=== PATIENT | male | born 1960 | race Caucasian/White ===

== ENCOUNTER 2019-11-17 07:27 | Day surgery (SDC) | payer BC, SELFPAY ==
[2019-11-14 09:17] VITALS: BMI 32.3
--- NOTE | 2019-11-14 10:30 | P.CONAN_ITS ---
Documented by User: Fanny Waddell 11/16/19 10:42 HPI - Anesthesia Eval Consult details Narrative: 59yo M for EGD [facility] Past Medical History Medical History Family history of cancer of GI tract Heartburn Hyperlipidemia Hypertension Sleep apnea Surgical History Surgical History History of esophagogastroduodenoscopy (EGD) Hx of adenoidectomy Hx of colonoscopy Hx of elbow surgery Hx of knee surgery Hx of repair of rotator cuff Hx of tonsillectomy Social History Social History Smoking Status: Current some day smoker Smoked in Last 30 Days: Yes Use of substances other than those prescribed or required for medical reasons: No Advance Directives: No Advance Directives Information Provided: No Advance Directives on File: No Meds Allergies Allergy/AdvReac Type Severity Reaction Status Date / Time No Known Allergies Allergy Unverified 10/26/19 15:19 [No Known Allergies*] Home Medications Medication Instructions Recorded Confirmed Type aspirin 81 mg PO DAILY 11/10/19 11/10/19 History atorvastatin 10 mg PO BEDTIME 11/10/19 11/10/19 History ibuprofen [Motrin] 400 mg PO Q6H PRN 11/10/19 11/10/19 History losartan 1 tab PO DAILY 11/14/19 11/14/19 History Exam Exam Date and Time: November 14, 2019 1030 Height,Weight and Vital Signs: Height 5 ft 6 in Weight 90.718 kg Pertinent Lab Results Pertinent Lab Results: Laboratory Tests 06/22/19 10/20/19 07:38 11:20 WBC 6.3 Hgb 15.3 Hct 45.9 Plt Count 193 Sodium 140 Potassium 4.3 Chloride 105 BUN 13 Creatinine 1.04 Assessment and Plan Assessment Anesthesia Assessment: Chart Reviewed Documented by User: Agatha Zarate 11/17/19 08:27 [facility] Past Medical History Medical History Family history of cancer of GI tract Heartburn Hyperlipidemia Hypertension Sleep apnea Family History Family history of problems with anesthesia: No Surgical History Surgical History History of esophagogastroduodenoscopy (EGD) Hx of adenoidectomy Hx of colonoscopy Hx of elbow surgery Hx of knee surgery Hx of repair of rotator cuff Hx of tonsillectomy History of Problems with Anesthesia: No Social History Social History Smoking Status: Current some day smoker Smoked in Last 30 Days: Yes Use of substances other than those prescribed or required for medical reasons: No Advance Directives: No Advance Directives Information Provided: No Advance Directives on File: No Meds Allergies Allergy/AdvReac Type Severity Reaction Status Date / Time No Known Allergies Allergy Unverified 10/26/19 15:19 [No Known Allergies*] Home Medications Medication Instructions Recorded Confirmed Type aspirin 81 mg PO DAILY 11/10/19 11/10/19 History atorvastatin 10 mg PO BEDTIME 11/10/19 11/10/19 History ibuprofen [Motrin] 400 mg PO Q6H PRN 11/10/19 11/10/19 History losartan 1 tab PO DAILY 11/14/19 11/14/19 History Exam Height,Weight and Vital Signs: Vital Signs Temp Pulse Resp Pulse Ox 11/17/19 07:50 97.1 F 73 16 97 Airway Mallampati Class: II TM Dist: >3cm Neck ROM: Full Loose/Missing/Broken Teeth: No Heart: RRR Lungs: CTAB Assessment and Plan Assessment Anesthesia Assessment: Anesthesia Plan Discussed and Chart Reviewed Final Anesthetic Review NPO: Yes ASA Class: III Final Preanesthetic Review: No Changes in Pt Med Stat, Meds/Allgs Chart Reviewed, Consent Obtained/Reviewed and Anes Risks/Benef Reviewed Patient Risk: Intermediate Procedure Risk: Low Anesthetic Plan Anesthetic Plan: MAC: Disposition: Standard PACU
[2019-11-17 07:50] VITALS: PULSE 73; RESP 16; TEMP 36.2; O2SAT 97
[2019-11-17 08:31] VITALS: BP 144/79
--- NOTE | 2019-11-17 08:35 | P.HPSUR_ITS ---
Pre-Procedural Eval Section B Chief Complaint: EGD Details of Present Illness: screening, see H&P Relevant Family History (Specify if Yes): Yes Relevant Social History: None Present Medications: see Short Stay Collaborative assessment Medical History: Significant History (see H&P) Allergies: Allergies Allergy/AdvReac Type Severity Reaction Status Date / Time No Known Allergies Allergy Unverified 10/26/19 15:19 [No Known Allergies*] Review of Systems Sugical H&P ROS: Negative: Constitution, Cardiovascular, Respiratory, Neurological, Psychiatric, Hem-Onc, Allergic/Immunologic, Gastrointestinal, Genitourinary, Musculoskeletal, Integumentary, Endocrine and Eyes/Ears/Nose/T hroat Exam Surgical H&P Exam: Normal: HEENT, Normal: Heart, Normal: Lungs, Normal: Extremities, Normal: Abdomen, Normal: Skin and Normal: Neurological Plan Diagnosis/Plan: Unchanged Patient has been examined and remains a candidate for the planned procedure
--- NOTE | 2019-11-17 09:03 | PM.OP ---
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
[2019-11-17 09:07] VITALS: BP 121/72; PULSE 77; RESP 12; TEMP 36.4; O2SAT 95
[2019-11-17 09:25] VITALS: BP 121/87; PULSE 76; RESP 16; O2SAT 95
[2019-11-17 09:40] VITALS: BP 152/80; PULSE 76; RESP 14; TEMP 36.4; O2SAT 97
[2019-11-17] MEDS: Lactated Ringers 1,000 ML 100 ML IVCONT (10:00)
--- NOTE | 2019-11-17 10:09 | HO.POSTANES ---
Post Anesthesia Evaluation Post Anesthesia Evaluation Vital Signs: Vital Signs Temp Pulse Resp BP Pulse Ox 11/17/19 09:40 97.5 F 76 14 152/80 H 97 11/17/19 09:25 76 16 121/87 95 11/17/19 09:07 97.5 F 77 12 121/72 95 11/17/19 08:31 144/79 H 11/17/19 07:50 97.1 F 73 16 97 Anesthesia: Monitored Mental Status: Awake Pain Control: Satisfactory Nausea/Vomiting: None Hydration: Adequate Anesthesia-Related Issues: No Anes. Related Issues
--- NOTE | 2019-11-17 15:25 | OP_ITS ---
SURGEON: Jonny Gonzalez MD INDICATIONS: Hereditary diffuse gastric cancer syndrome. PREOPERATIVE DIAGNOSIS: POSTOPERATIVE DIAGNOSIS: PROCEDURE PERFORMED: Upper endoscopy with biopsy. ESTIMATED BLOOD LOSS: COMPLICATIONS: ANESTHESIA: ASSISTANTS: SPECIMENS: MEDICATIONS: Monitored anesthesia care. DESCRIPTION OF PROCEDURE: History and physical performed. The risks and benefits of the procedure were explained to the patient. Informed consent was obtained and the patient was placed in left lateral decubitus position. The Olympus video gastroscope was introduced into the esophagus, stomach, and duodenum. Examination was performed. The scope was removed. He tolerated the procedure well and was taken to recovery room in stable condition. FINDINGS: ESOPHAGUS: The esophagus was normal. STOMACH: The stomach showed normal distensibility. There were some scarring from previous biopsies. No mass lesions were identified. The mucosa was normal without any white spots. Simethicone and acetylcysteine were infused for mucolytic and anti-foaming properties to assist in measurement of gastric distensibility, which was normal. Biopsies were obtained per the protocol from the pre-pyloric area, antrum, transition zone, body, fundus and cardia. No evidence of obvious gastric cancer was identified. DUODENUM: The bulb and second portion were normal. IMPRESSION: Hereditary diffuse gastric cancer syndrome. RECOMMENDATIONS: 1. Follow up the biopsy results. 2. Repeat endoscopy in six months. MD GAYLE Mendoza/CHRISTOPHER / [id number]
== END 2019-11-17 10:34 | disposition home or self-care (01) ==
PROVIDERS: PCP Internal Medicine; Visit Provider Internal Medicine Gastroenterology
PROC: 0DJ08ZZ Inspection of Upper Intestinal Tract, Via Natural or Artificial Opening Endoscopic (ICD-10-PCS; CPT 43235; principal; 2019-11-17 08:30)
DX: Z15.09 Genetic susceptibility to other malignant neoplasm (principal); Z80.0 Family history of malignant neoplasm of digestive organs; G47.33 Obstructive sleep apnea (adult) (pediatric); E78.00 Pure hypercholesterolemia, unspecified; I10 Essential (primary) hypertension; Z87.891 Personal history of nicotine dependence; Z79.82 Long term (current) use of aspirin; Z79.899 Other long term (current) drug therapy
CPT/HCPCS: 43239; 88305; 88342

== ENCOUNTER → 2019-12-29 14:12 | Outpatient (BNVA) | payer BC, SELFPAY | PROVIDERS: PCP Internal Medicine; Visit Provider Physician Assistant Medical | DX: Z76.89 Persons encountering health services in other specified circumstances (principal) | CPT/HCPCS: G0296 ==

== ENCOUNTER 2020-04-12 13:08 | Outpatient (REF) | payer BC, SELFPAY ==
--- NOTE | ~2020-04-12 | CT_ITS ---
EXAMINATION: CT CHEST SCREENING CLINICAL INFORMATION: Lung cancer screening COMPARISON: None. TECHNIQUE: Multidetector volumetric CT imaging of the chest is performed without contrast using low dose technique. Additional 2D coronal and sagittal reformatted images and axial 3D maximum intensity projection (MIP) images are generated on the CT workstation. This CT examination was performed using dose optimization techniques as appropriate, variously including the following: *Automated exposure control *Adjustment of mA and/or kV according to patient size (this includes techniques or standardized protocols for targeted exams where dose is matched to indication/reason for exam; i.e. extremities or head) *Use of iterative reconstruction technique DLP: 63 mGy-cm FINDINGS: LUNGS: There is evidence of severe paraseptal emphysema. The lungs are clear. No pulmonary mass or nodule is seen. There is question of mild peripheral interstitial disease. No evidence of bronchiectasis or endobronchial or endotracheal lesion is seen. MEDIASTINUM: There are small mediastinal lymph nodes. There is mild to moderate coronary artery calcification. The mediastinum is otherwise normal. PLEURA: There is no pleural effusion. No pleural mass or thickening. AXILLA: No lymphadenopathy. UPPER ABDOMEN: The gallbladder is upper normal in size. OSSEOUS STRUCTURES: There are degenerative changes of the spine. CT/CT lung screening IMPRESSION: Severe emphysema. Coronary artery calcification. ASSESSMENT: Lung-RADS category 1: Negative RECOMMENDATION: Annual low-dose chest CT follow-up recommended.
== END 2020-04-12 13:09 | disposition home or self-care (01) ==
LOC: HO.CT 13:08
PROVIDERS: Visit Provider Physician Assistant Medical
DX: Z12.2 Encounter for screening for malignant neoplasm of respiratory organs (principal); F17.210 Nicotine dependence, cigarettes, uncomplicated
CPT/HCPCS: 71271

== ENCOUNTER 2020-05-10 13:15 | Outpatient (REF) | payer BC, SELFPAY ==
[2020-05-10 14:07] LABS: MANUAL DIFF FLAG NO
[2020-05-10 14:17] LABS: Basophils Absolute Auto 0.1 X10*3/uL (0.0-0.2); Basophils Percent Auto 0.7 % (0-2); Eosinophils Absolute Auto 0.2 X10*3/uL (0.0-0.4); Eosinophils Percent Auto 2.8 % (0-4); Hematocrit 43.4 % (42-52); Hemoglobin 14.3 g/dl (14.0-18.0); Imm Gran Abs Auto 0.02 X10*3/uL (0.00-0.03); Imm Gran Pct Auto 0.3 % (0.0-0.4); Lymphocytes Absolute Auto 1.8 X10*3/uL (1.2-4.9); Lymphocytes Percent Auto 24.4 % (20-40); Mean Corpuscular HGB Conc 32.9 g/dl (31.0-36.0); Mean Corpuscular Hemoglobin 30.8 pg (27.0-33.0); Mean Corpuscular Volume 93.3 fL (80-98); Mean Platelet Volume 11.2 fL (9.4-12.4); Monocytes Absolute Auto 0.8 X10*3/uL (0.1-1.2); Monocytes Percent Auto 10.5 % (2-11); Neutrophils Absolute Auto 4.4 X10*3/uL (2.0-8.3); Neutrophils Percent Auto 61.3 % (45-73); Platelet Count 188 X10*3/uL (160-400); Red Blood Count 4.65 X10*6/uL (4.60-5.80); Red Cell Distribution Width 13.5 % (11.0-16.0); White Blood Count 7.2 X10*3/uL (4.8-10.8)
[2020-05-10 14:43] LABS: Alanine Aminotransferase 44 U/L (0-40); Albumin Level 4.3 g/dL (3.5-5.0); Alkaline Phosphatase 82 U/L (39-117); Anion Gap 11 (12-20); Aspartate Amino Transferase 29 U/L (5-37); Bilirubin Total 0.3 mg/dL (0.0-1.0); Blood Urea Nitrogen 12 mg/dL (9-16); Carbon Dioxide 29 mmol/L (22-29); Chloride 103 mmol/L (96-108); Estimated Glomerular Filt Rate > 60; Glucose Random 100 mg/dL (60-115); Sodium 139 mmol/L (135-145); Total Protein 7.5 g/dL (6.5-8.0)
[2020-05-10 15:07] LABS: Estimated Average Glucose 126 mg/dL
== END 2020-05-10 13:16 | disposition home or self-care (01) ==
LOC: HO.LAB 13:15
PROVIDERS: PCP Internal Medicine; Visit Provider Internal Medicine
DX: I10 Essential (primary) hypertension (principal); E78.00 Pure hypercholesterolemia, unspecified; R73.03 Prediabetes
CPT/HCPCS: 36415; 80053; 83036; 85025

== ENCOUNTER 2020-05-17 09:46 | Day surgery (SDC) | payer BC, SELFPAY ==
--- NOTE | 2020-05-15 13:57 | HO.ANESPROP2 ---
Documented by User: Fanny Waddell 05/15/20 13:58 HPI - Anesthesia Eval Consult details Narrative: 59yo M for Upper Endoscopy s/p EGD with MAC 11/2019 [facility] Active Problems Active Problems: All Active Problems (Updated 12/29/19 @ 09:29 by Melania Lambert PA-C) Nicotine dependence, unspecified, uncomplicated (Acute) Past Medical History Medical History Family history of cancer of GI tract Heartburn Hyperlipidemia Hypertension Monoallelic mutation of CDH1 gene Nicotine dependence, unspecified, uncomplicated Obstructive sleep apnea on CPAP Family History Family History Father No problems noted. Mother No problems noted. Sister Monoallelic mutation of CDH1 gene History of stomach cancer BOOP (bronchiolitis obliterans with organizing pneumonia) Sister Monoallelic mutation of CDH1 gene History of stomach cancer Sister Hx of myocardial infarction Surgical History Surgical History History of esophagogastroduodenoscopy (EGD) History of medial meniscus repair of right knee Hx of colonoscopy Hx of elbow surgery Hx of repair of left rotator cuff Hx of repair of right rotator cuff Hx of tonsillectomy Hx of vasectomy Social History Social History Alcohol intake: current Alcohol intake frequency: a few times a month Alcohol type: beer and wine Smoking Status: Current some day smoker Tobacco Type: Cigar Years Smoked: 35 Patient Interested in Nicotine Replacement: No Patient Given Instructions on How to Stop Smoking: No Second Hand Smoke Exposure: No Use of substances other than those prescribed or required for medical reasons: No Advance Directives: Yes Advance Directives on File: Yes Advance Directives Date on File: 05/17/20 service: Yes (Served in [place] [employer]) Current occupational status: employed Current occupation: Works for [employer] Current occupational exposures/hazards: No Meds Allergies Allergy/AdvReac Type Severity Reaction Status Date / Time No Known Allergies Allergy Verified 05/17/20 09:58 [No Known Allergies*] Active Medications: Current Medications Generic Name Dose Route Start Last Admin Trade Name Freq PRN Reason Stop Dose Admin Acetylcysteine 1 mg 05/17/20 07:00 Acetylcysteine 20 % 6,000 Mg/30 Ml Vial OG-TUBE 05/17/20 07:01 ONCE ONE Home Medications Medication Instructions Recorded Confirmed Last Taken Type aspirin 81 mg PO DAILY 11/10/19 11/10/19 Unknown History atorvastatin 10 mg PO BEDTIME 11/10/19 11/10/19 Unknown History ibuprofen 400 mg PO Q6H PRN 11/10/19 11/10/19 Unknown History losartan 1 tab PO DAILY 11/14/19 11/14/19 Unknown History Exam Exam Date and Time: May 15, 2020 135 Assessment and Plan Assessment Anesthesia Assessment: Chart Reviewed Documented by User: Rebekah Sr 05/17/20 10:55 [facility] Past Medical History Medical History Family history of cancer of GI tract Heartburn Hyperlipidemia Hypertension Monoallelic mutation of CDH1 gene Nicotine dependence, unspecified, uncomplicated Obstructive sleep apnea on CPAP Family History Family History Father No problems noted. Mother No problems noted. Sister Monoallelic mutation of CDH1 gene History of stomach cancer BOOP (bronchiolitis obliterans with organizing pneumonia) Sister Monoallelic mutation of CDH1 gene History of stomach cancer Sister Hx of myocardial infarction Surgical History Surgical History History of esophagogastroduodenoscopy (EGD) History of medial meniscus repair of right knee Hx of colonoscopy Hx of elbow surgery Hx of repair of left rotator cuff Hx of repair of right rotator cuff Hx of tonsillectomy Hx of vasectomy Social History Social History Alcohol intake: current Alcohol intake frequency: a few times a month Alcohol type: beer and wine Smoking Status: Current some day smoker Tobacco Type: Cigar Years Smoked: 35 Patient Interested in Nicotine Replacement: No Patient Given Instructions on How to Stop Smoking: No Second Hand Smoke Exposure: No Use of substances other than those prescribed or required for medical reasons: No Advance Directives: Yes Advance Directives on File: Yes Advance Directives Date on File: 05/17/20 service: Yes (Served in [place] [employer]) Current occupational status: employed Current occupation: Works for [employer] Current occupational exposures/hazards: No Meds Allergies Allergy/AdvReac Type Severity Reaction Status Date / Time No Known Allergies Allergy Verified 05/17/20 09:58 [No Known Allergies*] Home Medications Medication Instructions Recorded Confirmed Last Taken Type aspirin 81 mg PO DAILY 11/10/19 11/10/19 Unknown History atorvastatin 10 mg PO BEDTIME 11/10/19 11/10/19 Unknown History ibuprofen 400 mg PO Q6H PRN 11/10/19 11/10/19 Unknown History losartan 1 tab PO DAILY 11/14/19 11/14/19 Unknown History Exam Airway Mallampati Class: II TM Dist: >3cm Neck ROM: Full Loose/Missing/Broken Teeth: No Heart: RRR Lungs: CTA Assessment and Plan Assessment Anesthesia Assessment: Anesthesia Plan Discussed and Chart Reviewed Final Anesthetic Review NPO: Yes ASA Class: II Final Preanesthetic Review: Meds/Allgs Chart Reviewed, Consent Obtained/Reviewed and Anes Risks/Benef Reviewed Patient Risk: Low Procedure Risk: Intermediate Anesthetic Plan Anesthetic Plan: MAC: Disposition: Standard PACU
[2020-05-17 10:13] VITALS: BP 102/78; PULSE 73; RESP 16; TEMP 36.2; O2SAT 95; BMI 32.3
[2020-05-17 10:17] VITALS: BMI 32.3
[2020-05-17] MEDS: Lactated Ringers 1,000 ML 100 ML IVCONT (10:19)
--- NOTE | 2020-05-17 10:46 | MHC.SHP ---
Pre-Procedural Eval Section B Chief Complaint: hereditary gastric cancers Details of Present Illness: see H&P no changes Relevant Family History (Specify if Yes): Yes Relevant Social History: None Present Medications: see Short Stay Collaborative assessment Medical History: No relevant PMH History of Previous Operations: No relevant previous surgery Allergies: Allergies Allergy/AdvReac Type Severity Reaction Status Date / Time No Known Allergies Allergy Verified 05/17/20 09:58 [No Known Allergies*] Review of Systems Sugical H&P ROS: Negative: Constitution, Cardiovascular, Respiratory, Neurological, Psychiatric, Hem-Onc, Allergic/Immunologic, Gastrointestinal, Genitourinary, Musculoskeletal, Integumentary, Endocrine and Eyes/Ears/Nose/Throat Exam Surgical H&P Exam: Normal: HEENT, Normal: Heart, Normal: Lungs, Normal: Extremities, Normal: Abdomen, Normal: Skin and Normal: Neurological Plan Diagnosis/Plan: Unchanged I have reviewed the history and physical and performed a pertinent physical examination on my patient. No changes have occurred unless specified.
[2020-05-17 11:45] VITALS: BP 93/47; PULSE 95; RESP 18; TEMP 36.6; O2SAT 98
--- NOTE | 2020-05-17 11:52 | PM.OP ---
Brief Operative Note Date of Service: 05/17/20 Pre-op diagnosis: Gastric cancer syndrome Post-op diagnosis: same Procedure: egd Surgeon: Jonny Gonzalez Anesthesia: MAC Estimated blood loss (mL): 5 Pathology: other (multiple bxs) Condition: stable Disposition: PACU
[2020-05-17 12:00] VITALS: BP 97/61; PULSE 85; RESP 16; O2SAT 97
[2020-05-17 12:15] VITALS: BP 107/72; PULSE 83; RESP 16; O2SAT 94
--- NOTE | 2020-05-17 12:16 | OP_ITS ---
SURGEON: Jonny Gonzalez MD INDICATIONS: Hereditary diffuse gastric cancer syndrome. PREOPERATIVE DIAGNOSIS: POSTOPERATIVE DIAGNOSIS: PROCEDURE PERFORMED: Upper endoscopy with biopsy. ESTIMATED BLOOD LOSS: COMPLICATIONS: ANESTHESIA: ASSISTANTS: SPECIMENS: MEDICATIONS: Monitored anesthesia care. DESCRIPTION OF PROCEDURE: History and physical performed. The risks and benefits of the procedure were explained to the patient. Informed consent was obtained. The patient was placed in left lateral decubitus position. The Olympus video gastroscope was introduced into the esophagus, stomach, and duodenum. Examination was performed and the scope was removed. He tolerated the procedure well and was taken to recovery area in stable condition. FINDINGS: ESOPHAGUS: The esophagus was normal. STOMACH: The stomach showed no evidence of masses, ulcers, or polyps. Irrigation with simethicone and Mucomyst was performed with no abnormal gastric distensibility identified. Biopsies were obtained per the protocol for gastric cancer syndrome including from the pre-pyloric area, antrum transition zone, body, fundus, and cardia. DUODENUM: The bulb and second portion were normal. IMPRESSION: Normal upper endoscopy. RECOMMENDATIONS: 1. Follow up the biopsy results. 2. Repeat endoscopy is recommended in 6 months. MD GAYLE Mendoza/CHRISTOPHER / [id number]
[2020-05-17 12:26] VITALS: TEMP 36.6; O2SAT 95
== END 2020-05-17 13:01 | disposition home or self-care (01) ==
PROVIDERS: PCP Internal Medicine; Visit Provider Internal Medicine Gastroenterology
PROC: 0DJ08ZZ Inspection of Upper Intestinal Tract, Via Natural or Artificial Opening Endoscopic (ICD-10-PCS; CPT 43235; principal; 2020-05-17 10:50)
DX: Z15.09 Genetic susceptibility to other malignant neoplasm (principal); I10 Essential (primary) hypertension; Z86.010 Personal history of colon polyps; Z80.0 Family history of malignant neoplasm of digestive organs
CPT/HCPCS: 43239; 88305; 88342

== ENCOUNTER 2020-05-19 10:04 | Emergency (ER) | payer BC, SELFPAY ==
--- NOTE | ~2020-05-19 | US_ITS ---
EXAMINATION: US VENOUS ULTRASOUND WITH DOPPLER LOWER EXTREMITY, LEFT CLINICAL INFORMATION: Left calf pain for one week. COMPARISON: None TECHNIQUE: Ultrasound of the deep veins is performed from the hip to the calf with compression sonography and color and pulse Doppler assessment. Spectral analysis with color-flow imaging is performed. FINDINGS: There is normal venous compression and respiratory variation and augmented flow. The visualized common femoral vein, superficial femoral vein, profunda femoral vein, popliteal vein, and the trifurcation region shows no evidence of deep venous thrombosis. 2.0 x 0.3 x 1.9 cm fluid collection is identified within the proximal calf laterally, indeterminate etiology. If the patient's symptoms persist, followup ultrasound in 5 days 7 days might be of value to exclude proximal propagation from a non-visualized calf vein. US/US venous duplex LE IMPRESSION: No DVT demonstrated in the left lower extremity. 2.0 cm nonspecific fluid collection within the proximal calf laterally, of indeterminate etiology.
[2020-05-19 11:06] VITALS: BP 136/85; PULSE 81; RESP 15; TEMP 36.8; O2SAT 96; BMI 32.3
--- NOTE | 2020-05-19 11:18 | ED_ITS ---
HPI - General Adult General Chief complaint: General Medical Stated complaint: ? 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 The pain started 1 week prior. The patient had no trauma. The patient points to his left lateral aspect of his calf when asked to localize the pain, the pain is a constant, cramping sensation which is moderate in intensity but has gotten progressively worse over the past week. The patient's who is a nurse, measured the patient's cap this and felt that they with symmetric which was concerned that he continued to have pain and was concerned about a DVT so she brought him to the emergency department for evaluation. The patient takes aspirin but this was stopped 10 days prior for a screening endoscopy which was performed on Wednesday, 2 days prior to evaluation. The patient has a genetic defect that makes him have increased risk for stomach cancer and and a gets frequent screening endoscopies. He denies fever, chills, chest pain, shortness of breath, nausea, vomiting, abdominal pain. He has not gone on any long trips. The patient had a COVID-19 infection in February of 2020, he is scheduled for COVID-19 vaccination this week. Related Data Home Medications Medication Instructions Recorded Confirmed aspirin 81 mg PO DAILY 11/10/19 11/10/19 atorvastatin 10 mg PO BEDTIME 11/10/19 11/10/19 ibuprofen 400 mg PO Q6H PRN 11/10/19 11/10/19 losartan 1 tab PO DAILY 11/14/19 11/14/19 Allergies Allergy/AdvReac Type Severity Reaction Status Date / Time No Known Allergies Allergy Verified 05/17/20 09:58 [No Known Allergies*] Review of Systems Review of Systems: Yes all other systems are reviewed and are negative [facility] Past Medical History Medical History Family history of cancer of GI tract Heartburn Hyperlipidemia Hypertension Monoallelic mutation of CDH1 gene Nicotine dependence, unspecified, uncomplicated Obstructive sleep apnea on CPAP Surgical History History of esophagogastroduodenoscopy (EGD) History of medial meniscus repair of right knee Hx of colonoscopy Hx of elbow surgery Hx of repair of left rotator cuff Hx of repair of right rotator cuff Hx of tonsillectomy Hx of vasectomy Family History Family History Father No problems noted. Mother No problems noted. Sister Monoallelic mutation of CDH1 gene History of stomach cancer BOOP (bronchiolitis obliterans with organizing pneumonia) Sister Monoallelic mutation of CDH1 gene History of stomach cancer Sister Hx of myocardial infarction Social History Social History Alcohol intake: current Alcohol intake frequency: holidays/special occasions only Alcohol type: beer and wine Smoking Status: Light tobacco smoker Tobacco Type: Cigar Years Smoked: 35 Second Hand Smoke Exposure: No Use of substances other than those prescribed or required for medical reasons: No Advance Directives: No Advance Directives Date on File: 05/17/20 service: Yes (Served in [employer]) Current occupational status: employed Current occupation: Works for [employer] Current occupational exposures/hazards: No Physical Exam Vital Signs: Vital Signs: Last Vital Signs Temp 98.3 F 05/19/20 11:22 Pulse 86 05/19/20 11:22 Resp 15 05/19/20 11:22 BP 136/85 05/19/20 11:22 Pulse Ox 94 05/19/20 11:22 Body Mass Index 32.3 Const: General: cooperative and healthy appearing Orientation/consciousness: oriented to person and oriented to place Limitations: no limitations HENMT: Head: Yes normal to inspection, Yes normocephalic and Yes atraumatic Ears: external ears normal General nose exam: Normal external nose present Face and sinus: Yes normal facial exam Mouth: Normal oral and palatal mucosa present Throat: Yes posterior oropharynx normal Eyes: Periorbital: periorbital findings normal Eyelids: Yes eyelids normal Conjunctivae: conjunctivae normal Sclerae: sclerae normal Corneas: corneas normal Pupils: Equal, round and reactive pupils present Direct Ophthalmoscopy: normal light reflex Neck: Neck: Yes full ROM, Yes no lymphadenopathy, Yes no meningeal signs, Yes trachea midline and Yes supple Chest: Chest palpation & inspection: normal inspection of the chest and normal palpation of entire chest wall Resp: Effort & Inspection: normal respiratory effort and able to speak in complete sentences Auscultation: clear to auscultation bilaterally Cardio: Rate: regular rate Rhythm: regular rhythm Heart sounds: S1 normal heart sound present, S2 normal heart sound present and no murmurs GI: Inspection: Yes normal to inspection Palpation (GI): Soft to palpation, nontender, no guarding, not rigid and No hepatosplenomegaly present : General: Yes no CVA tenderness Back/Spine/Pelvis: Back: no CVA tenderness Cervical Spine: normal cervical lordosis Thoracic/Lumbar Spine: thoracic and lumbar spine normal to inspection Skin: Lesions: no lesions Rashes: no rashes Wounds: no wounds Neuro: General: oriented to person, oriented to place and no meningeal signs Cranial nerves: Yes CN's II-XII intact bilaterally and Yes Equal, round and reactive pupils present Cognition (Neuro): normal cognition Motor exam (neuro): 5/5 motor strength present throughout Extrem: Other: Calves and thighs appear to be symmetric, tender lateral proximal left calf, positive Homans sign on left, right-side normal General: Yes normal to inspection Psych: Appearance: well kempt Mental Status: mental status grossly normal Speech and movement: Normal speech and movement present Affect: normal affect Attitude: cooperative Thought process: Normal thought process present Thought content: Normal thought content present Course Course Course Narrative: 59-year-old male who presents emergency department for evaluation left calf pain x1 week, patient did have left calf tenderness with a positive Homans sign. I did order a duplex ultrasound to rule out DVT of the left lower extremity. 1239: The Doppler ultrasound of the patient's left lower extremity did not reveal any obstructive blood clots, the patient does have a 2 cm fluid collection to the lateral aspect of his calf, in the area where he has tenderness. I did discuss these findings with the patient and the patient's . I told the patient that if he continues to have pain 4 days from now that he needs a repeat Doppler ultrasound to rule out the possibility of a propagating blood clot. Patient is otherwise advised to take ibuprofen Tylenol, use ice and heat. He was instructed to return to emergency department if he develops any signs and symptoms of pulmonary embolism. Medical Decision Making Imaging Data Venous US: My impression: No DVT noted, 2 cm left lateral calf fluid collection Radiologist's impression: EXAMINATION: US VENOUS ULTRASOUND WITH DOPPLER LOWER EXTREMITY, LEFT CLINICAL INFORMATION: Left calf pain for one week. COMPARISON: None TECHNIQUE: Ultrasound of the deep veins is performed from the hip to the calf with compression sonography and color and pulse Doppler assessment. Spectral analysis with color-flow imaging is performed. FINDINGS: There is normal venous compression and respiratory variation and augmented flow. The visualized common femoral vein, superficial femoral vein, profunda femoral vein, popliteal vein, and the trifurcation region shows no evidence of deep venous thrombosis. 2.0 x 0.3 x 1.9 cm fluid collection is identified within the proximal calf laterally, indeterminate etiology. If the patient's symptoms persist, followup ultrasound in 5 days 7 days might be of value to exclude proximal propagation from a non-visualized calf vein. US/US venous duplex LE LT IMPRESSION: No DVT demonstrated in the left lower extremity. 2.0 cm nonspecific fluid collection within the proximal calf laterally, of indeterminate etiology. Dictated By:LOUISE CRAIG MDSigned By:<Electronically signed by LOUISE CRAIG MD in OV>05/19/20 1222 DD/ [id number]/TT: [employer] Flatbed Driver: RADHA Discharge Plan Discharge Clinical Impression: Pain of left calf Patient Disposition: Home, Self-Care Additional Instructions: The Doppler ultrasound of your left lower extremity did not reveal any blood clot which is reassuring. The Doppler ultrasound can miss small blood clots in the calf veins and it is important to get a repeat Doppler ultrasound in 4-7 days especially if your symptoms are persisting, to rule out a growing blood clot that was missed on the 1st ultrasound. You should call your doctor on Wednesday to discuss setting up repeat ultrasound in 4-7 days. The Doppler ultrasound did reveal a 2 cm fluid collection to the left lateral as pect of your calf, this suggests that you may have injured your calf muscle and this could be the cause of your pain. Take ibuprofen 200 mg pills, 2 pills every 6 hours as needed for pain. Take Tylenol (acetaminophen) 500 mg pills, 2 pills every 4 to 6 hours as needed for pain. Use ice to the left lateral aspect of the calf for 15 minutes 4 to 6 times a day. After you ice to calf area, apply heating pad on low for 15 minutes 4 to 6 times a day. Follow-up with your doctor in 2 days. Please return to the emergency department if your symptoms get worse or if you develop any symptoms that are concerning to you. You need to watch for signs of a blood clot to your lungs (pulmonary embolus). These symptoms would include chest pain that is worse with breathing, shortness of breath, shortness of breath when you walk around, lightheadedness or dizziness. Prescriptions: No Action atorvastatin 10 mg Tablet 10 mg PO BEDTIME RF: 0 ibuprofen 400 mg Tablet 400 mg PO Q6H PRN (Reason: Pain) RF: 0 aspirin 81 mg Tablet 81 mg PO DAILY RF: 0 losartan 25 mg tablet 1 tab PO DAILY RF: 0
[2020-05-19 11:22] VITALS: BP 136/85; PULSE 86; RESP 15; TEMP 36.8; O2SAT 94
--- NOTE | 2020-05-19 12:06 | PC.NURSE ---
POSITIVE CMS BILATERALLY, NO SWELLING, WARMTH, OR REDNESS. LEFT PROXIMAL CALF TENDER TO TOUCH. TAKES BABY ASPIRIN DAILY.
== END 2020-05-19 12:52 | disposition home or self-care (01) ==
PROVIDERS: Emergency Provider Emergency Medicine Emergency Medical Services; PCP Internal Medicine
DX: M79.662 Pain in left lower leg (principal); I10 Essential (primary) hypertension; E78.5 Hyperlipidemia, unspecified; F17.210 Nicotine dependence, cigarettes, uncomplicated; Z79.82 Long term (current) use of aspirin; Z79.02 Long term (current) use of antithrombotics/antiplatelets; Z79.899 Other long term (current) drug therapy; Z86.16 Personal history of COVID-19
CPT/HCPCS: 93971; 99284

== ENCOUNTER 2020-06-04 07:38 | Outpatient (REF) | payer BC, SELFPAY ==
--- NOTE | ~2020-06-04 | MR_ITS ---
EXAMINATION: MRI OF THE LEFT LOWER LEG WITHOUT CONTRAST CLINICAL INFORMATION: Pain/swelling left anterior compartment syndrome. COMPARISON: None TECHNIQUE: Multiplanar MR imaging was obtained through the left lower leg without contrast material on a 1.5 Deanna magnet. FINDINGS: As seen on image / of series 6, there is very mild nonspecific edema signal within the more medial fibers of the soleus muscle at the level of the mid calf. The calf musculature is otherwise normal in signal intensity without atrophy, additional edema signal, or fatty replacement. There is anterior, superficial bulging of the anterior compartment musculature in the region of the palpable abnormality without a discrete, clear fascial defect. The anterior compartment musculature is normal in signal intensity. Tendons are intact. Bones are normal in signal intensity without marrow edema or fatty replacement. No stress reactions or fractures. Subcutaneous fat is normal in signal intensity. Neurovascular structures are unremarkable. No focal lesions. MR/MR lower leg LT wo con IMPRESSION: 1. Slight superficial bulging of the anterior compartment musculature at the superficial fascia. This is nonspecific and could be due to normal variation in muscle bulk. There are no clear findings of compartment syndrome such as muscle edema, fibrosis, or atrophy. There are no fascial defects to indicate a muscle herniation. Importantly, exercise-induced chronic exertional compartment syndrome is often occult on MRI in the absence of a specific MRI protocol with exercise at the time of scanning. 2. Minimal edema signal within the medial head of the soleus muscle is nonspecific and could be due to a mild strain.
== END 2020-06-04 07:39 | disposition home or self-care (01) ==
LOC: HO.MRI 07:38
PROVIDERS: Visit Provider Internal Medicine
DX: R22.42 Localized swelling, mass and lump, left lower limb (principal)
CPT/HCPCS: 73718

== ENCOUNTER 2020-09-06 06:43 | Outpatient (REF) | payer BC, SELFPAY ==
[2020-09-06 07:37] LABS: MANUAL DIFF FLAG NO
[2020-09-06 07:41] LABS: Basophils Absolute Auto 0.1 X10*3/uL (0.0-0.2); Basophils Percent Auto 0.8 % (0-2); Eosinophils Absolute Auto 0.2 X10*3/uL (0.0-0.4); Eosinophils Percent Auto 2.8 % (0-4); Hematocrit 44.8 % (42-52); Hemoglobin 14.8 g/dl (14.0-18.0); Imm Gran Abs Auto 0.03 X10*3/uL (0.00-0.03); Imm Gran Pct Auto 0.4 % (0.0-0.4); Lymphocytes Percent Auto 27.3 % (20-40); Mean Corpuscular Hemoglobin 30.5 pg (27.0-33.0); Mean Corpuscular Volume 92.2 fL (80-98); Mean Platelet Volume 11.4 fL (9.4-12.4); Monocytes Absolute Auto 0.9 X10*3/uL (0.1-1.2); Monocytes Percent Auto 11.7 % (2-11); Neutrophils Absolute Auto 4.2 X10*3/uL (2.0-8.3); Platelet Count 190 X10*3/uL (160-400); Red Blood Count 4.86 X10*6/uL (4.60-5.80); Red Cell Distribution Width 13.3 % (11.0-16.0); White Blood Count 7.4 X10*3/uL (4.8-10.8)
[2020-09-06 07:56] LABS: Estimated Average Glucose 131 mg/dL; Hemoglobin A1c % 6.2 %
[2020-09-06 08:13] LABS: Alanine Aminotransferase 35 U/L (0-40); Albumin Level 4.4 g/dL (3.5-5.0); Alkaline Phosphatase 80 U/L (39-117); Anion Gap 11 (12-20); Aspartate Amino Transferase 30 U/L (5-37); Bilirubin Total 0.5 mg/dL (0.0-1.0); Blood Urea Nitrogen 14 mg/dL (9-16); Calcium 9.4 mg/dL (8.4-10.2); Carbon Dioxide 26 mmol/L (22-29); Chloride 109 mmol/L (96-108); Cholesterol 129 mg/dL; Estimated Glomerular Filt Rate > 60; Glucose Random 108 mg/dL (60-115); HDL Cholesterol 24 mg/dL; LDL Cholesterol Calculated 63 mg/dl; Potassium 4.7 mmol/L (3.3-5.1); Sodium 141 mmol/L (135-145); Total Protein 7.6 g/dL (6.5-8.0); Triglycerides 213 mg/dL
[2020-09-06 08:19] LABS: Prostate Specific Antigen 3.14 ng/mL (<0.05-4.0)
== END 2020-09-06 06:44 | disposition home or self-care (01) ==
LOC: HO.LAB 06:43
PROVIDERS: PCP Internal Medicine; Visit Provider Internal Medicine
DX: Z12.5 Encounter for screening for malignant neoplasm of prostate (principal); I10 Essential (primary) hypertension; E78.00 Pure hypercholesterolemia, unspecified; R73.03 Prediabetes; G47.33 Obstructive sleep apnea (adult) (pediatric); I49.1 Atrial premature depolarization
CPT/HCPCS: 36415; 80053; 80061; 83036; 84153; 85025

== ENCOUNTER 2020-11-15 07:11 | Day surgery (SDC) | payer BC, SELFPAY ==
[2020-11-11 10:20] VITALS: BMI 33.4
--- NOTE | 2020-11-14 10:19 | HO.ANESPROP2 ---
Documented by User: Fanny Waddell NP 11/14/20 10:21 HPI - Anesthesia Eval Consult details Narrative: 60yo M for Upper Endoscopy s/p Upper Endoscopy with MAC 05/2020 [facility] Active Problems Active Problems: All Active Problems (Updated 05/20/20 @ 00:01 by Background Daemon) Nicotine dependence, unspecified, uncomplicated (Acute) Past Medical History Medical History (Updated 05/20/20 @ 00:01 by Background Daemon) Family history of cancer of GI tract Heartburn Hyperlipidemia Hypertension Monoallelic mutation of CDH1 gene Nicotine dependence, unspecified, uncomplicated Obstructive sleep apnea on CPAP Family History Family History Father No problems noted. Mother No problems noted. Sister Monoallelic mutation of CDH1 gene History of stomach cancer BOOP (bronchiolitis obliterans with organizing pneumonia) Sister Monoallelic mutation of CDH1 gene History of stomach cancer Sister Hx of myocardial infarction Family history of problems with anesthesia: No Surgical History Surgical History (Updated 11/11/20 @ 10:15 by Pam Anne RN) History of esophagogastroduodenoscopy (EGD) History of medial meniscus repair of right knee Hx of colonoscopy Hx of elbow surgery Hx of repair of left rotator cuff Hx of repair of right rotator cuff Hx of tonsillectomy Hx of vasectomy History of Problems with Anesthesia: No Social History Social History Alcohol intake: current Alcohol intake frequency: holidays/special occasions only Alcohol type: beer and wine Patient Tobacco Use Status: Former Tobacco user Years Smoked: 35 Second Hand Smoke Exposure: No Use of substances other than those prescribed or required for medical reasons: No Are you DNR?: No Advance Directives: Yes Advance Directives on File: Yes Advance Directives Date on File: 05/17/20 Recently lost weight without trying: No Nutrition Risks: No Nutritional Risk service: Yes (Served in the [employer]) Current occupational status: employed Current occupation: Works for [employer] Current occupational exposures/hazards: No Meds Allergies Allergy/AdvReac Type Severity Reaction Status Date / Time No Known Allergies Allergy Verified 05/17/20 09:58 [No Known Allergies*] Home Medications Medication Instructions Recorded Confirmed Last Taken Type aspirin 81 mg tablet 81 mg PO DAILY 11/10/19 11/11/20 Unknown History atorvastatin 10 mg tablet 10 mg PO BEDTIME 11/10/19 11/11/20 Unknown History ibuprofen 400 mg tablet 400 mg PO Q6H PRN 11/10/19 11/11/20 Unknown History losartan 25 mg tablet 1 tab PO DAILY 11/14/19 11/11/20 Unknown History Exam Exam Date and Time: November 14, 2020 1019 Height,Weight and Vital Signs: Height 5 ft 6 in Weight 93.894 kg Pertinent Lab Results Pertinent Lab Results: Laboratory Tests 09/06/20 09/06/20 06:55 06:55 WBC 7.4 Hgb 14.8 Hct 44.8 Plt Count 190 Sodium 141 Potassium 4.7 Chloride 109 H Carbon Dioxide 26 BUN 14 Creatinine 0.97 Assessment and Plan Assessment Anesthesia Assessment: Chart Reviewed Final Anesthetic Review Family History of Problems with Anesthesia: No History of Problems with Anesthesia: No Documented by User: Adriel Cummings MD 11/15/20 07:37 [facility] Past Medical History Medical History (Updated 05/20/20 @ 00:01 by Jonathan Harkins) Family history of cancer of GI tract Heartburn Hyperlipidemia Hypertension Monoallelic mutation of CDH1 gene Nicotine dependence, unspecified, uncomplicated Obstructive sleep apnea on CPAP Family History Family History Father No problems noted. Mother No problems noted. Sister Monoallelic mutation of CDH1 gene History of stomach cancer BOOP (bronchiolitis obliterans with organizing pneumonia) Sister Monoallelic mutation of CDH1 gene History of stomach cancer Sister Hx of myocardial infarction Surgical History Surgical History (Updated 11/11/20 @ 10:15 by Pam Anne RN) History of esophagogastroduodenoscopy (EGD) History of medial meniscus repair of right knee Hx of colonoscopy Hx of elbow surgery Hx of repair of left rotator cuff Hx of repair of right rotator cuff Hx of tonsillectomy Hx of vasectomy Social History Social History Alcohol intake: current Alcohol intake frequency: holidays/special occasions only Alcohol type: beer and wine Patient Tobacco Use Status: Former Tobacco user Years Smoked: 35 Second Hand Smoke Exposure: No Use of substances other than those prescribed or required for medical reasons: No Are you DNR?: No Advance Directives: Yes Advance Directives on File: Yes Advance Directives Date on File: 05/17/20 Recently lost weight without trying: No Nutrition Risks: No Nutritional Risk service: Yes (Served in [employer]) Current occupational status: employed Current occupation: Works for [employer] Current occupational exposures/hazards: No Meds Allergies Allergy/AdvReac Type Severity Reaction Status Date / Time No Known Allergies Allergy Verified 05/17/20 09:58 [No Known Allergies*] Home Medications Medication Instructions Recorded Confirmed Last Taken Type aspirin 81 mg tablet 81 mg PO DAILY 11/10/19 11/11/20 Unknown History atorvastatin 10 mg tablet 10 mg PO BEDTIME 11/10/19 11/11/20 Unknown History ibuprofen 400 mg tablet 400 mg PO Q6H PRN 11/10/19 11/11/20 Unknown History losartan 25 mg tablet 1 tab PO DAILY 11/14/19 11/11/20 Unknown History Exam Airway Mallampati Class: III TM Dist: >3cm Neck ROM: Full Loose/Missing/Broken Teeth: No Heart: [id number] Lungs: cta b/l Assessment and Plan Assessment Anesthesia Assessment: Anesthesia Plan Discussed Final Anesthetic Review NPO: Yes ASA Class: II Final Preanesthetic Review: No Changes in Pt Med Stat, Meds/Allgs Chart Reviewed, Consent Obtained/Reviewed and Anes Risks/Benef Reviewed Patient Risk: Intermediate Procedure Risk: Low Assessment/Block/Sedation in SS: Assess/Block/Sedation-SS Anesthetic Plan Anesthetic Plan: MAC: and Agree w/ Assess. and Plan Disposition: Standard PACU
[2020-11-15 07:15] VITALS: BMI 33.0
[2020-11-15 07:28] VITALS: BP 139/79; PULSE 73; RESP 16; TEMP 36.4; O2SAT 97
[2020-11-15] MEDS: Lactated Ringers 1,000 ML 100 ML IVCONT (07:36)
[2020-11-15 08:39] VITALS: BP 92/53; PULSE 79; RESP 10; TEMP 36.4; O2SAT 95
--- NOTE | 2020-11-15 08:40 | P.HPSUR_ITS ---
Pre-Procedural Eval Section A Date of Service: 11/15/20 Section B Chief Complaint: malignant neoplasm Details of Present Illness: see H&P no changes Relevant Family History (Specify if Yes): Yes Relevant Social History: None Present Medications: see Short Stay Collaborative assessment Medical History: No relevant PMH History of Previous Operations: No relevant previous surgery Allergies: Allergies Allergy/AdvReac Type Severity Reaction Status Date / Time No Known Allergies Allergy Verified 05/17/20 09:58 [No Known Allergies*] Review of Systems Sugical H&P ROS: Negative: Constitution, Cardiovascular, Respiratory, Neurologic al, Psychiatric, Hem-Onc, Allergic/Immunologic, Gastrointestinal, Genitourinary, Musculoskeletal, Integumentary, Endocrine and Eyes/Ears/Nose/Throat Exam Surgical H&P Exam: Normal: HEENT, Normal: Heart, Normal: Lungs, Normal: Extremities, Normal: Abdomen, Normal: Skin and Normal: Neurological Plan Diagnosis/Plan: Unchanged I have reviewed the history and physical and performed a pertinent physical examination on my patient. No changes have occurred unless specified.
--- NOTE | 2020-11-15 08:43 | PM.OP ---
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
[2020-11-15 08:55] VITALS: BP 97/43; PULSE 66; RESP 10; O2SAT 100
[2020-11-15 09:10] VITALS: BP 96/61; PULSE 73; RESP 16; TEMP 36.4; O2SAT 95
[2020-11-15 09:22] VITALS: BP 113/66; PULSE 72; RESP 16; TEMP 36.4; O2SAT 95
--- NOTE | 2020-11-15 09:41 | OP_ITS ---
SURGEON: Jonny Gonzalez MD INDICATIONS: Hereditary diffuse gastric cancer syndrome. PREOPERATIVE DIAGNOSIS: POSTOPERATIVE DIAGNOSIS: PROCEDURE PERFORMED: Upper endoscopy with biopsy. ESTIMATED BLOOD LOSS: COMPLICATIONS: ANESTHESIA: ASSISTANTS: SPECIMENS: MEDICATIONS: Monitored anesthesia care. DESCRIPTION OF PROCEDURE: History and physical performed. The risks and benefits of the procedure were explained to the patient. Informed consent was obtained. The patient was placed in left lateral decubitus position. The Olympus video gastroscope was introduced into the esophagus, stomach, and duodenum. Examination was performed and the scope was removed. He tolerated the procedure well and was taken to recovery area in stable condition. FINDINGS: ESOPHAGUS: The esophagus was normal. STOMACH: The stomach showed no evidence of masses, ulcers, or polyps. Gastric distensibility was normal. The mucosa was washed with Mucomyst and simethicone and insufflation with carbon dioxide showed no lesions. There were no pale areas or raised areas. There was no ulceration. DUODENUM: The bulb and second portion showed mild duodenitis involving the bulb. Multiple biopsies were obtained from the gastric mucosa according to the Lucy protocol. IMPRESSION: Normal upper endoscopy. RECOMMENDATIONS: 1. Follow up the biopsy results. 2. Repeat endoscopy in 6 months. MD GAYLE Mendoza/CHRISTOPHER / [id number] MTDD
== END 2020-11-15 09:43 | disposition home or self-care (01) ==
PROVIDERS: PCP Internal Medicine; Visit Provider Internal Medicine Gastroenterology
PROC: 0DJ08ZZ Inspection of Upper Intestinal Tract, Via Natural or Artificial Opening Endoscopic (ICD-10-PCS; CPT 43235; principal; 2020-11-15 08:10)
DX: Z15.09 Genetic susceptibility to other malignant neoplasm (principal); K29.80 Duodenitis without bleeding; I10 Essential (primary) hypertension; Z79.899 Other long term (current) drug therapy; Z86.010 Personal history of colon polyps
CPT/HCPCS: 43239; 88305; 88342; J3010

== ENCOUNTER → 2021-01-06 14:14 | Outpatient (BNVA) | payer BC, SELFPAY | PROVIDERS: PCP Internal Medicine; Visit Provider Hospitalist ==

== ENCOUNTER 2021-03-24 13:05 | Outpatient (REF) | payer BC, SELFPAY ==
[2021-03-24 14:07] LABS: Alanine Aminotransferase 42 U/L (0-40); Albumin Level 4.3 g/dL (3.5-5.0); Alkaline Phosphatase 87 U/L (39-117); Anion Gap 10 (12-20); Aspartate Amino Transferase 26 U/L (5-37); Bilirubin Total 0.5 mg/dL (0.0-1.0); Blood Urea Nitrogen 11 mg/dL (9-16); Calcium 9.5 mg/dL (8.4-10.2); Carbon Dioxide 28 mmol/L (22-29); Chloride 106 mmol/L (96-108); Estimated Glomerular Filt Rate > 60; Glucose Random 145 mg/dL (60-115); Potassium 4.1 mmol/L (3.3-5.1); Sodium 140 mmol/L (135-145); Total Protein 7.5 g/dL (6.5-8.0)
[2021-03-24 14:14] LABS: Estimated Average Glucose 143 mg/dL; Hemoglobin A1c % 6.6 %
[2021-03-25 12:07] LABS: Free Prostate Spec Ag 0.9 ng/mL; Percent Free Prostate Spec Ag 38 % (calc) (>25); Prostate Specific Ag Total 2.4 ng/mL (< OR = 4.0)
== END 2021-03-24 13:06 | disposition home or self-care (01) ==
LOC: HO.LAB 13:05
PROVIDERS: PCP Internal Medicine; Visit Provider Internal Medicine
DX: Z12.5 Encounter for screening for malignant neoplasm of prostate (principal); R97.20 Elevated prostate specific antigen [PSA]; R73.03 Prediabetes
CPT/HCPCS: 36415; 80053; 83036; 84154

== ENCOUNTER → 2021-05-13 15:21 | Outpatient (BNVA) | payer BC, SELFPAY | PROVIDERS: PCP Internal Medicine; Visit Provider Hospitalist | DX: Z13.89 Encounter for screening for other disorder (principal) ==

== ENCOUNTER 2021-05-16 06:34 | Day surgery (SDC) | payer BC, SELFPAY ==
[2021-05-12 10:54] VITALS: BMI 34.7
--- NOTE | 2021-05-15 10:27 | P.CONAN_ITS ---
Documented by User: Fanny Waddell NP 05/15/21 10:28 HPI - Anesthesia Eval Consult details Narrative: 60yo M for Upper Endoscopy s/p Upper Endoscopy with MAC 11/2020 [facility] Active Problems Active Problems: All Active Problems (Updated 02/28/21 @ 14:17 by Melania Lambert PA-C) Personal history of nicotine dependence (Acute) Emphysema lung (Acute) Dyspnea (Acute) Obstructive sleep apnea on CPAP (Acute) Past Medical History Medical History (Updated 02/28/21 @ 14:17 by Melania Lambert PA-C) Dyspnea Emphysema lung Family history of cancer of GI tract Heartburn Hyperlipidemia Hypertension Monoallelic mutation of CDH1 gene Obstructive sleep apnea on CPAP Personal history of nicotine dependence Family History Family History (Updated 02/28/21 @ 14:18 by Melania Lambert PA-C) Father Metastatic cancer Mother No problems noted. Sister Monoallelic mutation of CDH1 gene History of stomach cancer BOOP (bronchiolitis obliterans with organizing pneumonia) Sister Monoallelic mutation of CDH1 gene History of stomach cancer Sister Hx of myocardial infarction Daughter History of stomach cancer Monoallelic mutation of CDH1 gene Family history of problems with anesthesia: No Surgical History Surgical History (Updated 05/12/21 @ 10:52 by Pam Anne RN) History of esophagogastroduodenoscopy (EGD) History of medial meniscus repair of right knee Hx of colonoscopy Hx of elbow surgery Hx of repair of left rotator cuff Hx of repair of right rotator cuff Hx of tonsillectomy Hx of vasectomy History of Problems with Anesthesia: No Social History Social History Alcohol intake: current Alcohol intake frequency: holidays/special occasions only Alcohol type: beer and wine Patient Tobacco Use Status: Former Tobacco user Tobacco use type: Cigarette Years Smoked: 35 Second Hand Smoke Exposure: No Use of substances other than those prescribed or required for medical reasons: No Are you DNR?: No Advance Directives: Yes Advance Directives on File: Yes Advance Directives Date on File: 05/17/20 Recently lost weight without trying: No Nutrition Risks: No Nutritional Risk service: Yes (Served in the [employer]) Current occupational status: employed Current occupation: Works for [employer] Current occupational exposures/hazards: No Meds Allergies Allergy/AdvReac Type Severity Reaction Status Date / Time No Known Allergies Allergy Verified 01/06/21 14:40 [No Known Allergies*] Home Medications Medication Instructions Recorded Confirmed Last Taken Type aspirin 81 mg tablet 81 mg PO DAILY 11/10/19 05/12/21 Unknown History atorvastatin 10 mg tablet 10 mg PO BEDTIME 11/10/19 05/12/21 Unknown History losartan 25 mg tablet 1 tab PO DAILY 11/14/19 05/12/21 Unknown History ibuprofen 800 mg tablet 800 mg PO BID PRN 01/06/21 05/12/21 Unknown History Exam Exam Date and Time: May 15, 2021 1027 Height,Weight and Vital Signs: Height 5 ft 6 in Weight 97.522 kg Pertinent Lab Results Pertinent Lab Results: Laboratory Tests 09/06/20 03/24/21 06:55 13:29 WBC 7.4 Hgb 14.8 Hct 44.8 Plt Count 190 Sodium 140 Potassium 4.1 Chloride 106 Carbon Dioxide 28 BUN 11 Creatinine 0.98 Assessment and Plan Assessment Anesthesia Assessment: Chart Reviewed Final Anesthetic Review Family History of Problems with Anesthesia: No History of Problems with Anesthesia: No Documented by User: Tanner Hilliard MD 05/16/21 09:53 [facility] Past Medical History Medical History (Updated 02/28/21 @ 14:17 by Melania Lambert PA-C) Dyspnea Emphysema lung Family history of cancer of GI tract Heartburn Hyperlipidemia Hypertension Monoallelic mutation of CDH1 gene Obstructive sleep apnea on CPAP Personal history of nicotine dependence Family History Family History (Updated 02/28/21 @ 14:18 by Melania Lambert PA-C) Father Metastatic cancer Mother No problems noted. Sister Monoallelic mutation of CDH1 gene History of stomach cancer BOOP (bronchiolitis obliterans with organizing pneumonia) Sister Monoallelic mutation of CDH1 gene History of stomach cancer Sister Hx of myocardial infarction Daughter History of stomach cancer Monoallelic mutation of CDH1 gene Surgical History Surgical History (Updated 05/12/21 @ 10:52 by Pam Urgo, RN) History of esophagogastroduodenoscopy (EGD) History of medial meniscus repair of right knee Hx of colonoscopy Hx of elbow surgery Hx of repair of left rotator cuff Hx of repair of right rotator cuff Hx of tonsillectomy Hx of vasectomy Social History Social History Alcohol intake: current Alcohol intake frequency: holidays/special occasions only Alcohol type: beer and wine Patient Tobacco Use Status: Former Tobacco user Tobacco use type: Cigarette Years Smoked: 35 Second Hand Smoke Exposure: No Use of substances other than those prescribed or required for medical reasons: No Are you DNR?: No Advance Directives: Yes Advance Directives on File: Yes Advance Directives Date on File: 05/17/20 Recently lost weight without trying: No Nutrition Risks: No Nutritional Risk service: Yes (Served in the [employer]) Current occupational status: employed Current occupation: Works for [employer] Current occupational exposures/hazards: No Meds Allergies Allergy/AdvReac Type Severity Reaction Status Date / Time No Known Allergies Allergy Verified 01/06/21 14:40 [No Known Allergies*] Home Medications Medication Instructions Recorded Confirmed Last Taken Type aspirin 81 mg tablet 81 mg PO DAILY 11/10/19 05/12/21 Unknown History atorvastatin 10 mg tablet 10 mg PO BEDTIME 11/10/19 05/12/21 Unknown History losartan 25 mg tablet 1 tab PO DAILY 11/14/19 05/12/21 Unknown History ibuprofen 800 mg tablet 800 mg PO BID PRN 01/06/21 05/12/21 Unknown History Exam Airway Mallampati Class: I TM Dist: >3cm Neck ROM: Limited Loose/Missing/Broken Teeth: Yes (S1, S2) Heart: bl breath sounds Assessment and Plan Assessment Anesthesia Assessment: Anesthesia Plan Discussed Final Anesthetic Review NPO: Yes ASA Class: II Final Preanesthetic Review: Meds/Allgs Chart Reviewed, Consent Obtained/Reviewed and Anes Risks/Benef Reviewed Patient Risk: Intermediate Procedure Risk: Intermediate Anesthetic Plan Anesthetic Plan: MAC: Disposition: Standard PACU
[2021-05-16 06:37] VITALS: BMI 33.2
[2021-05-16 06:41] VITALS: BP 139/76; PULSE 84; RESP 16; TEMP 36.6; O2SAT 95
[2021-05-16] MEDS: Lactated Ringers 1,000 ML 100 ML IVCONT (06:53)
[2021-05-16 08:16] VITALS: BP 111/73; PULSE 83; RESP 16; TEMP 36.7; O2SAT 97
--- NOTE | 2021-05-16 08:16 | P.BOP_ITS ---
Brief Operative Note Date of Service: 05/16/21 Pre-op diagnosis: gastric ca syndrome Post-op diagnosis: same Procedure: egd Surgeon: Jonny Gonzalez Anesthesia: MAC Was an Billiard Player used for this Procedure?: No Estimated blood loss (mL): 5 Pathology: other (gastric biopsies) Condition: stable Disposition: PACU
[2021-05-16 08:30] VITALS: BP 104/64; PULSE 81; RESP 16; O2SAT 92
[2021-05-16 08:45] VITALS: BP 118/57; PULSE 77; RESP 16; O2SAT 94
--- NOTE | 2021-05-16 08:52 | OP_ITS ---
SURGEON: Jonny Gonzalez MD INDICATIONS: Hereditary diffuse gastric cancer syndrome. PREOPERATIVE DIAGNOSIS: POSTOPERATIVE DIAGNOSIS: PROCEDURE PERFORMED: ESTIMATED BLOOD LOSS: COMPLICATIONS: ANESTHESIA: ASSISTANTS: SPECIMENS: PROCEDURE: Upper endoscopy with biopsy. MEDICATIONS: Monitored anesthesia care. DESCRIPTION OF PROCEDURE: History and physical performed. The risks and benefits of the procedure were explained to the patient. Informed consent was obtained. The patient was placed in the left lateral decubitus position. The Olympus video gastroscope was introduced into the esophagus, stomach, and duodenum. Examination was performed. The scope was removed. He tolerated the procedure well and was transferred to recovery area in stable condition. FINDINGS: Esophagus: The esophagus was normal. There was slightly irregular EG junction. There was no esophagitis. Stomach: The stomach showed some scarring from previous biopsies. Gastric distensibility was normal after instillation of Mucomyst and simethicone. No pale areas or raised lesions were seen. Duodenum: The bulb and second portion were normal. Biopsies were obtained in accordance with the [place] protocol throughout the stomach. IMPRESSION: Normal upper endoscopy. RECOMMENDATION: Follow up the biopsy results. MD GAYLE Mendoza/CHRISTOPHER / [id number]
[2021-05-16 09:00] VITALS: BP 126/58; PULSE 81; RESP 16; TEMP 36.7; O2SAT 98
== END 2021-05-16 09:46 | disposition home or self-care (01) ==
PROVIDERS: PCP Internal Medicine; Visit Provider Internal Medicine Gastroenterology
PROC: 0DJ08ZZ Inspection of Upper Intestinal Tract, Via Natural or Artificial Opening Endoscopic (ICD-10-PCS; CPT 43235; principal; 2021-05-16 07:30)
DX: Z15.09 Genetic susceptibility to other malignant neoplasm (principal); Z80.0 Family history of malignant neoplasm of digestive organs; J43.9 Emphysema, unspecified; I10 Essential (primary) hypertension; E78.5 Hyperlipidemia, unspecified; R12 Heartburn; G47.33 Obstructive sleep apnea (adult) (pediatric); Z79.82 Long term (current) use of aspirin; Z79.899 Other long term (current) drug therapy; Z79.1 Long term (current) use of non-steroidal anti-inflammatories (NSAID); Z87.891 Personal history of nicotine dependence; Z98.890 Other specified postprocedural states
CPT/HCPCS: 43239; 88305; 88342; J3010

== ENCOUNTER 2021-07-22 15:49 | Outpatient (REF) | payer BC, SELFPAY ==
[2021-07-22 15:59] LABS: MANUAL DIFF FLAG NO
[2021-07-22 16:12] LABS: Basophils Absolute Auto 0.1 X10*3/uL (0.0-0.2); Basophils Percent Auto 0.8 % (0-2); Eosinophils Absolute Auto 0.2 X10*3/uL (0.0-0.4); Eosinophils Percent Auto 2.2 % (0-4); Hematocrit 41.9 % (42.0-52.0); Hemoglobin 13.7 g/dl (14.0-18.0); Imm Gran Abs Auto 0.01 X10*3/uL (0.00-0.03); Imm Gran Pct Auto 0.1 % (0.0-0.4); Lymphocytes Absolute Auto 2.2 X10*3/uL (1.2-4.9); Lymphocytes Percent Auto 28.1 % (20-40); Mean Corpuscular HGB Conc 32.7 g/dl (31.0-36.0); Mean Corpuscular Hemoglobin 30.6 pg (27.0-33.0); Mean Corpuscular Volume 93.7 fL (80.0-98.0); Mean Platelet Volume 10.9 fL (9.4-12.4); Monocytes Absolute Auto 0.9 X10*3/uL (0.1-1.2); Monocytes Percent Auto 11.5 % (2-11); Neutrophils Absolute Auto 4.5 x10*3/uL (2.0-8.3); Neutrophils Percent Auto 57.3 % (45-73); Platelet Count 191 X10*3/uL (160-400); Red Blood Count 4.47 X10*6/uL (4.60-5.80); Red Cell Distribution Width 13.2 % (11.0-16.0); White Blood Count 7.9 X10*3/uL (4.8-10.8)
[2021-07-22 16:19] LABS: Estimated Average Glucose 131 mg/dL; Hemoglobin A1c % 6.2 %
[2021-07-22 16:48] LABS: Alanine Aminotransferase 38 U/L (0-40); Albumin Level 4.3 g/dL (3.5-5.0); Alkaline Phosphatase 74 U/L (39-117); Anion Gap 9 (12-20); Aspartate Amino Transferase 27 U/L (5-37); Bilirubin Total 0.6 mg/dL (0.0-1.0); Blood Urea Nitrogen 14 mg/dL (9-16); Calcium 9.1 mg/dL (8.4-10.2); Carbon Dioxide 29 mmol/L (22-29); Chloride 106 mmol/L (96-108); Estimated Glomerular Filt Rate > 60; Glucose Random 101 mg/dL (60-115); Potassium 4.3 mmol/L (3.3-5.1); Sodium 140 mmol/L (135-145); Total Protein 7.4 g/dL (6.5-8.0)
== END 2021-07-22 15:50 | disposition home or self-care (01) ==
LOC: HO.LAB 15:49
PROVIDERS: PCP Internal Medicine; Visit Provider Internal Medicine
DX: E11.9 Type 2 diabetes mellitus without complications (principal); I10 Essential (primary) hypertension; E78.00 Pure hypercholesterolemia, unspecified
CPT/HCPCS: 36415; 80053; 83036; 85025

== ENCOUNTER 2021-07-28 10:54 | Outpatient (REF) | payer BC, SELFPAY ==
--- NOTE | ~2021-07-28 | XR_ITS ---
EXAMINATION: XR CERVICAL SPINE XR LUMBAR SPINE CLINICAL INFORMATION: Neck pain. COMPARISON: None. TECHNIQUE: Lumbar spine 3 views. Cervical spine 5 views. FINDINGS: Lumbar Spine: There is mild straightening of the lumbar lordosis. There is loss of C2-C3, C3-C4 and C6-C7 disc heights with moderate ventral and mild posterior spondylosis. There is bilateral narrowing of C3-C4, C4-C5 and C5-C6 neural foramina from uncovertebral hypertrophic changes. There is no visible acute fracture, dislocation or lytic process seen. The prevertebral soft tissues are normal. Lumbar Spine: There is maintained lumbar lordosis. The vertebral heights and alignment are normal. There is a L4 limbus vertebra. There is loss of L3-L4, L4-L5 and L5-S1 disc heights with ventral and posterior spondylosis. No visible acute fracture or dislocation seen. There is no lytic process. The SI joints are symmetric and normal. No visible fracture or dislocation seen. XR/XR cervical spine min 6V IMPRESSION: Mild degenerative disc changes L3-L4, L4-L5 and L5-S1 disc levels with ventral and posterior spondylosis. Degenerative disc changes C3-C4, C4-C5 and C6-C7 disc levels with moderate ventral and posterior spondylosis at the C3-C4 and C4-C5 disc levels. There is bilateral narrowing of neural foramina from C3-C4 through C5-C6 disc levels from uncovertebral hypertrophic changes. No acute fracture or dislocation seen.
--- NOTE | ~2021-07-28 | XR_ITS ---
EXAMINATION: XR CERVICAL SPINE XR LUMBAR SPINE CLINICAL INFORMATION: Neck pain. COMPARISON: None. TECHNIQUE: Lumbar spine 3 views. Cervical spine 5 views. FINDINGS: Lumbar Spine: There is mild straightening of the lumbar lordosis. There is loss of C2-C3, C3-C4 and C6-C7 disc heights with moderate ventral and mild posterior spondylosis. There is bilateral narrowing of C3-C4, C4-C5 and C5-C6 neural foramina from uncovertebral hypertrophic changes. There is no visible acute fracture, dislocation or lytic process seen. The prevertebral soft tissues are normal. Lumbar Spine: There is maintained lumbar lordosis. The vertebral heights and alignment are normal. There is a L4 limbus vertebra. There is loss of L3-L4, L4-L5 and L5-S1 disc heights with ventral and posterior spondylosis. No visible acute fracture or dislocation seen. There is no lytic process. The SI joints are symmetric and normal. No visible fracture or dislocation seen. XR/XR lumbar spine 2-3V IMPRESSION: Mild degenerative disc changes L3-L4, L4-L5 and L5-S1 disc levels with ventral and posterior spondylosis. Degenerative disc changes C3-C4, C4-C5 and C6-C7 disc levels with moderate ventral and posterior spondylosis at the C3-C4 and C4-C5 disc levels. There is bilateral narrowing of neural foramina from C3-C4 through C5-C6 disc levels from uncovertebral hypertrophic changes. No acute fracture or dislocation seen.
== END 2021-07-28 10:55 | disposition home or self-care (01) ==
LOC: HO.XRAY 10:54
PROVIDERS: PCP Internal Medicine; Visit Provider Internal Medicine
DX: M54.9 Dorsalgia, unspecified (principal); M54.2 Cervicalgia
CPT/HCPCS: 72052; 72100

== ENCOUNTER 2021-08-12 14:23 | Outpatient (REF) | payer BC, SELFPAY ==
--- NOTE | ~2021-08-12 | MR_ITS ---
EXAMINATION: MR CERVICAL SPINE WITHOUT CONTRAST CLINICAL INFORMATION: Bilateral neck pain. Cervicalgia. COMPARISON: None available. TECHNIQUE: MRI of the cervical spine was performed using routine sequences without contrast. FINDINGS: The cervical vertebral bodies maintain normal heights and alignment. There is multilevel intervertebral disc height loss with endplate spurring. Mild endplate edema is seen at the C4-C5 level. No cervical cord signal abnormality is seen. The imaged portions of the intracranial contents appear normal. The extraspinal soft tissues appear normal. SPINAL LEVELS: C2-C3: Disc osteophyte complex causing mild spinal canal stenosis. No neural foraminal stenosis. C3-C4: Disc osteophyte complex with uncovertebral hypertrophy resulting in moderate to severe spinal canal stenosis with ventral cord flattening. Uncovertebral hypertrophy resulting in severe bilateral neural foraminal stenosis. C4-C5: Disc osteophyte complex with uncovertebral hypertrophy resulting in severe spinal canal stenosis with cord deformity and severe bilateral neural foraminal stenosis. C5-C6: Disc osteophyte complex with uncovertebral hypertrophy resulting in mild to moderate spinal canal stenosis and severe bilateral neural foraminal stenosis. C6-C7: Disc osteophyte complex with left more than right uncovertebral hypertrophy resulting in mild spinal canal stenosis and moderate bilateral neural foraminal stenosis. C7-T1: No posterior disc abnormality. No spinal canal or neural foraminal stenosis. MR/MR cervical spine wo con IMPRESSION: Multilevel degenerative spondylosis most advanced at C4-C5 where there is severe spinal canal stenosis with cord deformity and severe bilateral neural foraminal stenosis. At C3-C4 there is moderate to severe spinal canal stenosis and severe bilateral neural foraminal stenosis. At C5-C6 there is severe bilateral neural foraminal stenosis and mild to moderate spinal canal stenosis. At C6-C7 there is moderate bilateral neural foraminal stenosis and mild spinal canal stenosis.
== END 2021-08-12 14:24 | disposition home or self-care (01) ==
LOC: HO.MRI 14:23
PROVIDERS: Visit Provider Internal Medicine
DX: M48.00 Spinal stenosis, site unspecified (principal); M54.2 Cervicalgia
CPT/HCPCS: 72141

== ENCOUNTER 2021-11-13 09:37 | Outpatient (REF) | payer BC, SELFPAY ==
--- NOTE | 2021-11-13 | PFT_ITS ---
Forced vital capacity 110%, FEV1 122%, FEV1/FVC ratio is 83. FEF25/75 166% and MVV 122%. Post bronchodilator therapy, there is no change. Total lung capacity 96%. Residual volume 71%. Diffusion capacity is 71%. CONCLUSION: Normal pulmonary function test and there is no evidence of obstructive or restrictive pulmonary disease. MD LION Bansal/CHRISTOPHER / [id number]
== END 2021-11-13 09:38 | disposition home or self-care (01) ==
LOC: HO.RESP 09:37
PROVIDERS: Visit Provider Hospitalist
DX: J44.9 Chronic obstructive pulmonary disease, unspecified (principal); F17.210 Nicotine dependence, cigarettes, uncomplicated
CPT/HCPCS: 94060; 94727; 94729

== ENCOUNTER 2021-11-21 06:28 | Day surgery (SDC) | payer BC, SELFPAY ==
[2021-11-18 10:19] VITALS: BMI 34.7
--- NOTE | 2021-11-20 10:45 | HO.ANESPROP2 ---
Documented by User: Fanny Waddell NP 11/20/21 10:50 HPI - Anesthesia Eval Consult details Narrative: 61yo M for Upper Endoscopy [facility] Active Problems Active Problems: All Active Problems (Updated 02/28/21 @ 14:17 by Melania Lambert PA-C) Personal history of nicotine dependence (Acute) Emphysema lung (Acute) Dyspnea (Acute) Obstructive sleep apnea on CPAP (Acute) Past Medical History Medical History Dyspnea Emphysema lung Family history of cancer of GI tract Heartburn Hyperlipidemia Hypertension Monoallelic mutation of CDH1 gene Obstructive sleep apnea on CPAP Personal history of nicotine dependence Family History Family History (Updated 02/28/21 @ 14:18 by Melania Lambert PA-C) Father Metastatic cancer Mother No problems noted. Sister Monoallelic mutation of CDH1 gene History of stomach cancer BOOP (bronchiolitis obliterans with organizing pneumonia) Sister Monoallelic mutation of CDH1 gene History of stomach cancer Sister Hx of myocardial infarction Daughter History of stomach cancer Monoallelic mutation of CDH1 gene Family history of problems with anesthesia: No Surgical History Surgical History History of esophagogastroduodenoscopy (EGD) History of medial meniscus repair of right knee Hx of colonoscopy Hx of elbow surgery Hx of repair of left rotator cuff Hx of repair of right rotator cuff Hx of tonsillectomy Hx of vasectomy History of Problems with Anesthesia: No Social History Social History Alcohol intake: current Alcohol intake frequency: holidays/special occasions only Alcohol type: beer and wine Patient Tobacco Use Status: Current someday Tobacco user Tobacco use type: Cigar Years Smoked: 35 Second Hand Smoke Exposure: No Are you DNR?: No Advance Directives: No Advance Directives Information Provided: Yes Advance Directives Date on File: 05/17/20 Nutrition Risks: No Nutritional Risk service: Yes (Served in the [employer]) Current occupational status: employed Current occupation: Works for [employer] Current occupational exposures/hazards: No Meds Allergies Allergy/AdvReac Type Severity Reaction Status Date / Time No Known Allergies Allergy Verified 11/21/21 07:01 [No Known Allergies*] Home Medications Medication Instructions Recorded Confirmed Last Taken Type aspirin 81 mg tablet 81 mg PO DAILY 10/02/20 10/14/22 09/30/22 History atorvastatin 10 mg tablet 10 mg PO BEDTIME 11/10/19 11/21/21 11/20/21 History losartan 25 mg tablet 1 tab PO DAILY 11/14/19 11/21/21 11/20/21 History ibuprofen 800 mg tablet 800 mg PO BID PRN Pain 01/06/21 11/21/21 Unknown History Exam Exam Date and Time: November 20, 2021 1045 Height,Weight and Vital Signs: Height 5 ft 6 in Weight 97.522 kg Pertinent Lab Results Pertinent Lab Results: Laboratory Tests 07/22/21 07/22/21 15:56 15:56 WBC 7.9 Hgb 13.7 L Hct 41.9 L Plt Count 191 Sodium 140 Potassium 4.3 Chloride 106 Carbon Dioxide 29 BUN 14 Creatinine 1.11 Assessment and Plan Assessment Anesthesia Assessment: Chart Reviewed Final Anesthetic Review Family History of Problems with Anesthesia: No History of Problems with Anesthesia: No Documented by User: Tanner Hilliard MD 11/21/21 15:50 [facility] Past Medical History Medical History Dyspnea Emphysema lung Family history of cancer of GI tract Heartburn Hyperlipidemia Hypertension Monoallelic mutation of CDH1 gene Obstructive sleep apnea on CPAP Personal history of nicotine dependence Functional capacity: independent ambulation Family History Family History (Updated 02/28/21 @ 14:18 by Melania Lambert PA-C) Father Metastatic cancer Mother No problems noted. Sister Monoallelic mutation of CDH1 gene History of stomach cancer BOOP (bronchiolitis obliterans with organizing pneumonia) Sister Monoallelic mutation of CDH1 gene History of stomach cancer Sister Hx of myocardial infarction Daughter History of stomach cancer Monoallelic mutation of CDH1 gene Surgical History Surgical History History of esophagogastroduodenoscopy (EGD) History of medial meniscus repair of right knee Hx of colonoscopy Hx of elbow surgery Hx of repair of left rotator cuff Hx of repair of right rotator cuff Hx of tonsillectomy Hx of vasectomy Social History Social History Alcohol intake: current Alcohol intake frequency: holidays/special occasions only Alcohol type: beer and wine Patient Tobacco Use Status: Current someday Tobacco user Tobacco use type: Cigar Years Smoked: 35 Second Hand Smoke Exposure: No Are you DNR?: No Advance Directives: No Advance Directives Information Provided: Yes Advance Directives Date on File: 05/17/20 Nutrition Risks: No Nutritional Risk service: Yes (Served in [employer]) Current occupational status: employed Current occupation: Works for [employer] Current occupational exposures/hazards: No Meds Allergies Allergy/AdvReac Type Severity Reaction Status Date / Time No Known Allergies Allergy Verified 11/21/21 07:01 [No Known Allergies*] Home Medications Medication Instructions Recorded Confirmed Last Taken Type aspirin 81 mg tablet 81 mg PO DAILY 11/10/19 11/21/21 11/07/21 History atorvastatin 10 mg tablet 10 mg PO BEDTIME 11/10/19 11/21/21 11/20/21 History losartan 25 mg tablet 1 tab PO DAILY 11/14/19 11/21/21 11/20/21 History ibuprofen 800 mg tablet 800 mg PO BID PRN Pain 01/06/21 11/21/21 Unknown History Exam Airway Mallampati Class: III TM Dist: >3cm Neck ROM: Full Loose/Missing/Broken Teeth: Yes (Chipped multiple teeth , fillings , poor dentition globally ) Heart: S1,S2 Lungs: b/l breath sounds Assessment and Plan Assessment Anesthesia Assessment: Anesthesia Plan Discussed Final Anesthetic Review NPO: Yes ASA Class: III Final Preanesthetic Review: Meds/Allgs Chart Reviewed, Consent Obtained/Reviewed and Anes Risks/Benef Reviewed Patient Risk: Intermediate Procedure Risk: Intermediate Anesthetic Plan Anesthetic Plan: MAC: Disposition: Standard PACU
[2021-11-21] MEDS: Lactated Ringers 1,000 ML 100 ML IVCONT (06:58)
[2021-11-21 07:03] VITALS: BP 136/82; PULSE 75; RESP 18; TEMP 36.6; O2SAT 98
--- NOTE | 2021-11-21 07:22 | P.HPSUR_ITS ---
Pre-Procedural Eval Section A Date of Service: 11/21/21 Section B Chief Complaint: malignant neoplasm Details of Present Illness: see h&p no changes Relevant Family History (Specify if Yes): No Relevant Social History: None Present Medications: see Short Stay Collaborative assessment Medical History: No relevant PMH History of Previous Operations: No relevant previous surgery Allergies: Allergies Allergy/AdvReac Type Severity Reaction Status Date / Time No Known Allergies Allergy Verified 11/21/21 07:01 [No Known Allergies*] Review of Systems Sugical H&P ROS: Negative: Constitution, Cardiovascular, Respiratory, Neurologic al, Psychiatric, Hem-Onc, Allergic/Immunologic, Gastrointestinal, Genitourinary, Musculoskeletal, Integumentary, Endocrine and Eyes/Ears/Nose/Throat Exam Surgical H&P Exam: Normal: HEENT, Normal: Heart, Normal: Lungs, Normal: Extremities, Normal: Abdomen, Normal: Skin and Normal: Neurological Plan Diagnosis/Plan: Unchanged I have reviewed the history and physical and performed a pertinent physical examination on my patient. No changes have occurred unless specified.
--- NOTE | 2021-11-21 08:23 | PM.OP ---
Brief Operative Note Date of Service: 11/21/21 Pre-op diagnosis: hereditary diffuse gastric cancer syndrome Post-op diagnosis: same Procedure: egd Surgeon: Jonny Gonzalez Anesthesia: MAC Was an Loom Fixer Helper used for this Procedure?: No Estimated blood loss (mL): 5 Pathology: other Condition: stable Disposition: PACU
[2021-11-21 08:37] VITALS: BP 111/69; PULSE 89; RESP 15; TEMP 36.2; O2SAT 97
[2021-11-21 08:52] VITALS: BP 126/71; PULSE 84; RESP 18; TEMP 36.2; O2SAT 96
--- NOTE | 2021-11-22 00:24 | OP_ITS ---
SURGEON: Jonny Gonzalez MD INDICATIONS: Hereditary diffuse gastric cancer syndrome. PREOPERATIVE DIAGNOSIS: POSTOPERATIVE DIAGNOSIS: PROCEDURE PERFORMED: Upper endoscopy with biopsy on . ESTIMATED BLOOD LOSS: COMPLICATIONS: ANESTHESIA: Monitored anesthesia care. ASSISTANTS: SPECIMENS: DESCRIPTION OF PROCEDURE: History and physical performed. The risks and benefits of the procedure were explained to the patient, and informed consent was obtained. The patient was placed in the left lateral decubitus position. The Olympus video gastroscope was introduced into the esophagus, stomach, and duodenum. Examination was performed. The scope was removed. He tolerated the procedure well and was taken to the recovery area in stable condition. FINDINGS: Esophagus: The esophagus was normal. There was no esophagitis. The EG junction was slightly irregular. Stomach: The stomach showed no evidence of masses or ulcers. The mucosa was washed and examined carefully with simethicone and Mucomyst. Gastric distensibility was carefully evaluated and appeared normal. There were no pale areas or raised lesions. Biopsies were obtained throughout the stomach in accordance with the [facility] protocol. Duodenum: The bulb and second portion were normal. IMPRESSION: Hereditary diffuse gastric cancer syndrome. RECOMMENDATION: 1. Follow up the biopsy results. 2. Repeat upper endoscopy will be arranged for 6 months, and the patient will be due for colonoscopy at that time. MD GAYLE Mendoza/CHRISTOPHER / [id number] MTDD
== END 2021-11-21 09:35 | disposition home or self-care (01) ==
PROVIDERS: Visit Provider Internal Medicine Gastroenterology
PROC: 0DJ08ZZ Inspection of Upper Intestinal Tract, Via Natural or Artificial Opening Endoscopic (ICD-10-PCS; CPT 43235; principal; 2021-11-21 07:30)
DX: Z15.09 Genetic susceptibility to other malignant neoplasm (principal); Z80.0 Family history of malignant neoplasm of digestive organs; K21.9 Gastro-esophageal reflux disease without esophagitis; I10 Essential (primary) hypertension; E78.00 Pure hypercholesterolemia, unspecified; G47.33 Obstructive sleep apnea (adult) (pediatric); Z79.82 Long term (current) use of aspirin; Z79.899 Other long term (current) drug therapy; Z87.891 Personal history of nicotine dependence
CPT/HCPCS: 43239; 88305; 88342; J2370; J3010

== ENCOUNTER 2021-11-28 13:02 | Outpatient (REF) | payer BC, SELFPAY ==
--- NOTE | ~2021-11-28 | CT_ITS ---
EXAMINATION: CT CHEST SCREENING CLINICAL INFORMATION: Former smoker. Quit wall appears ago. 35 pack year history. COMPARISON: Previous chest CT April 2020 TECHNIQUE: Multidetector volumetric CT imaging of the chest is performed without contrast using low dose technique. Additional 2D coronal and sagittal reformatted images and axial 3D maximum intensity projection (MIP) images are generated on the CT workstation. This CT examination was performed using dose optimization techniques as appropriate, variously including the following: *Automated exposure control *Adjustment of mA and/or kV according to patient size (this includes techniques or standardized protocols for targeted exams where dose is matched to indication/reason for exam; i.e. extremities or head) *Use of iterative reconstruction technique DLP: 75 mGy-cm FINDINGS: LUNGS: There is evidence of emphysema. There is biapical pleural and parenchymal scarring that is stable. The lungs are otherwise clear. No endobronchial or endotracheal lesion. MEDIASTINUM: Moderate coronary artery calcification. The mediastinum is otherwise normal. CORONARY ARTERY CALCIFICATION: None visualized on this study. PLEURA: There is no pleural effusion. No pleural mass or thickening. AXILLA: No lymphadenopathy. UPPER ABDOMEN: Upper normal-size gallbladder. OSSEOUS STRUCTURES: Degenerative changes. CT/CT lung screening IMPRESSION: Emphysema. Biapical pleural parenchymal scarring. No pulmonary nodules. Moderate coronary artery calcification. ASSESSMENT: Lung-RADS category 2: Benign RECOMMENDATION: Annual low-dose chest CT follow-up recommended.
== END 2021-11-28 13:03 | disposition home or self-care (01) ==
LOC: HO.CT 13:02
PROVIDERS: Visit Provider Physician Assistant Medical
DX: Z12.2 Encounter for screening for malignant neoplasm of respiratory organs (principal); F17.210 Nicotine dependence, cigarettes, uncomplicated
CPT/HCPCS: 71271

== ENCOUNTER 2022-02-03 06:31 | Outpatient (REF) | payer BC, SELFPAY ==
[2022-02-03 06:39] LABS: MANUAL DIFF FLAG NO
[2022-02-03 07:32] LABS: Basophils Percent Auto 0.6 % (0-2); Eosinophils Absolute Auto 0.2 X10*3/uL (0.0-0.4); Hematocrit 43.7 % (42.0-52.0); Hemoglobin 14.7 g/dl (14.0-18.0); Imm Gran Abs Auto 0.02 X10*3/uL (0.00-0.03); Imm Gran Pct Auto 0.3 % (0.0-0.4); Lymphocytes Percent Auto 30.3 % (20-40); Mean Corpuscular HGB Conc 33.6 g/dl (31.0-36.0); Mean Corpuscular Hemoglobin 31.5 pg (27.0-33.0); Mean Corpuscular Volume 93.6 fL (80.0-98.0); Mean Platelet Volume 11.4 fL (9.4-12.4); Monocytes Absolute Auto 0.9 X10*3/uL (0.1-1.2); Neutrophils Absolute Auto 3.4 x10*3/uL (2.0-8.3); Neutrophils Percent Auto 51.8 % (45-73); Platelet Count 193 X10*3/uL (160-400); Red Blood Count 4.67 X10*6/uL (4.60-5.80); Red Cell Distribution Width 13.5 % (11.0-16.0); White Blood Count 6.6 X10*3/uL (4.8-10.8)
[2022-02-03 07:35] LABS: Estimated Average Glucose 134 mg/dL; Hemoglobin A1c % 6.3 %
[2022-02-03 08:17] LABS: Alanine Aminotransferase 51 U/L (0-40); Albumin Level 4.3 g/dL (3.5-5.0); Alkaline Phosphatase 84 U/L (39-117); Anion Gap 13 (12-20); Aspartate Amino Transferase 28 U/L (5-37); Bilirubin Total 0.5 mg/dL (0.0-1.0); Blood Urea Nitrogen 13 mg/dL (9-16); Calcium 9.4 mg/dL (8.4-10.2); Carbon Dioxide 26 mmol/L (22-29); Chloride 107 mmol/L (96-108); Cholesterol 118 mg/dL; Estimated Glomerular Filt Rate > 60; Glucose Fasting 123 mg/dL (60-99); HDL Cholesterol 20 mg/dL; LDL Cholesterol Calculated 59 mg/dl; Potassium 4.2 mmol/L (3.3-5.1); Sodium 142 mmol/L (135-145); Total Protein 7.8 g/dL (6.5-8.0); Triglycerides 198 mg/dL
== END 2022-02-03 06:32 | disposition home or self-care (01) ==
LOC: HO.LAB 06:31
PROVIDERS: PCP Internal Medicine; Visit Provider Internal Medicine
DX: Z00.00 Encounter for general adult medical examination without abnormal findings (principal); Z12.5 Encounter for screening for malignant neoplasm of prostate; R73.03 Prediabetes
CPT/HCPCS: 36415; 80053; 80061; 83036; 84153; 85025

== ENCOUNTER → 2022-02-12 14:51 | Outpatient (BNVA) | payer BC, SELFPAY | PROVIDERS: PCP Internal Medicine; Visit Provider Hospitalist | DX: Z13.89 Encounter for screening for other disorder (principal) ==

== ENCOUNTER 2022-04-16 16:35 | Outpatient (REF) | payer BC, SELFPAY ==
[2022-04-16 16:49] LABS: MANUAL DIFF FLAG NO
[2022-04-16 17:21] LABS: Basophils Absolute Auto 0.1 X10*3/uL (0.0-0.2); Basophils Percent Auto 0.6 % (0-2); Eosinophils Absolute Auto 0.2 X10*3/uL (0.0-0.4); Eosinophils Percent Auto 2.8 % (0-4); Hematocrit 44.4 % (42.0-52.0); Hemoglobin 14.4 g/dl (14.0-18.0); Imm Gran Abs Auto 0.02 X10*3/uL (0.00-0.03); Imm Gran Pct Auto 0.3 % (0.0-0.4); Lymphocytes Absolute Auto 2.4 X10*3/uL (1.2-4.9); Lymphocytes Percent Auto 30.3 % (20-40); Mean Corpuscular HGB Conc 32.4 g/dl (31.0-36.0); Mean Corpuscular Hemoglobin 30.3 pg (27.0-33.0); Mean Corpuscular Volume 93.3 fL (80.0-98.0); Mean Platelet Volume 11.6 fL (9.4-12.4); Monocytes Absolute Auto 0.9 X10*3/uL (0.1-1.2); Monocytes Percent Auto 11.3 % (2-11); Neutrophils Absolute Auto 4.3 x10*3/uL (2.0-8.3); Neutrophils Percent Auto 54.7 % (45-73); Platelet Count 196 X10*3/uL (160-400); Red Blood Count 4.76 X10*6/uL (4.60-5.80); Red Cell Distribution Width 13.2 % (11.0-16.0); White Blood Count 7.9 X10*3/uL (4.8-10.8)
[2022-04-16 17:39] LABS: Estimated Average Glucose 148 mg/dL; Hemoglobin A1c % 6.8 %
[2022-04-16 17:43] LABS: Alanine Aminotransferase 44 U/L (0-40); Albumin Level 4.4 g/dL (3.5-5.0); Alkaline Phosphatase 79 U/L (39-117); Anion Gap 14 (12-20); Aspartate Amino Transferase 31 U/L (5-37); Bilirubin Total 0.4 mg/dL (0.0-1.0); Blood Urea Nitrogen 12 mg/dL (9-16); Calcium 9.6 mg/dL (8.4-10.2); Carbon Dioxide 30 mmol/L (22-29); Chloride 103 mmol/L (96-108); Estimated Glomerular Filt Rate > 60; Glucose Random 108 mg/dL (60-115); Potassium 4.6 mmol/L (3.3-5.1); Sodium 142 mmol/L (135-145); Total Protein 7.6 g/dL (6.5-8.0)
[2022-04-16 18:21] LABS: Appearance Urine Clear; Color Urine Yellow; Glucose Urine UA Negative (Negative); Leukocyte Esterase Urine Negative (Negative); Nitrite Urine Negative (Negative); Urine Blood Negative (Negative); Urine Ketones Negative (Negative); Urine Protein Negative (Neg-Trace)
== END 2022-04-16 16:36 | disposition home or self-care (01) ==
LOC: HO.LAB 16:35
PROVIDERS: PCP Internal Medicine; Visit Provider Internal Medicine
DX: I10 Essential (primary) hypertension (principal); R73.03 Prediabetes; G47.33 Obstructive sleep apnea (adult) (pediatric); N40.0 Benign prostatic hyperplasia without lower urinary tract symptoms
CPT/HCPCS: 36415; 80053; 81003; 83036; 85025

== ENCOUNTER 2022-05-07 15:48 | Outpatient (REF) | payer BC, SELFPAY ==
[2022-05-07 16:10] LABS: MANUAL DIFF FLAG NO
[2022-05-07 16:27] LABS: Basophils Absolute Auto 0.1 X10*3/uL (0.0-0.2); Basophils Percent Auto 0.9 % (0-2); Eosinophils Absolute Auto 0.2 X10*3/uL (0.0-0.4); Eosinophils Percent Auto 2.7 % (0-4); Hematocrit 42.6 % (42.0-52.0); Hemoglobin 14.3 g/dl (14.0-18.0); Imm Gran Abs Auto 0.02 X10*3/uL (0.00-0.03); Imm Gran Pct Auto 0.2 % (0.0-0.4); Lymphocytes Absolute Auto 2.1 X10*3/uL (1.2-4.9); Mean Corpuscular HGB Conc 33.6 g/dl (31.0-36.0); Mean Corpuscular Hemoglobin 31.1 pg (27.0-33.0); Mean Corpuscular Volume 92.6 fL (80.0-98.0); Monocytes Absolute Auto 0.8 X10*3/uL (0.1-1.2); Monocytes Percent Auto 9.8 % (2-11); Neutrophils Absolute Auto 4.9 x10*3/uL (2.0-8.3); Neutrophils Percent Auto 60.4 % (45-73); Platelet Count 189 X10*3/uL (160-400); Red Cell Distribution Width 13.3 % (11.0-16.0); White Blood Count 8.2 X10*3/uL (4.8-10.8)
[2022-05-07 17:02] LABS: Erythrocyte Sedimentation Rate 7 MM/HR (0-15)
[2022-05-07 17:20] LABS: Alanine Aminotransferase 42 U/L (0-40); Albumin Level 4.3 g/dL (3.5-5.0); Alkaline Phosphatase 83 U/L (39-117); Anion Gap 12 (12-20); Aspartate Amino Transferase 28 U/L (5-37); Bilirubin Total 0.4 mg/dL (0.0-1.0); Blood Urea Nitrogen 15 mg/dL (9-16); Calcium 9.5 mg/dL (8.4-10.2); Carbon Dioxide 29 mmol/L (22-29); Chloride 107 mmol/L (96-108); Estimated Glomerular Filt Rate > 60; Glucose Random 127 mg/dL (60-115); Potassium 4.9 mmol/L (3.3-5.1); Sodium 143 mmol/L (135-145); Total Protein 7.4 g/dL (6.5-8.0)
[2022-05-07 17:42] LABS: Vitamin B12 408 pg/mL (200-900)
== END 2022-05-07 15:49 | disposition home or self-care (01) ==
LOC: HO.LAB 15:48
PROVIDERS: PCP Internal Medicine; Visit Provider Internal Medicine
DX: I10 Essential (primary) hypertension (principal); E78.00 Pure hypercholesterolemia, unspecified; G47.33 Obstructive sleep apnea (adult) (pediatric); I25.10 Atherosclerotic heart disease of native coronary artery without angina pectoris
CPT/HCPCS: 36415; 80053; 82607; 85025; 85652; 86140

== ENCOUNTER 2022-05-15 06:37 | Day surgery (SDC) | payer BC, SELFPAY ==
[2022-05-15 05:54] VITALS: BMI 33.4
[2022-05-15 06:55] VITALS: BP 124/77; PULSE 81; RESP 18; TEMP 36.7; O2SAT 97
[2022-05-15] MEDS: Lactated Ringers 1,000 ML 50 ML IVCONT (06:56)
--- NOTE | 2022-05-15 07:06 | P.CONAN_ITS ---
FORM[facility]LY [facility] Active Problems Active Problems: All Active Problems (Updated 02/12/22 @ 21:07 by Fermin Clifford MD) Coronary artery calcification (Acute) Personal history of nicotine dependence (Acute) Emphysema lung (Acute) Dyspnea (Acute) Obstructive sleep apnea on CPAP (Acute) Past Medical History Medical History Coronary artery calcification Dyspnea Emphysema lung Family history of cancer of GI tract Heartburn Hyperlipidemia Hypertension Monoallelic mutation of CDH1 gene Obstructive sleep apnea on CPAP Personal history of nicotine dependence Family History Family History Father Metastatic cancer Mother No problems noted. Sister Monoallelic mutation of CDH1 gene History of stomach cancer BOOP (bronchiolitis obliterans with organizing pneumonia) Sister Monoallelic mutation of CDH1 gene History of stomach cancer Sister Hx of myocardial infarction Daughter History of stomach cancer Monoallelic mutation of CDH1 gene Family history of problems with anesthesia: No Surgical History Surgical History History of esophagogastroduodenoscopy (EGD) History of medial meniscus repair of right knee Hx of colonoscopy Hx of elbow surgery Hx of repair of left rotator cuff Hx of repair of right rotator cuff Hx of tonsillectomy Hx of vasectomy History of Problems with Anesthesia: No Social History Social History Alcohol intake: current Alcohol intake frequency: holidays/special occasions only Alcohol type: beer and wine Patient Tobacco Use Status: Current someday Tobacco user Tobacco use type: Cigar Years Smoked: 35 Second Hand Smoke Exposure: No Are you DNR?: No Advance Directives: No Advance Directives Information Provided: No Advance Directives Date on File: 05/17/20 Nutrition Risks: No Nutritional Risk service: Yes (Served in the [employer]) Current occupational status: employed Current occupation: Works for [employer] Current occupational exposures/hazards: No Meds Allergies Allergy/AdvReac Type Severity Reaction Status Date / Time No Known Allergies Allergy Verified 05/15/22 07:05 [No Known Allergies*] Active Medications: Current Medications Lactated Ringer's (Lr) 1,000 mls @ 50 mls/hr IVCONT .Q20H ALEX Last Admin: 05/15/22 06:56 Dose: 50 mls/hr Home Medications Medication Instructions Recorded Confirmed Last Taken Type aspirin 81 mg tablet 81 mg PO DAILY 11/10/19 05/15/22 05/01/22 History atorvastatin 10 mg tablet 10 mg PO BEDTIME 11/10/19 05/15/22 11/20/21 History losartan 25 mg tablet 1 tab PO DAILY 11/14/19 05/15/22 11/20/21 History ibuprofen 800 mg tablet 800 mg PO BID PRN Pain 01/06/21 05/15/22 05/01/22 History Exam Exam Date and Time: May 15, 2022 0706 Height,Weight and Vital Signs: Height 5 ft 6 in Weight 93.894 kg Last Vital Signs Temp 98.1 F 05/15/22 06:55 Pulse 81 05/15/22 06:55 Resp 18 05/15/22 06:55 BP 124/77 05/15/22 06:55 Pulse Ox 97 05/15/22 06:55 O2 Del Method Room Air 05/15/22 06:55 Airway Mallampati Class: II TM Dist: >3cm Neck ROM: Full Heart: RRR Lungs: CTA Assessment and Plan Final Anesthetic Review Family History of Problems with Anesthesia: No History of Problems with Anesthesia: No ASA Class: II Final Preanesthetic Review: Meds/Allgs Chart Reviewed, Consent Obtained/Reviewed and Anes Risks/Benef Reviewed Patient Risk: Low Procedure Risk: Low Anesthetic Plan Anesthetic Plan: MAC: Disposition: Standard PACU
--- NOTE | 2022-05-15 07:25 | MHC.SHP ---
Pre-Procedural Eval Section A Date of Service: 05/15/22 The patient is an INPATIENT: No Changes since office visit: No Cold of Flu in the past 2 weeks, No New Medical Problems, No Changes in Medication and No Patient answered all questions The History & Physical has been completed within 30 days and I have reviewed it.: Yes Section B Chief Complaint: Genetic susceptibility malignant neoplasm,screenin Allergies: Allergies Allergy/AdvReac Type Severity Reaction Status Date / Time No Known Allergies Allergy Verified 05/15/22 07:05 [No Known Allergies*] Plan I have reviewed the history and physical and performed a pertinent physical examination on my patient. No changes have occurred unless specified. Time Spent With Patient Time: Total time managing care of this patient today ____ minutes.
[2022-05-15 08:35] VITALS: BP 105/52; PULSE 78; RESP 16; TEMP 36.1; O2SAT 98
--- NOTE | 2022-05-15 08:38 | P.BOP_ITS ---
Brief Operative Note Date of Service: 05/15/22 Pre-op diagnosis: see H&P no changes Post-op diagnosis: same Procedure: egd colonosocpy Surgeon: Jonny Gonzalez Anesthesia: MAC Was an Cephalometric Technician used for this Procedure?: No Estimated blood loss (mL): 5 Pathology: other Condition: stable Disposition: PACU
[2022-05-15 08:50] VITALS: BP 125/67; PULSE 74; RESP 16; O2SAT 93
[2022-05-15 09:03] VITALS: BP 132/81; PULSE 75; RESP 16; TEMP 36.2; O2SAT 95
--- NOTE | 2022-05-15 09:57 | OP_ITS ---
DATE OF SERVICE: 05/15/2022 SURGEON: Jonny Gonzalez MD INDICATIONS: 1. Hereditary diffuse gastric cancer syndrome. 2. Colon cancer screening. PREOPERATIVE DIAGNOSIS: POSTOPERATIVE DIAGNOSIS: PROCEDURE PERFORMED: 1. Upper endoscopy with biopsy. 2. Colonoscopy to the terminal ileum with biopsy. ESTIMATED BLOOD LOSS: COMPLICATIONS: ANESTHESIA: Monitored anesthesia care. ASSISTANTS: SPECIMENS: DESCRIPTION OF PROCEDURE: A history and physical performed. The risks and benefits of the procedure were explained to the patient. Informed consent was obtained. The patient was placed in left lateral decubitus position. The Olympus videogastroscope was introduced into the esophagus, stomach, and duodenum. Examination was performed and the scope was removed. He was repositioned for colonoscopy. A digital rectal exam was performed and was found to be normal. The Olympus pediatric videocolonoscope was introduced into the rectum and advanced to the cecum without difficulty. The cecum was identified by transillumination, palpation, and identification of the ileocecal valve. Examination was performed. The scope was removed. He tolerated both procedures well and was returned to Recovery in stable condition. FINDINGS: Upper endoscopy, esophagus: The esophagus was normal. Stomach: The stomach showed a small flat area measuring approximately 10 mm on the anterior gastric wall at 55 cm from the incisors. This was biopsied. Biopsies were obtained from throughout the stomach in accordance with the [place] protocol. No other lesions were identified. There was some scarring from prior biopsies. The stomach was washed and insufflated multiple times with simethicone and acetylcysteine. There was no abnormal gastric distensibility. There were no open or ulcerated areas. Duodenum: The bulb and 2nd portion were normal. Colonoscopy: The terminal ileum was normal. The visualized colonic mucosa was normal. The quality of prep was good. Three small polyps less than 5 mm were identified and removed with biopsy forceps. These were located at 85 cm, 80 cm, and 25 cm. There was moderate diverticulosis of the sigmoid. Retroflexed examination showed small internal hemorrhoids. IMPRESSION: 1. Hereditary diffuse gastric cancer syndrome. 2. Colon polyps. RECOMMENDATION: Follow up with biopsy results. MD GAYLE Mendoza/JOHNL / [id number]
== END 2022-05-15 09:30 | disposition home or self-care (01) ==
PROVIDERS: PCP Internal Medicine; Visit Provider Internal Medicine Gastroenterology
PROC: (CPT 45380; principal; 2022-05-15 07:30)
DX: Z12.11 Encounter for screening for malignant neoplasm of colon (principal); Z86.010 Personal history of colon polyps; D12.3 Benign neoplasm of transverse colon; K63.5 Polyp of colon; Z15.09 Genetic susceptibility to other malignant neoplasm; Z80.0 Family history of malignant neoplasm of digestive organs; K57.30 Diverticulosis of large intestine without perforation or abscess without bleeding; K64.8 Other hemorrhoids; I10 Essential (primary) hypertension; E78.00 Pure hypercholesterolemia, unspecified; G47.33 Obstructive sleep apnea (adult) (pediatric); Z79.899 Other long term (current) drug therapy; Z87.891 Personal history of nicotine dependence; Z79.82 Long term (current) use of aspirin; Z79.1 Long term (current) use of non-steroidal anti-inflammatories (NSAID)
CPT/HCPCS: 45380; 43239; 88305; 88342; J2370

== ENCOUNTER 2022-10-15 11:23 | Outpatient (REF) | payer BC, SELFPAY ==
[2022-10-15 14:38] LABS: Estimated Average Glucose 126 mg/dL
[2022-10-15 14:49] LABS: Anion Gap 14 (12-20); Blood Urea Nitrogen 12 mg/dL (9-16); Carbon Dioxide 22 mmol/L (22-29); Chloride 109 mmol/L (96-108); Estimated Glomerular Filt Rate > 60; Glucose Random 78 mg/dL (60-115); Potassium 4.5 mmol/L (3.3-5.1); Sodium 140 mmol/L (135-145)
== END 2022-10-15 11:24 | disposition home or self-care (01) ==
LOC: HO.LAB 11:23
PROVIDERS: PCP Internal Medicine; Visit Provider Internal Medicine
DX: I10 Essential (primary) hypertension (principal); R73.03 Prediabetes
CPT/HCPCS: 36415; 80048; 83036

== ENCOUNTER 2022-11-02 08:08 | Outpatient (REF) | payer BC, SELFPAY ==
--- NOTE | ~2022-11-02 | CT_ITS ---
EXAMINATION: CT LUMBAR SPINE WITHOUT CONTRAST CLINICAL INFORMATION: Fracture of L4. COMPARISON: Lumbar spine radiographs from 07/28/2021. TECHNIQUE: Multidetector helical imaging of the lumbar spine was obtained without intravenous contrast. Multiple axial reformats and coronal/sagittal reconstructions were created the technologist workstation for review. This CT examination was performed using dose optimization techniques as appropriate, variously including the following: *Automated exposure control. *Adjustment of mA and/or kV according to patient size (this includes techniques or standardized protocols for targeted exams where dose is matched to indication/reason for exam; i.e. extremities or head). *Use of iterative reconstruction technique. DLP: 679 mGy-cm FINDINGS: Straightening of the normal lumbar lordosis. Minimal left convex curvature of the lumbar spine. Mild degenerative retrolisthesis of L5 on S1. There is a well corticated limbus vertebra at L4. No evidence of acute fracture or traumatic subluxation. The vertebral body heights are maintained. Advanced degenerative disc disease at L4-L5 and L5-S1. Moderate degenerative disc disease at L2-L3 and L3-L4. Thickened trabeculae within the L2 vertebral body suggestive of an underlying intraosseous hemangioma. No suspicious lytic or sclerotic osseous lesions. No significant abnormalities of the paraspinal musculature. Limited evaluation of the intra-abdominal structures without significant abnormalities. The abdominal aorta is of normal contour and caliber with moderate calcific atherosclerotic disease. AXIAL SPINAL LEVELS: L1-L2: Mild diffuse disc bulge with partial annular calcification. There is moderate right and mild left facet joint arthropathy. There is no neural foraminal stenosis. There is no demonstrated spinal canal stenosis. L2-L3: Moderate diffuse disc bulge with posterior osseous ridging. There is moderate left worse than right facet joint arthropathy. There is mild bilateral neural foraminal stenosis. There is no demonstrated spinal canal stenosis. L3-L4: Moderate diffuse disc bulge with superimposed right subarticular disc protrusion. There is moderate bilateral facet joint arthropathy. There is no neural foraminal stenosis. There appears to be stenosis of the right subarticular zone with mild spinal canal stenosis centrally exacerbated by prominent dorsal epidural lipomatous tissue. L4-L5: Moderate diffuse disc bulge with posterior osseous ridging. There is severe bilateral facet joint arthropathy. There is moderate left worse than right neural foraminal stenosis. There appears to be stenosis of the subarticular zones with moderate spinal canal stenosis centrally. L5-S1: Moderate diffuse disc bulge with posterior osseous ridging. There is moderate bilateral facet joint arthropathy. There is severe bilateral neural foraminal stenosis. There is no demonstrated spinal canal stenosis. CT/CT lumbar spine wo IV con IMPRESSION: 1. No evidence of acute fracture or traumatic subluxation of the lumbar spine. Chronic L4 limbus vertebra. 2. Moderate multilevel degenerative spondyloarthropathy of the lumbar spine as described in detail above. Most notably on this limited exam without intrathecal contrast, there appears to be moderate spinal canal stenosis at L4-L5. Mild spinal canal stenosis at L3-L4. Stenoses of the subarticular zones at L3-L4 and L4-L5. Moderate to severe neural foraminal stenoses at L4-L5 and L5-S1.
== END 2022-11-02 08:09 | disposition home or self-care (01) ==
LOC: HO.CT 08:08
PROVIDERS: PCP Internal Medicine; Visit Provider Internal Medicine
DX: R93.7 Abnormal findings on diagnostic imaging of other parts of musculoskeletal system (principal)
CPT/HCPCS: 72131

== ENCOUNTER 2022-11-10 15:38 | Outpatient (REF) | payer BC, SELFPAY | END 2022-11-10 15:39 | disposition home or self-care (01) | LOC: HO.CT 15:38 | PROVIDERS: PCP Internal Medicine; Visit Provider Physician Assistant Medical | DX: Z12.2 Encounter for screening for malignant neoplasm of respiratory organs (principal); F17.210 Nicotine dependence, cigarettes, uncomplicated | CPT/HCPCS: 71271 ==

== ENCOUNTER 2022-11-20 06:27 | Day surgery (SDC) | payer BC, SELFPAY ==
--- NOTE | 2022-11-19 10:33 | HO.ANESPROP2 ---
Documented by User: Fanny Waddell NP 11/19/22 10:35 HPI - Anesthesia Eval Consult details Narrative: 62yo M for Upper Endoscopy s/p EGD 05/2022 with MAC PMF Active Problems Active Problems: All Active Problems (Updated 02/12/22 @ 21:07 by Fermin Clifford MD) Coronary artery calcification (Acute) Personal history of nicotine dependence (Acute) Emphysema lung (Acute) Dyspnea (Acute) Obstructive sleep apnea on CPAP (Acute) Past Medical History Medical History Coronary artery calcification Personal history of nicotine dependence Emphysema lung Dyspnea Obstructive sleep apnea on CPAP Monoallelic mutation of CDH1 gene Family history of cancer of GI tract Heartburn Hyperlipidemia Hypertension Family History Family History Father Metastatic cancer Mother No problems noted. Sister Monoallelic mutation of CDH1 gene History of stomach cancer BOOP (bronchiolitis obliterans with organizing pneumonia) Sister Monoallelic mutation of CDH1 gene History of stomach cancer Sister Hx of myocardial infarction Daughter History of stomach cancer Monoallelic mutation of CDH1 gene Family history of problems with anesthesia: No Surgical History Surgical History Hx of repair of left rotator cuff Hx of repair of right rotator cuff History of medial meniscus repair of right knee Hx of vasectomy Hx of tonsillectomy Hx of elbow surgery Hx of colonoscopy History of esophagogastroduodenoscopy (EGD) History of Problems with Anesthesia: No Social History Social History Alcohol intake: current Alcohol intake frequency: holidays/special occasions only Alcohol type: beer and wine Patient Tobacco Use Status: Current someday Tobacco user Tobacco use type: Cigar Years Smoked: 35 Second Hand Smoke Exposure: No Are you DNR?: No Advance Directives: No Advance Directives Information Provided: Yes Advance Directives Date on File: 05/17/20 Nutrition Risks: No Nutritional Risk service: Yes (Served in the [employer]) Current occupational status: employed Current occupation: Works for [employer] and [employer] Current occupational exposures/hazards: No Meds Allergies Allergy/AdvReac Type Severity Reaction Status Date / Time No Known Allergies Allergy Verified 05/15/22 07:05 [No Known Allergies*] Active Medications: Current Medications Acetylcysteine (Acetylcysteine 20 % 6,000 Mg/30 Ml Vial) 6,000 mg OG-TUBE ONCE ONE Stop: 11/20/22 06:31 Non-Formulary Med Simethicone 20 Mg/0. 3 Ml 1 each OG-TUBE NOW ONE Stop: 11/20/22 06:31 Home Medications Medication Instructions Recorded Confirmed Last Taken Type aspirin 81 mg tablet 81 mg PO DAILY 11/10/19 05/15/22 05/01/22 History atorvastatin 10 mg tablet 10 mg PO BEDTIME 11/10/19 05/15/22 11/20/21 History losartan 25 mg tablet 1 tab PO DAILY 11/14/19 05/15/22 11/20/21 History ibuprofen 800 mg tablet 800 mg PO BID PRN Pain 01/06/21 05/15/22 05/01/22 History Exam Exam Date and Time: November 19, 2022 1033 Pertinent Lab Results Pertinent Lab Results: Laboratory Tests 10/15/22 11:36 Sodium 140 Potassium 4.5 Chloride 109 H Carbon Dioxide 22 BUN 12 Creatinine 0.96 Laboratory Tests 05/07/22 16:09 WBC 8.2 Hgb 14.3 Hct 42.6 Plt Count 189 Assessment and Plan Assessment Anesthesia Assessment: Chart Reviewed Final Anesthetic Review Family History of Problems with Anesthesia: No History of Problems with Anesthesia: No Documented by User: Agatha Zarate MD 11/20/22 07:27 [facility] Active Problems Active Problems: All Active Problems (Updated 11/20/22 @ 07:20 by Agatha Zarate MD) Coronary artery calcification (Acute) Personal history of nicotine dependence (Acute) Emphysema lung (Acute) Dyspnea (Acute) Obstructive sleep apnea on CPAP (Acute) Past Medical History Medical History Coronary artery calcification Personal history of nicotine dependence Emphysema lung Dyspnea Obstructive sleep apnea on CPAP Monoallelic mutation of CDH1 gene Family history of cancer of GI tract Heartburn Hyperlipidemia Hypertension Family History Family History Father Metastatic cancer Mother No problems noted. Sister Monoallelic mutation of CDH1 gene History of stomach cancer BOOP (bronchiolitis obliterans with organizing pneumonia) Sister Monoallelic mutation of CDH1 gene History of stomach cancer Sister Hx of myocardial infarction Daughter History of stomach cancer Monoallelic mutation of CDH1 gene Surgical History Surgical History Hx of repair of left rotator cuff Hx of repair of right rotator cuff History of medial meniscus repair of right knee Hx of vasectomy Hx of tonsillectomy Hx of elbow surgery Hx of colonoscopy History of esophagogastroduodenoscopy (EGD) Social History Social History Alcohol intake: current Alcohol intake frequency: holidays/special occasions only Alcohol type: beer and wine Patient Tobacco Use Status: Current someday Tobacco user Tobacco use type: Cigar Years Smoked: 35 Second Hand Smoke Exposure: No Are you DNR?: No Advance Directives: No Advance Directives Information Provided: Yes Advance Directives Date on File: 05/17/20 Nutrition Risks: No Nutritional Risk service: Yes (Served in the [employer]) Current occupational status: employed Current occupation: Works for [employer] Current occupational exposures/hazards: No Meds Allergies Allergy/AdvReac Type Severity Reaction Status Date / Time No Known Allergies Allergy Verified 05/15/22 07:05 [No Known Allergies*] Home Medications Medication Instructions Recorded Confirmed Last Taken Type aspirin 81 mg tablet 81 mg PO DAILY 11/10/19 05/15/22 05/01/22 History atorvastatin 10 mg tablet 10 mg PO BEDTIME 11/10/19 05/15/22 11/20/21 History losartan 25 mg tablet 1 tab PO DAILY 11/14/19 05/15/22 11/20/21 History ibuprofen 800 mg tablet 800 mg PO BID PRN Pain 01/06/21 05/15/22 05/01/22 History Exam Height,Weight and Vital Signs: Height 5 ft 6 in Weight 93.894 kg Vital Signs Temp Pulse Resp BP Pulse Ox O2 Del Method 11/20/22 06:32 98 F 81 20 149/96 H 98 Room Air Airway Mallampati Class: III TM Dist: >3cm Neck ROM: Limited (Extension ok but stiff from arthritis) Loose/Missing/Broken Teeth: No (Denies broken, loose, missing teeth) Heart: RRR Lungs: CTAB Assessment and Plan Assessment Anesthesia Assessment: Anesthesia Plan Discussed Final Anesthetic Review NPO: Yes ASA Class: III Final Preanesthetic Review: No Changes in Pt Med Stat, Meds/Allgs Chart Reviewed, Consent Obtained/Reviewed and Anes Risks/Benef Reviewed Patient Risk: Intermediate Procedure Risk: Low Assessment/Block/Sedation in SS: Assess/Block/Sedation-SS Anesthetic Plan Anesthetic Plan: MAC: Disposition: Standard PACU
[2022-11-20 05:51] VITALS: BMI 33.4
[2022-11-20 06:32] VITALS: BP 149/96; PULSE 81; RESP 20; TEMP 36.6; O2SAT 98
[2022-11-20] MEDS: Lactated Ringers 1,000 ML 100 ML IVCONT (06:52)
--- NOTE | 2022-11-20 07:34 | MHC.SHP ---
Pre-Procedural Eval Section A Date of Service: 11/20/22 Section B Chief Complaint: Genetic susceptibility to other malignant neoplasm Details of Present Illness: see H&P no changes Relevant Family History (Specify if Yes): No Relevant Social History: None Present Medications: see Short Stay Collaborative assessment Medical History: No relevant PMH History of Previous Operations: No relevant previous surgery Allergies: Allergies Allergy/AdvReac Type Severity Reaction Status Date / Time No Known Allergies Allergy Verified 05/15/22 07:05 [No Known Allergies*] Review of Systems Sugical H&P ROS: Negative: Constitution, Cardiovascular, Respiratory, Neurological, Psychiatric, Hem-Onc, Allergic/Immunologic, Gastrointestinal, Genitourinary, Musculoskeletal, Integumentary, Endocrine and Eyes/Ears/Nose/Throat Exam Surgical H&P Exam: Normal: HEENT, Normal: Heart, Normal: Lungs, Normal: Extremities, Normal: Abdomen, Normal: Skin and Normal: Neurological Plan I have reviewed the history and physical and performed a pertinent physical examination on my patient. No changes have occurred unless specified. Time Spent With Patient Time: Total time managing care of this patient today ____ minutes.
[2022-11-20 08:07] VITALS: BP 90/60; PULSE 90; RESP 16; TEMP 37; O2SAT 93
--- NOTE | 2022-11-20 08:09 | P.BOP_ITS ---
Brief Operative Note Date of Service: 11/20/22 Pre-op diagnosis: see H&P Post-op diagnosis: same Surgeon: Jonny Gonzalez MD Anesthesia: MAC Was an Life Cycle Assessment Analyst used for this Procedure?: No Estimated blood loss (mL): 5 Pathology: other Condition: stable Disposition: PACU
[2022-11-20 08:22] VITALS: BP 115/74; PULSE 86; RESP 18; O2SAT 95
--- NOTE | 2022-11-20 08:26 | OP_ITS ---
DATE OF SERVICE: 11/20/2022 SURGEON: Jonny Gonzalez MD INDICATIONS: Hereditary diffuse gastric cancer syndrome. PREOPERATIVE DIAGNOSIS: POSTOPERATIVE DIAGNOSIS: PROCEDURE PERFORMED: Upper endoscopy with biopsy. ESTIMATED BLOOD LOSS: COMPLICATIONS: ANESTHESIA: Monitored anesthesia care. ASSISTANTS: SPECIMENS: DESCRIPTION OF PROCEDURE: A history and physical performed. The risks and benefits of the procedure were explained to the patient. Informed consent was obtained. The patient was placed in the left lateral decubitus position. The Olympus video gastroscope was introduced into the esophagus, stomach, and duodenum. Examination was performed. The scope was removed. He tolerated the procedure well and was taken to recovery in stable condition. FINDINGS: Esophagus: The esophagus was normal. Stomach: The stomach showed some scarring from previous biopsies. There was mild gastritis with a few linear erosions in the antrum on the posterior wall. Biopsies were obtained from the stomach throughout the body and antrum, fundus, and cardia as required by protocol. Simethicone and acetylcysteine were used to clear the stomach of mucus and bubbles. Distensibility was tested and found to be normal. Duodenum: The bulb and 2nd portion were normal. IMPRESSION: Hereditary diffuse gastric cancer syndrome, gastritis. RECOMMENDATION: 1. Follow up the biopsy results. 2. Omeprazole 40 mg daily. MD GAYLE Mendoza/CHRISTOPHER / [id number]
[2022-11-20 08:37] VITALS: BP 131/84; PULSE 84; RESP 17; TEMP 37; O2SAT 96
== END 2022-11-20 09:11 | disposition home or self-care (01) ==
PROVIDERS: PCP Internal Medicine; Visit Provider Internal Medicine Gastroenterology
PROC: 0DJ08ZZ Inspection of Upper Intestinal Tract, Via Natural or Artificial Opening Endoscopic (ICD-10-PCS; CPT 43235; principal; 2022-11-20 07:30)
DX: Z15.09 Genetic susceptibility to other malignant neoplasm (principal); Z80.0 Family history of malignant neoplasm of digestive organs; Z86.010 Personal history of colon polyps; Z80.1 Family history of malignant neoplasm of trachea, bronchus and lung; K29.60 Other gastritis without bleeding; I10 Essential (primary) hypertension; E78.00 Pure hypercholesterolemia, unspecified; G47.33 Obstructive sleep apnea (adult) (pediatric); Z79.82 Long term (current) use of aspirin; Z79.899 Other long term (current) drug therapy; Z99.89 Dependence on other enabling machines and devices; Z87.891 Personal history of nicotine dependence
CPT/HCPCS: 43239; 88305; 88342; J2250

== ENCOUNTER 2023-01-19 14:32 | Outpatient (AMB) | payer BC, SELFPAY ==
[2023-01-19 15:04] VITALS: PULSE 77; O2SAT 95; BMI 32.9
--- NOTE | 2023-01-19 15:04 | A.OFFVIS_ITS ---
Intake Vital Signs 01/19/23 15:04 Height 5 ft 6 in Weight 204 lb BMI 32.9 Pulse 77 Pulse Source Pulse Oximeter Pulse Oximetry (%) 95 Oxygen Delivery Method Room Air Intake Visit Reasons: Obstructive sleep apnea Escalator Constructor Required: No Allergies No Known Allergies [No Known Allergies*] Allergy (Verified 01/19/23 15:05) HPI HPI Comments History of Present Illness Details The patient is a 62-year-old gentleman with a history of tobacco dependency, pulmonary emphysema and obstructive sleep apnea on CPAP who is here for an evaluation. he states that he has been on CPAP therapy now for many year. he was diagnosed many years ago and now he has a 2nd machine. He does have an APAP set 10-16 cm and does use a nasal mask. The nasal mask unfortunately causes irritation to the nasal bridge now with some skin breakdown. Patient does complain of dry mouth and his complains that he has been snoring even on the PAP therapy. Recently was adjusted. He did bring machine we were able to downloaded. It appears that his AHI is down to 1 suggesting the machine is very effective in treating his apnea. His average pressure is around 15 cm. Therefore he does need high levels of pressure to do with the obstruction. 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 He did question the use of a hypoglossal nerve stimulator in the future. I advised him not to consider this option. Specially with retrognathia other better options would be a oral mandibular device or oral mandibular advancement surgery. But at this point APAP therapy seems to be very effective for him. I did provide him with a chinstrap in order for him to use his mask more effectively. I also provided him with an N30i mask that will work better for him without any irritation to the nasal bridge. He does get his supplies through his [employer] company, [employer] ([email or web address] If he does feel this mask is effective for him will go ahead and send a prescription for that type of mask. His other option is to consider fullface mask if he continues to have a dry mouth and if for some reason the chinstrap is not working. From a respiratory status he does well. Does get short of breath if he goes up couple flights of stair. The patient does not have any maintenance inhaler or even a rescue inhaler. At this point does not feel that he needs 1. He is participating in the lung cancer screening program. We did review his CT scan together. Does have what appears to be paraseptal bullous emphysema primarily in the upper lung zones. Otherwise no other abnormalities seen except for some coronary artery calcifications. The patient has not had pulmonary function studies. On further questioning he stat es he is exposed to secondhand smoke as his smokes in the car when he is riding with her. He still smoking cigars. I advised him that he would be helpful to be in a smoke-free environment specially with his development of emphysema and coronary artery calcifications. 05/13/2021 the patient is here for a pulmonary follow-up visit. Overall the patient has been doing about the same. He still struggling some with CPAP. He did try the nasal pillows but there were not as comfortable as the nasal mask. Therefore he went back on it. He has been having issues with snoring. He also waking up with daytime drowsiness. I do believe that the snoring is from the fact that he is opening up his mouth. He did try the chinstrap that was not effective either. Therefore his only option will be to consider a fullface mask. I did have a medium F 30 mask available that he could try. He did good on felt comfortable with. I am hopeful that he can try it and hopefully improve the snoring and hopefully improve the daytime drowsiness. He needs to sleep at least 7 hours a night. In meantime he is also scheduled to undergo the lung cancer screening program CT scan. He has not had the low-dose CT scan as of yet. His last 1 was back in April 2020. I am hopeful that in the next few weeks he can have it done. In addition to that he continues to smoke cigars once in a while. I did encourage him to quit or continues to decrease. The patient will have pulmonary function studies when he returns in 6 months. If he has any issues prior to that he is to call the office for an earlier evaluation. 11/14/2021 the patient is here for a pulm onary follow-up visit. Overall the patient is doing well. We did provide him with a fullface mask during the last visit. Continues on the CPAP therapy. In the meantime we did review his pulmonary function studies. Appears to have no obstructive nor restrictive ventilatory defects. Actually his lung capacity is very good. His diffusing capacity has decreased slightly. He continues to smoke cigars. He knows to quit altogether based on the fact that this is also adding to his risk of developing lung cancer. He is taking part in the lung cancer screening program. He is due for CT scan at this time. 02/12/2022 the patient is here for a pulmonary follow-up visit. Overall the patient is doing relatively well. He still struggles with CPAP. He did try the fullface mask and also try day nasal pillows with a chinstrap. None of the stuff was helpful for him. He is back to using his nasal mask with current CPAP. He still complains of a dry mouth and irritation. The patient does have retrognathia and therefore he would benefit from a mandibular advancement device. The patient has tried and failed multiple times to trying adequate CPAP therapy. I will refer him to a dentist at this time to see if a mandibular advancement device could be provided for him. Meantime the patient continues to smoke. He did try to cut down. He still smoking a cigar. He understands that there is a risk for both pulmonary and cardiac issues. We did review his CT scan of the chest demonstrating some emphysema. In addition to that the patient does have some calcifications of his coronary artery suggesting some chronicity artery disease. The patient is aware to make lifestyle modifications. 01/19/2023 the patient is here for a pul monary follow-up visit. The patient overall is doing well. He went back to using the CPAP. He did consider the oral mandibular device but was too expensive and not worsened. Therefore he has been using his CPAP in the CPAP therapy continues to be affecting beneficial. He does use a nasal mask because he had facial hair and that works well for him. He has been waking up rested. The patient however states that he has been snoring. His has been complaining that he is not snoring with the machine. We did download his machine. His AHI is down to 1 suggesting the machine is adequately treating the sleep apnea. However, the patient is averaging a pressure of 16 cm and does the maximum pressure that can provide him. It is likely that he will need a higher pressure than that. Therefore increase the machine from 10-16 to 11-18. The patient will use the therapy and then if he needs to adjust it further in can let me now we can continue taking the pressures were adequate response. The patient also has a nasal septal deviation. He may need to get that fixed in order to be able to breathe better as well. He is going to consider and let me know. The patient will also cont inue to use the APAP. Although if he continues having difficulties a BiPAP may be better tolerated specially with higher pressures. From a respiratory status patient is doing well denies any worsening shortness of breath. [facility] Medical History Coronary artery calcification Personal history of nicotine dependence Emphysema lung Dyspnea Obstructive sleep apnea on CPAP Monoallelic mutation of CDH1 gene Family history of cancer of GI tract Heartburn Hyperlipidemia Hypertension Surgical History Hx of repair of left rotator cuff Hx of repair of right rotator cuff History of medial meniscus repair of right knee Hx of vasectomy Hx of tonsillectomy Hx of elbow surgery Hx of colonoscopy History of esophagogastroduodenoscopy (EGD) Family History Father Metastatic cancer Mother No problems noted. Sister Monoallelic mutation of CDH1 gene History of stomach cancer BOOP (bronchiolitis obliterans with organizing pneumonia) Sister Monoallelic mutation of CDH1 gene History of stomach cancer Sister Hx of myocardial infarction Daughter History of stomach cancer Monoallelic mutation of CDH1 gene Social History Alcohol intake: current Alcohol intake frequency: holidays/special occasions only Alcohol type: beer and wine Patient Tobacco Use Status: Current someday Tobacco user Tobacco use type: Cigar Years Smoked: 35 Second Hand Smoke Exposure: No Advance Directives Date on File: 05/17/20 service: Yes (Served in the [employer]) Current occupational status: employed Current occupation: Works for [employer] Current occupational exposures/hazards: No Review of Systems Const Reports snoring ENT Denies change in voice, Denies lip swelling, Denies mouth pain, Reports nasal congestion, Reports nasal discharge and Denies tongue swelling Card Denies chest pain and Reports dyspnea on exertion Resp Reports dyspnea on exertion and Reports snoring GI Denies abdominal pain Musc Denies no additional complaints Neuro Denies Neuro-related abnormal movements Psych Denies no additional complaints Guillermo/Lymph Denies easy bleeding and Denies lymphadenopathy Aller/Immun Denies lip swelling and Denies tongue swelling Physical Exam Vital Signs: Last Vital Signs Pulse 77 01/19/23 15:04 Pulse Ox 95 01/19/23 15:04 Oxygen Delivery Method Room Air 01/19/23 15:04 BMI result Body Mass Index 32.9 Const General: alert HEENT General nose exam: Abnormal nasal septum present deviated Face and sinus: Yes other (retronathia 2-3 mm) Eyes Pupils: Equal, round and reactive pupils present Neck Neck: Yes normal visual inspection, Yes full ROM and Yes no lymphadenopathy Chest Chest palpation & inspection: normal inspection of the chest Resp Auscultation: diminished lung sounds Cardio Rate: regular rate Rhythm: regular rhythm Heart sounds: S1 normal heart sound present and S2 normal heart sound present GI Palpation (GI): Soft to palpation and nontender Auscultation: normal bowel sounds General: Yes no CVA tenderness Back/Spine/Pelvis Back: no CVA tenderness Skin General skin exam: rashes and/or lesions noted Neuro Cranial nerves: Yes Equal, round and reactive pupils present Assessment & Plan Assessment & Plan (1) Obstructive sleep apnea on CPAP: Code(s): G47.33 - Obstructive sleep apnea (adult) (pediatric); Z99.89 - Dependence on other enabling machines and devices (2) Nicotine dependence, unspecified, uncomplicated: Comment: (onset 12yo, 30pyh, cigarettes now cigars) Code(s): F17.200 - Nicotine dependence, unspecified, uncomplicated Qualifiers: Nicotine product type: other Qualified Code(s): F17.290 - Nicotine dependence, other tobacco product, uncomplicated (3) Dyspnea: Code(s): R06.00 - Dyspnea, unspecified Qualifiers: Dyspnea type: dyspnea on exertion Qualified Code(s): R06.09 - Other forms of dyspnea (4) Emphysema lung: Code(s): J43.9 - Emphysema, unspecified Qualifiers: Emphysema type: other Qualified Code(s): J43.8 - Other emphysema (5) Coronary artery calcification: Code(s): I25.10 - Atherosclerotic heart disease of [place] coronary artery without angina pectoris; I25.84 - Coronary atherosclerosis due to calcified coronary lesion Plan contiune APAP, adjusted 16 to -18, nasal mask consider ENT referral for septal deviation LDCT RADS 1, next 11/2023 Tobacco cessation F/U 6 months Coding Level of Care Code Est Pt Level 4 (05702) Diagnoses Obstructive sleep apnea on CPAP G47.33; Z99.89 Other tobacco product nicotine dependence, uncomplicated F17.290 Nicotine product type: other Dyspnea on exertion R06.09 Dyspnea type: dyspnea on exertion Other emphysema J43.8 Emphysema type: other Coronary artery calcification I25.10; I25.84 Time Spent (min) 18
== END 2023-01-19 16:04 | disposition home or self-care (01) ==
PROVIDERS: PCP Internal Medicine; Visit Provider Hospitalist
DX: G47.33 Obstructive sleep apnea (adult) (pediatric) (principal); Z99.89 Dependence on other enabling machines and devices; F17.290 Nicotine dependence, other tobacco product, uncomplicated; R06.09 Other forms of dyspnea; J43.8 Other emphysema; I25.10 Atherosclerotic heart disease of native coronary artery without angina pectoris; I25.84 Coronary atherosclerosis due to calcified coronary lesion
CPT/HCPCS: 99214

== ENCOUNTER → 2023-01-19 14:32 | Outpatient (BNVA) | payer BC, SELFPAY | PROVIDERS: PCP Internal Medicine; Visit Provider Hospitalist ==

== ENCOUNTER 2023-03-29 06:29 | Outpatient (REF) | payer BC, SELFPAY ==
[2023-03-29 06:40] LABS: MANUAL DIFF FLAG NO
[2023-03-29 07:48] LABS: Basophils Absolute Auto 0.1 X10*3/uL (0.0-0.2); Eosinophils Absolute Auto 0.2 X10*3/uL (0.0-0.4); Eosinophils Percent Auto 3.3 % (0-4); Hematocrit 45.5 % (42.0-52.0); Hemoglobin 15.2 g/dl (14.0-18.0); Imm Gran Abs Auto 0.04 X10*3/uL (0.00-0.03); Imm Gran Pct Auto 0.6 % (0.0-0.4); Lymphocytes Absolute Auto 1.8 X10*3/uL (1.2-4.9); Lymphocytes Percent Auto 25.5 % (20-40); Mean Corpuscular HGB Conc 33.4 g/dl (31.0-36.0); Mean Corpuscular Hemoglobin 31.3 pg (27.0-33.0); Mean Corpuscular Volume 93.6 fL (80.0-98.0); Monocytes Absolute Auto 0.8 X10*3/uL (0.1-1.2); Monocytes Percent Auto 11.2 % (2-11); Neutrophils Absolute Auto 4.1 x10*3/uL (2.0-8.3); Neutrophils Percent Auto 58.4 % (45-73); Platelet Count 189 X10*3/uL (160-400); Red Blood Count 4.86 X10*6/uL (4.60-5.80); Red Cell Distribution Width 13.5 % (11.0-16.0)
[2023-03-29 08:13] LABS: Estimated Average Glucose 143 mg/dL; Hemoglobin A1c % 6.6 % (<6.0)
[2023-03-29 08:24] LABS: Creatinine Urine 147.52 mg/dL; Microalbum/Creatinine Ratio Ur 16.2 ug/mg cr (<30)
[2023-03-29 08:28] LABS: Alanine Aminotransferase 36 U/L (0-40); Albumin Level 4.3 g/dL (3.5-5.0); Alkaline Phosphatase 87 U/L (39-117); Anion Gap 10 (12-20); Aspartate Amino Transferase 32 U/L (5-37); Bilirubin Total 0.4 mg/dL (0.0-1.0); Blood Urea Nitrogen 15 mg/dL (9-16); Calcium 9.3 mg/dL (8.4-10.2); Carbon Dioxide 27 mmol/L (22-29); Chloride 108 mmol/L (96-108); Cholesterol 132 mg/dL (<200); Estimated Glomerular Filt Rate > 60; Glucose Fasting 122 mg/dL (60-99); HDL Cholesterol 21 mg/dL (>40); LDL Cholesterol Calculated 75 mg/dL (<100); Potassium 3.9 mmol/L (3.3-5.1); Sodium 141 mmol/L (135-145); Total Protein 7.8 g/dL (6.5-8.0); Triglycerides 181 mg/dL (<150)
[2023-03-29 08:52] LABS: Prostate Specific Antigen Scr 4.36 ng/mL (<0.05-4.0)
== END 2023-03-29 06:30 | disposition home or self-care (01) ==
LOC: HO.LAB 06:29
PROVIDERS: PCP Internal Medicine; Visit Provider Internal Medicine
DX: Z12.5 Encounter for screening for malignant neoplasm of prostate (principal); I10 Essential (primary) hypertension; K21.9 Gastro-esophageal reflux disease without esophagitis; N40.0 Benign prostatic hyperplasia without lower urinary tract symptoms; G47.33 Obstructive sleep apnea (adult) (pediatric); R73.03 Prediabetes; E78.00 Pure hypercholesterolemia, unspecified
CPT/HCPCS: 36415; 80053; 80061; 82043; 82570; 83036; 84153; 85025

== ENCOUNTER 2023-04-23 10:28 | Outpatient (REF) | payer BC, SELFPAY ==
[2023-04-23 13:33] LABS: PSA,Total (Free>4and<10) 3.31 ng/mL (0.00-4.00)
== END 2023-04-23 10:29 | disposition home or self-care (01) ==
LOC: HO.LAB 10:28
PROVIDERS: PCP Internal Medicine; Visit Provider Internal Medicine
DX: Z12.5 Encounter for screening for malignant neoplasm of prostate (principal); R97.20 Elevated prostate specific antigen [PSA]
CPT/HCPCS: 36415; 84153

== ENCOUNTER 2023-05-21 06:27 | Day surgery (SDC) | payer BC, SELFPAY ==
[2023-05-18 12:23] VITALS: BMI 34.7
--- NOTE | 2023-05-20 10:48 | P.CONAN_ITS ---
Documented by User: Fanny Waddell NP 05/20/23 10:51 HPI - Anesthesia Eval Consult details Narrative: 62yo M for Upper Endoscopy s/p same EGD 11/2022 with [facility] Active Problems Active Problems: All Active Problems Coronary artery calcification (Acute) Personal history of nicotine dependence (Acute) Emphysema lung (Acute) Dyspnea (Acute) Obstructive sleep apnea on CPAP (Acute) Past Medical History Medical History (Updated 01/19/23 @ 15:12 by Fermin Clifford MD) Coronary artery calcification Personal history of nicotine dependence Emphysema lung Dyspnea Obstructive sleep apnea on CPAP Monoallelic mutation of CDH1 gene Family history of cancer of GI tract Heartburn Hyperlipidemia Hypertension Family History Family History Father Metastatic cancer Mother No problems noted. Sister Monoallelic mutation of CDH1 gene History of stomach cancer BOOP (bronchiolitis obliterans with organizing pneumonia) Sister Monoallelic mutation of CDH1 gene History of stomach cancer Sister Hx of myocardial infarction Daughter History of stomach cancer Monoallelic mutation of CDH1 gene Family history of problems with anesthesia: No Surgical History Surgical History (Updated 05/18/23 @ 12:07 by Tricia Means RN) Hx of right knee surgery Hx of repair of left rotator cuff Hx of repair of right rotator cuff History of medial meniscus repair of right knee Hx of vasectomy Hx of tonsillectomy Hx of elbow surgery Hx of colonoscopy History of esophagogastroduodenoscopy (EGD) History of Problems with Anesthesia: No Social History Social History Alcohol intake: current Alcohol intake frequency: holidays/special occasions only Alcohol type: beer and wine Patient Tobacco Use Status: Current someday Tobacco user Tobacco use type: Cigar Years Smoked: 35 Second Hand Smoke Exposure: No Are you DNR?: No Advance Directives: No Advance Directives Information Provided: Yes Advance Directives Date on File: 05/17/20 Nutrition Risks: No Nutritional Risk service: Yes (Served in the [employer]) Current occupational status: employed Current occupation: Works for [employer] Current occupational exposures/hazards: No Meds Allergies Allergy/AdvReac Type Severity Reaction Status Date / Time No Known Allergies Allergy Verified 01/19/23 15:05 [No Known Allergies*] Home Medications ?Medication ?Instructions ?Recorded ?Confirmed ?Last Taken ?Type aspirin 81 mg tablet 81 mg PO DAILY 11/10/19 05/18/23 05/19/23 History atorvastatin 10 mg tablet 10 mg PO BEDTIME 11/10/19 05/18/23 05/20/23 History losartan 25 mg tablet 1 tab PO DAILY 11/14/19 05/18/23 05/20/23 History ibuprofen 800 mg tablet 800 mg PO BID PRN Pain 01/06/21 05/18/23 05/19/23 History omeprazole 40 mg capsule,delayed 40 mg PO DAILY 01/19/23 05/18/23 05/20/23 History release Exam Height,Weight and Vital Signs: Height 5 ft 6 in Weight 97.522 kg Pertinent Lab Results Pertinent Lab Results: Laboratory Tests 03/29/23 06:39 WBC 7.0 Hgb 15.2 Hct 45.5 Plt Count 189 Sodium 141 Potassium 3.9 Chloride 108 Carbon Dioxide 27 BUN 15 Creatinine 1.04 Assessment and Plan Assessment Anesthesia Assessment: Chart Reviewed Final Anesthetic Review Family History of Problems with Anesthesia: No History of Problems with Anesthesia: No Documented by User: Deacon Rodríguez MD 05/21/23 07:12 [facility] Past Medical History Medical History (Updated 01/19/23 @ 15:12 by Fermin Clifford MD) Coronary artery calcification Personal history of nicotine dependence Emphysema lung Dyspnea Obstructive sleep apnea on CPAP Monoallelic mutation of CDH1 gene Family history of cancer of GI tract Heartburn Hyperlipidemia Hypertension Family History Family History Father Metastatic cancer Mother No problems noted. Sister Monoallelic mutation of CDH1 gene History of stomach cancer BOOP (bronchiolitis obliterans with organizing pneumonia) Sister Monoallelic mutation of CDH1 gene History of stomach cancer Sister Hx of myocardial infarction Daughter History of stomach cancer Monoallelic mutation of CDH1 gene Surgical History Surgical History (Updated 05/18/23 @ 12:07 by Tricia Means RN) Hx of right knee surgery Hx of repair of left rotator cuff Hx of repair of right rotator cuff History of medial meniscus repair of right knee Hx of vasectomy Hx of tonsillectomy Hx of elbow surgery Hx of colonoscopy History of esophagogastroduodenoscopy (EGD) Social History Social History Alcohol intake: current Alcohol intake frequency: holidays/special occasions only Alcohol type: beer and wine Patient Tobacco Use Status: Current someday Tobacco user Tobacco use type: Cigar Years Smoked: 35 Second Hand Smoke Exposure: No Are you DNR?: No Advance Directives: No Advance Directives Information Provided: Yes Advance Directives Date on File: 05/17/20 Nutrition Risks: No Nutritional Risk service: Yes (Served in the [employer]) Current occupational status: employed Current occupation: Works for [employer] Current occupational exposures/hazards: No Meds Allergies Allergy/AdvReac Type Severity Reaction Status Date / Time No Known Allergies Allergy Verified 01/19/23 15:05 [No Known Allergies*] Home Medications ?Medication ?Instructions ?Recorded ?Confirmed ?Last Taken ?Type aspirin 81 mg tablet 81 mg PO DAILY 11/10/19 05/18/23 05/19/23 History atorvastatin 10 mg tablet 10 mg PO BEDTIME 11/10/19 05/18/23 05/20/23 History losartan 25 mg tablet 1 tab PO DAILY 11/14/19 05/18/23 05/20/23 History ibuprofen 800 mg tablet 800 mg PO BID PRN Pain 01/06/21 05/18/23 05/19/23 History omeprazole 40 mg capsule,delayed 40 mg PO DAILY 01/19/23 05/18/23 05/20/23 History release Exam Airway Mallampati Class: II TM Dist: >3cm Neck ROM: Full Loose/Missing/Broken Teeth: No Heart: rrr Lungs: cta b/l Assessment and Plan Assessment Anesthesia Assessment: Anesthesia Plan Discussed and Chart Reviewed Final Anesthetic Review NPO: Yes ASA Class: II Final Preanesthetic Review: No Changes in Pt Med Stat, Meds/Allgs Chart Reviewed, Consent Obtained/Reviewed and Anes Risks/Benef Reviewed Patient Risk: Intermediate Procedure Risk: Intermediate Anesthetic Plan Anesthetic Plan: MAC: Disposition: Standard PACU
[2023-05-21 06:42] VITALS: BP 152/92; PULSE 83; RESP 18; TEMP 36.9; O2SAT 96; BMI 33.9
[2023-05-21] MEDS: Lactated Ringers 1,000 ML 100 ML IVCONT (06:53)
--- NOTE | 2023-05-21 07:27 | MHC.SHP ---
Pre-Procedural Eval Section A - 24 Hr Update-Section A only Date of Service: 05/21/23 Section B - Complete if H&P > 30 days Chief Complaint: Gastritis, unspecified, without bleeding Details of Present Illness: see H&P no changes Relevant Family History (Specify if Yes): Yes Present Medications: see Short Stay Collaborative assessment Medical History: No relevant PMH History of Previous Operations: No relevant previous surgery Allergies: Allergies Allergy/AdvReac Type Severity Reaction Status Date / Time No Known Allergies Allergy Verified 01/19/23 15:05 [No Known Allergies*] Review of Systems Sugical H&P ROS: Negative: Constitution, Cardiovascular, Respiratory, Neurological, Psychiatric, Hem-Onc, Allergic/Immunologic, Gastrointestinal, Genitourinary, Musculoskeletal, Integumentary, Endocrine and Eyes/Ears/Nose/Throat Exam Surgical H&P Exam: Normal: HEENT, Normal: Heart, Normal: Lungs, Normal: Extremities, Normal: Abdomen, Normal: Skin and Normal: Neurological Plan Diagnosis/Plan: Unchanged I have reviewed the history and physical and performed a pertinent physical examination on my patient. No changes have occurred unless specified. Time Spent With Patient Time: Total time managing care of this patient today ____ minutes.
[2023-05-21 08:09] VITALS: BP 119/71; PULSE 77; RESP 16; TEMP 36.4; O2SAT 95
[2023-05-21 08:35] VITALS: BP 115/60; PULSE 77; RESP 18; TEMP 36.1; O2SAT 94
--- NOTE | 2023-05-21 08:38 | OP_ITS ---
DATE OF SERVICE: 05/21/2023 SURGEON: Jonny Gonzalez MD INDICATIONS: Diffuse hereditary gastric cancer syndrome. PREOPERATIVE DIAGNOSIS: POSTOPERATIVE DIAGNOSIS: PROCEDURE PERFORMED: Upper endoscopy with biopsy. ESTIMATED BLOOD LOSS: COMPLICATIONS: ANESTHESIA: Monitored anesthesia care. ASSISTANTS: SPECIMENS: DESCRIPTION OF PROCEDURE: A history and physical performed. The risks and benefits of the procedure were explained to the patient. Informed consent was obtained. The patient was placed in the left lateral decubitus position. The Olympus video gastroscope was introduced into the esophagus, stomach, and duodenum. Examination was performed. The scope was removed. He tolerated the procedure well and was taken to recovery in stable condition. FINDINGS: Esophagus: The esophagus was normal. There was a slightly irregular EG junction. Stomach: The stomach showed some scarring from previous biopsies. No mass lesions or ulcerated areas were identified. Mucomyst and simethicone were used to irrigate the stomach for better visualization. The gastric distensibility was identified as normal. Biopsies were obtained from throughout the stomach according to the standard protocol. No mass lesions or ulcerated areas were identified. Duodenum: The bulb and 2nd portion were normal. IMPRESSION: Hereditary diffuse gastric cancer syndrome. RECOMMENDATIONS: 1. Follow up with the biopsy results. 2. Repeat endoscopy in 6 months. MD GAYLE Mendoza/JOHNL / [id number] MTDD
== END 2023-05-21 08:52 | disposition home or self-care (01) ==
PROVIDERS: PCP Internal Medicine; Visit Provider Internal Medicine Gastroenterology
PROC: 0DJ08ZZ Inspection of Upper Intestinal Tract, Via Natural or Artificial Opening Endoscopic (ICD-10-PCS; CPT 43235; principal; 2023-05-21 07:30)
DX: K29.50 Unspecified chronic gastritis without bleeding (principal); Z15.09 Genetic susceptibility to other malignant neoplasm; Z80.0 Family history of malignant neoplasm of digestive organs; Z80.1 Family history of malignant neoplasm of trachea, bronchus and lung; I10 Essential (primary) hypertension; E78.00 Pure hypercholesterolemia, unspecified; J43.9 Emphysema, unspecified; G47.33 Obstructive sleep apnea (adult) (pediatric); Z79.1 Long term (current) use of non-steroidal anti-inflammatories (NSAID); Z79.82 Long term (current) use of aspirin; Z79.899 Other long term (current) drug therapy; Z72.0 Tobacco use; Z98.890 Other specified postprocedural states; Z98.52 Vasectomy status
CPT/HCPCS: 43239; 88305; 88313; 88342; J0132; J2704

== ENCOUNTER 2023-10-15 11:47 | Outpatient (AMB) | payer BC, SELFPAY ==
[2023-10-15 11:53] VITALS: BMI 33.9
--- NOTE | 2023-10-15 11:53 | A.OFFVIS_ITS ---
Vital Signs 10/15/23 11:53 Height 5 ft 6 in Weight 210 lb BMI 33.9 Intake Visit Reasons: Right knee pain Intake Note: Marcello is a 62 year old male who presents with complaints of progressively worsening right knee pain and giving way. The patient states that his symptoms began over 10 years ago. He twisted his knee and had acute onset of pain. He did undergo right knee ?meniscus surgery? by Dr. Cage at that time. He states that he got very good relief from the procedure. The patient states that approximately 6 months ago he re-injured his knee. Since that time his symptoms have gotten worse. He has had difficulty walking because of the pain and instability. He has failed the last 6 weeks of conservative treatment. He has done physical therapy exercises which aggravated his pain. He has also tried Tylenol and ibuprofen which gave him minimal relief. Most of the pain is along the medial aspect of his knee. The patient states that his knee will give out several times per day. Allergies No Known Allergies [No Known Allergies*] Allergy (Verified 10/15/23 12:00) Medication List - Last Reconciled 10/15/23 by Tom Villatoro MD aspirin 81 mg PO DAILY atorvastatin 10 mg PO BEDTIME ibuprofen 800 mg PO BID PRN losartan 1 tab PO DAILY omeprazole 40 mg PO DAILY PFSH Medical History (Updated 10/15/23 @ 12:30 by Tom Villatoro MD) Coronary artery calcification Personal history of nicotine dependence Emphysema lung Dyspnea Obstructive sleep apnea on CPAP Monoallelic mutation of CDH1 gene Family history of cancer of GI tract Heartburn Hyperlipidemia Hypertension Surgical History (Updated 05/18/23 @ 12:07 by Tricia Means RN) Hx of right knee surgery Hx of repair of left rotator cuff Hx of repair of right rotator cuff History of medial meniscus repair of right knee Hx of vasectomy Hx of tonsillectomy Hx of elbow surgery Hx of colonoscopy History of esophagogastroduodenoscopy (EGD) Family History Father Metastatic cancer Mother No problems noted. Sister Monoallelic mutation of CDH1 gene History of stomach cancer BOOP (bronchiolitis obliterans with organizing pneumonia) Sister Monoallelic mutation of CDH1 gene History of stomach cancer Sister Hx of myocardial infarction Daughter History of stomach cancer Monoallelic mutation of CDH1 gene Social History Alcohol intake: current Alcohol intake frequency: holidays/special occasions only Alcohol type: beer and wine Patient Tobacco Use Status: Current someday Tobacco user Tobacco use type: Cigar Years Smoked: 35 Second Hand Smoke Exposure: No Advance Directives Date on File: 05/17/20 service: Yes (Served in the [employer]) Current occupational status: employed Current occupation: Works for [employer] Current occupational exposures/hazards: No Physical Exam Vital Signs: BMI result Body Mass Index 33.9 Const Other: Well-nourished well-developed very friendly male awake alert and oriented x3 in no acute distress Extrem Other: Bilateral lower extremity examination shows good capillary refill, no skin lesions noted, normal sensation light touch Right knee examination shows a minimal effusion, minimal crepitus with range of motion, tenderness along his medial joint line, positive Keyona's test, no instability Assessment & Plan Assessment & Plan (1) Right knee pain: Code(s): M25.561 - Pain in right knee Category: Medical Plan Mr. Patel presents with right knee pain and mechanical symptoms most likely due to a recurrent medial meniscus tear. Thus, I will send the patient for an MRI of his right knee for further evaluation. I will see him back once the MRI is completed to discuss the findings and treatment options. He will continue with his activity modifications in the meantime. Feel free to call me at any time should questions regarding orthopedic management arise. Thank you very much for asking me to see this very friendly gentleman. I spent 22 minutes in reviewing the patient's records and imaging studies, seeing the patient and documenting in the medical record. Orders: Orders MR knee RT wo con Today M25.561 - Pain in right knee Coding Level of Care Code New Pt Level 3 (65409) Complex EM visit Add On G2211 Diagnoses Right knee pain M25.561
== END 2023-10-15 12:26 | disposition home or self-care (01) ==
PROVIDERS: PCP Internal Medicine; Visit Provider Orthopaedic Surgery
DX: M25.561 Pain in right knee (principal)
CPT/HCPCS: 99203

== ENCOUNTER → 2023-10-15 11:47 | Outpatient (BNVA) | payer BC, SELFPAY | PROVIDERS: PCP Internal Medicine; Visit Provider Orthopaedic Surgery ==

== ENCOUNTER 2023-11-15 15:26 | Outpatient (REF) | payer BC, SELFPAY ==
[2023-11-15 15:41] LABS: MANUAL DIFF FLAG NO
[2023-11-15 17:06] LABS: Basophils Absolute Auto 0.1 X10*3/uL (0.0-0.2); Basophils Percent Auto 0.8 % (0-2); Eosinophils Absolute Auto 0.2 X10*3/uL (0.0-0.4); Eosinophils Percent Auto 2.9 % (0-4); Imm Gran Abs Auto 0.04 X10*3/uL (0.00-0.03); Imm Gran Pct Auto 0.5 % (0.0-0.4); Lymphocytes Absolute Auto 2.1 X10*3/uL (1.2-4.9); Lymphocytes Percent Auto 24.8 % (20-40); Mean Corpuscular HGB Conc 33.3 g/dl (31.0-36.0); Mean Corpuscular Hemoglobin 30.8 pg (27.0-33.0); Mean Corpuscular Volume 92.3 fL (80.0-98.0); Mean Platelet Volume 11.9 fL (9.4-12.4); Monocytes Absolute Auto 0.7 X10*3/uL (0.1-1.2); Monocytes Percent Auto 8.9 % (2-11); Neutrophils Absolute Auto 5.2 x10*3/uL (2.0-8.3); Neutrophils Percent Auto 62.1 % (45-73); Platelet Count 181 X10*3/uL (160-400); Red Blood Count 4.55 X10*6/uL (4.60-5.80); Red Cell Distribution Width 13.6 % (11.0-16.0); White Blood Count 8.4 X10*3/uL (4.8-10.8)
[2023-11-15 17:12] LABS: Estimated Average Glucose 134 mg/dL; Hemoglobin A1C 159.3608 umol/L; Hemoglobin A1c % 6.3 % (<6.0); Total Hemoglobin (HGBA1C) 3555.3747 umol/L
[2023-11-15 17:28] LABS: Alanine Aminotransferase 37 U/L (0-40); Albumin Level 4.2 g/dL (3.5-5.0); Alkaline Phosphatase 78 U/L (39-117); Anion Gap 13 (12-20); Aspartate Amino Transferase 30 U/L (5-37); Bilirubin Total 0.3 mg/dL (0.0-1.0); Blood Urea Nitrogen 15 mg/dL (9-16); Calcium 9.6 mg/dL (8.4-10.2); Carbon Dioxide 25 mmol/L (22-29); Chloride 108 mmol/L (96-108); Estimated Glomerular Filt Rate > 60; Glucose Random 135 mg/dL (60-115); Sodium 142 mmol/L (135-145); Total Protein 7.7 g/dL (6.5-8.0)
== END 2023-11-15 15:27 | disposition home or self-care (01) ==
LOC: HO.LAB 15:26
PROVIDERS: PCP Internal Medicine; Visit Provider Internal Medicine
DX: E11.9 Type 2 diabetes mellitus without complications (principal); I10 Essential (primary) hypertension; K21.9 Gastro-esophageal reflux disease without esophagitis; N40.0 Benign prostatic hyperplasia without lower urinary tract symptoms
CPT/HCPCS: 36415; 80053; 83036; 85025

== ENCOUNTER 2023-11-22 08:51 | Outpatient (REF) | payer BC, SELFPAY ==
--- NOTE | ~2023-11-22 | MR_ITS ---
EXAMINATION: MR KNEE WITHOUT CONTRAST, RIGHT CLINICAL INFORMATION: Right knee pain. Crepitus. Anterior pain. Meniscal repair 10 years ago. COMPARISON: Right knee MRI dated 06/17/2016. TECHNIQUE: MRI of the knee without contrast was performed using routine sequences on a high-field scanner. FINDINGS: MENISCI: Medial Meniscus: Attenuation at the posterior meniscal body and posterior horn junction in the region of the previously seen complex tear, likely indicating meniscectomy. There is an oblique inner margin/tibial articular surface focus of fluid signal (coronal image 20/32). Findings could represent a recurrent tear versus the postsurgical result and correlation with surgical history is recommended. Lateral Meniscus: Nondisplaced oblique inner margin tear of the meniscal body, new when compared to the prior examination. LIGAMENTS: Cruciate: Diffuse thickening and increased T2 signal throughout the anterior cruciate ligament with degenerative cystic change in the tibial spine, new when compared to the prior examination and consistent with prominent mucoid degeneration. Intact posterior cruciate ligament. Collateral: Intact. EXTENSOR MECHANISM: Intact. ARTICULAR CARTILAGE/BONE: Patellofemoral Compartment: Lateral patellar facet partial-thickness articular cartilage fissuring, slightly more prominent when compared to the prior examination. Central and medial trochlear articular cartilage signal heterogeneity, not significantly changed. Small marginal osteophytes, slightly progressed. Medial Compartment: Weightbearing articular cartilage thinning with areas of full-thickness loss and mild subchondral cystic change. Small marginal osteophytes. Findings are progressed when compared to the prior examination. Lateral Compartment: Mild articular cartilage signal heterogeneity with tiny marginal osteophytes, slightly progressed. JOINT FLUID AND BURSAE: Small joint effusion. MR/MR knee RT wo con IMPRESSION: 1. Attenuation at the posterior medial meniscal body and posterior horn junction in the region of the previously seen complex tear, likely indicating meniscectomy. There is an oblique inner margin/tibial articular surface focus of fluid signal which could represent a recurrent tear versus the postsurgical result. Correlation with surgical history is recommended. 2. Nondisplaced oblique inner margin tear of the lateral meniscal body, new when compared to the prior examination. 3. Prominent mucoid degeneration of the anterior cruciate ligament, new when compared to the prior examination. 4. Mild tricompartmental osteoarthritis, slightly progressed when compared to the prior examination. Small joint effusion. Electronically signed by: Herminio Burrell MD 11/30/2023 04:46 PM EDT RP
== END 2023-11-22 08:52 | disposition home or self-care (01) ==
LOC: HO.MRI 08:51
PROVIDERS: PCP Internal Medicine; Visit Provider Orthopaedic Surgery
DX: M25.561 Pain in right knee (principal)
CPT/HCPCS: 73721

== ENCOUNTER 2023-12-15 08:25 | Outpatient (AMB) | payer BC, SELFPAY ==
--- NOTE | 2023-12-15 08:28 | A.OFFVIS_ITS ---
Intake Visit Reasons: Right knee pain and giving way Intake Note: Marcello is a 62 year old male who presents with complaints of progressively worsening right knee pain and giving way. The patient states that his symptoms began over 10 years ago. He twisted his knee and had acute onset of pain. He did undergo right knee ?meniscus surgery? by Dr. Cage at that time. He states that he got very good relief from the procedure. The patient states that approximately 6 months ago he re-injured his knee. Since that time his symptoms have gotten worse. He has had difficulty walking because of the pain and instability. He has failed the last 6 weeks of conservative treatment. He has done physical therapy exercises which aggravated his pain. He has also tried Tylenol and ibuprofen which gave him minimal relief. Most of the pain is along the medial aspect of his knee. The patient states that his knee will give out several times per day. Allergies No Known Allergies [No Known Allergies*] Allergy (Verified 12/15/23 08:33) Medication List - Last Reconciled 12/15/23 by Tom Villatoro MD aspirin 81 mg PO DAILY atorvastatin 10 mg PO BEDTIME ibuprofen 800 mg PO BID PRN losartan 1 tab PO DAILY omeprazole 40 mg PO DAILY PFSH Medical History Coronary artery calcification Personal history of nicotine dependence Emphysema lung Dyspnea Obstructive sleep apnea on CPAP Monoallelic mutation of CDH1 gene Family history of cancer of GI tract Heartburn Hyperlipidemia Hypertension Surgical History Hx of right knee surgery Hx of repair of left rotator cuff Hx of repair of right rotator cuff History of medial meniscus repair of right knee Hx of vasectomy Hx of tonsillectomy Hx of elbow surgery Hx of colonoscopy History of esophagogastroduodenoscopy (EGD) Family History Father Metastatic cancer Mother No problems noted. Sister Monoallelic mutation of CDH1 gene History of stomach cancer BOOP (bronchiolitis obliterans with organizing pneumonia) Sister Monoallelic mutation of CDH1 gene History of stomach cancer Sister Hx of myocardial infarction Daughter History of stomach cancer Monoallelic mutation of CDH1 gene Social History Alcohol intake: current Alcohol intake frequency: holidays/special occasions only Alcohol type: beer and wine Patient Tobacco Use Status: Current someday Tobacco user Tobacco use type: Cigar Years Smoked: 35 Second Hand Smoke Exposure: No Advance Directives Date on File: 05/17/20 service: Yes (Served in the [employer]) Current occupational status: employed Current occupation: Works for [employer] Current occupational exposures/hazards: No Physical Exam Const Other: Well-nourished well-developed very friendly male awake alert and oriented x3 in no acute distress Extrem Other: Bilateral lower extremity examination shows good capillary refill, no skin lesions noted, normal sensation light touch Right knee examination shows a minimal effusion, minimal crepitus with range of motion, tenderness along his medial joint line, positive Keyona's test, no instability Results Reviewed Results Reviewed: Standing full weight-bearing x-rays of the patient's right knee taken previously show mild diffuse joint space narrowing, no acute bony abnormalities MRI of the patient's right knee shows mild diffuse degenerative changes as well as a tear of the medial meniscus Assessment & Plan Assessment & Plan (1) Tear of medial meniscus of right knee: Code(s): S83.241A - Other tear of medial meniscus, current injury, right knee, initial encounter Category: Medical Plan Mr. Patel presents with progressively worsening right knee pain and mechanical symptoms due to a medial meniscus tear. I had a lengthy discussion with the patient regarding the treatment options. At this point he has failed continued non operative treatments. The risks and benefits of right knee arthroscopic surgery were discussed at length with the patient. The patient wishes to proceed with surgery. Surgery will most likely involve right knee arthroscopic partial medial meniscectomy. The patient does understand that he may not get 100% relief of his symptoms depending on the severity of his degenerative changes. The patient will be scheduled for next available date. He will follow-up as instructed. Feel free to call me at any time should questions regarding his orthopedic management arise. I spent 21 minutes in reviewing the patient's records and imaging studies, seeing the patient and documenting in the medical record. Coding Level of Care Code Est Pt Level 3 (13436) Complex EM visit Add On G2211 Diagnoses Tear of medial meniscus of right knee S83.241A
== END 2023-12-15 08:57 | disposition home or self-care (01) ==
LOC: HO.HOS 08:25
PROVIDERS: PCP Internal Medicine; Visit Provider Orthopaedic Surgery
DX: S83.241A Other tear of medial meniscus, current injury, right knee, initial encounter (principal)
CPT/HCPCS: 99214

== ENCOUNTER → 2023-12-15 08:25 | Outpatient (BNVA) | payer BC, SELFPAY | PROVIDERS: PCP Internal Medicine; Visit Provider Orthopaedic Surgery ==

== ENCOUNTER 2023-12-31 06:29 | Day surgery (SDC) | payer BC, SELFPAY ==
[2023-12-29 14:24] VITALS: BMI 33.9
--- NOTE | 2023-12-30 09:50 | HO.ANESPROP2 ---
Documented by User: Fanny Waddell NP 12/30/23 09:51 HPI - Anesthesia Eval Consult details Narrative: 63yo M for Upper Endoscopy s/p EGD 05/2023 with [facility] Active Problems Active Problems: All Active Problems Tear of medial meniscus of right knee (Acute) Right knee pain (Acute) Coronary artery calcification (Acute) Personal history of nicotine dependence (Acute) Emphysema lung (Acute) Dyspnea (Acute) Obstructive sleep apnea on CPAP (Acute) Past Medical History Medical History Coronary artery calcification Personal history of nicotine dependence Emphysema lung Dyspnea Obstructive sleep apnea on CPAP Monoallelic mutation of CDH1 gene Family history of cancer of GI tract Heartburn Hyperlipidemia Hypertension Family History Family History Father Metastatic cancer Mother No problems noted. Sister Monoallelic mutation of CDH1 gene History of stomach cancer BOOP (bronchiolitis obliterans with organizing pneumonia) Sister Monoallelic mutation of CDH1 gene History of stomach cancer Sister Hx of myocardial infarction Daughter History of stomach cancer Monoallelic mutation of CDH1 gene Family history of problems with anesthesia: No Surgical History Surgical History Hx of right knee surgery Hx of repair of left rotator cuff Hx of repair of right rotator cuff History of medial meniscus repair of right knee Hx of vasectomy Hx of tonsillectomy Hx of elbow surgery Hx of colonoscopy History of esophagogastroduodenoscopy (EGD) History of Problems with Anesthesia: No Social History Social History Alcohol intake: current Alcohol intake frequency: holidays/special occasions only Alcohol type: beer and wine Patient Tobacco Use Status: Current everyday Tobacco user Tobacco use type: Cigar Years Smoked: 35 Second Hand Smoke Exposure: No Advance Directives Date on File: 05/17/20 service: Yes (Served in the [employer]) Current occupational status: employed Current occupation: Works for [employer] and [employer] Current occupational exposures/hazards: No Meds Allergies Allergy/AdvReac Type Severity Reaction Status Date / Time No Known Allergies Allergy Verified 12/15/23 08:33 [No Known Allergies*] Home Medications ?Medication ?Instructions ?Recorded ?Confirmed ?Last Taken ?Type aspirin 81 mg tablet 81 mg PO DAILY 11/10/19 12/31/23 12/23/23 History atorvastatin 10 mg tablet 10 mg PO BEDTIME 11/10/19 12/31/23 12/30/23 History losartan 25 mg tablet 1 tab PO DAILY 11/14/19 12/31/23 12/30/23 History ibuprofen 800 mg tablet 800 mg PO BID PRN Pain 01/06/21 12/31/23 12/23/23 History omeprazole 40 mg capsule,delayed 40 mg PO DAILY 01/19/23 12/31/23 12/30/23 History release Exam Height,Weight and Vital Signs: Height 5 ft 6 in Weight 95.254 kg Pertinent Lab Results Pertinent Lab Results: Laboratory Tests 11/15/23 15:40 WBC 8.4 Hgb 14.0 Hct 42.0 Plt Count 181 Sodium 142 Potassium 4.0 Chloride 108 Carbon Dioxide 25 BUN 15 Creatinine 1.09 Assessment and Plan Assessment Anesthesia Assessment: Chart Reviewed Final Anesthetic Review Family History of Problems with Anesthesia: No History of Problems with Anesthesia: No Documented by User: Agatha Zarate MD 12/31/23 08:03 [facility] Active Problems Active Problems: All Active Problems Tear of medial meniscus of right knee (Acute) Right knee pain (Acute) Coronary artery calcification (Acute).Denies chest pain Personal history of nicotine dependence (Acute)- cigars Emphysema lung (Acute) Dyspnea (Acute) Obstructive sleep apnea on CPAP (Acute) Past Medical History Medical History Coronary artery calcification Personal history of nicotine dependence Emphysema lung Dyspnea Obstructive sleep apnea on CPAP Monoallelic mutation of CDH1 gene Family history of cancer of GI tract Heartburn Hyperlipidemia Hypertension Family History Family History Father Metastatic cancer Mother No problems noted. Sister Monoallelic mutation of CDH1 gene History of stomach cancer BOOP (bronchiolitis obliterans with organizing pneumonia) Sister Monoallelic mutation of CDH1 gene History of stomach cancer Sister Hx of myocardial infarction Daughter History of stomach cancer Monoallelic mutation of CDH1 gene Family history of problems with anesthesia: No Surgical History Surgical History Hx of right knee surgery Hx of repair of left rotator cuff Hx of repair of right rotator cuff History of medial meniscus repair of right knee Hx of vasectomy Hx of tonsillectomy Hx of elbow surgery Hx of colonoscopy History of esophagogastroduodenoscopy (EGD) History of Problems with Anesthesia: No Social History Social History Alcohol intake: current Alcohol intake frequency: holidays/special occasions only Alcohol type: beer and wine Patient Tobacco Use Status: Current everyday Tobacco user Tobacco use type: Cigar Years Smoked: 35 Second Hand Smoke Exposure: No Advance Directives Date on File: 05/17/20 service: Yes (Served in [place]) Current occupational status: employed Current occupation: Works for [employer] Current occupational exposures/hazards: No Meds Allergies Allergy/AdvReac Type Severity Reaction Status Date / Time No Known Allergies Allergy Verified 12/15/23 08:33 [No Known Allergies*] Home Medications ?Medication ?Instructions ?Recorded ?Confirmed ?Last Taken ?Type aspirin 81 mg tablet 81 mg PO DAILY 11/10/19 12/31/23 12/23/23 History atorvastatin 10 mg tablet 10 mg PO BEDTIME 11/10/19 12/31/23 12/30/23 History losartan 25 mg tablet 1 tab PO DAILY 11/14/19 12/31/23 12/30/23 History ibuprofen 800 mg tablet 800 mg PO BID PRN Pain 01/06/21 12/31/23 12/23/23 History omeprazole 40 mg capsule,delayed 40 mg PO DAILY 01/19/23 12/31/23 12/30/23 History release Exam Height,Weight and Vital Signs: Height 5 ft 6 in Weight 95.254 kg Vital Signs Temp Pulse Resp BP Pulse Ox O2 Del Method 12/31/23 06:31 98.5 F 82 19 132/76 97 Room Air Airway Mallampati Class: III TM Dist: >3cm Neck ROM: Full Heart: RRR Lungs: CTAB Other: Redness and puffiness of cheekbones bilaterally R>L. Patient thinks may be from CPAP mask Assessment and Plan Assessment Anesthesia Assessment: Anesthesia Plan Discussed and Chart Reviewed Final Anesthetic Review Family History of Problems with Anesthesia: No History of Problems with Anesthesia: No NPO: Yes ASA Class: III Final Preanesthetic Review: No Changes in Pt Med Stat, Meds/Allgs Chart Reviewed, Consent Obtained/Reviewed and Anes Risks/Benef Reviewed Patient Risk: Intermediate Procedure Risk: Low Assessment/Block/Sedation in SS: Assess/Block/Sedation-SS Anesthetic Plan Anesthetic Plan: TIVA Disposition: Standard PACU
[2023-12-31 06:31] VITALS: BP 132/76; PULSE 82; RESP 19; TEMP 36.9; O2SAT 97; BMI 32.3
[2023-12-31] MEDS: Lactated Ringers 1,000 ML 100 ML IVCONT (06:48)
--- NOTE | 2023-12-31 07:30 | MHC.SHP ---
Pre-Procedural Eval Section A - 24 Hr Update-Section A only Date of Service: 12/31/23 Section B - Complete if H&P > 30 days Chief Complaint: gerd,Genetic susceptibility to other malignant Details of Present Illness: see H&P no changes Relevant Family History (Specify if Yes): No Relevant Social History: None Present Medications: see Short Stay Collaborative assessment Medical History: No relevant PMH History of Previous Operations: No relevant previous surgery Allergies: Allergies Allergy/AdvReac Type Severity Reaction Status Date / Time No Known Allergies Allergy Verified 12/15/23 08:33 [No Known Allergies*] Review of Systems Sugical H&P ROS: Negative: Constitution, Cardiovascular, Respiratory, Neurological, Psychiatric, Hem-Onc, Allergic/Immunologic, Gastrointestinal, Genitourinary, Musculoskeletal, Integumentary, Endocrine and Eyes/Ears/Nose/Throat Exam Surgical H&P Exam: Normal: HEENT, Normal: Heart, Normal: Lungs, Normal: Extremities, Normal: Abdomen, Normal: Skin and Normal: Neurological Plan Diagnosis/Plan: Unchanged I have reviewed the history and physical and performed a pertinent physical examination on my patient. No changes have occurred unless specified. Time Spent With Patient Time: Total time managing care of this patient today ____ minutes.
[2023-12-31 08:15] VITALS: BP 88/53; PULSE 74; RESP 16; TEMP 36.5; O2SAT 96
[2023-12-31 08:30] VITALS: BP 94/60; PULSE 75; RESP 16; O2SAT 95
[2023-12-31 08:45] VITALS: BP 119/69; PULSE 79; RESP 16; TEMP 36.3; O2SAT 95
--- NOTE | 2023-12-31 08:50 | OP_ITS ---
DATE OF SERVICE: 12/31/2023 SURGEON: Jonny Gonzalez MD INDICATIONS: Hereditary diffuse gastric cancer syndrome. PREOPERATIVE DIAGNOSIS: POSTOPERATIVE DIAGNOSIS: PROCEDURE PERFORMED: Upper endoscopy with biopsy. ESTIMATED BLOOD LOSS: COMPLICATIONS: ANESTHESIA: Monitored anesthesia care. ASSISTANTS: SPECIMENS: DESCRIPTION OF PROCEDURE: A history and physical performed, the risks and benefits of the procedure were explained to the patient. Informed consent was obtained. The patient was placed in the left lateral decubitus position. The Olympus video gastroscope was introduced into the esophagus, stomach, and duodenum. Examination was performed. The scope was removed. He tolerated the procedure well and was taken to recovery in stable condition. FINDINGS: Esophagus, the esophagus was normal. Stomach showed no ulcerated areas or raised lesions. There were some flat polyps in the fundus consistent with fundic gland polyps. No lesions were seen. Mucomyst and simethicone were used to clear the stomach of secretions and gastric distensibility was examined carefully. This appeared normal. Biopsies were obtained according to protocol from throughout the stomach. Retroflexed examination was normal. Duodenum, the bulb and 2nd portion were normal. IMPRESSION: Hereditary diffuse gastric cancer syndrome. RECOMMENDATIONS: 1. Follow up with the biopsy results. 2. Repeat endoscopy in 6 months. MD GAYLE Mendoza/JOHNL / [id number]
== END 2023-12-31 09:13 | disposition home or self-care (01) ==
PROVIDERS: PCP Internal Medicine; Visit Provider Internal Medicine Gastroenterology
PROC: 0DJ08ZZ Inspection of Upper Intestinal Tract, Via Natural or Artificial Opening Endoscopic (ICD-10-PCS; CPT 43235; principal; 2023-12-31 07:30)
DX: K31.7 Polyp of stomach and duodenum (principal); Z15.09 Genetic susceptibility to other malignant neoplasm; K21.9 Gastro-esophageal reflux disease without esophagitis; I10 Essential (primary) hypertension; E78.5 Hyperlipidemia, unspecified; G47.33 Obstructive sleep apnea (adult) (pediatric); Z99.89 Dependence on other enabling machines and devices; Z87.891 Personal history of nicotine dependence; Z86.0101 Personal history of adenomatous and serrated colon polyps; Z79.02 Long term (current) use of antithrombotics/antiplatelets; Z79.899 Other long term (current) drug therapy
CPT/HCPCS: 43239; 88305; 88313; 88342; J2003; J2704

== ENCOUNTER 2024-01-14 06:53 | Day surgery (SDC) | payer BC, SELFPAY ==
[2024-01-12 08:33] VITALS: BMI 32.3
[2024-01-14] VITALS (9 sets, daily range): BP systolic 88–132; BP diastolic 57–67; PULSE 77–88; RESP 16–20; TEMP 36.4–36.6; O2SAT 94–99; BMI 32.5
--- NOTE | 2024-01-14 07:44 | PC.NURSE ---
+ppp denies numbness or tingling good cms
[2024-01-14] MEDS: Lactated Ringers 1,000 ML 100 ML IVCONT (07:51)
--- NOTE | 2024-01-14 08:35 | HO.ANESPROP2 ---
Documented by User: Fanny Waddell NP 01/13/24 10:32 HPI - Anesthesia Eval Consult details Narrative: 63yo M for Right Knee Arthroscopy with partial medial meniscectomy s/p EGD 12/2023 with [facility] PMF[facility] Active Problems Active Problems: All Active Problems Tear of medial meniscus of right knee (Acute) Right knee pain (Acute) Coronary artery calcification (Acute) Personal history of nicotine dependence (Acute) Emphysema lung (Acute) Dyspnea (Acute) Obstructive sleep apnea on CPAP (Acute) Past Medical History Medical History Coronary artery calcification Personal history of nicotine dependence Emphysema lung Dyspnea Obstructive sleep apnea on CPAP Monoallelic mutation of CDH1 gene Family history of cancer of GI tract Heartburn Hyperlipidemia Hypertension Family History Family History Father Metastatic cancer Mother No problems noted. Sister Monoallelic mutation of CDH1 gene History of stomach cancer BOOP (bronchiolitis obliterans with organizing pneumonia) Sister Monoallelic mutation of CDH1 gene History of stomach cancer Sister Hx of myocardial infarction Daughter History of stomach cancer Monoallelic mutation of CDH1 gene Family history of problems with anesthesia: No Surgical History Surgical History Hx of right knee surgery Hx of repair of left rotator cuff Hx of repair of right rotator cuff History of medial meniscus repair of right knee Hx of vasectomy Hx of tonsillectomy Hx of elbow surgery Hx of colonoscopy History of esophagogastroduodenoscopy (EGD) History of Problems with Anesthesia: No Social History Social History Alcohol intake: current Alcohol intake frequency: other Alcohol type: beer and wine Patient Tobacco Use Status: Current someday Tobacco user Tobacco use type: Cigar Years Smoked: 35 Second Hand Smoke Exposure: No Have you been hit, kicked, punched, or otherwise hurt by someone within the past year? If so, by whom?: No Are you DNR?: No Advance Directives: No Advance Directives Information Provided: Yes Advance Directives Date on File: 05/17/20 service: Yes (Served in the [employer]) Current occupational status: employed Current occupation: Works for [employer] Current occupational exposures/hazards: No Meds Allergies Allergy/AdvReac Type Severity Reaction Status Date / Time No Known Allergies Allergy Verified 12/15/23 08:33 [No Known Allergies*] Active Medications: Current Medications Cefazolin Sodium/Dextrose (Ancef) 2 gm in 50 mls @ 100 mls/hr IV PREOP ONE Stop: 01/14/24 06:02 Home Medications ?Medication ?Instructions ?Recorded ?Confirmed ?Last Taken ?Type aspirin 81 mg tablet 81 mg PO DAILY 11/10/19 01/14/24 12/28/23 History atorvastatin 10 mg tablet 10 mg PO BEDTIME 11/10/19 01/14/24 01/13/24 History losartan 25 mg tablet 1 tab PO DAILY 11/14/19 01/14/24 01/13/24 History ibuprofen 800 mg tablet 800 mg PO BID PRN Pain 01/06/21 01/14/24 12/28/23 History omeprazole 40 mg capsule,delayed 40 mg PO DAILY 01/19/23 01/14/24 01/14/24 History release Exam Height,Weight and Vital Signs: Height 5 ft 6 in Weight 90.71 kg Pertinent Lab Results Pertinent Lab Results: Laboratory Tests 11/15/23 15:40 WBC 8.4 Hgb 14.0 Hct 42.0 Plt Count 181 Sodium 142 Potassium 4.0 Chloride 108 Carbon Dioxide 25 BUN 15 Creatinine 1.09 Assessment and Plan Assessment Anesthesia Assessment: Chart Reviewed Final Anesthetic Review Family History of Problems with Anesthesia: No History of Problems with Anesthesia: No Documented by User: Alley Lewis DO 01/14/24 08:37 [facility] Past Medical History Medical History Coronary artery calcification Personal history of nicotine dependence Emphysema lung Dyspnea Obstructive sleep apnea on CPAP Monoallelic mutation of CDH1 gene Family history of cancer of GI tract Heartburn Hyperlipidemia Hypertension Family History Family History Father Metastatic cancer Mother No problems noted. Sister Monoallelic mutation of CDH1 gene History of stomach cancer BOOP (bronchiolitis obliterans with organizing pneumonia) Sister Monoallelic mutation of CDH1 gene History of stomach cancer Sister Hx of myocardial infarction Daughter History of stomach cancer Monoallelic mutation of CDH1 gene Family history of problems with anesthesia: No Surgical History Surgical History Hx of right knee surgery Hx of repair of left rotator cuff Hx of repair of right rotator cuff History of medial meniscus repair of right knee Hx of vasectomy Hx of tonsillectomy Hx of elbow surgery Hx of colonoscopy History of esophagogastroduodenoscopy (EGD) History of Problems with Anesthesia: No Social History Social History Alcohol intake: current Alcohol intake frequency: other Alcohol type: beer and wine Patient Tobacco Use Status: Current someday Tobacco user Tobacco use type: Cigar Years Smoked: 35 Second Hand Smoke Exposure: No Have you been hit, kicked, punched, or otherwise hurt by someone within the past year? If so, by whom?: No Are you DNR?: No Advance Directives: No Advance Directives Information Provided: Yes Advance Directives Date on File: 05/17/20 service: Yes (Served in the [employer]) Current occupational status: employed Current occupation: Works for [employer] Current occupational exposures/hazards: No Meds Allergies Allergy/AdvReac Type Severity Reaction Status Date / Time No Known Allergies Allergy Verified 12/15/23 08:33 [No Known Allergies*] Home Medications ?Medication ?Instructions ?Recorded ?Confirmed ?Last Taken ?Type aspirin 81 mg tablet 81 mg PO DAILY 11/10/19 01/14/24 12/28/23 History atorvastatin 10 mg tablet 10 mg PO BEDTIME 11/10/19 01/14/24 01/13/24 History losartan 25 mg tablet 1 tab PO DAILY 11/14/19 01/14/24 01/13/24 History ibuprofen 800 mg tablet 800 mg PO BID PRN Pain 01/06/21 01/14/24 12/28/23 History omeprazole 40 mg capsule,delayed 40 mg PO DAILY 01/19/23 01/14/24 01/14/24 History release Exam Exam Date and Time: 01/14/24 0835 Height,Weight and Vital Signs: Height 5 ft 6 in Weight 90.71 kg Vital Signs Temperature 98 F 01/14/24 07:34 Pulse Rate 84 01/14/24 07:34 Respiratory Rate 20 01/14/24 07:34 Blood Pressure 132/67 01/14/24 07:34 Pulse Oximetry 96 01/14/24 07:34 Oxygen Delivery Method Room Air 01/14/24 07:34 Temperature 98 F 01/14/24 07:34 Pulse Rate 84 01/14/24 07:34 Respiratory Rate 20 01/14/24 07:34 Blood Pressure 132/67 01/14/24 07:34 Pulse Oximetry 96 01/14/24 07:34 Oxygen Delivery Method Room Air 01/14/24 07:34 Airway Mallampati Class: I TM Dist: >3cm Neck ROM: Full Loose/Missing/Broken Teeth: No (patient denies any loose or broken teeth) Heart: S1S2 Lungs: CTAB Assessment and Plan Assessment Anesthesia Assessment: Anesthesia Plan Discussed and Chart Reviewed Final Anesthetic Review Family History of Problems with Anesthesia: No History of Problems with Anesthesia: No NPO: Yes ASA Class: II Final Preanesthetic Review: No Changes in Pt Med Stat, Meds/Allgs Chart Reviewed, Consent Obtained/Reviewed and Anes Risks/Benef Reviewed Patient Risk: Low Procedure Risk: Low Anesthetic Plan Anesthetic Plan: GA and Agree w/ Assess. and Plan Disposition: Standard PACU
[2024-01-14] MEDS: Albuterol Sulfate (0.083%) 2.5 MG/3 ML VIAL.NEB INHALE (10:06)
--- NOTE | 2024-01-14 10:17 | PM.OP ---
Brief Operative Note Date of Service: 01/14/24 Pre-op diagnosis: Right knee medial meniscus tear, right knee degenerative joint disease Post-op diagnosis: same Procedure: Right knee arthroscopic partial medial meniscectomy, right knee arthroscopic chondroplasty of the undersurface of the patella, trochlear groove and medial femoral condyle Implants: none Surgeon: Tom Villatoro MD Anesthesia: GLMA Was an Director Of Enterprise Architecture used for this Procedure?: No Estimated blood loss (mL): 10 Pathology: none sent Condition: stable Disposition: PACU
--- NOTE | 2024-01-14 10:18 | W.PM.OPN ---
Operative Note Operative Note Date of Service: 01/14/24 Narrative: After the patient was identified as Marcello Patel and his right knee was initialed by myself they were brought to the operating room where general anesthesia was induced by the anesthesiologist in routine fashion. The patient was given 2 g of IV Ancef for infection prophylaxis. A formal time-out was completed. The patient's right lower extremity was prepped and draped in sterile fashion. Marcaine with epinephrine was injected into the planned incision sites as well as their right knee joint. A # 11 scalpel blade was used to make an anterolateral portal 1 cm proximal to the joint line and 1 cm lateral to the patellar tendon. Blunt trocar technique was used into the suprapatellar pouch with the knee in extension. Diagnostic arthroscopy showed multiple bands of thickened plica which would be excised at the end of the procedure. There were no loose bodies or abnormalities found in either the medial or lateral gutters. There were diffuse grades 1 and 2 degenerative changes of the undersurface of the patella as well as grades 1 and 2 degenerative changes of the trochlear groove. The patient's knee was flexed to 45 degrees and a valgus force was placed upon it. The medial compartment was entered. An anteromedial portal was made 1 cm proximal to the joint line and 1 cm medial to the patellar tendon. Probing of the medial meniscus showed a radial tear of the posterior horn. A partial medial meniscectomy was performed using the arthroscopic shaver. Following the partial meniscectomy the remainder of the meniscus tissue was stable. There were diffuse grades 1 and 2 degenerative changes of the medial femoral condyle as well as diffuse grade 1 degenerative changes of the medial tibial plateau. The articular surface of the medial femoral condyle was made smooth using the arthroscopic shaver. The articular surface of the medial tibial plateau was already smooth so no chondroplasty was indicated. The patient's knee was then placed into a neutral position. There was no injury to the anterior cruciate ligament. The patient's knee was then placed into the figure of 4 position and the lateral compartment was entered. There were minimal degenerative changes of the lateral femoral condyle and lateral tibial plateau. There was no evidence of lateral meniscus tearing. The patient's knee was once again brought into extension and the suprapatellar pouch was entered. The arthroscopic shaver and the ArthroCare Wand were used to excise the thickened bands of plica. The undersurface of the patella was then made smooth using the arthroscopic shaver. The articular surface of the trochlear groove was already smooth so no chondroplasty was indicated. The knee joint was irrigated and then drained. All arthroscopic instruments were removed. The 2 portals were closed with 3-0 nylon interrupted suture. The knee joint was injected with Marcaine. Dry sterile dressing and Luis bandages were placed over the patient's knee. The patient was awoken and extubated in the operating room. They were transferred to the recovery room in stable condition.
[2024-01-14] MEDS: fentaNYL citrate/PF 100 MCG/2 ML VIAL 50 MCG IVPUSH (10:24)
[2024-01-14] MEDS: cefTRIAXone sodium 1 GM VIAL IVPUSH (10:27)
[2024-01-14] MEDS: oxyCODONE HCl Immed Release 5 MG TABLET PO (10:43)
--- OUTSIDE RECORDS SUMMARY | 2024-01-19 04:39 | XMS_ITS ---
Author Organization [facility] Address [address] [place] [address] [place] [phone] Care Team Providers Care Garden Labourer Name Role Phone Loik Baird MD Primary Care Provider UnavailJonny Curtis Jr REASON FOR VISIT upper endoscopy Encounters Encounter Location Date Provider Diagnosis [facility] [address] [place] [phone] 10/12/2023 Jonny Gonzalez Jr PLAN OF TREATMENT Next Appt Details Provider Name:Jonny rico Jr, 03/13/2024 09:00:00 AM, [address] [place] [address], [address], [place], [phone],
--- OUTSIDE RECORDS SUMMARY | 2024-01-19 04:39 | XMS_ITS ---
Author Organization [facility] Address [address] [place] [address] [place] [phone] Care Team Providers Care Retail Banker Name Role Phone Loki Baird MD Primary Care Provider Unavaila Jonny Malik Jr REASON FOR VISIT pathology Encounters Encounter Location Date Provider Diagnosis [facility] [address] [place] [phone] 01/05/2024 Jonny Gonzalez Jr PLAN OF TREATMENT Next Appt Details Provider Name:Jonny rico Jr, 03/13/2024 09:00:00 AM, [address] [place] [address], [address], [place], [phone],
--- OUTSIDE RECORDS SUMMARY | 2024-01-19 04:39 | XMS_ITS ---
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
--- OUTSIDE RECORDS SUMMARY | 2024-01-19 04:40 | XMS_ITS | Patient Health Record ---
Author Organization [facility] Address [address] [place] [address] Care Team Providers Care Mixer Operator Tablets Name Role Phone Loki Baird MD Primary Care Provider Jonny Graves Jr Unavailable ALLERGIES No Known Allergies RESULTS Component Value Reference Range Notes Pathology Reviewed date:06/03/2023 09:51:12 AM Interpretation: Performing Lab:[facility], [address] [place] [phone] Notes/Report: Pathology Reviewed date:01/05/2024 08:31:33 AM Interpretation: Performing Lab:[facility], [address] [place] [phone] Notes/Report: REASON FOR REFERRAL No Information MEDICATIONS Medication SIG (Take, Route, Frequency, Duration) Notes Start Date End Date Status Motrin as needed Active Aspir-81 81 MG 1 tablet Orally Once a day Active Omeprazole 40 MG TAKE 1 CAPSULE BY [facility] EVERY DAY 30 MINUTES BEFORE MORNING MEAL for 90 Active Losartan Potassium 25 MG TAKE 1 TABLET B Y MOUTH EVERY DAY Oral for 90 Active Atorvastatin Calcium 10 MG 1 tablet Oral ly Once a day Active IMMUNIZATIONS Vaccine Route Administration Date Status Comme nts Influenza Unknown 12/09/2018 Administered Influenza Unknown 11/27/2020 Administered Influenza Unknown 11/08/2021 Administered SOCIAL HISTORY Sex Assigned At : Social History Observation Description Sex Assigned At Unknown Alcohol Screen Question Answer Notes Did you have a drink contain ing alcohol in the past year? Yes How often did you have a dri nk containing alcohol in the past year? 2 to 4 times a month (2 points) How many drinks did you have on a typical day when you were drinking in the past year? 3 or 4 drinks (1 point) How often did you have 6 or more drinks on one occasion in the past year? Monthly (2 points) Points 5 Interpretation Positive PROBLEMS Problem Type ICD Code Onset Dates Problem Status W/U Status Risk SNOMED Code Notes Problem Colon cancer screening (Z12.11) Active confirmed 470547682 Problem Diverticulosis of large intestine without perforation or abscess without bleeding (K57.30) Active confirmed Diverticul ar disease of colon (157163766) Problem Gastroesophageal reflux disease without esophagitis (K21.9) Active confirmed 302259958 Problem Gastritis (K29.70) Active confirmed Gas tritis (9842372) Problem Family history of gastric cancer (Z80.0) Active confirmed 042756898 Problem 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 475496506 VITAL SIGNS Temperature 97.1 degrees Fahrenheit 03/11/2023 Blood pressure diastolic 00 mm Hg 03/11/2023 Height 66 in 03/11/2023 Blood pressure systolic 00 mm Hg 03/11/2023 Weight 215 lbs 03/11/2023 BMI 34.70 kg/m2 03/11/2023 Encounters Encounter Location Date Provider Diagnosis [facility] [address] [place] [id number] 05/21/2023 Jonny Gonzalez Jr 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 [facility] [address] [place] [id number] 12/31/2023 Jonny Gonzalez Jr 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 [facility] [address] [place] [phone] 03/11/2023 Jonny Gonzalez Jr Hereditary diffuse gastric cancer syndrome Z15.09 ; Gastroesophageal reflux disease without esophagitis K21.9 and Colon cancer screening Z12.11 [facility] [address] [place] [phone] 06/03/2023 Jonny Gonzalez Jr Hereditary diffuse gastric cancer syndrome Z15.09 [facility] [address] [place] [phone] 10/12/2023 Jonny Gonzalez Jr [facility] [address] [place] [phone] 01/05/2024 Jonny Gonzalez Jr ASSESSMENTS Encounter Date Diagnosis Assessment Notes Treatment Notes Treatment Clinical Notes 05/21/2023 Jones syndrome (ICD- 10 - Z15.09) 12/31/2023 Jones syndrome (ICD- 10 - Z15.09) 03/11/2023 Gastroesophageal ref lux disease without esophagitis (ICD-10 - K21.9) 03/11/2023 Hereditary diffuse gastric cancer syndrome (ICD-10 - Z15.09) Endoscopy material was printed 06/03/2023 Hereditary diffuse gastric cancer syndrome (ICD-10 - Z15.09) 03/11/2023 Colon cancer screeni ng (ICD-10 - Z12.11) PLAN OF TREATMENT Future Test Test Name Order Date COLONOSCOPY 02/14/2014 UPPER GI ENDOSCOPY 03/25/2017 COLONOSCOPY 03/25/2017 UPPER GI ENDOSCOPY 05/17/2019 UPPER GI ENDOSCOPY 04/24/2021 UPPER GI ENDOSCOPY 11/26/2021 COLONOSCOPY 11/26/2021 UPPER GI ENDOSCOPY 04/17/2022 COLONOSCOPY 04/17/2022 UPPER GI ENDOSCOPY 05/19/2022 UPPER GI ENDOSCOPY 03/26/2023 UPPER GI ENDOSCOPY 06/03/2023 Next Appt Details Provider Name:Jonny rico Jr, 03/13/2024 09:00:00 AM, [address] [place] [address], [address], [place], [address], Insurance Providers Payer Name Payer Address Payer Phone Subscriber Number Group Number Insured Name Patient Relationship to Insured Coverage Start Date Coverage End Date [facility] [address] [place], [place] [id number] [phone] [id number] DONAVON MENESES Self - patient is the insured MEDICAL (GENERAL) HISTORY Medical History History ICD Code Colonoscopy 05/31, tubular adenomas x2, f sunshine-year followup Hyperlipidemia MARCO A/CPAP Hypertension hereditary diffuse gastric c ancer syndrome, CDH1 gene-positive, endoscopies every 6 months Elevated blood sugar Surgical History Surgery Date(Month/Year) right elbow surgery rotator cuff tear repair x2 right knee surgery tonsillectomy and adenoidectomy
== END 2024-01-14 11:23 | disposition home or self-care (01) ==
PROVIDERS: PCP Internal Medicine; Visit Provider Orthopaedic Surgery
PROC: (CPT 29870; principal; 2024-01-14 09:00)
DX: S83.241A Other tear of medial meniscus, current injury, right knee, initial encounter (principal); M17.11 Unilateral primary osteoarthritis, right knee; M23.51 Chronic instability of knee, right knee; M67.51 Plica syndrome, right knee; X50.1XXA Overexertion from prolonged static or awkward postures, initial encounter; Y93.9 Activity, unspecified; Y92.9 Unspecified place or not applicable; Y99.9 Unspecified external cause status; J43.9 Emphysema, unspecified; I10 Essential (primary) hypertension; E78.5 Hyperlipidemia, unspecified; G47.33 Obstructive sleep apnea (adult) (pediatric); Z79.82 Long term (current) use of aspirin; Z79.1 Long term (current) use of non-steroidal anti-inflammatories (NSAID); Z79.899 Other long term (current) drug therapy; Z99.89 Dependence on other enabling machines and devices; F17.290 Nicotine dependence, other tobacco product, uncomplicated; Z98.890 Other specified postprocedural states
CPT/HCPCS: 29881; J0131; J0171; J0690; J0696; J1100; J1885; J2003; J2250; J2371; J2405; J2704; J2795; J3010

== ENCOUNTER → 2024-01-14 06:53 | Outpatient (BNV) | payer BC, SELFPAY | PROVIDERS: PCP Internal Medicine; Visit Provider Orthopaedic Surgery | DX: S83.241A Other tear of medial meniscus, current injury, right knee, initial encounter (principal); M17.11 Unilateral primary osteoarthritis, right knee | CPT/HCPCS: 29881 ==

== ENCOUNTER 2024-01-27 10:36 | Outpatient (AMB) | payer BC, SELFPAY ==
[2024-01-27 10:39] VITALS: BMI 32.5
--- NOTE | 2024-01-27 10:39 | A.OFFVIS_ITS ---
Vital Signs 01/27/24 10:39 Height 5 ft 6 in Weight 201 lb 2 oz BMI 32.5 Intake Visit Reasons: PO RT knee 01/14/24 Intake Note: Marcello is a 63 year old male who presents with complaints of mild to moderate discomfort in his right knee after undergoing right knee arthroscopic surgery on 01/14/2024. The patient states that he did aggravate his knee when he was knee ling down in his bathroom. He is no longer taking narcotics. He does take ibuprofen which gives him fairly good relief. He denies any fevers or chills. Allergies No Known Allergies [No Known Allergies*] Allergy (Verified 01/27/24 10:40) Medication List - Last Reconciled 01/27/24 by Tom Villatoro MD aspirin 81 mg PO DAILY atorvastatin 10 mg PO BEDTIME ibuprofen 800 mg PO BID PRN losartan 1 tab PO DAILY omeprazole 40 mg PO DAILY oxycodone 5 mg PO Q6H PRN PFSH Medical History Coronary artery calcification Personal history of nicotine dependence Emphysema lung Dyspnea Obstructive sleep apnea on CPAP Monoallelic mutation of CDH1 gene Family history of cancer of GI tract Heartburn Hyperlipidemia Hypertension Surgical History Hx of right knee surgery Hx of repair of left rotator cuff Hx of repair of right rotator cuff History of medial meniscus repair of right knee Hx of vasectomy Hx of tonsillectomy Hx of elbow surgery Hx of colonoscopy History of esophagogastroduodenoscopy (EGD) Family History Father Metastatic cancer Mother No problems noted. Sister Monoallelic mutation of CDH1 gene History of stomach cancer BOOP (bronchiolitis obliterans with organizing pneumonia) Sister Monoallelic mutation of CDH1 gene History of stomach cancer Sister Hx of myocardial infarction Daughter History of stomach cancer Monoallelic mutation of CDH1 gene Social History Alcohol intake: current Alcohol intake frequency: other Alcohol type: beer and wine Patient Tobacco Use Status: Current everyday Tobacco user Tobacco use type: Cigar Years Smoked: 35 Second Hand Smoke Exposure: No Advance Directives Date on File: 05/17/20 service: Yes (Served in the [employer]) Current occupational status: employed Current occupation: Works for [employer] Current occupational exposures/hazards: No Physical Exam Vital Signs: BMI result Body Mass Index 32.5 Extrem Other: Right knee examination shows that the surgical incisions are healing well, no erythema, minimal crepitus with range of motion, no instability Assessment & Plan Assessment & Plan (1) Right knee pain: Code(s): M25.561 - Pain in right knee Category: Medical Plan Mr. Patel is doing well after undergoing right knee arthroscopic surgery on 01/14/2024. His sutures were removed and Steri-Strips placed over his incisions. Will gradually progress to activities as tolerated. He will contact me prior to his follow-up appointment in 2 months should any questions or concerns arise. Feel free to call me at any time should questions regarding his orthopedic management arise. Coding Level of Care Code Global (52282) Diagnoses Right knee pain M25.561
--- OUTSIDE RECORDS SUMMARY | 2024-01-27 10:40 | XMS_ITS ---
Author Organization [facility] Address [address] [place] [address] [place] [phone] Care Team Providers Care City Controller Name Role Phone Lkoi Baird MD Primary Care Provider Unavaila Jonny Malik Jr REASON FOR VISIT pathology Encounters Encounter Location Date Provider Diagnosis [facility] [address] [place] [phone] 01/05/2024 Jonny Gonzalez Jr PLAN OF TREATMENT Next Appt Details Provider Name:Jonny rico Jr, 03/13/2024 09:00:00 AM, [address] [place] [address], [address], [place], [address],
--- OUTSIDE RECORDS SUMMARY | 2024-01-27 10:40 | XMS_ITS | Continuity of Care Document ---
Author Name [facility] Organization [facility] Care Team Providers Care Real Estate Inspector Name Role Phone [facility] Unavailable Unavailable Problems Combined list of problems from Department of Defense and Veterans Affairs facilities. It does not include entries that were removed or entered in error. Problem Status Onset Date Problem Type Date of Resolution Comments Source Diagnosis: ICD-10-CM Z02.89 Encounter for other administrative examinations Active Diagnosis [facility] Encounters Combined list of: 1) Encounters from Department of Veterans Affairs facilities going back up to thelast 18 months. 2) Encounters from the Department of Defense facilities going back up to 280 months. Location Location Details Encounter Type Encounter Number Reason For Visit Attending Provider ADM Date DC Date Status [facility] Encounter [id number] Diagnos is: ICD-10- CM Z02.89 Encount er for other adminis trative examina tions<b r/> SHAR[facility] STANFORD 01[facility]10 [facility]
--- OUTSIDE RECORDS SUMMARY | 2024-01-27 10:41 | XMS_ITS | Patient Health Record ---
Author Organization [facility] Address [address] [place] [address] Care Team Providers Care Derrick Follower Name Role Phone Loki Baird MD Primary Care Provider Jonny Graves Jr Unavailable ALLERGIES No Known Allergies RESULTS Component Value Reference Range Notes Pathology Reviewed date:06/03/2023 09:51:12 AM Interpretation: Performing Lab:[facility], [address] [place] [phone] Notes/Report: Pathology Reviewed date:01/05/2024 08:31:33 AM Interpretation: Performing Lab:[facility], [address] [place] [phone] Notes/Report: REASON FOR REFERRAL No Information MEDICATIONS Medication SIG (Take, Route, Frequency, Duration) Notes Start Date End Date Status Motrin as needed Active Aspir-81 81 MG 1 tablet Orally Once a day Active Omeprazole 40 MG TAKE 1 CAPSULE BY [facility] EVERY DAY 30 MINUTES BEFORE MORNING MEAL [...] Problem Colon cancer screening (Z12.11) Active confirmed 838345630 Problem Diverticulosis of large intestine without perforation or abscess without bleeding (K57.30) Active confirmed Diverticul ar disease of colon (807654446) Problem Gastroesophageal reflux disease without esophagitis (K21.9) Active confirmed 946748651 Problem Gastritis (K29.70) Active confirmed Gas tritis (7775288) Problem Family history of gastric cancer (Z80.0) Active confirmed 136305794 Problem 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 479604293 VITAL SIGNS Temperature 97.1 degrees Fahrenheit 03/11/2023 Blood pressure diastolic 00 mm Hg 03/11/2023 Height 66 in 03/11/2023 Blood pressure systolic 00 mm Hg 03/11/2023 Weight 215 lbs 03/11/2023 BMI 34.70 kg/m2 03/11/2023 Encounters Encounter Location Date Provider Diagnosis [facility] [address] [place] [id number] 05/21/2023 Jonny Gonzalez Jr 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 [facility] [address] [place] [id number] 12/31/2023 Jonny Gonzalez Jr 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 [facility] [address] [place] [phone] 03/11/2023 Jonny Gonzalez Jr Hereditary diffuse gastric cancer syndrome Z15.09 ; Gastroesophageal reflux disease without esophagitis K21.9 and Colon cancer screening Z12.11 [facility] [address] [place] [phone] 06/03/2023 Jonny Gonzalez Jr Hereditary diffuse gastric cancer syndrome Z15.09 [facility] [address] [place] [phone] 10/12/2023 Jonny Gonzalez Jr [facility] [address] [place] [phone] 01/05/2024 Jonny Gonzalez Jr ASSESSMENTS Encounter Date [...] Provider Name:Jonny rico Jr, 03/13/2024 09:00:00 AM, [address] [place] [address], [address], [place], [address], Insurance Providers Payer Name Payer Address Payer Phone Subscriber Number Group Number Insured Name Patient Relationship to Insured Coverage Start Date Coverage End Date [facility] [address] [place], [place] [id number] [phone] [id number] DONAVON MENESES Self - patient is the [...]
--- OUTSIDE RECORDS SUMMARY | 2024-01-27 10:41 | XMS_ITS ---
Author Organization [facility] Address [address] [place] [address] [place] [phone] Care Team Providers Care Dining Car Conductor Name Role Phone Loki Baird MD Primary Care Provider UnavailJonny Curtis Jr REASON FOR VISIT upper endoscopy Encounters Encounter Location Date Provider Diagnosis [facility] [address] [place] [phone] 10/12/2023 Jonny Gonzalez Jr PLAN OF TREATMENT Next Appt Details Provider Name:Jonny rico Jr, 03/13/2024 09:00:00 AM, [address] [place] [address], [address], [place], [address],
--- OUTSIDE RECORDS SUMMARY | 2024-01-27 10:41 | XMS_ITS ---
Author Organization [facility] Address [address] [place] [address] [place] [phone] Care Team Providers Care Real Estate Transaction Manager Name Role Phone Loki Baird MD Primary Care Provider UnavailJonny [place] Jr [phone] REASON FOR VISIT hereditary diffused gastric cancer syndrome Encounters Encounter Location Date Provider Diagnosis [facility] [address] [place] [id number] 12/31/2023 Jonny Gonzalez Jr 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 ASSESSMENTS Encounter Date Diagnosis Assessment Notes Treatment Notes Treatment Clinical Notes 12/31/2023 Jones syndrome (ICD-10 - Z15.09) PLAN OF TREATMENT Next Appt Details Provider Name:Jonny rico Jr, 03/13/2024 09:00:00 AM, [address] [place] [address], [address], [place], [address],
== END 2024-01-27 10:52 | disposition home or self-care (01) ==
PROVIDERS: PCP Internal Medicine; Visit Provider Orthopaedic Surgery
DX: M25.561 Pain in right knee (principal)
CPT/HCPCS: 99024

== ENCOUNTER 2024-02-15 06:29 | Outpatient (REF) | payer BC, SELFPAY ==
[2024-02-15 06:40] LABS: MANUAL DIFF FLAG NO
[2024-02-15 07:22] LABS: Basophils Absolute Auto 0.1 X10*3/uL (0.0-0.2); Eosinophils Absolute Auto 0.3 X10*3/uL (0.0-0.4); Eosinophils Percent Auto 3.8 % (0-4); Hematocrit 42.9 % (42.0-52.0); Hemoglobin 14.3 g/dl (14.0-18.0); Imm Gran Abs Auto 0.04 X10*3/uL (0.00-0.03); Imm Gran Pct Auto 0.5 % (0.0-0.4); Lymphocytes Absolute Auto 2.1 X10*3/uL (1.2-4.9); Lymphocytes Percent Auto 28.6 % (20-40); Mean Corpuscular HGB Conc 33.3 g/dl (31.0-36.0); Mean Corpuscular Hemoglobin 30.8 pg (27.0-33.0); Mean Corpuscular Volume 92.3 fL (80.0-98.0); Mean Platelet Volume 11.3 fL (9.4-12.4); Monocytes Absolute Auto 0.9 X10*3/uL (0.1-1.2); Monocytes Percent Auto 12.3 % (2-11); Neutrophils Percent Auto 53.8 % (45-73); Platelet Count 198 X10*3/uL (160-400); Red Blood Count 4.65 X10*6/uL (4.60-5.80); Red Cell Distribution Width 13.4 % (11.0-16.0); White Blood Count 7.3 X10*3/uL (4.8-10.8)
[2024-02-15 07:27] LABS: Appearance Urine Clear; Color Urine Yellow; Glucose Urine UA Negative (Negative); Leukocyte Esterase Urine Negative (Negative); Nitrite Urine Negative (Negative); Specific Gravity - Urine 1.025 (1.005-1.025); Urine Blood Negative (Negative); Urine Ketones Negative (Negative); Urine Protein Negative (Neg-Trace)
[2024-02-15 07:33] LABS: Estimated Average Glucose 137 mg/dL; Hemoglobin A1C 168.5586 umol/L; Hemoglobin A1c % 6.4 % (<6.0); Total Hemoglobin (HGBA1C) 3650.8178 umol/L
[2024-02-15 08:22] LABS: Creatinine Urine 179.82 mg/dL; Microalbum/Creatinine Ratio Ur 4.4 ug/mg cr (<30)
[2024-02-15 08:27] LABS: Alanine Aminotransferase 42 U/L (0-40); Albumin Level 4.2 g/dL (3.5-5.0); Alkaline Phosphatase 85 U/L (39-117); Anion Gap 10 (12-20); Aspartate Amino Transferase 33 U/L (5-37); Bilirubin Total 0.5 mg/dL (0.0-1.0); Blood Urea Nitrogen 17 mg/dL (9-16); Calcium 9.2 mg/dL (8.4-10.2); Carbon Dioxide 26 mmol/L (22-29); Chloride 109 mmol/L (96-108); Cholesterol 127 mg/dL (<200); Estimated Glomerular Filt Rate > 60; Glucose Fasting 114 mg/dL (60-99); HDL Cholesterol 22 mg/dL (>40); LDL Cholesterol Calculated 65 mg/dL (<100); Potassium 4.1 mmol/L (3.3-5.1); Sodium 141 mmol/L (135-145); Total Protein 7.5 g/dL (6.5-8.0); Triglycerides 200 mg/dL (<150)
[2024-02-15 08:39] LABS: Prostate Specific Antigen 4.14 ng/mL (<0.05-4.0)
== END 2024-02-15 06:30 | disposition home or self-care (01) ==
LOC: HO.LAB 06:29
PROVIDERS: PCP Internal Medicine; Visit Provider Internal Medicine
DX: E78.00 Pure hypercholesterolemia, unspecified (principal); K21.9 Gastro-esophageal reflux disease without esophagitis; I10 Essential (primary) hypertension; N40.0 Benign prostatic hyperplasia without lower urinary tract symptoms; Z12.5 Encounter for screening for malignant neoplasm of prostate; Z13.1 Encounter for screening for diabetes mellitus
CPT/HCPCS: 36415; 80053; 80061; 81003; 82043; 82570; 83036; 84153; 85025

== ENCOUNTER 2024-02-23 08:12 | Outpatient (REF) | payer BC, SELFPAY ==
--- NOTE | ~2024-02-23 | XR_ITS ---
EXAMINATION: XR KNEE 3 VIEWS RIGHT HISTORY: M25.561 - Pain in right knee COMPARISON: Comparison is made with the prior examination dated 05/13/2016. FINDINGS: Three views of the right knee are submitted. Osseous mineralization is normal. There is no fracture or dislocation. There is moderate narrowing of the medial compartment. Small osteophytes are seen off the patella. There is a small joint effusion. XR/XR knee RT 3V IMPRESSION: Small joint effusion. Osteoarthritis as described. Electronically signed by: Daniel Ocampo MD 02/24/2024 03:13 PM [facility]
== END 2024-02-23 08:13 | disposition home or self-care (01) ==
LOC: HO.HOSX 08:12
PROVIDERS: PCP Internal Medicine; Visit Provider Orthopaedic Surgery
DX: M25.561 Pain in right knee (principal)
CPT/HCPCS: 73562

== ENCOUNTER 2024-02-23 08:12 | Outpatient (AMB) | payer BC, SELFPAY ==
--- OUTSIDE RECORDS SUMMARY | 2024-02-23 08:21 | XMS_ITS | Continuity of Care Document ---
Author Name [facility] Organization [facility] Care Team Providers Care Trawl Net Maker Name Role Phone [facility] Unavailable Unavailable Problems Combined list of problems from Department of Defense and Veterans Affairs facilities. It does not include entries that were removed or entered in error. Problem Status Onset Date Problem Type Date of Resolution Comments Source Diagnosis: ICD-10-CM Z02.89 Encounter for other administrative examinations Active Diagnosis [facility] Encounters Combined list of: 1) Encounters from Department of Veterans Affairs facilities going back up to thelast 18 months. 2) Encounters from the Department of Defense facilities going back up to 280 months. Location Location Details Encounter Type Encounter Number Reason For Visit Attending Provider ADM Date DC Date Status [facility] Out[facility] Encounter [id number] Diagnos is: ICD-10- CM Z02.89 Encount er for other adminis trative examina tions<b r/> SHARON STANFORD 01/10 [facility]
--- OUTSIDE RECORDS SUMMARY | 2024-02-23 08:21 | XMS_ITS | Encounter Summary ---
Author Name [facility] Organization [facility] Address [address] [place] [id number] Support Name Relationship Address Phone NANCY MENESES Next of Kin [address] [place] [address] NANCY MENESES Emergency Contact [address] [place] [address] Selected Encounter This section includes the information on record at [place] for the Encounter. Date/Time Encounter Type Encounter Description Reason Provider Source Jan 11, 2024 01:00 PM Outpatient Encounter AUDIOLOGY ICD-10-CM Z02.89 Encounter for other administrative examinations DAPHNE STANFORD [facility] Encounter Template Text not used by [place] Assessments - Encounter Diagnoses This section includes the primary and secondary diagnoses documented for the Encounter. Date/Time Primary/Secondary Diagnosis Diagnosis Name Provider Source Jan 11, 2024 02:28 PM PRIMARY Encounter for other administrative examinations DAPHNE STANFORD [place] [facility] [place] [facility] Jan 11, 2024 02:28 PM SECONDARY Sensorineural hearing loss, bilateral DAPHNE STANFORD [place] [facility] [place] [facility] Jan 11, 2024 02:28 PM SECONDARY Tinnitus, unspecified ear DAPHNE STANFORD [place] [facility] [place] [facility] Encounter Notes: All associated encounter notes This section contains the clinical notes associated to the Encounter. Date/Time Encounter Note(s) Provider Source Jan 11, 2024 01:00 PM C & P EXAMINATION NOTE: LOCAL TITLE: COMPENSATION AND PENSION EXAM STANDARD TITLE: C & P EXAMINATION NOTE DATE OF NOTE: JAN 11, 2024@13:00 ENTRY DATE: JAN 11, 2024@14:27:04 AUTHOR: AMPARO STANFORD COSIGNER: URGENCY: STATUS: COMPLETED COMPENSATION AND PENSION EXAM Has ADDENDA Hearing Loss and Tinnitus Disability Benefits Questionnaire Name of patient/: DONAVON MENESES Is this DBQ being completed in conjunction with a VA [id number], C&P Examination Request? [X] Yes [ ] No How was the examination completed? (check all that apply) [X] In-person examination [X] Records reviewed [ ] Examination via approved video telehealth [ ] Other, please specify in comments box Comments: BHANU and Evidence Review Indicate method used to obtain medical information to complete this document: [ ] Review of available records (without in-person or video telehealth examination) using the Acceptable Clinical Evidence (BHANU) process because the existing medical evidence provided sufficient information on which to prepare the questionnaire and such an examination will likely provide no additional relevant evidence. [ ] Review of available records in conjunction with an interview with the (without in-person or telehealth examination) using the BHANU process because the existing medical evidence supplemented with an interview provided sufficient information on which to prepare the questionnaire and such an examination would likely provide no additional relevant evidence. Evidence Review Evidence reviewed (check all that apply): [X] VA electronic health record [X] VA e-folder This exam is for: Hearing loss and/or tinnitus (scale manager, performing current exam) SECTION 1: HEARING LOSS (HL) --- 1. Objective Findings a. Puretone thresholds in decibels (air conduction): RIGHT EAR + + A B C D E F G ========+========+======= =+========+========+====== ==+========+========+ 500 1000 2000 3000 4000 6000 8000 Avg Hz Hz* Hz Hz Hz Hz Hz Hz (B-E) ========+========+======= =+========+========+====== ==+========+======== 25 30 15 15 30 25 30 [id number] + + LEFT EAR + + A B C D E F G ========+========+======= =+========+========+====== ==+========+========+ 500 1000 2000 3000 4000 6000 8000 Avg Hz Hz* Hz Hz Hz Hz Hz Hz (B-E) ========+========+======= =+========+========+====== ==+========+======== 15 15 25 20 25 45 25 [id number] + + * The puretone threshold at 500 Hz is not used in determining the evaluation but is used in determining whether or not a ratable hearing loss exists. The average of B, C, D, and E. CNT - Could Not Test b. Were there one or more frequency(ies) that could not be tested: No c. Validity of puretone test results: Test results are valid for rating purposes. d. Speech Discrimination Score ([place] C[place] word list): + + RIGHT EAR 94% +========= LEFT EAR 98% + + e. Appropriateness of Use of Word Recognition Score ([place] C[place] word list): Right Ear: Is Word Discrimination Score available? Yes Word Discrimination Score appropriateness: Use of speech recognition score is appropriate for this . Left Ear: Is Word Discrimination Score available? Yes Word Discrimination Score appropriateness: Use of word recognition score is appropriate for this Napoleon. f. Audiologic Findings Summary of Immittance (Tympanometry) Findings: + + RIGHT EAR LEFT EAR +=== += Acoustic immittance [ ] Normal [X] Abnormal [X] Normal [ ] Abnormal +=== += Ipsilateral Acoustic Reflexes [X] Normal [ ] Abnormal [X] Normal [ ] Abnormal +=== += Contralateral Acoustic Reflexes [ ] Normal [X] Abnormal [X] Normal [ ] Abnormal +=== += Unable to interpret reflexes due to [ ] [ ] artifact +=== += Unable to obtain/ maintain seal [ ] [ ] + + 2. Diagnosis RIGHT EAR --------- [ ] Normal hearing [ ] Conductive hearing loss ICD code: [ ] Mixed hearing loss ICD code: [X] Sensorineural hearing loss (in the frequency range of 500-4000 Hz)* ICD code: H90.3 [ ] Sensorineural hearing loss (in the frequency range of 6000 Hz or higher frequencies) ICD code: [ ] Significant changes in hearing thresholds in service LEFT EAR -------- [ ] Normal hearing [ ] Conductive hearing loss ICD code: [ ] Mixed hearing loss ICD code: [ ] Sensorineural hearing loss (in the frequency range of 500-4000 Hz)* ICD code: [X] Sensorineural hearing loss (in the frequency range of 6000 Hz or higher frequencies) ICD code: H90.3 [ ] Significant changes in hearing thresholds in service NOTES: * The may have hearing loss at a level that is not considered to be a disability for VA purposes. This can occur when the auditory thresholds are greater than 25 dB at one or more frequencies in the 500-4000 Hz range. The Napoleon may have impaired hearing, but it does not meet the criteria to be considered a disability for VA purposes. For VA purposes, the diagnosis of hearing impairment is based upon testing at frequency ranges of 500, 1000, 2000, 3000, and 4000 Hz. If there is no HL in the 500-4000 Hz range, but there is HL above 4000 Hz, check this box. The may have a significant change in hearing threshold in service, but it does not meet the criteria to be considered a disability for VA purposes. (A significant change in hearing threshold may indicate noise exposure or acoustic trauma.) 3. Etiology Right Ear Was there a permanent positive threshold shift (worse than reference threshold) greater than normal measurement variability at any frequency between 500 and 6000 Hz for the right ear? Yes Opinion provided for the right ear: Yes If present, is the 's right ear hearing loss at least as not (likelihood is at least approximately balanced or nearly equal, if not higher) caused by or a result of an event in service? 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 A significant permanent threshold shift occurred in the right ear at 6000 Hz between enlistment audiogram dated 09/02/76 and separation audiogram dated 10/10/80. Given 's reports of exposure to hazardous noise while he was in the service, and a significant permanent threshold shift occurred in the right ear at 6000 Hz between enlistment audiogram and separation audiogram, 's right ear hearing loss is at least as likely as not a result of service. Did hearing loss exist prior to service? No Left Ear Was there a permanent positive threshold shift (worse than reference threshold) greater than normal measurement variability at any frequency between 500 and 6000 Hz for the left ear? No Opinion provided for the left ear: Yes If present, is the 's left ear hearing loss at least as not (likelihood is at least approximately balanced or nearly equal, if not higher) caused by or a result of an event in service? No Rationale (Provide rationale for either a yes, no answer or speculation reason): No significant threshold shifts occurred in the left ear between enlistment audiogram dated 09/02/76 and separation audiogram dated 10/10/80. As such, there is no evidence that acoustic trauma occurred to the left ear while was in the service. Given that there were no significant threshold shifts in the left ear between enlistment audiogram and separation audiogram, 's left ear hearing loss is less likely than not a result of service. Did hearing loss exist prior to service? No 4. Functional impact of hearing loss Does the 's hearing loss impact ordinary conditions of daily life, including ability to work: Yes If yes, describe impact in the 's own words: reports, I don't hear as well as I used to. 5. Remarks, if any, pertaining to hearing loss: No response provided SECTION 2: TINNITUS 1. Medical history Does the Napoleon report recurrent tinnitus: Yes Date and circumstances of onset of tinnitus: Napoleon reports intermittent ringing tinnitus, which he states has been present for years. 2. Etiology of tinnitus At least as likely as not (likelihood is at least approximately balanced or nearly equal, if not higher) caused by or a result of noise exposure. 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 A significant permanent threshold shift occurred in the right ear at 6000 Hz between enlistment audiogram dated 09/02/76 and separation audiogram dated 10/10/80. Given 's reports of exposure to hazardous noise while he was in the service, and a significant permanent threshold shift occurred in the right ear at 6000 Hz between enlistment audiogram and separation audiogram, 's tinnitus is at least as likely as not a result of noise exposure. 3. Functional impact of tinnitus ------ Does the Napoleon's tinnitus impact ordinary conditions of daily life, including ability to work: No 4. Remarks, if any, pertaining to tinnitus:: No response provided NOTE: [place] may request additional medical information, including additional examinations if necessary to complete VA's review of the Napoleon's application. /laura/ Patricio Muller [facility]-A Car Repairer Pullman Signed: 01/11/2024 14:27 01/11/2024 ADDENDUM STATUS: COMPLETED Should become eligible for [place] hearing aid services, he is not a candidate for aids. Medical history includes: [place]: 11/14/76-11/13/80 MOS: Aviation Electronics Noise exposure to aircraft Napoleon reports, I don't hear as well as I used to. reports intermittent ringing tinnitus, which he states has been present for years. He denies vertigo, congenital family history of hearing loss, or otologic history/complaints. 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 /laura/ Patricio Muller, CCC-A Car Repairer Pull[employer] Signed: 01/11/2024 14:30 [facility] ST[facility]ORD [place] [facility]
[2024-02-23 08:23] VITALS: BMI 32.5
--- NOTE | 2024-02-23 08:23 | MHC.OFFVIS ---
Vital Signs 02/23/24 08:23 Height 5 ft 6 in Weight 201 lb 2 oz BMI 32.5 Intake Visit Reasons: PO RT knee 01/14/24 DR-- fell on 02/19/24 Intake Note: Marcello is a 63 year old male who presents today after undergoing right knee arthroscopic surgery on 01/14/24. Patient presents today for evaluation of the right knee after slipping on 02/19/24, hurting his right knee. The patient states that he twisted his knee and had acute onset of pain along the medial aspect of his knee. He has been using crutches because of his pain. He denies any other injuries. He has tried Tylenol and ibuprofen which gave him minimal relief. He denies any fevers or chills. Allergies No Known Allergies [No Known Allergies*] Allergy (Verified 02/23/24 08:24) Medication List - Last Reconciled 02/23/24 by Tom Villatoro MD aspirin 81 mg PO DAILY atorvastatin 10 mg PO BEDTIME ibuprofen 800 mg PO BID PRN losartan 1 tab PO DAILY omeprazole 40 mg PO DAILY oxycodone 5 mg PO Q6H PRN PFSH Medical History (Updated 02/23/24 @ 09:00 by Tom Villatoro MD) Coronary artery calcification Hypertension Hyperlipidemia Obstructive sleep apnea on CPAP Personal history of nicotine dependence Emphysema lung Dyspnea Heartburn Tubular adenoma of colon Monoallelic mutation of CDH1 gene Family history of cancer of GI tract Surgical History (Updated 02/22/24 @ 10:47 by Melania Lambert PA-C) History of esophagogastroduodenoscopy (EGD) History of colonoscopy History of tonsillectomy and adenoidectomy History of vasectomy History of elbow surgery History of repair of right rotator cuff History of repair of left rotator cuff History of medial meniscus repair of right knee History of right knee surgery Family History (Updated 02/22/24 @ 15:34 by Melania Lambert PA-C) Father Metastatic cancer Hx of myocardial infarction CHF (congestive heart failure) DM2 (diabetes mellitus, type 2) Mother Hx of myocardial infarction COPD (chronic obstructive pulmonary disease) Osteoporosis CHF (congestive heart failure) Sister Monoallelic mutation of CDH1 gene History of stomach cancer BOOP (bronchiolitis obliterans with organizing pneumonia) Sister Monoallelic mutation of CDH1 gene History of stomach cancer Afib Sister Hx of myocardial infarction Monoallelic mutation of CDH1 gene Daughter History of stomach cancer Monoallelic mutation of CDH1 gene Son No problems noted. Social History (Updated 02/22/24 @ 10:47 by Melania Lambert PA-C) Alcohol intake: current Alcohol intake frequency: other Alcohol type: beer and wine Patient Tobacco Use Status: Current everyday Tobacco user Tobacco use type: Cigar Years Smoked: 35 Second Hand Smoke Exposure: No Advance Directives Date on File: 05/17/20 service: Yes (Served in the [employer]) Current occupational status: employed and retired Current occupation: Worked for [employer] - Retired 02/2024 Current occupational exposures/hazards: No Physical Exam Vital Signs: BMI result Body Mass Index 32.5 Const Other: Well-nourished well-developed very friendly male awake alert and oriented x3 in no acute distress Extrem Other: Bilateral lower extremity examination shows good capillary refill, no skin lesions noted, normal sensation light touch Right knee examination shows a mild effusion, tenderness along his medial collateral ligament, no instability Results Reviewed Results Reviewed: X-rays of the patient's right knee taken today show mild diffuse joint space narrowing, no acute bony abnormalities Assessment & Plan Assessment & Plan (1) Right knee pain: Code(s): M25.561 - Pain in right knee Category: Medical (2) MCL sprain of right knee: Code(s): S83.411A - Sprain of medial collateral ligament of right knee, initial encounter Category: Medical Plan Mr. Patel presents with right knee pain most likely to a sprain of his medial collateral ligament. I had a lengthy discussion with the patient regarding the treatment options. We will hold off on a cortisone injection at this time. I did give him a prescription for a Medrol Dosepak as well as a prescription for Vicodin to help with his pain. He will continue with his activity modifications. He will contact me prior to his follow-up appointment in 4-6 weeks should any questions or concerns arise. Feel free to call me at any time should questions regarding his orthopedic management arise. I spent 22 minutes in reviewing the patient's records and imaging studies, seeing the patient and documenting in the medical record. Orders: Orders XR knee RT 3V Today M25.561 - Pain in right knee Medications: New methylprednisolone (Medrol (Spencer)) PO PER PKG DIR 21 ea 0RF hydrocodone-acetaminophen 5-325 mg Partial Fill upon patient request. 1 tab PO Q12H PRN 30 tabs 0RF pain Coding Level of Care Code Est Pt Level 3 (59200) Complex EM visit Add On G2211 Diagnoses Right knee pain M25.561 MCL sprain of right knee S83.411A
== END 2024-02-23 08:54 | disposition home or self-care (01) ==
PROVIDERS: PCP Internal Medicine; Visit Provider Orthopaedic Surgery
DX: S83.411A Sprain of medial collateral ligament of right knee, initial encounter (principal); M25.561 Pain in right knee
CPT/HCPCS: 99024

== ENCOUNTER 2024-03-22 09:13 | Outpatient (AMB) | payer BC, SELFPAY ==
--- NOTE | 2024-03-22 09:18 | MHC.OFFVIS ---
Intake Visit Reasons: Right knee pain Intake Note: Marcello is a 63 year old male who presents with complaints of intermittent discomfort in his right knee after undergoing right knee arthroscopic surgery on 01/14/2024. The patient states that his discomfort has improved somewhat since his last visit. He continues with his home stretching program. He denies any fevers or chills. Allergies No Known Allergies [No Known Allergies*] Allergy (Verified 03/22/24 09:23) Medication List - Last Reviewed 03/22/24 by CUCA Cline aspirin 81 mg PO DAILY atorvastatin 10 mg PO BEDTIME hydrocodone-acetaminophen 5-325 mg 1 tab PO Q12H PRN ibuprofen 800 mg PO BID PRN losartan 1 tab PO DAILY methylprednisolone (Medrol (Spencer)) PO PER PKG DIR omeprazole 40 mg PO DAILY PFSH Medical History (Updated 02/23/24 @ 09:00 by Tom Villatoro MD) Coronary artery calcification Hypertension Hyperlipidemia Obstructive sleep apnea on CPAP Personal history of nicotine dependence Emphysema lung Dyspnea Heartburn Tubular adenoma of colon Monoallelic mutation of CDH1 gene Family history of cancer of GI tract Surgical History (Updated 02/22/24 @ 10:47 by Melania Lamebrt PA-C) History of esophagogastroduodenoscopy (EGD) History of colonoscopy History of tonsillectomy and adenoidectomy History of vasectomy History of elbow surgery History of repair of right rotator cuff History of repair of left rotator cuff History of medial meniscus repair of right knee History of right knee surgery Family History (Updated 02/22/24 @ 15:34 by Melania Lambert PA-C) Father Metastatic cancer Hx of myocardial infarction CHF (congestive heart failure) DM2 (diabetes mellitus, type 2) Mother Hx of myocardial infarction COPD (chronic obstructive pulmonary disease) Osteoporosis CHF (congestive heart failure) Sister Monoallelic mutation of CDH1 gene History of stomach cancer BOOP (bronchiolitis obliterans with organizing pneumonia) Sister Monoallelic mutation of CDH1 gene History of stomach cancer Afib Sister Hx of myocardial infarction Monoallelic mutation of CDH1 gene Daughter History of stomach cancer Monoallelic mutation of CDH1 gene Son No problems noted. Social History (Updated 02/22/24 @ 10:47 by Melania Lambert PA-C) Alcohol intake: current Alcohol intake frequency: other Alcohol type: beer and wine Patient Tobacco Use Status: Current everyday Tobacco user Tobacco use type: Cigar Years Smoked: 35 Second Hand Smoke Exposure: No Advance Directives Date on File: 05/17/20 service: Yes (Served in the [employer]) Current occupational status: employed and retired Current occupation: Worked for [employer] - Retired 02/2024 Current occupational exposures/hazards: No Physical Exam Extrem Other: Right knee examination shows that the surgical incisions are well healed, no erythema, minimal discomfort with range of motion, minimal crepitus with range of motion, no instability Assessment & Plan Assessment & Plan (1) Right knee pain: Code(s): M25.561 - Pain in right knee Category: Medical Plan Mr. Patel continues to do well after undergoing right knee arthroscopic surgery on 01/14/2024. He will continue with his home stretching program. He will contact me prior to his follow-up appointment in 2 months should any questions or concerns arise. Feel free to call me at any time should questions regarding his orthopedic management arise. Medications: Changed From hydrocodone-acetaminophen 5-325 mg Partial Fill upon patient request. 1 tab PO Q12H PRN 30 tabs 0RF pain To hydrocodone-acetaminophen 5-325 mg Partial Fill upon patient request. 1 tab PO Q24H PRN 20 tabs 0RF pain Coding Level of Care Code Global (01933) Diagnoses Right knee pain M25.561
--- OUTSIDE RECORDS SUMMARY | 2024-03-22 10:12 | XMS_ITS | Continuity of Care Document ---
Author Name [facility] Organization [facility] Care Team Providers Care Wind Turbine Design Engineer Name Role Phone [facility] Unavailable Unavailable Problems Combined list of problems from Department of Defense and Veterans Affairs facilities. It does not include entries that were removed or entered in error. Problem Status Onset Date Problem Type Date of Resolution Comments Source Diagnosis: ICD-10-CM Z02.89 Encounter for other administrative examinations Active Diagnosis [place] [facility] Encounters Combined list of: 1) Encounters from Department of Veterans Affairs facilities going backup to the last 18 months, not all [place] inpatient encounters are included; 2) Encounters from the Department of Defense facilities going backup to 280 months. Location Location Details Encounter Type Encounter Number Reason For Visit Attending Provider ADM Date DC Date Status Disposition Source [facility] Outpatient Encounter [id number] Diagnos is: ICD-10- CM Z02.89 Encount er for other adminis trative examSHARON Weeks 01/10 [facility]
--- OUTSIDE RECORDS SUMMARY | 2024-03-22 10:13 | XMS_ITS ---
Author Organization [facility] Address [address] [place] [id number] Care Team Providers Care Vp Communications Name Role Phone Loki Baird MD Primary Care Provider Unavaila Jonny Malik Jr REASON FOR VISIT pathology Encounters Encounter Location Date Provider Diagnosis [facility] [address] [place] [phone] 01/05/2024 Jonny Gonzalez Jr PLAN OF TREATMENT Next Appt Details Provider Name:Jonny rico Jr, 06/02/2024 07:30:00 AM, [address] [place] [address] , [place], [place], [phone],
--- OUTSIDE RECORDS SUMMARY | 2024-03-22 10:13 | XMS_ITS ---
Author Organization [facility] Address [address] [place] [address] Care Team Providers Care Adjustment Clerk Name Role Phone Loki Baird MD Primary Care Provider UnavailJonny Curtis Jr [phone] REASON FOR VISIT hereditary diffused gastric cancer syndrome PROBLEMS Problem Type ICD Code Onset Dates Problem Status W/U Status Risk SNOMED Code Notes Problem Gastric polyp (K31.7) Active confirmed Gastric polyp ([id number]) Encounters Encounter Location Date Provider Diagnosis [facility] Outpatient [address] [place] [id number] 12/31/2023 Jonny Gonzalez Jr 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
--- OUTSIDE RECORDS SUMMARY | 2024-03-22 10:13 | XMS_ITS ---
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 MEDICATIONS Medication SIG (Take, Route, Frequency, Duration) Notes Start Date End Date Status Aspir-81 81 MG 1 tablet Orally Once a day Active Atorvastatin Calcium 10 MG 1 tablet Oral ly Once a day Active Omeprazole 40 MG TAKE 1 CAPSULE BY MO UT EVERY DAY 30 MINUTES BEFORE MORNING MEAL for 90 Active Losartan Potassium 25 MG TAKE 1 TABLET B Y MOUTH EVERY DAY Oral for 90 Active Motrin as needed Active SOCIAL HISTORY Tobacco Use: Social History Observation Description Date Details (start date - stop date) Former Smoker NA - NA Sex Assigned At : Social History Observation Description Sex Assigned At Unknown Tobacco Use/Smoking Question Answer Notes Patient is a former smoker VITAL SIGNS BMI 32.28 kg/m2 03/13/2024 Blood pressure systolic 000 mm Hg 03/13/19 25 Blood pressure diastolic 00 mm Hg 025 Height 66 in 03/13/2024 Temperature 98.7 degrees Fahrenheit 03/13/19 25 Weight 200 lbs 03/13/2024 Encounters Encounter Location Date Provider Diagnosis [facility] [address] [place] [phone] 03/13/2024 Jonny Gonzalez Jr Hereditary diffuse gastric cancer syndrome Z15.09 ; Gastroesophageal reflux disease without esophagitis K21.9 and Screening for colon cancer Z12.11 ASSESSMENTS Encounter Date Diagnosis Assessment Notes Treatment Notes Treatment Clinical Notes 03/13/2024 Hereditary diffuse gastric cancer syndrome (ICD-10 - Z15.09) Endoscopy material was printed 03/13/2024 Gastroesophageal ref lux disease without esophagitis (ICD-10 - K21.9) 03/13/2024 Screening for colon cancer (ICD-10 - Z12.11) PLAN OF TREATMENT Treatment Notes Assessment Notes Hereditary diffuse gastric cancer syndro me Endoscopy material was printed Future Test Test Name Order Date UPPER GI ENDOSCOPY 03/13/2024 Next Appt Details Follow Up: prn, Reason: Provider Name:Jonny rico Jr, 06/02/2024 07:30:00 AM, [address] [place] [address] , [place], [place], [phone], Progress Notes * Examination Category Sub-Category Detail Notes General Examination GENERAL APPEARANCE: in no ac anthony distress HEAD: normocephalic EYES: sclera non-icteric NECK/THYROID: no lymphadenopathy HEART: S1, S2 normal, no mu rmurs CHEST: normal shape and exp ansion LUNGS: clear to auscultatio n bilaterally ABDOMEN: soft, nontender, non distended, bowel sounds present, no organomegaly SKIN: anicteric EXTREMITIES: no clubbing, cyanosi s, or edema PSYCH: cognitive function i ntact ORAL CAVITY: mucosa moist
--- OUTSIDE RECORDS SUMMARY | 2024-03-22 10:14 | XMS_ITS | Patient Health Record ---
Author Organization [facility] Address [address] [place] [address] Care Team Providers Care Link Trainer Name Role Phone Loki Baird MD Primary Care Provider Jonny Graves Jr Unavailable ALLERGIES No Known Allergies RESULTS Component Value Reference Range Notes Pathology Reviewed date:06/03/2023 09:51:12 AM Interpretation: Performing Lab:[facility], [address] [place] [phone] Notes/Report: Pathology Reviewed date:01/05/2024 08:31:33 AM Interpretation: Performing Lab:[facility], [address] [place] [phone] Notes/Report: REASON FOR REFERRAL No Information MEDICATIONS Medication SIG (Take, Route, Frequency, Duration) Notes Start Date End Date Status Aspir-81 81 MG 1 tablet Orally Once a day Active Atorvastatin Calcium 10 MG 1 tablet Oral ly Once a day Active Omeprazole 40 MG TAKE 1 CAPSULE BY [facility] EVERY DAY 30 MINUTES BEFORE MORNING MEAL for 90 Active Losartan Potassium 25 MG TAKE 1 TABLET B Y MOUTH EVERY DAY Oral for 90 Active Motrin as needed Active IMMUNIZATIONS Vaccine Route Administration Date Status Comme nts Influenza Unknown 12/09/2018 Administered Influenza Unknown 11/27/2020 Administered Influenza Unknown 11/08/2021 Administered Influenza Unknown 11/30/2023 Administered SOCIAL HISTORY Tobacco Use: Social History Observation Description Date Details (start date - stop date) Former Smoker NA - NA Sex Assigned At : Social History Observation Description Sex Assigned At Unknown Tobacco Use/Smoking Question Answer Notes Patient is a former smoker Alcohol Screen Question Answer Notes Did you [...] Problem Colon cancer screening (Z12.11) Active confirmed 707850311 Problem Diverticulosis of large intestine without perforation or abscess without bleeding (K57.30) Active confirmed Diverticul ar disease of colon (609492962) Problem Gastroesophageal reflux disease without esophagitis (K21.9) Active confirmed 936467337 Problem Gastric polyp (K31.7) Active confirmed Gastric polyp (79681360) Problem Gastritis (K29.70) Active confirmed Gas tritis (8268388) Problem Family history of gastric cancer (Z80.0) Active confirmed 923839094 Problem 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 682585960 VITAL SIGNS Temperature 98.7 degrees Fahrenheit 03/13/2024 Blood pressure diastolic 00 mm Hg 03/13/2024 Height 66 in 03/13/2024 Blood pressure systolic 000 mm Hg 03/13/2024 Weight 200 lbs 03/13/2024 BMI 32.28 kg/m2 03/13/2024 Encounters Encounter Location Date Provider Diagnosis [facility] Outpatient [address] [place] [phone] 05/21/2023 Jonny Gonzalez Jr 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 [facility] Outpatient [address] [place] [phone] 12/31/2023 Jonny Gonzalez Jr 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 [facility] [address] [place] [phone] 03/13/2024 Jonny Gonzalez Jr Hereditary diffuse gastric cancer syndrome Z15.09 ; Gastroesophageal reflux disease without esophagitis K21.9 and Screening for colon cancer Z12.11 [facility] [address] [place] [phone] 06/03/2023 Jonny Gonzalez Jr Hereditary diffuse gastric cancer syndrome Z15.09 [facility] [address] [place] [address] 10/12/2023 Jonny Gonzalez Jr [facility] [address] [place] [phone] 01/05/2024 Jonny Gonzalez Jr ASSESSMENTS Encounter Date Diagnosis Assessment Notes Treatment Notes Treatment Clinical Notes 05/21/2023 Jones syndrome (ICD- 10 - Z15.09) 12/31/2023 Jones syndrome (ICD- 10 - Z15.09) 03/13/2024 Gastroesophageal ref lux disease without esophagitis (ICD-10 - K21.9) 03/13/2024 Hereditary diffuse gastric cancer syndrome (ICD-10 - Z15.09) Endoscopy material was printed 06/03/2023 Hereditary diffuse gastric cancer syndrome (ICD-10 - Z15.09) 03/13/2024 Screening for colon cancer (ICD-10 - Z12.11) PLAN OF TREATMENT Future Test Test Name Order Date COLONOSCOPY 02/14/2014 UPPER GI ENDOSCOPY 03/25/2017 COLONOSCOPY 03/25/2017 UPPER GI ENDOSCOPY 05/17/2019 UPPER GI ENDOSCOPY 04/24/2021 UPPER GI ENDOSCOPY 11/26/2021 COLONOSCOPY 11/26/2021 UPPER GI ENDOSCOPY 04/17/2022 COLONOSCOPY 04/17/2022 UPPER GI ENDOSCOPY 05/19/2022 UPPER GI ENDOSCOPY 03/26/2023 UPPER GI ENDOSCOPY 06/03/2023 UPPER GI ENDOSCOPY 03/13/2024 Next Appt Details Provider Name:Jonny rico Jr, 06/02/2024 07:30:00 AM, [address] [place] [address] , [place], [place], [phone], Insurance Providers Payer Name Payer Address Payer Phone Subscriber Number Group Number Insured Name Patient Relationship to Insured Coverage Start Date Coverage End Date MEDICARE OF [place] [address] [facility] [place] [address] [id number] DONAVON MENESES Self - patient is the insured [facility] [address] [place], [place] [id number] [phone] [id number] DONAVON MENESES Self - patient is the insured MEDICAL (GENERAL) HISTORY Medical History History ICD Code Colonoscopy 05/31, tubular adenomas x2, f sunshine-year followup Hyperlipidemia MARCO A/CPAP Hypertension hereditary diffuse gastric c ancer syndrome, CDH1 gene-positive, endoscopies every 6 months Elevated blood sugar Surgical History Surgery Date(Month/Year) right elbow surgery rotator cuff tear repair x2 right knee surgery tonsillectomy and adenoidectomy right knee surgery
== END 2024-03-22 09:34 | disposition home or self-care (01) ==
PROVIDERS: PCP Internal Medicine; Visit Provider Orthopaedic Surgery
DX: M25.561 Pain in right knee (principal)
CPT/HCPCS: 99024

== ENCOUNTER 2024-06-02 06:31 | Day surgery (SDC) | payer BC, SELFPAY ==
--- OUTSIDE RECORDS SUMMARY | 2024-05-16 15:25 | XMS_ITS ---
Author Organization [facility] Address [address] [place] [phone] Care Team Providers Care Branch Banker Name Role Phone Loki Baird MD Primary Care Provider UnavailJonny Curtis Jr [phone] REASON FOR VISIT pathology Encounters Encounter Location Date Provider Diagnosis [facility] [address] [place] [phone] 01/05/2024 Jonny Gonzalez Jr Plan Of Treatment Next Appt Details Provider Name:Jonny rico Jr, 06/02/2024 07:30:00 AM, [address] [place] [address] , [place], [place], [phone], Progress Notes * DONAVON MENESES MDOB:[birth year] (63 yo M)Acc No.[id number]:01/05/2024 Patient:?DONAVON MENESES :1960???Age:63 Y???Sex:Male Address:[address] [place] [address] * true * Date:? Generated for Printi ng/Faosbaldog/eTransmitting on:?05/16/2024 03:25 PM EDT
--- OUTSIDE RECORDS SUMMARY | 2024-05-16 15:25 | XMS_ITS ---
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 Medications Medication SIG (Take, Route, Frequency, Duration) Notes Start Date End Date Status Aspir-81 81 MG 1 tablet Orally Once a day Active Atorvastatin Calcium 10 MG 1 tablet Oral ly Once a day Active Omeprazole 40 MG TAKE 1 CAPSULE BY MO [facility] EVERY DAY 30 MINUTES BEFORE MORNING MEAL for 90 Active Losartan Potassium 25 MG TAKE 1 TABLET B Y MOUTH EVERY DAY Oral for 90 Active Motrin as needed Active Social History Tobacco Use: Social History Observation Description Date Details (start date - stop date) Former Smoker NA - NA Tobacco Use/Smoking Question Answer Notes Patient is a former smoker Section Notes: occasional cigar Vital Signs Temperature 98.7 degrees Fahrenheit 03/13/19 25 Blood pressure systolic 000 mm Hg 03/13/19 25 Blood pressure diastolic 00 mm Hg 025 Height 66 in 03/13/2024 Weight 200 lbs 03/13/2024 BMI 32.28 kg/m2 03/13/2024 Encounters Encounter Location Date Provider Diagnosis [facility] [address] [place] [phone] 03/13/2024 Jonny Gonzalez Jr Hereditary diffuse gastric cancer syndrome Z15.09 ; Gastroesophageal reflux disease without esophagitis K21.9 and Screening for colon cancer Z12.11 Assessments Encounter Date Diagnosis (ICD Code) Assessment Notes Treatment Notes Treatment Clinical Notes Section Notes 03/13/2024 Hereditary diffuse gastric cancer syndrome (ICD-10 - Z15.09) Endoscopy material was printed Currently, he is doing well. Reflux symptoms are under good control. He will continue omeprazole. He is due for followup endoscopy. This will be arranged. He is aware risks and benefits and agrees to proceed. He is up-to-date on colorectal cancer screening. 03/13/2024 Gastroesophageal reflux disease without esophagitis (ICD-10 - K21.9) Currently, he is doing well. Reflux symptoms are under good control. He will continue omeprazole. He is due for followup endoscopy. This will be arranged. He is aware risks and benefits and agrees to proceed. He is up-to-date on colorectal cancer screening. 03/13/2024 Screening for colon cancer (ICD-10 - Z12.11) Currently, he is doing well. Reflux symptoms are under good control. He will continue omeprazole. He is due for followup endoscopy. This will be arranged. He is aware risks and benefits and agrees to proceed. He is up-to-date on colorectal cancer screening. Plan Of Treatment Treatment Notes Assessment Notes Hereditary diffuse gastric cancer syndro nv Endoscopy material was printed Future Test Test Name Order Date UPPER GI ENDOSCOPY 03/13/2024 Next Appt Details Follow Up: prn, Reason: Provider Name:Jonny rico , 06/02/2024 07:30:00 AM, [address] [place] [address], [phone], Progress Notes * DONAVON MENESES MDOB:[birth year] (63 yo M)Acc No.[id number]:03/13/2024 Progress Notes Patient:?DONAVON MENESES Provider:?Jonny Gonzalez MD :1960???Age:63 Y???Sex:Male Yoni e:03/13/2024 Address:[address] [place], [place] [phone] Pcp:Loki Baird MD Subjective: * Chief Complaints: * ???1. 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 * HPI: ???New symptom(s):? Patient is a pleasant 63-year-old man seen today in followup. She continues on omeprazole for reflux. This controls his symptoms well. He has no dysphagia, hematemesis, or melena. Weight and appetite have been stable. ?He is due for followup endoscopy for hereditary diffuse gastric cancer syndrome. Last endoscopy in December showed no malignancy. We reviewed this today. ?He is up-to-date on colorectal cancer screening, and has no lower GI symptoms. * ROS:?General/Constitutional:?Change in appetite?denies.?Fatigue?denies.?ENT:?Patient denies?difficulty swallowing.?Respiratory:?Patient denies?shortness of breath.?Cardiovascular:?Patient denies?chest pain.?Gastrointestinal:?Comments?See HPI for details.?Genitourinary:?Difficulty urinating?denies.?Incontinence?denies.?Musculoskeletal:?Patient denies?muscle aches.?Skin:?Patient denies?pruritis.?Neurologic:?Patient denies?low back pain.?Psychiatric:?Patient denies?mental or physical abuse.? * Medical History:?Colonoscopy 05/31, tubular adenomas x2, five-year followup, Hyperlipidemia, MARCO A/CPAP, Hypertension, hereditary diffuse gastric cancer syndrome, CDH1 gene-positive, endoscopies every 6 months, Elevated blood sugar. * Surgical History:?right elbo w surgery , rotator cuff tear repair x2 , right knee surgery , tonsillectomy and adenoidectomy , right knee surgery . * Family History:?Father: dece ased, cancer spread, diagnosed with HTN (hypertension), Diabetes, Heart disease.?Mother: .? sister tested cdh1 positive had 40 % stomach removed of stomach cancer/ paternal uncle stomach ca aunt pancreatic ca. No family history of liver cancer. * Social History:?Tobacco Use:?Tobacco Use/Smoking?Patient is a?former smoker.?Miscellaneous:?Marital status: . Occupation: [employer] AND [employer]ever. ???occasional cigar. * Medications:?Taking Atorvast atin Calcium 10 MG Tablet 1 tablet Orally Once a day, Taking Aspir-81 81 MG Tablet Delayed Release 1 tablet Orally Once a day, Taking Motrin as needed, Taking Losartan Potassium 25 MG Tablet TAKE 1 TABLET BY MOUTH EVERY DAY Oral , Taking Omeprazole 40 MG Capsule Delayed Release TAKE 1 CAPSULE BY MOUTH EVERY DAY 30 MINUTES BEFORE MORNING MEAL , Medication List reviewed and reconciled with the patient * Allergies:?N.K.D.A. Objective: * Vitals:?Wt: 200 lbs, Ht: 66 in, BMI:32.28 Index, BP: 000/00 mm Hg, Temp: 98.7. * Examination: ???General Examination: ?GENERAL APPEARANCE:?in no acute distress.?HEAD:?normocephalic.?EYES:?sclera non-icteric.?ORAL CAVITY:?mucosa moist.?NECK/THYROID:?no lymphadenopathy.?SKIN:?anicteric.?HEART:?S1, S2 normal, no murmurs.?LUNGS:?clear to auscultation bilaterally.?CHEST:?normal shape and expansion.?ABDOMEN:?soft, nontender, nondistended, bowel sounds present, no organomegaly .?EXTREMITIES:?no clubbing, cyanosis, or edema.?PSYCH:?cognitive function intact.? Assessment: * Assessment: 1.?Hereditary diffuse gastri c cancer syndrome - Z15.09 (Primary)?2.?Gastroesophageal reflux disease without esophagitis - K21.9?3.?Screening for colon cancer - Z12.11? Currently, he is doing well. Reflux symptoms are under good control. He will continue omeprazole. He is due for followup endoscopy. This will be arranged. He is aware risks and benefits and agrees to proceed. He is up-to-date on colorectal cancer screening. Plan: * Treatment: Notes: Endoscopy material was printed?? * Procedure Codes:?3017F COLOR ECTAL CA SCREEN DOC REV, G9903 Pt scrn tbco id as non user, G9744 PATIENT NOT ELIG D/T ACTIVE DX HTN * Preventive Medicine:? ??Counseling:?Care goal follow-up plan:?Above Normal BMI Follow-up?Giving encouragement to exercise,?BMI management provided?Yes.? ??Screenings:?Fall Risk Screening?Fall Risk Assessment:?One fall with injury in the past year,?Screening:?One fall with injury in the past year,?Assessment:?Not performed, no reason specified,?Plan of Care:?Documented,?Type of fall plan of care:?Balance, strength and gait training or instruction provided.? * Follow Up:?prn * * Sign off status: Completed true * Provider:?Jonny Gonzalez MD Date:?0 03/13/2024 Generated for Chi torres/Danuta/eTransmitting on:?05/16/2024 03:25 PM EDT History and Physical Notes * HPI (History of Present Illness) Category Sub-Category Detail Notes Category Not es New symptom(s) Patient is a pleasant 63-year-old man seen today in followup. She continues on omeprazole for reflux. This controls his symptoms well. He has no dysphagia, hematemesis, or melena. Weight and appetite have been stable. He is due for followup endoscopy for hereditary diffuse gastric cancer syndrome. Last endoscopy in December showed no malignancy. We reviewed this today. He is up-to-date on colorectal cancer screening, and has no lower GI symptoms. Examination Category Sub-Category Detail Notes Category Not es General Examination GENERAL APPEARANCE: in no acute di stress HEAD: normocephalic EYES: sclera non-icteric NECK/THYROID: no lymphadenopathy HEART: S1, S2 normal, no mu rmurs CHEST: normal shape and exp ansion LUNGS: clear to auscultatio n bilaterally ABDOMEN: soft, nontender, non distended, bowel sounds present, no organomegaly SKIN: anicteric EXTREMITIES: no clubbing, cyanosi s, or edema PSYCH: cognitive function i ntact ORAL CAVITY: mucosa moist
--- OUTSIDE RECORDS SUMMARY | 2024-05-16 15:25 | XMS_ITS ---
Author Organization [facility] Address [address] [place] [address] Care Team Providers Care Piggyback Clerk Name Role Phone Loki Baird MD Primary Care Provider Jonny Graves Jr REASON FOR VISIT hereditary diffused gastric cancer syndrome Problems Problem Type SNOMED Code ICD Code Onset Dates Problem Status W/U Status Risk Notes Problem Gastric polyp (20415499) Gastric polyp (K31.7) Active confirmed Encounters Encounter Location Date Provider Diagnosis [facility] Outpatient [address] [place] [phone] 12/31/2023 Jonny Gonzalez Jr 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 Assessments Encounter Date Diagnosis (ICD Code) Assessment Notes Treatment Notes Treatment Clinical Notes Section Notes 12/31/2023 Jones syndrome (ICD-10 - Z15.09) Plan Of Treatment Next Appt Details Provider Name:Jonny rico Jr, 06/02/2024 07:30:00 AM, [address] [place] [address], [phone], Progress Notes * DONAVON MENESESDOB: [birth year] (63 yo M)Acc No.[id number]:12/31/2023 EGD/MAC Patient:?DONAVON MENESES Provider:?Jonny Gonzalez MD :1960???Age:63 Y???Sex:Male Yoni e:12/31/2023 Address:[address] [place], [place] [phone] Pcp:Loki Baird MD Subjective: * Chief Complaints: * ???1. Hereditary diffused ga stric cancer syndrome. * Medical History:? Objective: * Vitals:? 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 Plan: * Treatment: * Procedure Codes:?87753 UPPER GI ENDOSCOPY, BIOPSY * * The named appointment provid er may or may not be the originator of this progress note, and it is not deemed complete until electronically signed by the appointment provider. Sign off status: Pending * Provider:?Jonny Gonzalez MD Date:?03/01/2023 Generated for Chi torres/Danuta/eTfunmilayosmitting on:?05/16/2024 03:25 PM EDT
--- OUTSIDE RECORDS SUMMARY | 2024-05-16 15:25 | XMS_ITS | Continuity of Care Document ---
Author Name [facility] Organization [facility] Care Team Providers Care Family Services Worker Name Role Phone [facility] Unavailable Unavailable Problems Combined list of problems from Department of Defense and Veterans Affairs facilities. It does not include entries that were removed or entered in error. Problem Status Onset Date Problem Type Date of Resolution Comments Source Diagnosis: ICD-10-CM Z02.89 Encounter for other administrative examinations Active Diagnosis ID CNT WST RN [facility] Encounters Combined list of: 1) Encounters from Department of Veterans Affairs facilities going backup to the last 18 months, not all ID inpatient encounters are included; 2) Encounters from the Department of Defense facilities going backup to 280 months. Location Location Details Encounter Type Encounter Number Reason For Visit Attending Provider ADM Date DC Date Status [facility] Outpatient Encounter [id number] Diagnos is: ICD-10- CM Z02.89 Encount er for other adminis trative examSHARON Weeks 01/10 [facility]
--- OUTSIDE RECORDS SUMMARY | 2024-05-16 15:26 | XMS_ITS | Patient Health Record ---
Author Organization [facility] Address [address] [place] [address] Care Team Providers Care Can Dragger Name Role Phone Brie MICHAEL, Loki Primary Care Provider Kathryna Jonny Malik Jr Unavailable Allergies No Known Allergies Results Component Value Reference Range Notes Pathology Reviewed date:06/03/2023 09:51:12 AM Interpretation: Performing Lab:[facility], [address] [place] [id number] Notes/Report: Name: Jadiel Patel am Age/Sex: 62/M : 1960 Unit#: [id number] Attend Dr: Jonny Gonzalez MD Re05/21/23 Status : [facility] Location: [facility] Disch: SPEC : [id number] RECD : 05/21/23 STATUS: ANTONIO AGUIRRE NUM: [id number] [place]: 05/21/23 [facility] DR: Jonny Gonzalez MD ENTERED: 05/21/23 41 SP TYPE: Surgical OTHR DR: Loki Baird MD ORDERED: HE Stain/18 , Gross Micro L4/6, IHC/6, Special st. 2/, H. pylori/6, AB/PAS/6 Diagnosis A. Gastric pre-pylor us, biopsy: Gastric antral mucosa with reactive changes and minimal chronic inactive gas tritis; negative for intestinal metaplasia and dysplasia; no H. pylori seen. B. Gastric antrum, b iopsy: Gastric antral mucosa with reactive changes and minimal chronic gastritis wi th rare neutrophil; negative for H. pylori, intestinal metaplasia and dysplasia. C. Gastric transitio n zone, biopsy: Gastric antral and body mucosa with focal reactive changes and minimal chronic inactive gastritis; negative for intestinal metaplasia and dysplasia; no H. pylori seen. D. Gastric body, bio psy: Gastric body mucosa with minimal chronic inactive gastritis; negative for intesti nal metaplasia and dysplasia; no H. pylori seen. E. Gastric cardia, b iopsy: Gastric cardia mucosa with minimal chronic inactive gastritis; negative for intestinal metaplasia and dysplasia; no H. pylori seen. F. Gastric fundus, b iopsy: Gastric fundic mucosa with minimal chronic inactive gastritis; negative for intestinal metaplasia and dysplasia; no H. pylori seen. Clinical History Pre-Op Dx: Gastritis Post-Op Dx: Diffuse hereditary gastric cancer syndrome Microscopic Description Microscopic sections reviewed.? Immunostain for H. pylori on B is negative.? AB/PAS on A, B, C, D, E and F are ne gative for intestinal metaplasia.? Controls stain appropriately. Material Received A. Pre-pyloric bx's B. Antral bx's C. Transition zone bx's D. Gastric body bx's E. Cardia bx's F. Fundus bx's CONTINUED ON NEXT PAGE Name: Jadiel Patel am Age/Sex: 62/M : 1960 Unit#: [id number] Attend Dr: Jonny Gonzalez MD Re05/21/23 Status : [facility] Location: [facility] Disch: SPEC : [id number] RECD : 05/21/23 STATUS: ANTONIO AGUIRRE NUM: [id number] [place]: 05/21/23 [facility] DR: Jonny Gonzalez MD ENTERED: 05/21/23 SP TYPE: Surgical OTHR DR: Loki Baird MD ORDERED: HE Stain/18 , Gross Micro L4/6, IHC/6, Special st. 2/, H. pylori/6, AB/PAS/6 Gross Description Received in 6 parts. Part A: Received in formalin labeled ?pre-pyloric bx's? are 6 victor-pink irregular tissue fragments ranging fr om 0.15-0.3 cm, submitted in toto in a cassette labeled A. Part B: Received in formalin labeled ?antral bx's? are 5 victor-pink irregular and rectangular tissue fragments ran ging from 0.1-0.4 cm, submitted in toto in a cassette labeled B. Part C: Received in formalin labeled ?transition zone bx's? are 5 victor-pink irregular tissue fragments ranging fr om 0.1-0.35 cm, submitted in toto in a cassette labeled C. Part D: Received in formalin labeled ?gastric body bx's? are 6 victor irregular and rectangular tissue f ragments ranging from less than 0.1 to 0.35 cm, submitted in toto in a cassette labeled D. Part E: Received in formalin labeled ?cardia bx's? are 4 victor-pink irregular and rectangular tissue fragments ran ging from 0.25-0.35 cm, submitted in toto in a cassette labeled E. Part F: Received in formalin labeled ?fundus bx's? are 6 victor irregular and rectangular tissue fragments ran ging from 0.15-0.35 cm, submitted in toto in a cassette labeled F. CEDS Special studies orde red and performed: Immunostain for H. pylori on B1; AB/PAS stains on A1, B1, C1, D1, E1 and F1. Copies To: Jonny Gonzalez MD [address] [place] [address] [address] [place] [address] Loki Baird MD [address] [place] [address], [address] [place] [phone] Signed (si gnature on file) Maria Guadalupe Loja 05/26/23 1107 END OF REPORT Pathology Reviewed date:01/05/2024 08:31:33 AM Interpretation: Performing Lab:[facility], [address] [place] [address], [place] [address] Notes/Report: Name: Jadiel Patel am Age/Sex: 63/M [facility] 1960 [id number] Unit#: [id number] Attend Dr: Jonny Gonzalez MD Re12/31/23 Status : [facility] Location: [facility] Disch: SPEC : [id number] RECD : 12/31/23 STATUS: ANTONIO AGUIRRE NUM: [id number] [place]: 12/31/[address] [facility] [address]: Jonny Gonzalez MD ENTERED: 12/31/23-10 22 SP TYPE: Surgical OTHR DR: Loki Baird MD ORDERED: HE Stain/18 , Gross Micro L4/6, IHC/2, Special st. 2/6, H. pylori/2, AB/PAS/6 Diagnosis A. Stomach, pre-pylo vanita, biopsy: Antral-type mucosa with mild chronic inactive inflammation; no Hel icobacter organisms seen. B. Stomach, antrum, biopsy: Antral-type and oxyntic mucosa with moderate chronic inactive inflammatio n; no Helicobacter organisms seen. C. Stomach, transiti onal zone, biopsy: Oxyntic mucosa with mild chronic inactive inflammation; no Hel icobacter organisms seen. D. Stomach, body, bi opsy: Oxyntic mucosa with mild chronic inactive inflammation; no Helicobacter organisms seen. E. Stomach, fundus, biopsy: Oxyntic mucosa with mild chronic inactive inflammation; no Helicobacter organisms seen. F. Stomach, cardia, biopsy: Oxyntic mucosa with mild chronic inactive inflammation; no Helicobacter organisms seen. Comment: No dysplasi a or carcinoma is identified. Clinical History Hereditary diffuse g astric cancer syndrome Microscopic Description A-F. Microscopic sec tions examined. No metaplastic changes are seen, supported by AB/PAS stains (A, B, C, D, E and F); no Helicobacter organisms are seen, supported by H. pylori immunostain (B and D). Material Received A. Pre-pyloric bx's B. Antral bx's C. Transitional zone D. Gastric body bx's E. Bx's fundus F. Bx's cardia CONTINUED ON NEXT PAGE Name: Jadiel Patel am Age/Sex: 63/M : 1960 Unit#: [id number] Attend Dr: Jonny Gonzalez MD Re12/31/23 Status : [facility] Location: [facility] Disch: SPEC : [id number] RECD : 12/31/23 STATUS: ANTONIO AGUIRRE NUM: [id number] CAR[place]: 12/31/[address] [facility] [address]: Jonny Gonzalez MD ENTERED: 12/31/23-10 22 SP TYPE: Surgical OTHR DR: Loki Baird MD ORDERED: HE Stain/18 , Gross Micro L4/6, IHC/2, Special st. 2/6, H. pylori/2, AB/PAS/6 Gross Description Received in six parts. Part A: Received in formalin labeled ?prepyloric bx's? are 6 victor irregular tissue fragments ranging from 0.15-0. 3 cm, submitted in toto in a cassette labeled A. Part B: Received in formalin labeled ?antral bx's? are 5 victor-pink irregular tissue fragments ranging fr om less than 0.1 to 0.35 cm, submitted in toto in a cassette labeled B. Part C: Received in formalin labeled ?transitional zone? are 6 victor-pink irregular and rectangular tissue f ragments ranging from 0.2-0.4 cm, submitted in toto in a cassette labeled C. Part D: Received in formalin labeled ?gastric body bx's? are 4 victor irregular tissue fragments ranging fr om 0.25-0.35 cm, submitted in toto in a cassette labeled D. Part E: Received in formalin labeled ?bx's fundus? are 5 victor irregular tissue fragments ranging from 0.2-0.2 5 cm, submitted in toto in a cassette labeled E. Part F: Received in formalin labeled ?bx's cardia? are 6 victor irregular and rectangular tissue fragments ran ging from 0.25-0.35 cm, submitted in toto in a cassette labeled F. CEDS Special studies orde red and performed: Immunostain for H. pylori on B and D; AB/PAS stains on A, B, C, D, E and F Copies To: Jonny Gonzalez MD [facility] [address] [place] [address] [address] [place], [place] [phone] Loki Baird MD [facility] [address] [place] [address] Signed (si gnature on file) Noé Angelo MD 01/04/24 1541 END OF REPORT Reason For Referral No Information Medications Medication SIG (Take, Route, Frequency, Duration) Notes Start Date End Date Status Aspir-81 81 MG 1 tablet Orally Once a day Active Atorvastatin Calcium 10 MG 1 tablet Oral ly Once a day Active Omeprazole 40 MG TAKE 1 CAPSULE BY [facility] EVERY DAY 30 MINUTES BEFORE MORNING MEAL for 90 Active Losartan Potassium 25 MG TAKE 1 TABLET B Y MOUTH EVERY DAY Oral for 90 Active Motrin as needed Active Immunizations Vaccine Route Administration Date Status Comme nts Influenza Unknown 12/09/2018 Administered Influenza Unknown 11/27/2020 Administered Influenza Unknown 11/08/2021 Administered Influenza Unknown 11/30/2023 Administered Social History Tobacco Use: Social History Observation [...] Monthly (2 points) Points 5 Interpretation Positive Section Notes: occasional cigar occasional cigar occasional cigar occasional cigar occasional cigar Problems Problem Type SNOMED Code ICD Code Onset Dates Problem Status W/U Status Risk Notes Problem 537047866 Colon cancer screening (Z12.11) Active confirmed Problem Diverticular disease of colon (831974988) Diverticulosis of large intestine without perforation or abscess without bleeding (K57.30) Active confirmed Problem 503891546 Gastroesophageal reflux disease without esophagitis (K21.9) Active confirmed Problem Gastric polyp (25446586) Gastric polyp (K31.7) Active confirmed Problem Gastritis (5575587) Gastritis (K29.70) Active confirmed Problem 405963361 Family history o f gastric cancer (Z80.0) Active confirmed Problem 229763735 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 Vital Signs Temperature 98.7 degrees Fahrenheit 03/13/2024 Blood pressure diastolic 00 mm Hg 03/13/2024 Height 66 in 03/13/2024 Blood pressure systolic 000 mm Hg 03/13/2024 Weight 200 lbs 03/13/2024 BMI 32.28 kg/m2 03/13/2024 Encounters Encounter Location Date Provider Diagnosis [facility] [place] [address] [place] [id number] 05/21/2023 Jonny Gonzalez Jr 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 [facility] [place] [address] [place] [id number] 12/31/2023 Jonny Gonzalez Jr 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 [facility] [address] [place] [phone] 03/13/2024 Jonny Gonzalez Jr Hereditary diffuse gastric cancer syndrome Z15.09 ; Gastroesophageal reflux disease without esophagitis K21.9 and Screening for colon cancer Z12.11 [facility] [address] [phone] 06/03/2023 Jonny Gonzalez Jr Hereditary diffuse gastric cancer syndrome Z15.09 [facility] [address] [place] [phone] 10/12/2023 Jonny Gonzalez Jr [facility] [address] [place] [address] [address] [place] [phone] 01/05/2024 Jonny Gonzalez Jr Assessments Encounter Date Diagnosis (ICD Code) Assessment Notes Treatment Notes Treatment Clinical Notes Section Notes 05/21/2023 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 Reflux symptoms are under good control. He will continue omeprazole. He is due for followup endoscopy. This will be arranged. He is aware risks and benefits and agrees to proceed. He is up-to-date on colorectal cancer screening. 03/13/2024 Hereditary diffuse gastric cancer syndrome (ICD-10 - Z15.09) Endoscopy material was printed Currently, he is doing well. Reflux symptoms are under good control. He will continue omeprazole. He is due for followup endoscopy. This will be arranged. He is aware risks and benefits and agrees to proceed. He is up-to-date on colorectal cancer screening. 06/03/2023 Hereditary diffuse gastric cancer syndrome (ICD-10 - Z15.09) 03/13/2024 Screening for colon cancer (ICD-10 - Z12.11) Currently, he is doing well. Reflux symptoms are under good control. He will continue omeprazole. He is due for followup endoscopy. This will be arranged. He is aware risks and benefits and agrees to proceed. He is up-to-date on colorectal cancer screening. Plan Of Treatment Future Test Test Name Order Date COLONOSCOPY 02/14/2014 UPPER GI ENDOSCOPY 03/25/2017 COLONOSCOPY 03/25/2017 UPPER GI ENDOSCOPY 05/17/2019 UPPER GI ENDOSCOPY 04/24/2021 UPPER GI ENDOSCOPY 11/26/2021 COLONOSCOPY 11/26/2021 UPPER GI ENDOSCOPY 04/17/2022 COLONOSCOPY 04/17/2022 UPPER GI ENDOSCOPY 05/19/2022 UPPER GI ENDOSCOPY 03/26/2023 UPPER GI ENDOSCOPY 06/03/2023 UPPER GI ENDOSCOPY 03/13/2024 Next Appt Details Provider Name:Jonny rico , 06/02/2024 07:30:00 AM, [address] [place] [address] , [place], [place], [phone], Insurance Providers Payer Name Payer Address Payer Phone Subscriber Number Group Number Insured Name Patient Relationship to Insured Coverage Start Date Coverage End Date [facility] [address] [place], [place] [id number] [phone] [id number] DONAVON PATEL Self - patient is the insured MEDICARE OF [place] [address] [facility] [address] [id number] DONAVON PATEL Self - patient is the insured Medical (General) History Medical History History ICD Code Colonoscopy 05/31, tubular adenomas x2, f sunshine-year followup Hyperlipidemia MARCO A/CPAP Hypertension hereditary diffuse gastric c ancer syndrome, CDH1 gene-positive, endoscopies every 6 months Elevated blood sugar Surgical History Surgery Date(Month/Year) right elbow surgery rotator cuff tear repair x2 right knee surgery tonsillectomy and adenoidectomy right knee surgery
[2024-05-31 14:04] VITALS: BMI 32.3
--- NOTE | 2024-06-01 08:29 | P.CONAN_ITS ---
Documented by User: Fanny Waddell NP 06/01/24 08:30 HPI - Anesthesia Eval Consult details Narrative: 63yo M for Upper Endoscopy s/p knee scope 01/2024 with GA-LMA 5 PMFSH Active Problems Active Problems: All Active Problems MCL sprain of right knee (Acute) Coronary artery calcification (Acute) Hyperlipidemia (Acute) Hypertension (Acute) Obstructive sleep apnea on CPAP (Acute) Monoallelic mutation of CDH1 gene (Acute) Tubular adenoma of colon (Acute) Personal history of nicotine dependence (Acute) Emphysema lung (Acute) Dyspnea (Acute) Tear of medial meniscus of right knee (Acute) Right knee pain (Acute) Past Medical History Medical History Coronary artery calcification Hypertension Hyperlipidemia Obstructive sleep apnea on CPAP Personal history of nicotine dependence Emphysema lung Dyspnea Heartburn Tubular adenoma of colon Monoallelic mutation of CDH1 gene Family history of cancer of GI tract Family History Family History Father Metastatic cancer Hx of myocardial infarction CHF (congestive heart failure) DM2 (diabetes mellitus, type 2) Mother Hx of myocardial infarction COPD (chronic obstructive pulmonary disease) Osteoporosis CHF (congestive heart failure) Sister Monoallelic mutation of CDH1 gene History of stomach cancer BOOP (bronchiolitis obliterans with organizing pneumonia) Sister Monoallelic mutation of CDH1 gene History of stomach cancer Afib Sister Hx of myocardial infarction Monoallelic mutation of CDH1 gene Daughter History of stomach cancer Monoallelic mutation of CDH1 gene Son No problems noted. Family history of problems with anesthesia: No Surgical History Surgical History History of esophagogastroduodenoscopy (EGD) History of colonoscopy History of tonsillectomy and adenoidectomy History of vasectomy History of elbow surgery History of repair of right rotator cuff History of repair of left rotator cuff History of medial meniscus repair of right knee History of right knee surgery History of Problems with Anesthesia: No Social History Social History Alcohol intake: current Alcohol intake frequency: holidays/special occasions only Alcohol type: beer and wine Patient Tobacco Use Status: Current everyday Tobacco user Tobacco use type: Cigar Years Smoked: 35 Second Hand Smoke Exposure: No Have you been hit, kicked, punched, or otherwise hurt by someone within the past year? If so, by whom?: No Advance Directives: No Advance Directives Information Provided: Yes Advance Directives Date on File: 05/17/20 service: Yes (Served in the [employer]) Current occupational status: employed and retired Current occupation: Worked for [employer] - Retired 02/2024 Current occupational exposures/hazards: No Meds Allergies Allergy/AdvReac Type Severity Reaction Status Date / Time No Known Allergies Allergy Verified 03/22/24 09:23 [No Known Allergies*] Home Medications ?Medication ?Instructions ?Recorded ?Confirmed ?Last Taken ?Type aspirin 81 mg tablet 81 mg PO DAILY 11/10/19 06/02/24 05/12/24 History atorvastatin 10 mg tablet 10 mg PO BEDTIME 11/10/19 06/02/24 06/02/24 02:00 History losartan 25 mg tablet 1 tab PO DAILY 11/14/19 06/02/24 06/02/24 02:00 History ibuprofen 800 mg tablet 800 mg PO BID PRN Pain 01/06/21 06/02/24 05/12/24 History omeprazole 40 mg capsule,delayed 40 mg PO DAILY 01/19/23 06/02/24 06/02/24 02:00 History release Exam Height,Weight and Vital Signs: Height 5 ft 6 in Weight 90.718 kg Assessment and Plan Assessment Anesthesia Assessment: Chart Reviewed Final Anesthetic Review Family History of Problems with Anesthesia: No History of Problems with Anesthesia: No Documented by User: Agatha Zarate MD 06/02/24 07:38 [facility] Past Medical History Medical History Coronary artery calcification Hypertension Hyperlipidemia Obstructive sleep apnea on CPAP Personal history of nicotine dependence Emphysema lung Dyspnea Heartburn Tubular adenoma of colon Monoallelic mutation of CDH1 gene Family history of cancer of GI tract Family History Family History Father Metastatic cancer Hx of myocardial infarction CHF (congestive heart failure) DM2 (diabetes mellitus, type 2) Mother Hx of myocardial infarction COPD (chronic obstructive pulmonary disease) Osteoporosis CHF (congestive heart failure) Sister Monoallelic mutation of CDH1 gene History of stomach cancer BOOP (bronchiolitis obliterans with organizing pneumonia) Sister Monoallelic mutation of CDH1 gene History of stomach cancer Afib Sister Hx of myocardial infarction Monoallelic mutation of CDH1 gene Daughter History of stomach cancer Monoallelic mutation of CDH1 gene Son No problems noted. Family history of problems with anesthesia: No Surgical History Surgical History History of esophagogastroduodenoscopy (EGD) History of colonoscopy History of tonsillectomy and adenoidectomy History of vasectomy History of elbow surgery History of repair of right rotator cuff History of repair of left rotator cuff History of medial meniscus repair of right knee History of right knee surgery History of Problems with Anesthesia: No Social History Social History Alcohol intake: current Alcohol intake frequency: holidays/special occasions only Alcohol type: beer and wine Patient Tobacco Use Status: Current everyday Tobacco user Tobacco use type: Cigar Years Smoked: 35 Second Hand Smoke Exposure: No Have you been hit, kicked, punched, or otherwise hurt by someone within the past year? If so, by whom?: No Advance Directives: No Advance Directives Information Provided: Yes Advance Directives Date on File: 05/17/20 service: Yes (Served in the [employer]) Current occupational status: employed and retired Current occupation: Worked for [employer] - Retired 02/2024 Current occupational exposures/hazards: No Meds Allergies Allergy/AdvReac Type Severity Reaction Status Date / Time No Known Allergies Allergy Verified 03/22/24 09:23 [No Known Allergies*] Home Medications ?Medication ?Instructions ?Recorded ?Confirmed ?Last Taken ?Type aspirin 81 mg tablet 81 mg PO DAILY 11/10/19 06/02/24 05/12/24 History atorvastatin 10 mg tablet 10 mg PO BEDTIME 11/10/19 06/02/24 06/02/24 02:00 History losartan 25 mg tablet 1 tab PO DAILY 11/14/19 06/02/24 06/02/24 02:00 History ibuprofen 800 mg tablet 800 mg PO BID PRN Pain 01/06/21 06/02/24 05/12/24 History omeprazole 40 mg capsule,delayed 40 mg PO DAILY 01/19/23 06/02/24 06/02/24 02:00 History release Exam Height,Weight and Vital Signs: Height 5 ft 6 in Weight 90.718 kg Vital Signs Temp Pulse Resp BP Pulse Ox O2 Del Method 06/02/24 06:57 137/80 06/02/24 06:33 98.5 F 84 18 154/100 H 97 Room Air Airway Mallampati Class: II TM Dist: >3cm Neck ROM: Full Loose/Missing/Broken Teeth: Yes (Many missing. Denies broken or loose teeth) Heart: RRR Lungs: CTAB Assessment and Plan Assessment Anesthesia Assessment: Anesthesia Plan Discussed and Chart Reviewed Final Anesthetic Review Family History of Problems with Anesthesia: No History of Problems with Anesthesia: No NPO: Yes ASA Class: III Final Preanesthetic Review: No Changes in Pt Med Stat, Meds/Allgs Chart Reviewed, Consent Obtained/Reviewed and Anes Risks/Benef Reviewed Patient Risk: Intermediate Procedure Risk: Low Assessment/Block/Sedation in SS: Assess/Block/Sedation-SS Anesthetic Plan Anesthetic Plan: TIVA Disposition: Standard PACU
[2024-06-02 06:33] VITALS: BP 154/100; PULSE 84; RESP 18; TEMP 36.9; O2SAT 97; BMI 32.4
[2024-06-02] MEDS: Lactated Ringers 1,000 ML 100 ML IVCONT (06:56)
[2024-06-02 06:57] VITALS: BP 137/80
--- NOTE | 2024-06-02 07:37 | P.HPSUR_ITS ---
Pre-Procedural Eval Section A - 24 Hr Update-Section A only Date of Service: 06/02/24 Section B - Complete if H&P > 30 days Chief Complaint: Genetic susceptibility to other malignant neoplasm Details of Present Illness: see H&P no changes Relevant Family History (Specify if Yes): No Relevant Social History: None Present Medications: see Short Stay Collaborative assessment Medical History: No relevant PMH Allergies: Allergies Allergy/AdvReac Type Severity Reaction Status Date / Time No Known Allergies Allergy Verified 03/22/24 09:23 [No Known Allergies*] Review of Systems Sugical H&P ROS: Negative: Constitution, Cardiovascular, Respiratory, Neuro logical, Psychiatric, Hem-Onc, Allergic/Immunologic, Gastrointestinal, Genitourinary, Musculoskeletal, Integumentary, Endocrine and Eyes/Ears/Nose/Throat Exam Surgical H&P Exam: Normal: HEENT, Normal: Heart, Normal: Lungs, Normal: Extremities, Normal: Abdomen, Normal: Skin and Normal: Neurological Plan Diagnosis/Plan: Unchanged I have reviewed the history and physical and performed a pertinent physical examination on my patient. No changes have occurred unless specified. Time Spent With Patient Time: Total time managing care of this patient today ____ minutes.
[2024-06-02 08:15] VITALS: BP 107/66; PULSE 80; RESP 20; TEMP 36.6; O2SAT 98
[2024-06-02 08:29] VITALS: BP 104/63; PULSE 81; RESP 20; O2SAT 96
--- NOTE | 2024-06-02 08:34 | OP_ITS ---
DATE OF SERVICE: 06/02/2024 SURGEON: Jonny Gonzalez MD INDICATIONS: Hereditary diffuse gastric cancer syndrome PREOPERATIVE DIAGNOSIS: POSTOPERATIVE DIAGNOSIS: PROCEDURE PERFORMED: Upper endoscopy with biopsy. ESTIMATED BLOOD LOSS: COMPLICATIONS: ANESTHESIA: Monitored anesthesia care. ASSISTANTS: SPECIMENS: PROCEDURE DESCRIPTION: A history and physical was performed. The risks and benefits of the procedure were explained to the patient and informed consent was obtained. The patient was placed in the left lateral decubitus position. The Olympus video gastroscope was introduced into the esophagus, stomach, and duodenum. Examination was performed. The scope was removed. He tolerated the procedure well and was taken to recovery room in stable condition. FINDINGS: 1. Esophagus: The esophagus was normal. 2. Stomach: The stomach showed no evidence of masses, ulcers, or polyps. There were a few benign-appearing less than 5 mm gastric polyps in the fundus consistent with fundic gland polyps. Biopsies were obtained from throughout the stomach according to the protocol for his diagnosis. The mucosa appeared normal. Gastric distensibility was normal. Mucomyst and simethicone were used to irrigate the stomach and assess mucosal changes. 3. Duodenum: The bulb and second portion were normal. IMPRESSION: Hereditary diffuse gastric cancer syndrome. PLAN: Follow up the biopsy results. MD GAYLE Mendoza/JOHNL / [id number]
[2024-06-02 08:45] VITALS: BP 121/75; PULSE 78; RESP 16; TEMP 36.7; O2SAT 96
== END 2024-06-02 09:27 | disposition home or self-care (01) ==
PROVIDERS: PCP Internal Medicine; Visit Provider Internal Medicine Gastroenterology
PROC: 0DJ08ZZ Inspection of Upper Intestinal Tract, Via Natural or Artificial Opening Endoscopic (ICD-10-PCS; CPT 43235; principal; 2024-06-02 07:30)
DX: K31.7 Polyp of stomach and duodenum (principal); K21.9 Gastro-esophageal reflux disease without esophagitis; Z15.09 Genetic susceptibility to other malignant neoplasm; Z80.0 Family history of malignant neoplasm of digestive organs; I10 Essential (primary) hypertension; E78.5 Hyperlipidemia, unspecified; J43.9 Emphysema, unspecified; G47.33 Obstructive sleep apnea (adult) (pediatric); Z99.89 Dependence on other enabling machines and devices; Z86.0101 Personal history of adenomatous and serrated colon polyps; Z87.891 Personal history of nicotine dependence; Z79.02 Long term (current) use of antithrombotics/antiplatelets; Z79.82 Long term (current) use of aspirin; Z79.899 Other long term (current) drug therapy
CPT/HCPCS: 43239; 88305; 88313; 88342; J2003; J2704

== ENCOUNTER 2024-07-07 09:15 | Outpatient (AMB) | payer MEDICARE, BC, SELFPAY ==
--- NOTE | 2024-07-07 09:20 | A.OFFVIS_ITS ---
Intake Visit Reasons: Elevated PSA Intake Note: New patient presents today for initial visit for Urology Medication: Blood Thinner: Antibiotic Allergies: PVR: Allergies No Known Allergies [No Known Allergies*] Allergy (Verified 03/22/24 09:23) [facility] Medical History Coronary artery calcification Hypertension Hyperlipidemia Obstructive sleep apnea on CPAP Personal history of nicotine dependence Emphysema lung Dyspnea Heartburn Tubular adenoma of colon Monoallelic mutation of CDH1 gene Family history of cancer of GI tract Surgical History History of esophagogastroduodenoscopy (EGD) History of colonoscopy History of tonsillectomy and adenoidectomy History of vasectomy History of elbow surgery History of repair of right rotator cuff History of repair of left rotator cuff History of medial meniscus repair of right knee History of right knee surgery Family History Father Metastatic cancer Hx of myocardial infarction CHF (congestive heart failure) DM2 (diabetes mellitus, type 2) Mother Hx of myocardial infarction COPD (chronic obstructive pulmonary disease) Osteoporosis CHF (congestive heart failure) Sister Monoallelic mutation of CDH1 gene History of stomach cancer BOOP (bronchiolitis obliterans with organizing pneumonia) Sister Monoallelic mutation of CDH1 gene History of stomach cancer Afib Sister Hx of myocardial infarction Monoallelic mutation of CDH1 gene Daughter History of stomach cancer Monoallelic mutation of CDH1 gene Son No problems noted. Social History Alcohol intake: current Alcohol intake frequency: holidays/special occasions only Alcohol type: beer and wine Patient Tobacco Use Status: Current everyday Tobacco user Tobacco use type: Cigar Years Smoked: 35 Second Hand Smoke Exposure: No Advance Directives Date on File: 05/17/20 service: Yes (Served in the [employer]) Current occupational status: employed and retired Current occupation: Worked for [employer] - Retired 02/2024 Current occupational exposures/hazards: No Results AMB Urinalysis, Automated UA Leukoctes 0 López/uL Last Edit by SMA Gadiel on 07/07/24 15:50 UA Nitrite Negative Last Edit by SMA Gadiel on 07/07/24 15:50 UA Urobilinogen 3.5 mg/dL Last Edit by Damion Rebolledo, [facility] on 07/07/24 15:50 UA Protein 0 mg/dL Last Edit by Dmaion Rebolledo, [facility] on 07/07/24 15:50 UA pH 6.0 Last Edit by Damion Rebolledo, [facility] on 07/07/24 15:50 UA Blood 0 Casimiro/uL Last Edit by Damion Rebolledo, [facility] on 07/07/24 15:50 UA Specific [place] 1.010 Last Edit by Damion Rebolledo, [facility] on 07/07/24 15:50 UA Ketone Negative Last Edit by Damion Rebolledo, [facility] on 07/07/24 15:50 UA Bilirubin 0 mg/dL Last Edit by Damion Rebolledo, [facility] on 07/07/24 15:50 UA Glucose 0 mg/dL Last Edit by Damion Rebolledo, [facility] on 07/07/24 15:50 Results Reviewed Results Reviewed: Laboratory Last Values Urine pH (Auto) 6.0 07/07/24 15:37 Specific [place] (Auto) 1.010 07/07/24 15:37 Urine Protein (Auto) 0 mg/dL 07/07/24 15:37 Glucose (UA)(Auto) 0 mg/dL 07/07/24 15:37 Urine Ketones (Auto) Negative 07/07/24 15:37 Urine Blood (Auto) 0 Casimiro/uL 07/07/24 15:37 Urine Nitrite (Auto) Negative 07/07/24 15:37 Urine Bilirubin (Auto) 0 mg/dL 07/07/24 15:37 Urine Urobilinogen (Auto) 3.5 mg/dL 07/07/24 15:37 Leukocyte Esterase (Auto) 0 López/uL 07/07/24 15:37 Assessment & Plan Assessment & Plan Orders: Orders AMB Urinalysis Automated 07/07/24 Z13.9 - Encounter for screening, unspecified Coding
--- OUTSIDE RECORDS SUMMARY | 2024-07-07 09:27 | XMS_ITS | Continuity of Care Document ---
Author Name [facility] Organization [facility] Care Team Providers Care Petroleum Laboratory Technician Name Role Phone [facility] Unavailable Unavailable Problems Combined list of problems from Department of Defense and Veterans Affairs facilities. It does not include entries that were removed or entered in error. Problem Status Onset Date Problem Type Date of Resolution Comments Source Diagnosis: ICD-10-CM Z02.89 Encounter for other administrative examinations Active Diagnosis [place] [facility] Encounters Combined list of: 1) Encounters from Department of Veterans Affairs facilities going backup to the last 18 months, not all [place] inpatient encounters are included; 2) Encounters from the Department of Defense facilities going backup to 280 months. Location Location Details Encounter Type Encounter Number Reason For Visit Attending Provider ADM Date DC Date Status Dis[facility] Outpatient Encounter [id number] Diagnos is: ICD-10- CM Z02.89 Encount er for other adminis trative examSHARON Weeks 01/10 [facility]
== END 2024-07-07 10:21 | disposition home or self-care (01) ==
PROVIDERS: PCP Internal Medicine; Visit Provider Urology
DX: Z13.9 Encounter for screening, unspecified (principal)

== ENCOUNTER → 2024-07-07 09:15 | Outpatient (BNVA) | payer BC, SELFPAY | PROVIDERS: PCP Internal Medicine; Visit Provider Urology | DX: N40.1 Benign prostatic hyperplasia with lower urinary tract symptoms (principal); N13.8 Other obstructive and reflux uropathy; R97.20 Elevated prostate specific antigen [PSA]; F17.290 Nicotine dependence, other tobacco product, uncomplicated; Z13.9 Encounter for screening, unspecified | CPT/HCPCS: 81003; 99202 ==

== ENCOUNTER 2024-07-20 07:08 | Outpatient (REF) | payer MEDICARE, BC, SELFPAY ==
[2024-07-20 08:38] LABS: Prostate Specific Antigen 4.77 ng/mL (<0.05-4.0)
== END 2024-07-20 07:09 | disposition home or self-care (01) ==
LOC: HO.LAB 07:08
PROVIDERS: PCP Internal Medicine; Visit Provider Urology
DX: Z12.5 Encounter for screening for malignant neoplasm of prostate (principal); R97.20 Elevated prostate specific antigen [PSA]
CPT/HCPCS: 36415; 84153

== ENCOUNTER 2024-07-24 09:18 | Outpatient (AMB) | payer MEDICARE, BC, SELFPAY ==
--- OUTSIDE RECORDS SUMMARY | 2024-07-24 10:01 | XMS_ITS | Continuity of Care Document ---
Author Name [facility] Organization [facility] Care Team Providers Care Clinical Trial Head Name Role Phone [facility] Unavailable Unavailable Problems Combined list of problems from Department of Defense and Veterans Affairs facilities. It does not include entries that were removed or entered in error. Problem Status Onset Date Problem Type Date of Resolution Comments Source Diagnosis: ICD-10-CM Z02.89 Encounter for other administrative examinations Active Diagnosis [place] [facility] Encounters Combined list of: 1) Encounters from Department of Veterans Affairs facilities going backup to the last 18 months, not all [place] inpatient encounters are included; 2) Encounters from the Department of Defense facilities going backup to 280 months. Location Location Details Encounter Type Encounter Number Reason For Visit Attending Provider ADM Date DC Date Status [facility] Outpatient Encounter [id number] Diagnos is: ICD-10- CM Z02.89 Encount er for other adminis trative examSHARON Weeks 01/10 [facility] W[facility]N [facility]
--- NOTE | 2024-07-24 11:28 | A.OFFVIS_ITS ---
Intake Visit Reasons: 3w/labs Allergies No Known Allergies [No Known Allergies*] Allergy (Verified 03/22/24 09:23) Medication List - Last Reconciled 07/24/24 by Amparo Valencia MD aspirin 81 mg PO DAILY atorvastatin 10 mg PO BEDTIME hydrocodone-acetaminophen 5-325 mg 1 tab PO Q24H PRN ibuprofen 800 mg PO BID PRN losartan 1 tab PO DAILY omeprazole 40 mg PO DAILY HPI Comments Details: 07/24/24-- - The patient is a 63-year-old male presenting with elevated PSA levels for further evaluation. - The PSA level was initially noted to be 4.14, which is slightly above the normal high limit of 4.0. - Recent blood work showed a PSA level of 4.77, indicating a slight increase. - There is no history of anticoagulant use, but the patient takes baby aspirin. - The patient has been advised to discontinue baby aspirin 14 days prior to the scheduled biopsy due to bleeding risks associated with the procedure. Results - Labs: PSA level at 4.77, previously 4.14. Discussion Notes I discussed with the patient the elevated PSA level of 4.77, which is slightly higher than the previous level of 4.14. I recommended scheduling a prostate biopsy to obtain more information. The procedure will be conducted in the radiology department procedure room using local lidocaine for anesthesia. The patient will start antibiotics one to two days before the procedure and continue for two days after. I advised stopping baby aspirin 14 days before the biopsy due to bleeding risks. 07/07/24--The patient is a 63-year-old male presenting with elevated PSA levels for evaluation. Previous blood tests show an increase in PSA from 3.2 and 3.14 to a recent value of 4.14. While this slightly surpasses normal thresholds, it may signify benign prostatic hypertrophy, typically occurring with age. The patient has a history of smoking cigars and notes decreased physical activity. No acute urinary symptoms were reported at this time, suggesting no immediate new onset of obstructive or irritative urinary symptoms. Results - Labs: - PSA: 4.14 (recorded on 02/15/24) Discussion Notes During the consultation, I discussed the elevated PSA reading with the patient, which slightly exceeds the normal threshold. I outlined that this could be due to benign prostatic enlargement, which is common as men age. I emphasized the importance of further evaluation to distinguish between benign prostatic hyperplasia and possible neoplastic changes. I explained the potential need for a prostate biopsy should repeat testing show further elevation. We covered the options available if prostate cancer is detected, including the possibility of active surveillance for low-volume or early-stage cancers. The patient acknowledged understanding the need for dietary and lifestyle changes, although he noted previous reluctance to altering habits substantially. Consent was not discussed as we are in the initial evaluation phase. A follow-up call will be arranged to discuss further steps post testing. ON LICENSE OF [facility] Medical History Coronary artery calcification Hypertension Hyperlipidemia Obstructive sleep apnea on CPAP Personal history of nicotine dependence Emphysema lung Dyspnea Heartburn Tubular adenoma of colon Monoallelic mutation of CDH1 gene Family history of cancer of GI tract Surgical History History of esophagogastroduodenoscopy (EGD) History of colonoscopy History of tonsillectomy and adenoidectomy History of vasectomy History of elbow surgery History of repair of right rotator cuff History of repair of left rotator cuff History of medial meniscus repair of right knee History of right knee surgery Family History Father Metastatic cancer Hx of myocardial infarction CHF (congestive heart failure) DM2 (diabetes mellitus, type 2) Mother Hx of myocardial infarction COPD (chronic obstructive pulmonary disease) Osteoporosis CHF (congestive heart failure) Sister Monoallelic mutation of CDH1 gene History of stomach cancer BOOP (bronchiolitis obliterans with organizing pneumonia) Sister Monoallelic mutation of CDH1 gene History of stomach cancer Afib Sister Hx of myocardial infarction Monoallelic mutation of CDH1 gene Daughter History of stomach cancer Monoallelic mutation of CDH1 gene Son No problems noted. Social History Alcohol intake: current Alcohol intake frequency: holidays/special occasions only Alcohol type: beer and wine Patient Tobacco Use Status: Current everyday Tobacco user Tobacco use type: Cigar Years Smoked: 35 Second Hand Smoke Exposure: No Advance Directives Date on File: 05/17/20 service: Yes (Served in the [employer]) Current occupational status: employed and retired Current occupation: Worked for [employer] - Retired 02/2024 Current occupational exposures/hazards: No Review of Systems Const All systems reviewed & are unremarkable except as noted in HPI and below Reports no additional complaints Eyes Reports no additional complaints ENT Reports no additional complaints Card Reports no additional complaints Resp Reports no additional complaints GI Reports no additional complaints Reports as per HPI Musc Reports no additional complaints Skin/Breast Reports system reviewed and no additional complaints, except as documented Neuro Reports no additional complaints Psych Reports no additional complaints Endo Reports no additional complaints Guillermo/Lymph Reports no additional complaints Aller/Immun Reports no additional complaints Telehealth Telehealth Telehealth Platform: [employer] Location of provider rendering services: practice address Location of patient: address on file Patient Identification confirmed using: Name, : Yes Telehealth method: voice only Patient verbally consented to treatment: Yes Patient verbally consented to billing insurance company: Yes Patient informed of any privacy concerns related to visit: Yes Minutes spent on Phone/Video with Pt.: 14 Assessment & Plan Assessment & Plan (1) Elevated PSA: Code(s): R97.20 - Elevated prostate specific antigen [PSA] Category: Medical (2) BPH loc w urin obs/LUTS: Code(s): N40.1 - Benign prostatic hyperplasia with lower urinary tract symptoms Category: Medical (3) History of nicotine use: Code(s): Z87.891 - Personal history of nicotine dependence Category: Medical Plan Plan - Schedule a prostate biopsy to further evaluate the elevated PSA level. - Prescribe antibiotics to be started one to two days before the biopsy and continued for two days after. Cipro ordered. - Advise the patient to discontinue baby aspirin 14 days prior to the biopsy to minimize bleeding risk. Medications: New ciprofloxacin HCl Start 2 days prior to prostate biopsy 500 mg PO BID 10 tabs 0RF Patient Instructions: The patient had an opportunity to ask questions regarding treatment plan. The patient expressed understanding and agreement with the above treatment plan. The patient is aware they should contact our office by phone for worsening of their current condition or the appearance of new symptoms. Compliance is encouraged with any medications and followup testing that is ordered. It is a privilege to be allowed the opportunity to participate in the urologic care of your patient. If you have any questions or concerns regarding treatment for the above conditions please do not hesitate to contact me. The office telephone contact is [phone]. This note is constructed in part using voice recognition software. While every effort has been made to ensure accuracy tapping machine operator automatic errors may have been included. Yours sincerely, Amparo Valencia MD Scribe Plan - Not visible on output: Patient was informed and verbally consented to the use of an ambient scribe for clinic note documentation during this visit. Coding Level of Care Code Tele Est Pt Level 4 (86584) Diagnoses Elevated PSA R97.20 BPH loc w urin obs/LUTS N40.1 History of nicotine use Z87.891
== END 2024-07-24 11:42 | disposition home or self-care (01) ==
LOC: HO.HUSH 09:18
PROVIDERS: PCP Internal Medicine; Visit Provider Urology
DX: R97.20 Elevated prostate specific antigen [PSA] (principal); N40.1 Benign prostatic hyperplasia with lower urinary tract symptoms; Z87.891 Personal history of nicotine dependence
CPT/HCPCS: 99214

== ENCOUNTER → 2024-07-24 09:18 | Outpatient (BNVA) | payer MEDICARE, BC, SELFPAY | PROVIDERS: PCP Internal Medicine; Visit Provider Urology ==

== ENCOUNTER 2024-08-22 07:35 | Outpatient (REF) | payer MEDICARE, BC, SELFPAY ==
--- OUTSIDE RECORDS SUMMARY | 2024-01-11 09:00 | XMS_ITS | Continuity of Care Document ---
Author Name [facility] Organization [facility] Care Team Providers Care Dry House Wheeler Name Role Phone [facility] Unavailable Unavailable Problems Combined list of problems from Department of Defense and Veterans Affairs facilities. It does not include entries that were removed or entered in error. Problem Status Onset Date Problem Type Date of Resolution Comments Source Diagnosis: ICD-10-CM Z02.89 Encounter for other administrative examinations Active Diagnosis [place] CNT WST RN [facility] Encounters Combined list of: 1) Encounters from Department of Veterans Affairs facilities going backup to the last 18 months, not all [place] inpatient encounters are included; 2) Encounters from the Department of Defense facilities going backup to 280 months. Location Location Details Encounter Type Encounter Number Reason For Visit Attending Provider ADM Date DC Date Status Dis[facility] Outpatient Encounter [id number] Diagnos is: ICD-10- CM Z02.89 Encount er for other adminis trative examSHARON Weeks 01/10 [facility]
--- OUTSIDE RECORDS SUMMARY | 2024-06-02 03:30 | XMS_ITS ---
Author Organization [facility] Address [address] [place] [phone] Care Team Providers Care Director Nicu Name Role Phone Brie (RETIRED) Loki MICHAEL Primary Care Provide r Quinton Gonzalez Jr, Jonny Alcantara REASON FOR VISIT hereditary diffuse gastric ca syndrome Encounters Encounter Location Date Provider Diagnosis [facility] [place] [address] [place] [phone] 06/02/2024 oJnny Gonzalez Jr 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 Assessments Encounter Date Diagnosis (ICD Code) Assessment Notes Treatment Notes Treatment Clinical Notes Section Notes 06/02/2024 Jones syndrome (ICD-10 - Z15.09) Plan Of Treatment Next Appt Details Provider Name:Jonny rico Jr, 12/08/2024 07:30:00 AM, [address] [place] [address], [phone], Progress Notes * DONAVON MENESESDOB: [birth year] (63 yo M)Acc No.[id number]:06/02/2024 EGD/MAC Patient: DONAVON DAVENPORT Provider: Zackary Gonzalez MD :1960 A ge:63 Y S ex:Male Date:06/02/2024 Address:[address] [place], [place] [phone] Pcp:Loki Baird (RETIRED )MD Subjective: * Chief [...] 06/02/2024 Generated for Chi torres/Danuta/Yeitting on: 0 08/22/2024 07:37 AM EDT
--- OUTSIDE RECORDS SUMMARY | 2024-08-22 07:38 | XMS_ITS | Patient Health Record ---
Author [facility] Address [address] [place] [address] Care Team Providers Care Logistics Intern Name Role Phone Loki Baird MD Primary Care Provider Unavaila ble Black, Iva Unavailable [phone] Reason For Referral No Information Medications Medication SIG (Take, Route, Frequency, Duration) Notes Start Date End Date Status Valsartan Active Keflex 500 MG 1 capsule Orally saleem ry 12 hrs; Duration: 10 day(s) 12/31/2014 Not-Joe ing Keflex 500 MG 1 capsule Orally saleem ry 12 hrs; Duration: 10 day(s) 01/23/2015 Not-Joe ing Aspirin 81 MG Orally Active oxyCODONE HCl Not-Ta anita Atorvastatin Calcium Active Problems No Known Problems Plan Of Treatment Pending Test Test Name Order Date [id number] NAIL, 1-5 12/31/2014 [id number] 12/31/2014 [id number] 01/23/2015 [id number] SKIN/TISSUE 02/13/2015 [id number] SKIN/TISSUE 01/23/2015 Insurance Providers Payer Name Payer Address Payer Phone Subscriber Number Group Number Insured Name Patient Relationship to Insured Coverage Start Date Coverage End Date [facility] [id number] [place] [address] [id number] Rebecca Patel Self - patient is the insured Medical (General) History Medical History History ICD Code Chicken pox Surgical History Surgery Date(Month/Year) shoulder surgery 2013
[2024-08-22] MEDS: Lidocaine HCl 1 % MPF 5 ML VIAL 10 ML SUBCUT (08:52)
--- NOTE | 2024-08-22 09:01 | W.PM.OPN ---
Operative Note Operative Note Date of Service: 08/22/24 Narrative: Preoperative diagnosis: Elevated PSA Postoperative diagnosis: Elevated PSA Procedure: 1. transrectal ultrasound measurement of prostate 2. transrectal ultrasound-guided pudendal nerve block 3. transrectal ultrasound-guided prostate biopsy 12 core Surgeon: Dr. Lon Oropeza Anesthetic: 10cc 1% lidocaine Indications for procedure: Elevated PSA 4.8 Counselling: Technical aspects, risks and benefits of proposed procedure were discussed in full. All questions have been answered, written consent has been obtained and patient agrees to proceed. Procedure: The patient was brought into the procedure area and placed in a left lateral decubitus position. Patient identity confirmed. Perioperative antibiotics confirmed. Safety pause time out performed. HUGO was performed to dilate rectal sphincter Iodine 10cc with 60 cc gel was placed per rectum to reduce infection risk using a catheter tip syringe. 8 Hz Jraeth rectal end-fire ultrasound probe was placed transrectally without difficulty. The prostate was visualized. Seminal vesicles were normal. Prostate margins were clearly demarcated. Bladder was seen superiorly. No cystic structures were noted No calcifications were noted at the surgical margin The prostate was otherwise heterogenous in nature - BPH whorl on transition zone The prostate was measured in 3 dimensions Prostatic Width: 5.2 cm Prostatic Height: 4.6 cm Urethral Length: 5.4 cm Total volume equals : 70 ml An ultrasound-guided pudendal nerve block was performed using a 22 gauge spinal needle in the sagittal plane. 4 cc of 1% lidocaine placed at the junction of each seminal vesicle and 2 cc placed at the apex of the prostate. A 12 core biopsy was performed with 6 cores each side using an 18 gauge prostate biopsy gun. Two cores each were taken at the prostate apex, mid and base on each side. Cores were spaced between lateral and medial aspects. Each core was examined as placed on specimen foam as part of corporate quality assurance manager to ensure a minimum 1 cm of length and minimal discontinuity. He tolerated the procedure well with minimal rectal bleeding. Blood pressure remained stable following procedure. He was able to ambulate to bathroom after 5 minutes. Printed instructions regarding antibiotic use and common adverse events from the procedure such as low-grade temperature, potential infection and bleeding were given. He understands to call the office or go to an emergency room should any of these events arise. Pathology: 12 core prostate biopsy. CPT code 60825: Transrectal ultrasound; this is a diagnostic test for evaluation of the prostate and surrounding structures, looking for abnormalities or suspicious areas worrisome for cancer CPT code 69257: Biopsy, prostate; needle or punch, single or multiple, any approach CPT code 50275: Ultrasonic guidance for needle placement (eg, biopsy, aspiration, injection, localization device), imaging supervision and interpretation
== END 2024-08-22 07:36 | disposition home or self-care (01) ==
LOC: HO.US 07:35
PROVIDERS: PCP Internal Medicine; Visit Provider Urology
DX: R97.20 Elevated prostate specific antigen [PSA] (principal); N40.1 Benign prostatic hyperplasia with lower urinary tract symptoms
CPT/HCPCS: 55700; 76942; 88305; J2003

== ENCOUNTER → 2024-08-22 07:35 | Outpatient (BNV) | payer MEDICARE, BC, SELFPAY | PROVIDERS: PCP Internal Medicine; Visit Provider Urology | DX: R97.20 Elevated prostate specific antigen [PSA] (principal) | CPT/HCPCS: 55700; 76872; 76942 ==

== ENCOUNTER 2024-08-28 07:51 | Outpatient (AMB) | payer BC, SELFPAY ==
--- OUTSIDE RECORDS SUMMARY | 2024-01-11 09:00 | XMS_ITS | Continuity of Care Document ---
Author Name [facility] Organization [facility] Care Team Providers Care Collection Officer Name Role Phone [facility] Unavailable Unavailable Problems Combined list of problems from Department of Defense and Veterans Affairs facilities. It does not include entries that were removed or entered in error. Problem Status Onset Date Problem Type Date of Resolution Comments Source Diagnosis: ICD-10-CM Z02.89 Encounter for other administrative examinations Active Diagnosis [place] CNT WST RN [facility] Encounters Combined list of: 1) Encounters from Department of Veterans Affairs facilities going backup to the last 18 months, not all [place] inpatient encounters are included; 2) Encounters from the Department of Defense facilities going backup to 280 months. Location Location Details Encounter Type Encounter Number Reason For Visit Attending Provider ADM Date DC Date Status Disposition Source [facility] Outpatient Encounter [id number] Diagnos is: ICD-10- CM Z02.89 Encount er for other adminis trative examSHARON Weeks 01/10 [facility]
--- OUTSIDE RECORDS SUMMARY | 2024-06-02 03:30 | XMS_ITS ---
Author Organization [facility] Address [address] [place] [phone] Care Team Providers Care Card Sorter Name Role Phone Brie (RETIRED) Loki MICHAEL Primary Care Provide r Quinton Gonzalez Jr, Jonny Alcantara REASON FOR VISIT hereditary diffuse gastric ca syndrome Encounters Encounter Location Date Provider Diagnosis [facility] [place] [address] [place] [phone] 06/02/2024 Jonny Gonzalez Jr 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 Assessments Encounter Date Diagnosis (ICD Code) Assessment Notes Treatment Notes Treatment Clinical Notes Section Notes 06/02/2024 Jones syndrome (ICD-10 - Z15.09) Plan Of Treatment Next Appt Details Provider Name:Jonny rico Jr, 12/08/2024 07:30:00 AM, [address] [place] [address], [phone], Progress Notes * DONAVON MENESESDOB: [birth year] (63 yo M)Acc No.[id number]:06/02/2024 EGD/MAC Patient: DONAVON DAVENPORT Provider: Zackary Gonzalez MD :1960 A ge:63 Y S ex:Male Date:06/02/2024 Address:[address] [place], [place] [phone] Pcp:Loki Baird (RETIRED )MD Subjective: * Chief [...] 06/02/2024 Generated for Chi torres/Danuta/Yeitting on: 0 08/28/2024 07:55 AM EDT
--- NOTE | 2024-08-28 07:54 | MHC.PC.OV ---
Vital Signs 08/28/24 08:05 08/28/24 08:24 Height 5 ft 6 in Weight 189 lb 8 oz BMI 30.6 BP 140/82 H 130/80 Blood Pressure Location Lt brachial Lt brachial Position Sitting Sitting Respiration 16 Pulse 66 Pulse Source Pulse Oximeter Temp 98.3 F Temp Source Oral Pulse Oximetry (%) 97 Oxygen Delivery Method Room Air Intake Visit Reasons: ACCOUNTS ADMINISTRATOR //PE Intake Note: patient here for new patient visit Rigger Required: No Allergies No Known Allergies (No Known Allergies*) Allergy (Verified 08/28/24 08:16) Tobacco use date assessed: 08/28/24 Fall risk assessment: No Falls in past year Last assessed Fall Risk: 08/28/24 Dental Screening Dental Screen Date: 08/28/24 Did you have a dental visit in the last 12 months?: Yes Did you have a dental problem in the last 6 months where you did not have access to dental care?: No Was dental information given to patient?: Patient has dentist HPI HPI Comments History of Present Illness Details 63-year-old male presents to [facility]. He admits to taking his medications as prescribed without adverse reactions. He takes Losartan 25mg daily in the evening. Prior PCP? - Dr. Baird, [facility] Last office visit/CPE - 1 year ago Last labs -02/15/2024 Acute issue(s) - None Past Medical History - hypertension, hyperlipidemia, coronary artery calcification, monoallelic mutation of CDH1, tubular adenoma of colon, BPH, elevated PSA, COPD, emphysema, nicotine dependence, obstructive sleep apnea, GERD, tear of medial meniscus of right knee, right knee pain Surgical History - Meniscus repair of right knee, right elbow surgery, right rotator cuff repair, left rotator cuff repair, vasectomy, tonsillectomy Family History - Dad (): CHF, DM2, IA, metastatic cancer lung/liver - Mom (): CHF, COPD, IA, osteoporosis Social History - Smokes 4 cigars daily, smoking cigars daily x5 yrs; smoked 1/2 pack for cigarettes on/off x 25 yrs, quit 15 yrs ago but sometimes smoke a cigarette. Does not vape. Drinks a few beers twice monthly. Denies recreational drug use - Has been making healthy dietary choices. Active but does not exercise. Generally sleep well Health maintenance - Last eye exam was 2 years ago with [facility]. Referred to [facility] - Last dental visit was 2 months ago - Last tetanus vaccine was more than 10 years ago; received Tdap vaccine today - Has not been vaccinated for the flu this season; declines vaccination - He has never been vaccinated for shingles or pneumonia - Last colonoscopy was in 05/15/2022 at [facility]. Recommend 5 year follow up - Last LDCT with [facility] pulmonology Specialists [facility] pulmonology [facility]rology [facility] Medical History Coronary artery calcification Hypertension Hyperlipidemia Obstructive sleep apnea on CPAP Personal history of nicotine dependence Emphysema lung Dyspnea Heartburn Tubular adenoma of colon Monoallelic mutation of CDH1 gene Family history of cancer of GI tract Surgical History History of esophagogastroduodenoscopy (EGD) History of colonoscopy History of tonsillectomy and adenoidectomy History of vasectomy History of elbow surgery History of repair of right rotator cuff History of repair of left rotator cuff History of medial meniscus repair of right knee History of right knee surgery Family History (Updated 08/28/24 @ 08:03 by Thuy Rosario MA) Father Metastatic cancer Hx of myocardial infarction CHF (congestive heart failure) DM2 (diabetes mellitus, type 2) Mother Hx of myocardial infarction COPD (chronic obstructive pulmonary disease) Osteoporosis CHF (congestive heart failure) Sister Monoallelic mutation of CDH1 gene History of stomach cancer BOOP (bronchiolitis obliterans with organizing pneumonia) Sister Monoallelic mutation of CDH1 gene History of stomach cancer Afib Sister Hx of myocardial infarction Monoallelic mutation of CDH1 gene Daughter History of stomach cancer Monoallelic mutation of CDH1 gene Son No problems noted. Social History (Updated 08/28/24 @ 08:03 by Thuy Rosario MA) Housing: House Alcohol intake: current Alcohol intake frequency: holidays/special occasions only Alcohol type: beer and wine Patient Tobacco Use Status: Current everyday Tobacco user Tobacco use type: Cigar Years Smoked: 35 e-Cigarette/Vaping Use: Never Used Second Hand Smoke Exposure: No Advance Directives Date on File: 05/17/20 service: Yes (Served in the [employer]) Current occupational status: employed and retired Current occupation: Worked for [employer] - Retired 02/2024 Current occupational exposures/hazards: No Cognitive needs: No Hearing needs: No Vision needs: Yes Questionnaire PHQ-9 Over the last 2 weeks, how often have you been bothered by any of the following problems? 1. Little interest or pleasure in doing things: not at all 2. Feeling down, depressed, or hopeless: not at all 3. Trouble falling or staying asleep, or sleeping too much: not at all 4. Feeling tired or having little energy: not at all 5. Poor appetite or overeating: not at all 6. Feeling bad about yourself - or that you are a failure or have let yourself or your family down: not at all 7. Trouble concentrating on things, such as reading the newspaper or watching television: not at all 8. Moving or speaking so slowly that other people could have noticed. Or the opposite - being so fidgety or restless that you have been moving around a lot more than usual: not at all 9. Thoughts that you would be better off or of hurting yourself in some way: not at all Total score: 0 Depression Screening Interpretation: Negative Depression Screening Done: Yes 81562 - PHQ-9 Billing: Yes Source: Developed by Drs. Daniel Meyers, Frida Albert, Abran Pastrana and colleagues, with an educational rolan from [employer]. Thrive Questionnaire Date Thrive assessed: 08/28/24 I am a: Patient What is your living situation today?: I have a steady place to live Within the past 12 months, did the food you bought not last and you didn't have the money to get more?: Never true Within the past 12 months, did you worry whether your food would run out before you got money to buy more?: Never true Do you have trouble paying for medicines?: No Do you have trouble getting transportation to medical appointments?: No Do you have trouble paying your heating and electricity bill?: No Do you have trouble taking care of your child, family member or friend?: No Do you have trouble with day-to-day activities such as bathing, preparing meals, shopping, managing finances, etc.?: No Are you currently unemployed and looking for a job?: No Are you interested in more education?: No Please select the resources that you would like help with: None Currently or been in a relationship where the following occur: No concerns reported THRIVE Score: 0 AUDIT C Alcohol Use Questionnaire (AUDIT-C) 1. How often do you have a drink containing alcohol?: 2-4 times a month 2. How many drinks containing alcohol do you have on a typical day when you are drinking?: 3 or 4 3. How often do you have six or more drinks on one occasion?: Less than monthly Total Score: 4 Score Reviewed/Action Taken: Yes TIMMY-7 AMB Questionnaire TIMMY-7 Date TIMMY - 7 assessed: 08/28/24 Feeling nervous, anxious, or on edge: 0 = Not at all Not being able to stop or control worryin = Not at all Worrying too much about different things: 0 = Not at all Trouble relaxin = Not at all Being so restless that it is hard to sit still: 0 = Not at all Becoming easily annoyed or irritable: 0 = Not at all Feeling afraid as if something awful might happen: 0 = Not at all Total TIMMY-7 score (0-4 normal; 5-9 mild; 10-14 moderate; 15-21 severe): 0 Source: Developed by Drs. Daniel Meyers, Frida Albert, Abran Pastrana and colleagues, with an educational rolan from [employer]. TIMMY-7 Assessment Billing TIMMY-7 Assessment Tool: TIMMY-7 Assessment 01149 Review of Systems Const Details: Denies chills, Denies fatigue, Denies fever(s), Denies headache(s) and Denies weakness HEENT Denies change in vision, Denies dizziness, Denies headache(s), Denies hearing loss, Denies nasal congestion, Denies sinus pain, Denies sinus pressure and Denies sore throat Card Denies chest pain, Denies lightheadedness, Denies dyspnea and Denies other (palpitations) Resp Denies cough, Denies dyspnea and Denies wheezing GI Denies abdominal pain, Denies melena, Denies hematochezia, Denies change in bowel habits, Denies dyspepsia and Denies nausea Denies hematuria and Denies dysuria Musc Denies abnormal gait, Denies myalgias, Denies arthralgias, Denies numbness and Denies tingling Skin/Breast Denies rash, Denies unusual bruising and Denies wounds Neuro Denies abnormal gait, Denies dizziness, Denies headache(s), Denies memory loss, Denies numbness, Denies Sensory deficit (Neuro), Denies tingling and Denies weakness Psych Denies anxiety, Denies depression and Denies memory loss Endo Denies cold intolerance, Denies fatigue, Denies heat intolerance, Denies polydipsia and Denies polyuria Guillermo/Lymph Denies easy bleeding and Denies easy bruising Aller/Immun Denies wheezing Physical exam (Primary Care) Vital Signs: Last Vital Signs Temp 98.3 F 08/28/24 08:05 Pulse 66 08/28/24 08:05 Resp 16 08/28/24 08:05 BP 130/80 08/28/24 08:24 Pulse Ox 97 08/28/24 08:05 Oxygen Delivery Method Room Air 08/28/24 08:05 BMI result Body Mass Index 30.6 Tobacco/Smoking Status: Tobacco use Status Tobacco use date assessed 08/28/24 08/28/24 08:04 Patient Tobacco Use Status Current everyday Tobacco 08/28/24 08:03 Tobacco use type Cigar 08/28/24 08:03 e-Cigarette/Vaping Use Never Used 08/28/24 08:04 PHQ-9: PHQ-9 Score PHQ-9: Total score 0 08/28/24 16:17 Depression Screening Interpretation: Negative Thrive Assessment: Date of Thrive Assessment Date Thrive assessed 08/28/24 08/28/24 07:57 Currently or been in a relationship where the following occur: No concerns reported Const Other: General: no acute distress, well developed, alert and awake Nutritional Appearance: well nourished Orientation/consciousness: patient oriented x3 HENMT Head: Yes normocephalic and Yes atraumatic Ears: hearing grossly normal bilaterally and TM's normal bilaterally General nose exam: Normal external nose present and Normal nares present Mouth: Normal oral and palatal mucosa present and moist mucous membranes Teeth and gingiva: dentition normal Throat: Yes oropharynx normal Eyes Pupils: Equal, round and reactive pupils present and Pupil accommodation reflex normal EOM: EOMs intact bilaterally Neck Neck: Yes normal visual inspection, Yes no lymphadenopathy and Yes trachea midline Thyroid: Thyroid normal Carotids: no bruits Lymphatic: no lymphadenopathy noted Chest Chest palpation & inspection: normal inspection of the chest Resp Effort & Inspection: normal respiratory effort Auscultation: clear to auscultation bilaterally Cardio Rate: regular rate Rhythm: regular rhythm Heart sounds: S1 normal heart sound present, S2 normal heart sound present, no gallops, no murmurs and no rubs Bruits: no abdominal aortic bruits and no carotid bruits GI Palpation (GI): No Abdominal aortic bruit present, Soft to palpation, nontender, No hepatosplenomegaly present and No Rebound tenderness present Auscultation: normal bowel sounds General: Yes no CVA tenderness Back/Spine/Pelvis Back: no CVA tenderness Cervical Spine: cervical ROM normal and No Cervical spine tenderness Thoracic/Lumbar Spine: thoraco-lumbar ROM normal, No pain with thoraco-lumbar ROM, No thoracic spinal tenderness and No lumbar spinal tenderness Skin General: warm and dry. Normal skin color. Normal skin turgor Lesions: no lesions Rashes: no rashes Trauma: no lacerations or abrasions Wounds: no wounds Nails: normal Neuro General: patient oriented x3, gait normal and CN's II-XI intact bilaterally Cranial nerves: Yes Equal, round and reactive pupils present Cognition (Neuro): normal cognition Gait exam (Neuro): Normal gait present Motor exam (neuro): 5/5 motor strength present throughout Sensory Exam: No Sensory deficit (Neuro) Deep tendon reflexes (DTR's): Right patellar reflex intensity grade: 2+ and Left patellar reflex intensity grade: 2+ Extrem General: Yes normal to inspection, No edema and No calf tenderness Psych Appearance: grossly normal Affect: normal affect Attitude: cooperative Thought process: Normal thought process present Immunizations Boostrix Tdap 2.5 Lf unit-8 mcg-5 Lf/0.5 mL intramuscular syringe Performing Provider: Campos Jalloh CNP Performing Location: [facility] Administered by: Yamil De Luna RN on 08/28/24 08:45 Dose Route Admin Location Dispensed Lot Number Expiration Date ND Checkering Machine Adjuster 0.5 mL IM Left Deltoid 0.5 mL [id number] 11/28/26 [id number] [employer] Total Dispensed Waste 0.5 mL 0 % VIS Given Date VIS Provided VIS Publication Date 08/28/24 Single Vaccine 20 Eligibility Eligibility Date Funding Source Not [facility] Eligible 08/28/24 Private Coding Level of Care Code New Pt Level 3 (02394) New Pt Prev Care >65yr (12968) Diagnoses Normal physical examination, routine Z00.00 Hypertension I10 Eye exam, routine Z01.00 Nicotine dependence F17.200 Vaccine counseling Z71.85 Laboratory tests ordered as part of a complete physical exam (CPE) Z00.00 Additional Codes TIMMY-7 Assessment Billing - TIMMY-7 Assessment Tool: TIMMY-7 Assessment 68333 ([id number]) PHQ-9 - 18374 - PHQ-9 Billing: Yes ([id number]) Assessment & Plan Assessment & Plan (1) Normal physical examination, routine: Code(s): Z00.00 - Encounter for general adult medical examination without abnormal findings Category: Medical Plan: No significant functional limitation noted. Continue current treatment regimen. Healthy diet and routine exercise encouraged. Continue follow-up with specialists as planned. Perform lab work and follow-up for hypertension and labs review in 1 month. Return sooner with symptoms or concerns. Verbalized understanding and agreed with the plan. (2) Hypertension: Code(s): I10 - Essential (primary) hypertension Category: Medical Plan: Resting blood pressure is 130/80, slightly above goal of less than 130/80. Continue current treatment regimen. Low-sodium diet encouraged. Follow-up in 1 month. Verbalized understanding and agreed with the plan. (3) Eye exam, routine: Code(s): Z01.00 - Encounter for examination of eyes and vision without abnormal findings Category: Medical Plan: Last eye exam was 2 years ago with [facility]. [facility]erred [facility]. (4) Nicotine dependence: Code(s): F17.200 - Nicotine dependence, unspecified, uncomplicated Category: Medical Plan: Smokes 4 cigars daily, smoking cigars daily x5 yrs; smoked 1/2 pack for cigarettes on/off x 25 yrs, quit 15 yrs ago but sometimes smoke a cigarette. Instructed on the health risks of smoking nicotine and cessation encouraged. Declined medication treatment for nicotine cessation at this time and notes that he can stop on his own. Advised to follow-up as needed. Verbalized understanding and agreed with the plan. (5) Vaccine counseling: Code(s): Z71.85 - Encounter for immunization safety counseling Category: Medical Plan: He has never been vaccinated for shingles or pneumonia. Instructed on the importance of vaccinations and encouraged to get vaccinated for shingles and pneumonia. He may get the vaccines from the local pharmacy. Verbalized understanding and agreed with the plan. (6) Laboratory tests ordered as part of a complete physical exam (CPE): Code(s): Z00.00 - Encounter for general adult medical examination without abnormal findings Category: Medical Plan: Fasting labs ordered as part of a complete physical exam. Advised to fast for at least 10 hours before getting labs drawn. May drink water Verbalized understanding and agreed with treatment plan. Orders: Orders Comprehensive [place]. Panel Fast Today Z00.00 - Encounter for general adult medical examination without abnormal findings Lipid Panel Today Z00.00 - Encounter for general adult medical examination without abnormal findings TDaP Immunization Today Z23 - Encounter for immunization Complete Blood Count Auto Diff Today Z00.00 - Encounter for general adult medical examination without abnormal findings TSH reflex Free T4 Today Z00.00 - Encounter for general adult medical examination without abnormal findings Vitamin D 25-OH Total Today Z00.00 - Encounter for general adult medical examination without abnormal findings UA CC w/rflx Micro + Cult Today Z00.00 - Encounter for general adult medical examination without abnormal findings
--- OUTSIDE RECORDS SUMMARY | 2024-08-28 07:56 | XMS_ITS | Patient Health Record ---
Author Organization [facility] Address [address] [place] [address] Care Team Providers Care Photographer Aerial Name Role Phone Loki Baird MD Primary Care Provider Unavaila ble Black, Iva Unavailable [phone] Reason For Referral No Information Medications Medication [...] Treatment Pending Test Test Name Order Date [id number] NAIL, 1-5 12/31/2014 [id number] 12/31/2014 [id number] 01/23/2015 [id number] SKIN/TISSUE 02/13/2015 [id number] SKIN/TISSUE 01/23/2015 Insurance Providers Payer Name Payer Address Payer Phone Subscriber Number Group Number Insured Name Patient Relationship to Insured Coverage Start Date Coverage End Date [facility] [id number] [place] [address] [id number] Rebecca Patel Self - patient is the insured Medical (General) History Medical History History ICD Code Chicken pox Surgical History Surgery Date(Month/Year) shoulder surgery 2013
--- OUTSIDE RECORDS SUMMARY | 2024-08-28 07:56 | XMS_ITS | Clinical Summary ---
Author Organization [facility] Address [address] [facility] [address] [place] [id number] Phone Care Team Providers Care E Learning Developer Name Role Phone Loki Baird MD Primary Care Provider Allergies No known active allergies Medications atorvastatin (LIPITOR) 10 MG tablet Take 10 mg by mouth daily. Active valsartan (DIOVAN) 80 MG tablet Take 80 mg by mouth daily. Active aspirin 81 MG EC tablet Take 81 mg by mouth daily. Active ibuprofen (ADVIL,MOTRIN) 800 MG tablet Take 800 mg by mouth as needed for pain (specific location in comments). Active Social History Tobacco Use Types Packs/Day Years Used Date Smoking Tobacco: Former Cigarettes 0.5 25 1 987 - 2011 Smokeless Tobacco: Never Alcohol Use Standard Drinks/Week Comments Yes 1 (1 standard drink = 0.6 oz pur e alcohol) Education Answer Date Recorded Are you interested in more education? Not on juan e 06/05/2022 Are you concerned about learning? Not on file 06/05/2022 No 06/05/2022 No 06/05/2022 Digital Access Answer Date Recorded No 07/04/2022 No 07/04/2022 No 07/04/2022 Reliable internet access at home? Not on file 07/04/2022 Device with a working camera? Not on file Sex and Gender Information Value Date Recorded Sex Assigned at Not on file Legal Sex Male 12:07 PM EDT Gender Identity Not on file Sexual Orientation Not on file Last Filed Vital Signs Vital Sign Reading Time Taken Comments Blood Pressure 143/84 07/06/2017 1:31 PM EDT Pulse 94 07/06/2017 1:31 PM EDT Temperature - - Respiratory Rate - - Oxygen Saturation - - Inhaled Oxygen Concentration - - Weight 93.8 kg (206 lb 14.4 oz) 07/06/2017 1:31 PM EDT Height 167.6 cm (5' 6 ) 07/06/2017 1:31 PM EDT Body Mass Index 33.39 07/06/2017 1:31 PM EDT Plan of Treatment Health Maintenance Due Date Last Done Comments Adult Td,Tdap Booster 1958 CREATININE LEVEL 1958 LIPID PANEL 1958 POTASSIUM LEVEL 1958 DEPRESSION SCREENING 1970 SMOKING Hx and SMOKELESS TOBACCO SCREENING 10/20/1971 HEPATITIS C SCREENING 1976 HIV ONE-TIME SCREENING (18-6 5 YEARS) 1976 COLOGUARD 10/20/2003 COLONOSCOPY 10/20/2003 COLORECTAL CANCER SCREENING 10/20/2003 FIT TEST 10/20/2003 FOBT 10/20/2003 SIGMOIDOSCOPY 10/20/2003 VIRTUAL COLONOSCOPY 10/20/2003 PNEUMOCOCCAL VACCINES (50+ years) (1 of 1 - PCV) 2008 ZOSTER VACCINES (1 of 2) 2008 COVID-19 VACCINE ( - 2023-2 5 season) 2023 06/18/2020, 05/21/2020 ABDOMINAL AORTIC ANEURYSM (AAA) SCREENING 10/20/2023 RSV VACCINE (1 - 1-dose 75+ series) 2033 HEPATITIS A VACCINES Aged Out No long er eligible based on patient's age to complete this topic HIB VACCINES Aged Out No longer eligi ble based on patient's age to complete this topic MENINGOCOCCAL VACCINES (ACWY) Aged Out No longer eligible based on patient's age to complete this topic MENINGOCOCCAL VACCINES (B) Aged Out N o longer eligible based on patient's age to complete this topic Medical Devices [place] [id number] [facility] [place] [id number] [facility] [place] [id number] [facility] [place] [id number] [facility] Care Teams E Learning Developer Relationship Specialty Start Date End Date Loki Baird MD [address] [place] [address] [place] [address] PCP - General Internal Medicine 05/26/17 Additional Source Comments The information contained in this document represents components of the legal health record. It is not the complete legal health record.[facility]
[2024-08-28 08:05] VITALS: BP 140/82; PULSE 66; RESP 16; TEMP 36.8; O2SAT 97; BMI 30.6
[2024-08-28 08:24] VITALS: BP 130/80
== END 2024-08-28 08:49 | disposition home or self-care (01) ==
LOC: HO.HMCFM 07:52
PROVIDERS: PCP Internal Medicine; Visit Provider Nurse Practitioner Family
DX: Z00.00 Encounter for general adult medical examination without abnormal findings (principal); I10 Essential (primary) hypertension; F17.210 Nicotine dependence, cigarettes, uncomplicated; Z71.85 Encounter for immunization safety counseling; Z23 Encounter for immunization

== ENCOUNTER → 2024-08-28 07:51 | Outpatient (BNVA) | payer BC, SELFPAY | PROVIDERS: PCP Internal Medicine; Visit Provider Nurse Practitioner Family | DX: Z00.00 Encounter for general adult medical examination without abnormal findings (principal); G47.33 Obstructive sleep apnea (adult) (pediatric); I10 Essential (primary) hypertension; F17.290 Nicotine dependence, other tobacco product, uncomplicated; Z23 Encounter for immunization; Z99.89 Dependence on other enabling machines and devices; Z71.85 Encounter for immunization safety counseling | CPT/HCPCS: 90471; 90715; 96127 ==

== ENCOUNTER 2024-08-31 15:25 | Outpatient (AMB) | payer MEDICARE, BC, SELFPAY ==
--- OUTSIDE RECORDS SUMMARY | 2024-01-11 09:00 | XMS_ITS | Continuity of Care Document ---
Author Name [facility] Organization [facility] Care Team Providers Care Hydroelectric Plant Electrical Engineer Name Role Phone [facility] Unavailable Unavailable Problems Combined list of problems from Department of Defense and Veterans Affairs facilities. It does not include entries that were removed or entered in error. Problem Status Onset Date Problem Type Date of Resolution Comments Source Diagnosis: ICD-10-CM Z02.89 Encounter for other administrative examinations Active Diagnosis [place] CNT WST RN KEITS [facility] Encounters Combined list of: 1) Encounters from Department of Veterans Affairs facilities going backup to the last 18 months, not all [place] inpatient encounters are included; 2) Encounters from the Department of Defense facilities going backup to 280 months. Location Location Details Encounter Type Encounter Number Reason For Visit Attending Provider ADM Date DC Date Status Disposition [facility] Outpatient Encounter [id number] Diagnos is: ICD-10- CM Z02.89 Encount er for other adminis trative examSHARON Weeks 01/10 [facility]
--- OUTSIDE RECORDS SUMMARY | 2024-06-02 03:30 | XMS_ITS ---
Author Organization [facility] Address [address] [place] [phone] Care Team Providers Care Solar Installation Supervisor Name Role Phone Brie (RETIRED) Loki MICHAEL Primary Care Provide r Quinton Gonzalez Jr, Jonny Alcantara REASON FOR VISIT hereditary diffuse gastric ca syndrome Encounters Encounter Location Date Provider Diagnosis [facility] [place] Outpatient [address] [place] [phone] 06/02/2024 Jonny Gonzalez Jr 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 Assessments Encounter Date Diagnosis (ICD Code) Assessment Notes Treatment Notes Treatment Clinical Notes Section Notes 06/02/2024 Jones syndrome (ICD-10 - Z15.09) Plan Of Treatment Next Appt Details Provider Name:Jonny rico Jr, 12/08/2024 07:30:00 AM, [address] [place] [address], [phone], Progress Notes * DONAVON MENESESDOB: [birth year] (63 yo M)Acc No.[id number]:06/02/2024 EGD/MAC Patient: DONAVON DAVENPORT Provider: Zackary Gonzalez MD :1960 A ge:63 Y S ex:Male Date:06/02/2024 Address:[address] [place], [place] [phone] Pcp:Loki Baird (RETIRED )MD Subjective: * Chief [...] 06/02/2024 Generated for Chi torres/Danuta/Yeitting on: 0 08/31/2024 03:28 PM EDT
--- OUTSIDE RECORDS SUMMARY | 2024-08-31 15:29 | XMS_ITS | Patient Health Record ---
[facility] Organization [facility] Address [address] [place] [address] Care Team Providers Care District Or District Office Director Name Role Phone Loki Baird MD Primary Care Provider Unavaila ble Black, Iva Unavailable [phone] Reason For Referral No Information Medications Medication [...] Treatment Pending Test Test Name Order Date [id number] NAIL, 1-5 12/31/2014 [id number] 12/31/2014 [id number] 01/23/2015 [id number] SKIN/TISSUE 02/13/2015 [id number] SKIN/TISSUE 01/23/2015 Insurance Providers Payer Name Payer Address Payer Phone Subscriber Number Group Number Insured Name Patient Relationship to Insured Coverage Start Date Coverage End Date [facility] [address] [place] [address] [id number] Rebecca Patel Self - patient is the insured Medical (General) History Medical History History ICD Code Chicken pox Surgical History Surgery Date(Month/Year) shoulder surgery 2013
--- OUTSIDE RECORDS SUMMARY | 2024-08-31 15:29 | XMS_ITS | Clinical Summary ---
Author Organization [facility] Address [address] [facility] [address] [place] [address] Phone Care Team Providers Care Gravity Manager Name Role Phone Loki Baird MD [...] [place] [id number] [facility] [place] [id number] [facility] [place] [id number] [facility] [place] [id number] [facility] Care Teams Gravity Manager Relationship Specialty Start Date End Date Loki Baird MD [address] [place] [address] [place] [address] PCP - General Internal Medicine 05/26/17 Additional Source Comments The information contained in this document represents components of the legal health record. It is not the complete legal health record.[facility]
--- NOTE | 2024-08-31 15:53 | MHC.OFFVIS ---
Intake Visit Reasons: Prostate biopsy results Intake Note: Patient presents today for prostate biopsy results Urology Medication:None Blood Thinner:Aspirin Antibiotic Allergies:None Allergies No Known Allergies (No Known Allergies*) Allergy (Verified 08/31/24 15:54) Medication List - Last Reconciled 08/31/24 by Amparo Valencia MD aspirin 81 mg PO DAILY atorvastatin 10 mg PO BEDTIME ciprofloxacin HCl 500 mg PO BID finasteride (Proscar) 5 mg PO DAILY hydrocodone-acetaminophen 5-325 mg 1 tab PO Q24H PRN ibuprofen 800 mg PO BID PRN losartan 1 tab PO DAILY omeprazole 40 mg PO DAILY HPI Comments Details: 08/31/24--Marcello is a 63-year-old male who is here for follow-up prostate biopsy which was done on 08/22/2024. I have reviewed all of the biopsies came back benign. He had presented with elevated PSA of 4.77. History of Present Illness - The patient is a 63-year-old male presenting for follow-up after a prostate biopsy. - The prostate biopsy was performed on 08/22/24 due to an elevated PSA level of 4.77. - All biopsy results were benign. - The prostate volume was estimated at 70 mL, indicating enlargement consistent with Benign Prostatic Hyperplasia (BPH). - The patient reports hematospermia, which I have discussed can last up to three to four months. Results - Prostate biopsy results: All samples benign. - PSA level: 4.77 - Prostate volume: 70 mL Plan - Initiate treatment with Proscar to reduce prostate size and monitor PSA levels. 07/24/24-- - The patient is a 63-year-old male presenting with elevated PSA levels for further evaluation. - The PSA level was initially noted to be 4.14, which is slightly above the normal high limit of 4.0. - Recent blood work showed a PSA level of 4.77, indicating a slight increase. - There is no history of anticoagulant use, but the patient takes baby aspirin. - The patient has been advised to discontinue baby aspirin 14 days prior to the scheduled biopsy due to bleeding risks associated with the procedure. Results - Labs: PSA level at 4.77, previously 4.14. Discussion Notes I discussed with the patient the elevated PSA level of 4.77, which is slightly higher than the previous level of 4.14. I recommended scheduling a prostate biopsy to obtain more information. The procedure will be conducted in the radiology department procedure room using local lidocaine for anesthesia. The patient will start antibiotics one to two days before the procedure and continue for two days after. I advised stopping baby aspirin 14 days before the biopsy due to bleeding risks. 07/07/24--The patient is a 63-year-old male presenting with elevated PSA levels for evaluation. Previous blood tests show an increase in PSA from 3.2 and 3.14 to a recent value of 4.14. While this slightly surpasses normal thresholds, it may signify benign prostatic hypertrophy, typically occurring with age. The patient has a history of smoking cigars and notes decreased physical activity. No acute urinary symptoms were reported at this time, suggesting no immediate new onset of obstructive or irritative urinary symptoms. Results - Labs: - PSA: 4.14 (recorded on 02/15/24) Discussion Notes During the consultation, I discussed the elevated PSA reading with the patient, which slightly exceeds the normal threshold. I outlined that this could be due to benign prostatic enlargement, which is common as men age. I emphasized the importance of further evaluation to distinguish between benign prostatic hyperplasia and possible neoplastic changes. I explained the potential need for a prostate biopsy should repeat testing show further elevation. We covered the options available if prostate cancer is detected, including the possibility of active surveillance for low-volume or early-stage cancers. The patient acknowledged understanding the need for dietary and lifestyle changes, although he noted previous reluctance to altering habits substantially. Consent was not discussed as we are in the initial evaluation phase. A follow-up call will be arranged to discuss further steps post testing. [facility] Medical History Coronary artery calcification Hypertension Hyperlipidemia Obstructive sleep apnea on CPAP Personal history of nicotine dependence Emphysema lung Dyspnea Heartburn Tubular adenoma of colon Monoallelic mutation of CDH1 gene Family history of cancer of GI tract Surgical History History of esophagogastroduodenoscopy (EGD) History of colonoscopy History of tonsillectomy and adenoidectomy History of vasectomy History of elbow surgery History of repair of right rotator cuff History of repair of left rotator cuff History of medial meniscus repair of right knee History of right knee surgery Family History Father Metastatic cancer Hx of myocardial infarction CHF (congestive heart failure) DM2 (diabetes mellitus, type 2) Mother Hx of myocardial infarction COPD (chronic obstructive pulmonary disease) Osteoporosis CHF (congestive heart failure) Sister Monoallelic mutation of CDH1 gene History of stomach cancer BOOP (bronchiolitis obliterans with organizing pneumonia) Sister Monoallelic mutation of CDH1 gene History of stomach cancer Afib Sister Hx of myocardial infarction Monoallelic mutation of CDH1 gene Daughter History of stomach cancer Monoallelic mutation of CDH1 gene Son No problems noted. Social History Housing: House Alcohol intake: current Alcohol intake frequency: holidays/special occasions only Alcohol type: beer and wine Patient Tobacco Use Status: Current everyday Tobacco user Tobacco use type: Cigar Years Smoked: 35 e-Cigarette/Vaping Use: Never Used Second Hand Smoke Exposure: No Advance Directives Date on File: 05/17/20 service: Yes (Served in the [employer]) Current occupational status: employed and retired Current occupation: Worked for [employer] - Retired 02/2024 Current occupational exposures/hazards: No Cognitive needs: No Hearing needs: No Vision needs: Yes Review of Systems Const All systems reviewed & are unremarkable except as noted in HPI and below Reports no additional complaints Eyes Reports no additional complaints ENT Reports no additional complaints Card Reports no additional complaints Resp Reports no additional complaints GI Reports no additional complaints Reports as per HPI Musc Reports no additional complaints Skin/Breast Reports system reviewed and no additional complaints, except as documented Neuro Reports no additional complaints Psych Reports no additional complaints Endo Reports no additional complaints Guillermo/Lymph Reports no additional complaints Aller/Immun Reports no additional complaints Assessment & Plan Assessment & Plan (1) BPH with elevated PSA: Code(s): N40.0 - Benign prostatic hyperplasia without lower urinary tract symptoms; R97.20 - Elevated prostate specific antigen [PSA] Category: Medical Plan Plan - Initiate treatment with Proscar to reduce prostate size and monitor PSA levels. Medications: New finasteride (Proscar) 5 mg PO DAILY 90 tabs 3RF Patient Instructions: The patient had an opportunity to ask questions regarding treatment plan. The patient expressed understanding and agreement with the above treatment plan. The patient is aware they should contact our office by phone for worsening of their current condition or the appearance of new symptoms. Compliance is encouraged with any medications and followup testing that is ordered. It is a privilege to be allowed the opportunity to participate in the urologic care of your patient. If you have any questions or concerns regarding treatment for the above conditions please do not hesitate to contact me. The office telephone contact is [phone]. This note is constructed in part using voice recognition software. While every effort has been made to ensure accuracy gyroscopic instrument mechanic errors may have been included. Yours sincerely, Amparo Valencia MD Scribe Plan - Not visible on output: Patient was informed and verbally consented to the use of an ambient scribe for clinic note documentation during this visit. Coding Level of Care Code Est Pt Level 4 (77152) Diagnoses BPH with elevated PSA N40.0; R97.20
== END 2024-08-31 16:19 | disposition home or self-care (01) ==
LOC: HO.HUSH 15:26
PROVIDERS: PCP Internal Medicine; Visit Provider Urology
DX: N40.0 Benign prostatic hyperplasia without lower urinary tract symptoms (principal); R97.20 Elevated prostate specific antigen [PSA]; N40.1 Benign prostatic hyperplasia with lower urinary tract symptoms
CPT/HCPCS: 99214

== ENCOUNTER → 2024-08-31 15:25 | Outpatient (BNVA) | payer MEDICARE, BC, SELFPAY | PROVIDERS: PCP Internal Medicine; Visit Provider Urology | DX: R97.20 Elevated prostate specific antigen [PSA] (principal); N40.0 Benign prostatic hyperplasia without lower urinary tract symptoms; Z98.890 Other specified postprocedural states | CPT/HCPCS: 81003; 99212 ==

== ENCOUNTER 2024-09-18 06:31 | Outpatient (REF) | payer MEDICARE, BC, SELFPAY ==
--- OUTSIDE RECORDS SUMMARY | 2024-01-11 09:00 | XMS_ITS | Continuity of Care Document ---
Author Name [facility] Organization [facility] Care Team Providers Care Catalogue Maker Name Role Phone [facility] Unavailable Unavailable Problems Combined list of problems from Department of Defense and Veterans Affairs facilities. It does not include entries that were removed or entered in error. Problem Status Onset Date Problem Type Date of Resolution Comments Source Diagnosis: ICD-10-CM Z02.89 Encounter for other administrative examinations Active Diagnosis [place] CNT WST RN [facility] Encounters Combined list of: 1) Encounters from Department of Veterans Affairs facilities going backup to the last 18 months, not all [place] inpatient encounters are included; 2) Encounters from the Department of Defense facilities going backup to 280 months. Location Location Details Encounter Type Encounter Number Reason For Visit Attending Provider ADM Date DC Date Status Disposition [facility] Outpatient Encounter [id number] Diagnos is: ICD-10- CM Z02.89 Encount er for other adminis trative examSHARON Weeks 01/10 [facility]
--- OUTSIDE RECORDS SUMMARY | 2024-06-02 03:30 | XMS_ITS ---
Author Organization [facility] Address [address] [place] [phone] Care Team Providers Care Director Orange Name Role Phone Brie (RETIRED) Loki MICHAEL Primary Care Provide r Quinton Gonzalez Jr, Jonny Alcantara [phone] REASON FOR VISIT hereditary diffuse gastric ca syndrome Encounters Encounter Location Date Provider Diagnosis [facility] [place] [address] [place] [phone] 06/02/2024 Jonny Gonzalez Jr 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 Assessments Encounter Date Diagnosis (ICD Code) Assessment Notes Treatment Notes Treatment Clinical Notes Section Notes 06/02/2024 Jones syndrome (ICD-10 - Z15.09) Plan Of Treatment Next Appt Details Provider Name:Jonny rico Jr, 12/08/2024 07:30:00 AM, [address] [place] [address], [phone], Progress Notes * DONAVON MENESESDOB: [birth year] (63 yo M)Acc No.[id number]:06/02/2024 EGD/MAC Patient: DONAVON DAVENPORT Provider: Zackary Gonzalez MD :1960 A ge:63 Y S ex:Male Date:06/02/2024 Address:[address] [place], [place] [phone] Pcp:Loki Baird (RETIRED )MD Subjective: * Chief [...] 06/02/2024 Generated for Chi torres/Danuta/Yeitting on: 0 09/18/2024 06:33 AM EDT
--- OUTSIDE RECORDS SUMMARY | 2024-09-18 06:33 | XMS_ITS | Clinical Summary ---
Author Organization [facility] Address [address] [facility] [address] [place] [id number] Phone Care Team Providers Care Air Traffic Control Equipment Repairer Name Role Phone Loki Baird MD Primary [...] [place] [id number] [facility] [place] [id number] [facility] [place] [id number] [facility] [place] [id number] [facility] Care Teams Air Traffic Control Equipment Repairer Relationship Specialty Start Date End Date Loki Baird MD [address] [place] [address] [place] [address] PCP - General Internal Medicine 05/26/17 Additional Source Comments The information contained in this document represents components of the legal health record. It is not the complete legal health record.[facility]
--- OUTSIDE RECORDS SUMMARY | 2024-09-18 06:33 | XMS_ITS | Patient Health Record ---
Author Organization [facility] Address [address] [place] [address] Care Team Providers Care Director Operating Room Name Role Phone Loki Baird MD Primary Care Provider Unavaila ble Black, Iva Unavailable [phone] Reason For Referral No Information Medications Medication [...] Treatment Pending Test Test Name Order Date [id number] NAIL, 1-5 12/31/2014 [id number] 12/31/2014 [id number] 01/23/2015 [id number] SKIN/TISSUE 02/13/2015 [id number] SKIN/TISSUE 01/23/2015 Insurance Providers Payer Name Payer Address Payer Phone Subscriber Number Group Number Insured Name Patient Relationship to Insured Coverage Start Date Coverage End Date [facility] [id number] [place] [address] [id number] Rebecca Patel Self - patient is the insured Medical (General) History Medical History History ICD Code Chicken pox Surgical History Surgery Date(Month/Year) shoulder surgery 2013
[2024-09-18 07:17] LABS: MANUAL DIFF FLAG NO
[2024-09-18 07:38] LABS: Hematocrit 41.7 % (42.0-52.0); Hemoglobin 13.8 g/dl (14.0-18.0); Imm Gran Abs Auto 0.02 X10*3/uL (0.00-0.03); Imm Gran Pct Auto 0.3 % (0.0-0.4); Lymphocytes Absolute Auto 1.7 X10*3/uL (1.2-4.9); Mean Corpuscular HGB Conc 33.1 g/dl (31.0-36.0); Mean Corpuscular Hemoglobin 31.2 pg (27.0-33.0); Mean Corpuscular Volume 94.1 fL (80.0-98.0); NRBC Abs Auto 0.000 X10*3/uL (0.0-0.012); NRBC Pct Auto 0.0 /100WBC (0.0-0.2); Platelet Count 162 X10*3/uL (160-400); Red Blood Count 4.43 X10*6/uL (4.60-5.80); White Blood Count 6.5 X10*3/uL (4.8-10.8)
[2024-09-18 08:08] LABS: Appearance Urine Clear; Glucose Urine UA Negative (Negative); PH 6.0 (5.0-9.0); Specific Gravity - Urine 1.025 (1.005-1.025); UMIC TRIGGER UACC YES
[2024-09-18 08:15] LABS: Alanine Aminotransferase 35 U/L (0-40); Albumin Level 4.5 g/dL (3.5-5.0); Alkaline Phosphatase 84 U/L (39-117); Anion Gap 12 (12-20); Aspartate Amino Transferase 36 U/L (5-37); Blood Urea Nitrogen 19 mg/dL (9-16); Calcium 9.0 mg/dL (8.4-10.2); Carbon Dioxide 26 mmol/L (22-29); Chloride 109 mmol/L (96-108); Cholesterol 123 mg/dL (<200); Estimated Glomerular Filt Rate > 60; HDL Cholesterol 26 mg/dL (>40); Potassium 4.3 mmol/L (3.3-5.1); Sodium 143 mmol/L (135-145); Total Protein 7.4 g/dL (6.5-8.0); Triglycerides 104 mg/dL (<150)
[2024-09-18 09:12] LABS: Free T4 (Free Thyroxine) 0.74 ng/dL (0.71-1.85)
== END 2024-09-18 06:32 | disposition home or self-care (01) ==
LOC: HO.LAB 06:31
PROVIDERS: PCP Nurse Practitioner Family; Visit Provider Nurse Practitioner Family
DX: Z00.00 Encounter for general adult medical examination without abnormal findings (principal); Z13.6 Encounter for screening for cardiovascular disorders; Z13.21 Encounter for screening for nutritional disorder; Z13.29 Encounter for screening for other suspected endocrine disorder
CPT/HCPCS: 36415; 80053; 80061; 81001; 81003; 82306; 84439; 84443; 85025

== ENCOUNTER 2024-09-27 09:39 | Outpatient (REF) | payer MEDICARE, BC, SELFPAY ==
--- OUTSIDE RECORDS SUMMARY | 2024-01-11 09:00 | XMS_ITS | Continuity of Care Document ---
Author Name [facility] Organization [facility] Care Team Providers Care Slat Basket Maker Helper Name Role Phone [facility] Unavailable Unavailable Problems Combined list of problems from Department of Defense and Veterans Affairs facilities. It does not include entries that were removed or entered in error. Problem Status Onset Date Problem Type Date of Resolution Comments Source Diagnosis: ICD-10-CM Z02.89 Encounter for other administrative examinations Active Diagnosis [place] CNT WST RN KEITS [facility] Encounters Combined list of: 1) Encounters from Department of Veterans Affairs facilities going backup to the last 18 months, not all [place] inpatient encounters are included; 2) Encounters from the Department of Defense facilities going backup to 280 months. Location Location Details Encounter Type Encounter Number Reason For Visit Attending Provider ADM Date DC Date Status [facility] Outpatient Encounter [id number] Diagnos is: ICD-10- CM Z02.89 Encount er for other adminis trative examSHARON Weeks 01/10 [facility]
--- OUTSIDE RECORDS SUMMARY | 2024-06-02 03:30 | XMS_ITS ---
Author Organization [facility] Address [address] [place] [phone] Care Team Providers Care Police Captain Name Role Phone Brie (RETIRED) Loki MICHAEL Primary Care Provide r Quinton Gonzalez Jr, Jonny Alcantara [phone] REASON FOR VISIT hereditary diffuse gastric ca syndrome Encounters Encounter Location Date Provider Diagnosis [facility] [place] [address] [place] [phone] 06/02/2024 Jonny Gonzalez Jr 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 Assessments Encounter Date Diagnosis (ICD Code) Assessment Notes Treatment Notes Treatment Clinical Notes Section Notes 06/02/2024 Jones syndrome (ICD-10 - Z15.09) Plan Of Treatment Next Appt Details Provider Name:Jonny rico Jr, 12/08/2024 07:30:00 AM, [address] [place] [place] [address], [phone], Progress Notes * DONAVON MENESESDOB: [birth year] (63 yo M)Acc No.[id number]:06/02/2024 EGD/MAC Patient: DONAVON DAVENPORT Provider: Zackary Gonzalez MD :1960 A ge:63 Y S ex:Male Date:06/02/2024 Address:[address] [place], [place] [phone] Pcp:Loki Baird (RETIRED )MD Subjective: * Chief Complaints: * 1 . Hereditary diffuse gastric ca syndrome. * Medical History: Objective: * Vitals: [...] Pending * Provider: Zackary Gonzalez MD Date: 0 06/02/2024 Generated for Chi torres/Danuta/Yeitting on: 0 09/27/2024 10:30 AM EDT
--- OUTSIDE RECORDS SUMMARY | 2024-09-27 10:31 | XMS_ITS | Clinical Summary ---
Author Organization [facility] Address [address] [facility] [address] [place] [phone] Phone Care Team Providers Care Bender Hand Name Role Phone Loki Baird MD Primary [...] [place] [id number] [facility] [place] [id number] [facility] [place] [id number] [facility] [place] [id number] [facility] Care Teams Bender Hand Relationship Specialty Start Date End Date Loki Baird MD [address] [place] [address] [place] [address] PCP - General Internal Medicine 05/26/17 Additional Source Comments The information contained in this document represents components of the legal health record. It is not the complete legal health record.[facility]
--- OUTSIDE RECORDS SUMMARY | 2024-09-27 10:31 | XMS_ITS | Patient Health Record ---
[facility] Address [address] [place] [address] Care Team Providers Care Wildland Fire Fighter Specialist Name Role Phone Loki Baird MD Primary Care Provider Unavaila ble Black, Iva Unavailable [phone] Reason For Referral No Information Medications Medication [...] Treatment Pending Test Test Name Order Date [id number] NAIL, 1-5 12/31/2014 [id number] 12/31/2014 [id number] 01/23/2015 [id number] SKIN/TISSUE 02/13/2015 [id number] SKIN/TISSUE 01/23/2015 Insurance Providers Payer Name Payer Address Payer Phone Subscriber Number Group Number Insured Name Patient Relationship to Insured Coverage Start Date Coverage End Date [facility] [id number] [place] [address] [id number] Rebecca Patel Self - patient is the insured Medical (General) History Medical History History ICD Code Chicken pox Surgical History Surgery Date(Month/Year) shoulder surgery 2013
[2024-09-27 11:27] LABS: Appearance Urine Clear; Glucose Urine UA Negative (Negative); PH 6.0 (5.0-9.0); Specific Gravity - Urine 1.010 (1.005-1.025)
[2024-09-27 11:28] LABS: Prostate Specific Antigen 5.22 ng/mL (<0.05-4.0)
[2024-09-27 12:14] LABS: Free T4 (Free Thyroxine) 0.79 ng/dL (0.71-1.85)
== END 2024-09-27 09:40 | disposition home or self-care (01) ==
LOC: HO.LAB 09:39
PROVIDERS: Urology; PCP Nurse Practitioner Family; Visit Provider Nurse Practitioner Family
DX: Z00.00 Encounter for general adult medical examination without abnormal findings (principal); R79.89 Other specified abnormal findings of blood chemistry; R97.20 Elevated prostate specific antigen [PSA]; Z12.5 Encounter for screening for malignant neoplasm of prostate
CPT/HCPCS: 36415; 81003; 84153; 84439; 84443; 84481

== ENCOUNTER 2024-09-29 09:18 | Outpatient (AMB) | payer MEDICARE, BC, SELFPAY ==
--- OUTSIDE RECORDS SUMMARY | 2024-06-02 03:30 | XMS_ITS ---
Author Organization [facility] Address [address] [place] [phone] Care Team Providers Care Division Leader Name Role Phone Brie (RETIRED) Loki MICHAEL Primary Care Provide r Quinton Gonzalez Jr, Jonny Alcantara [phone] REASON FOR VISIT hereditary diffuse gastric ca syndrome Encounters Encounter Location Date Provider Diagnosis [facility] [place] Outpatient [address] [place] [phone] 06/02/2024 Jonny Gonzalez Jr 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 Assessments Encounter Date Diagnosis (ICD Code) Assessment Notes Treatment Notes Treatment Clinical Notes Section Notes 06/02/2024 Jones syndrome (ICD-10 - Z15.09) Plan Of Treatment Next Appt Details Provider Name:Jonny rico Jr, 12/08/2024 07:30:00 AM, [address] [place] [address], [phone], Progress Notes * DONAVON MENESESDOB: [birth year] (63 yo M)Acc No.[id number]:06/02/2024 EGD/MAC Patient: DONAVON DAVENPORT Provider: Zackary Gonzalez MD :1960 A ge:63 Y S ex:Male Date:06/02/2024 Address:[address] [place], [place] [phone] Pcp:Loki Baird (RETIRED )MD Subjective: * Chief [...] 06/02/2024 Generated for Chi torres/Danuta/Yeitting on: 0 09/29/2024 09:23 AM EDT
--- NOTE | 2024-09-29 09:20 | A.OFFPC_ITS ---
Vital Signs 09/29/24 09:28 09/29/24 09:39 Height 5 ft 6 in Weight 189 lb 8 oz BMI 30.6 BP 149/85 H 140/86 H Blood Pressure Location Rt brachial Rt brachial Position Sitting Sitting Respiration 16 Pulse 76 Pulse Source Pulse Oximeter Temp 98.1 F Temp Source Oral Pulse Oximetry (%) 99 Oxygen Delivery Method Room Air Intake Visit Reasons: 1 mos HTN, labs review Intake Note: patient here for 1month follow up on HTN, for lab reiview Suction Dredge Dumping Supervisor Required: No Allergies No Known Allergies (No Known Allergies*) Allergy (Verified 09/29/24 09:32) Medication List - Last Reconciled 09/29/24 by Campos Jalloh CNP aspirin 81 mg PO DAILY atorvastatin 10 mg PO BEDTIME ciprofloxacin HCl 500 mg PO BID finasteride (Proscar) 5 mg PO DAILY hydrocodone-acetaminophen 5-325 mg 1 tab PO Q24H PRN ibuprofen 800 mg PO BID PRN losartan 1 tab PO DAILY omeprazole 40 mg PO DAILY Tobacco use date assessed: 09/29/24 Fall risk assessment: No Falls in past year Last assessed Fall Risk: 09/29/24 Dental Screening Dental Screen Date: 09/29/24 Did you have a dental visit in the last 12 months?: Yes Did you have a dental problem in the last 6 months where you did not have access to dental care?: No Was dental information given to patient?: Patient has dentist HPI HPI Comments History of Present Illness Details 63-year-old male presents for hypertensi on and recent labs review follow-up. He admits to taking his medications as prescribed without adverse reactions. He offers no complaints and denies acute symptoms at this time. [facility] Medical History Coronary artery calcification Hypertension Hyperlipidemia Obstructive sleep apnea on CPAP Personal history of nicotine dependence Emphysema lung Dyspnea Heartburn Tubular adenoma of colon Monoallelic mutation of CDH1 gene Family history of cancer of GI tract Surgical History History of esophagogastroduodenoscopy (EGD) History of colonoscopy History of tonsillectomy and adenoidectomy History of vasectomy History of elbow surgery History of repair of right rotator cuff History of repair of left rotator cuff History of medial meniscus repair of right knee History of right knee surgery Family History Father Metastatic cancer Hx of myocardial infarction CHF (congestive heart failure) DM2 (diabetes mellitus, type 2) Mother Hx of myocardial infarction COPD (chronic obstructive pulmonary disease) Osteoporosis CHF (congestive heart failure) Sister Monoallelic mutation of CDH1 gene History of stomach cancer BOOP (bronchiolitis obliterans with organizing pneumonia) Sister Monoallelic mutation of CDH1 gene History of stomach cancer Afib Sister Hx of myocardial infarction Monoallelic mutation of CDH1 gene Daughter History of stomach cancer Monoallelic mutation of CDH1 gene Son No problems noted. Social History Housing: House Alcohol intake: current Alcohol intake frequency: holidays/special occasions only Alcohol type: beer and wine Patient Tobacco Use Status: Current everyday Tobacco user Tobacco use type: Cigar Years Smoked: 35 e-Cigarette/Vaping Use: Never Used Second Hand Smoke Exposure: No Advance Directives Date on File: 05/17/20 service: Yes (Served in [employer]) Current occupational status: employed and retired Current occupation: Worked for [employer] - Retired 02/2024 Current occupational exposures/hazards: No Cognitive needs: No Hearing needs: No Vision needs: Yes Questionnaire Thrive Questionnaire Date Thrive assessed: 08/21/24 I am a: Patient What is your living situation today?: I have a steady place to live Within the past 12 months, did the food you bought not last and you didn't have the money to get more?: Never true Within the past 12 months, did you worry whether your food would run out before you got money to buy more?: Never true Do you have trouble paying for medicines?: No Do you have trouble getting transportation to medical appointments?: No Do you have trouble paying your heating and electricity bill?: No Do you have trouble taking care of your child, family member or friend?: No Do you have trouble with day-to-day activities such as bathing, preparing meals, shopping, managing finances, etc.?: No Are you currently unemployed and looking for a job?: No Are you interested in more education?: No Please select the resources that you would like help with: None Currently or been in a relationship where the following occur: No concerns reported THRIVE Score: 0 TIMMY-7 AMB Questionnaire TIMMY-7 Date TIMMY - 7 assessed: 08/28/24 Source: Developed by Drs. Daniel Meyers, Frida Albert, Abran Pastrana and colleagues, with an educational rolan from [employer]. Review of Systems Const Details: Const Denies chills, Denies fatigue, Denies fever(s), Denies headache(s) and Denies weakness ENT Denies dizziness and Denies headache(s) Card Denies chest pain, Denies lightheadedness, Denies dyspnea and Denies other (Palpitations) Resp Denies cough, Denies dyspnea, Denies wheezing and Denies other ( shortness of breath) GI Denies abdominal pain, Denies melena, Denies hematochezia, Denies change in bowel habits, Denies dyspepsia and Denies nausea Denies hematuria and Denies dysuria Musc Denies abnormal gait, Denies myalgias, Denies arthralgias, Denies numbness and Denies tingling Skin/Breast Denies rash, Denies unusual bruising and Denies wounds Neuro Denies abnormal gait, Denies dizziness, Denies headache(s), Denies memory loss, Denies numbness, Denies Sensory deficit (Neuro), Denies tingling and Denies weakness Psych Denies anxiety, Denies depression, Denies memory loss Endo Denies cold intolerance, Denies fatigue, Denies heat intolerance, Denies polydipsia and Denies polyuria Aller/Immun Denies wheezing Physical exam (Primary Care) Tobacco/Smoking Status: Tobacco use Status Tobacco use date assessed 08/28/24 08/28/24 08:04 Patient Tobacco Use Status Current everyday Tobacco 08/28/24 08:03 Tobacco use type Cigar 08/28/24 08:03 e-Cigarette/Vaping Use Never Used 08/28/24 08:04 Thrive Assessment: Date of Thrive Assessment Date Thrive assessed 08/21/24 09/26/24 18:05 Currently or been in a relationship where the following occur: No concerns reported Const Other: General: no acute distress and well developed Nutritional Appearance: well nourished Orientation/consciousness: patient oriented x3 HENMT Head: Yes normocephalic and Yes atraumatic Eyes General: appearance normal, both eyes and all related structures Pupils: Equal, round and reactive pupils present EOM: EOMs intact bilaterally Resp Effort & Inspection: normal respiratory effort Auscultation: clear to auscultation bilaterally Cardio Rate: regular rate Rhythm: regular rhythm Heart sounds: S1 normal heart sound present, S2 normal heart sound present, no gallops, no murmurs and no rubs GI Palpation (GI): No Abdominal aortic bruit present, Soft to palpation, nontender, No hepatosplenomegaly present and No Rebound tenderness present Auscultation: normal bowel sounds General: Yes no CVA tenderness Back/Spine/Pelvis Back: no CVA tenderness Cervical Spine: cervical ROM normal and No Cervical spine tenderness Thoracic/Lumbar Spine: thoraco-lumbar ROM normal, No pain with thoraco-lumbar ROM, No thoracic spinal tenderness and No lumbar spinal tenderness Extrem General: Yes normal to inspection, No edema and No calf tenderness Skin General: warm and dry. Normal skin color. Normal skin turgor Neuro General: patient oriented x3, gait normal and no focal neuro deficit Cranial nerves: Yes Equal, round and reactive pupils present Cognition (Neuro): normal cognition Gait exam (Neuro): Normal gait present Sensory Exam: No Sensory deficit (Neuro) Psych Appearance: grossly normal Affect: normal affect Attitude: cooperative Thought process: Normal thought process present Coding Level of Care Code Est Pt Level 4 (58156) Diagnoses Hypertension I10 Normocytic anemia D64.9 Elevated fasting glucose R73.01 Elevated PSA R97.20 Low HDL (under 40) E78.6 Hypothyroidism E03.9 Assessment & Plan Assessment & Plan (1) Hypertension: Code(s): I10 - Essential (primary) hypertension Category: Medical Plan: Resting blood pressure is 140/86, slightly above goal of less than 140/90. Low-sodium diet and routine exercise encouraged. Follow-up in 6 weeks Verbalized understanding and agreed with the plan. (2) Normocytic anemia: Code(s): D64.9 - Anemia, unspecified Category: Medical Plan: Recent her recent H&H levels are slightly low, 4.43 and 13.8/41.7 respectively, MCV is normal. Will recheck CBC and check iron profile, ferritin, vitamin B12 and folate levels. Performed fasting blood work before next visit. Follow-up in 2 months or sooner with symptoms or concerns. Verbalized understanding and agreed with the plan. (3) Elevated fasting glucose: Code(s): R73.01 - Impaired fasting glucose Category: Medical Plan: Recent fasting glucose is elevated, 111. Healthy diet and routine exercise encouraged. Will recheck fasting glucose and make changes as needed. Verbalized understanding and agreed with the plan. (4) Elevated PSA: Code(s): R97.20 - Elevated prostate specific antigen [PSA] Category: Medical Plan: Recent PSA is elevated, 5.22. He has history of elevated PSA and BPH. Followed by [facility] urology. (5) Low HDL (under 40): Code(s): E78.6 - Lipoprotein deficiency Category: Medical Plan: Recent HDL level is low, 26, triglycerides, total cholesterol, and LDL levels are normal. Advised to limit foods high in saturated fat and avoid foods high in trans fat. Routine exercise encouraged. Will monitor lipid panel level annually or as needed. Less understanding and agreed with the plan. (6) Hypothyroidism: Code(s): E03.9 - Hypothyroidism, unspecified Category: Medical Plan: Recent TSH levels were elevated, 22.04 and 20.84, fee T4 and T3 are normal. Asymptomatic. Levothyroxine 25 mcg daily ordered; advised to take as prescribed. Instructed on the risks, benefits, and potential adverse reactions of the medication. Will recheck TSH/T4 in 6 weeks. Verbalized understanding and agreed with the plan. Orders: Orders Ferritin 6 Weeks D64.9 - Anemia, unspecified IRON PROFILE 6 Weeks D64.9 - Anemia, unspecified TSH reflex Free T4 6 Weeks E03.9 - Hypothyroidism, unspecified Glucose Fasting 6 Weeks R73.01 - Impaired fasting glucose Complete Blood Count no Diff 6 Weeks D64.9 - Anemia, unspecified Vitamin B12 and Folate 6 Weeks D64.9 - Anemia, unspecified Medications: New levothyroxine (Levoxyl) 25 mcg PO DAILY 30 tabs 3RF 30 days
--- OUTSIDE RECORDS SUMMARY | 2024-09-29 09:24 | XMS_ITS | Patient Health Record ---
[facility] Address [address] [place] [address] Care Team Providers Care Information Assurance Specialist Name Role Phone Loki Baird MD Primary Care Provider Unavaila ble Black, Iva Unavailable [phone] Reason For Referral No Information Medications Medication [...] Treatment Pending Test Test Name Order Date [id number] NAIL, 1-5 12/31/2014 [id number] 12/31/2014 [id number] 01/23/2015 [id number] SKIN/TISSUE 02/13/2015 [id number] SKIN/TISSUE 01/23/2015 Insurance Providers Payer Name Payer Address Payer Phone Subscriber Number Group Number Insured Name Patient Relationship to Insured Coverage Start Date Coverage End Date [facility] [id number] [place] [address] [id number] Rebecca Patel Self - patient is the insured Medical (General) History Medical History History ICD Code Chicken pox Surgical History Surgery Date(Month/Year) shoulder surgery 2013
--- OUTSIDE RECORDS SUMMARY | 2024-09-29 09:24 | XMS_ITS | Clinical Summary ---
Author Organization [facility] Address [address] [facility] [address] [place] [address] Phone Care Team Providers Care Manager Balance Name Role Phone Loki Baird MD Primary [...] [place] [id number] [facility] UMR [facility] [place] [id number] [facility] [place] [id number] [facility] [place] [id number] [facility] Care Teams Manager Balance Relationship Specialty Start Date End Date Loki Baird MD [address] [place] [address] [place] [address] PCP - General Internal Medicine 05/26/17 Additional Source Comments The information contained in this document represents components of the legal health record. It is not the complete legal health record.[facility]
[2024-09-29 09:28] VITALS: BP 149/85; PULSE 76; RESP 16; TEMP 36.7; O2SAT 99; BMI 30.6
[2024-09-29 09:39] VITALS: BP 140/86
== END 2024-09-29 09:48 | disposition home or self-care (01) ==
LOC: HO.HMCFM 09:19
PROVIDERS: PCP Nurse Practitioner Family; Visit Provider Nurse Practitioner Family
DX: I10 Essential (primary) hypertension (principal); D64.9 Anemia, unspecified; R73.01 Impaired fasting glucose; R97.20 Elevated prostate specific antigen [PSA]; E78.6 Lipoprotein deficiency; E03.9 Hypothyroidism, unspecified

== ENCOUNTER → 2024-09-29 09:18 | Outpatient (BNVA) | payer MEDICARE, BC, SELFPAY | PROVIDERS: PCP Nurse Practitioner Family; Visit Provider Nurse Practitioner Family | DX: I10 Essential (primary) hypertension (principal); D64.9 Anemia, unspecified; R73.01 Impaired fasting glucose; R97.20 Elevated prostate specific antigen [PSA]; E78.6 Lipoprotein deficiency; E03.9 Hypothyroidism, unspecified | CPT/HCPCS: 99212 ==

== ENCOUNTER 2024-11-07 06:08 | Outpatient (REF) | payer MEDICARE, BC, SELFPAY ==
--- OUTSIDE RECORDS SUMMARY | 2023-12-31 03:30 | XMS_ITS ---
Author Organization [facility] Address [address] [place] [address] Care Team Providers Care Remote Sensing Technologist Name Role Phone Brie (RETIRED) Loki MICHAEL Primary Care Provide r Quinton Gonzalez Jr, Jonny Unavailable REASON FOR VISIT hereditary diffused gastric cancer syndrome Problems Problem Type SNOMED Code ICD Code Onset Dates Problem Status W/U Status Risk Notes Problem Gastric polyp (56790579) Gastric polyp (K31.7) Active confirmed Encounters Encounter Location Date Provider Diagnosis [facility] Outpatient [address] [place] [phone] 12/31/2023 Jonny Gonzalez Jr 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 Assessments Encounter Date Diagnosis (ICD Code) Assessment Notes Treatment Notes Treatment Clinical Notes Section Notes 12/31/2023 Jones syndrome (ICD-10 - Z15.09) Plan Of Treatment Next Appt Details Provider Name:Jonny rico Jr, 12/08/2024 07:30:00 AM, [address] [place] [address], [phone], Progress Notes * DONAVON MENESESDOB: [birth year] (64 yo M)Acc No.[id number]:12/31/2023 EGD/MAC Patient: DONAVON DAVENPORT Provider: Zackary Gonzalez MD :1960 A ge:63 Y S ex:Male Date:12/31/2023 Address:[address] [place], [place] [phone] Pcp:Loki Baird (RETIRED )MD Subjective: * Chief Complaints: * 1 . Hereditary diffused gastric cancer syndrome. * Medical History: Objective: * Vitals: Assessment: * Assessment: 1. L ynch syndrome - Z15.09 (Primary) Plan: * Treatment: * Procedure Codes: 4 3239 UPPER GI ENDOSCOPY, BIOPSY * * The named appointment provid er may or may not be the originator of this progress note, and it is not deemed complete until electronically signed by the appointment provider. Sign off status: Pending * Provider: Zackary Gonzalez MD Date: 03/01/2023 Generated for Chi torres/Danuta/Yeitting on: 0 11/07/2024 06:11 AM EDT
--- OUTSIDE RECORDS SUMMARY | 2024-06-02 03:30 | XMS_ITS ---
Author Organization [facility] Address [address] [place] [phone] Care Team Providers Care Spring Floor Service Worker Name Role Phone Brie (RETIRED) Loki MICHAEL Primary Care Provide r Quinton Gonzalez Jr, Jonny Alcantara REASON FOR VISIT hereditary diffuse gastric ca syndrome Encounters Encounter Location Date Provider Diagnosis [facility] [place] Outpatient [address] [place] [phone] 06/02/2024 Jonny Gonzalez Jr 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 Assessments Encounter Date Diagnosis (ICD Code) Assessment Notes Treatment Notes Treatment Clinical Notes Section Notes 06/02/2024 Jones syndrome (ICD-10 - Z15.09) Plan Of Treatment Next Appt Details Provider Name:Jonny rico Jr, 12/08/2024 07:30:00 AM, [address] [place] [address], [phone], Progress Notes * DONAVON MENESESDOB: [birth year] (64 yo M)Acc No.[id number]:06/02/2024 EGD/MAC Patient: DONAVON DAVENPORT Provider: Zackary Gonzalez MD :1960 A ge:63 Y S ex:Male Date:06/02/2024 Address:[address] [place], [place] [phone] Pcp:Loki Baird (RETIRED )MD Subjective: * Chief [...] 06/02/2024 Generated for Chi torres/Danuta/Yeitting on: 0 11/07/2024 06:11 AM EDT
--- OUTSIDE RECORDS SUMMARY | 2024-11-07 06:11 | XMS_ITS | Clinical Summary ---
Author Organization [facility] Address [address] [employer] [facility] [address] [place] [address] Phone Care Team Providers Care Optical Goods Worker Name Role Phone Loki Baird MD Primary [...] 2008 ZOSTER VACCINES (1 of 2) 2008 ABDOMINAL AORTIC ANEURYSM (AAA) SCREENING 10/20/2023 INFLUENZA VACCINE (#1) 2024 12/06/2019 COVID-19 VACCINE (3 - 2024-2 6 season) 2024 06/18/2020, 05/21/2020 RSV VACCINE (1 - 1-dose 75+ series) [...] topic Medical Devices Not on file Insurance [facility] Care Teams Optical Goods Worker Relationship Specialty Start Date End Date Loki Baird MD [address] [place] [address] [place] [address] PCP - General Internal Medicine 05/26/17 Additional Source Comments The information contained in this document represents components of the legal health record. It is not the complete legal health record.[facility]
--- OUTSIDE RECORDS SUMMARY | 2024-11-07 06:12 | XMS_ITS | Patient Health Record ---
Author Organization [facility] Address [address] [place] [phone] Care Team Providers Care Flask Cleaner Name Role Phone Brie (RETIRED) Loki MICHAEL Primary Care Provide r Jonny Diaz Jr Unavailable [phone] Allergies No Known Allergies Results Component Value Reference Range Notes Pathology Reviewed date:01/05/2024 08:31:33 AM Interpretation: Performing Lab:[facility], [address] [place] [phone] Notes/Report: Pathology Reviewed date:06/07/2024 03:19:15 PM Interpretation: Performing Lab:[facility], [address] [place] [phone] Notes/Report: Reason For Referral No Information Medications Medication SIG (Take, Route, Frequency, Duration) Notes Start Date End Date Status Aspir-81 81 MG 1 tablet Orally Once a day Active Atorvastatin Calcium 10 MG 1 tablet Oral ly Once a day Active Omeprazole 40 MG TAKE 1 CAPSULE BY [facility] EVERY DAY 30 MINUTES BEFORE MORNING MEAL [...] Problem Status W/U Status Risk Notes Problem 991849851 Colon cancer screening (Z12.11) Active confirmed Problem Diverticular disease of colon (815040617) Diverticulosis of large intestine without perforation or abscess without bleeding (K57.30) Active confirmed Problem 251824563 Gastroesophageal reflux disease without esophagitis (K21.9) Active confirmed Problem Gastric polyp (82124845) Gastric polyp (K31.7) Active confirmed Problem Gastritis (9382040) Gastritis (K29.70) Active confirmed Problem 209127428 Family history o f gastric cancer (Z80.0) Active confirmed Problem 230214410 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 Vital Signs Temperature 98.7 degrees Fahrenheit 03/13/2024 Blood pressure diastolic 00 mm Hg 03/13/2024 Height 66 in 03/13/2024 Blood pressure systolic 000 mm Hg 03/13/2024 Weight 200 lbs 03/13/2024 BMI 32.28 kg/m2 03/13/2024 Encounters Encounter Location Date Provider Diagnosis [facility] Outpatient [address] [place] [id number] 12/31/2023 Jonny Gonzalez Jr 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 [facility] Outpatient [address] [place] [id number] 06/02/2024 Jonny Gonzalez Jr 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 [facility] [address] [place] [phone] 03/13/2024 Jonny Gonzalez Jr Hereditary diffuse gastric cancer syndrome Z15.09 ; Gastroesophageal reflux disease without esophagitis K21.9 and Screening for colon cancer Z12.11 [facility] [address] [place] [phone] 01/05/2024 Jonny Gonzalez Jr [facility] [address] [place] [address] 06/07/2024 Jonny Gonzalez Jr [facility] [address] [place] [address] 06/22/2024 Jonny Gonzalez Jr Hereditary diffuse gastric cancer syndrome Z15.09 Assessments Encounter Date Diagnosis (ICD Code) Assessment Notes Treatment Notes Treatment Clinical Notes Section Notes 12/31/2023 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 06/22/2024 Hereditary diffuse gastric cancer syndrome (ICD-10 - [...] GI ENDOSCOPY 06/03/2023 UPPER GI ENDOSCOPY 03/13/2024 UPPER GI ENDOSCOPY 06/23/2024 Next Appt Details Provider Name:Jonny Harden Leo rico Jr, 12/08/2024 07:30:00 AM, [address] [facility] , [place], [place], [phone], Insurance Providers Payer Name Payer Address Payer Phone Subscriber Number Group Number Insured Name Patient Relationship to Insured Coverage Start Date Coverage End Date MED[place] [address] [facility] [place] [place] [address] [id number] ODNAVON MENESES Self - patient is the insured [facility] [address] [place], [place] [phone] [id number] DONAVON MENESES Self - patient is the insured Medical [...]
--- OUTSIDE RECORDS SUMMARY | 2024-11-07 06:12 | XMS_ITS | Patient Health Record ---
Author Organization [facility] Address [address] [place] [address] Care Team Providers Care Buttermaker Helper Name Role Phone Loki Baird MD Primary Care Provider Unavaila ble Black, Iva Unavailable [phone] Reason For Referral No Information Medications Medication [...] Treatment Pending Test Test Name Order Date [id number] NAIL, 1-5 12/31/2014 [id number] 12/31/2014 [id number] 01/23/2015 [id number] SKIN/TISSUE 02/13/2015 [id number] SKIN/TISSUE 01/23/2015 Insurance Providers Payer Name Payer Address Payer Phone Subscriber Number Group Number Insured Name Patient Relationship to Insured Coverage Start Date Coverage End Date [facility] [address] [place] [address] [id number] Rebecca Patel Self - patient is the insured Medical (General) History Medical History History ICD Code Chicken pox Surgical History Surgery Date(Month/Year) shoulder surgery 2013
[2024-11-07 07:11] LABS: Hematocrit 43.6 % (42.0-52.0); Hemoglobin 14.4 g/dl (14.0-18.0); Mean Corpuscular HGB Conc 33.0 g/dl (31.0-36.0); Mean Corpuscular Hemoglobin 31.2 pg (27.0-33.0); Mean Corpuscular Volume 94.4 fL (80.0-98.0); NRBC Abs Auto 0.000 X10*3/uL (0.0-0.012); NRBC Pct Auto 0.0 /100WBC (0.0-0.2); Platelet Count 168 X10*3/uL (160-400); Red Blood Count 4.62 X10*6/uL (4.60-5.80); White Blood Count 8.6 X10*3/uL (4.8-10.8)
[2024-11-07 07:49] LABS: Iron 77 mcg/dL (45-160); Percent Iron Saturation 34 % (15-50); Total Iron Binding Capacity 226 mcg/dL (228-428); Unsaturated Iron Binding 149 ug/dL
[2024-11-07 08:04] LABS: Ferritin 194 ng/mL (20-250)
[2024-11-07 08:09] LABS: Prostate Specific Antigen 4.12 ng/mL (<0.05-4.0)
[2024-11-07 08:18] LABS: Folate 9.4 ng/mL (> or = 4.0); Vitamin B12 290 pg/mL (200-900)
[2024-11-07 08:42] LABS: Free T4 (Free Thyroxine) 0.87 ng/dL (0.71-1.85)
== END 2024-11-07 06:09 | disposition home or self-care (01) ==
LOC: HO.LAB 06:08
PROVIDERS: Urology; PCP Nurse Practitioner Family; Visit Provider Nurse Practitioner Family
DX: N40.1 Benign prostatic hyperplasia with lower urinary tract symptoms (principal); R97.20 Elevated prostate specific antigen [PSA]; E03.9 Hypothyroidism, unspecified; R73.01 Impaired fasting glucose; D64.9 Anemia, unspecified; Z12.5 Encounter for screening for malignant neoplasm of prostate
CPT/HCPCS: 36415; 82607; 82728; 82746; 82947; 83540; 84153; 84439; 84443; 85027

== ENCOUNTER 2024-11-10 09:54 | Outpatient (AMB) | payer MEDICARE, BC, SELFPAY ==
--- OUTSIDE RECORDS SUMMARY | 2023-12-31 03:30 | XMS_ITS ---
Author Organization [facility] Address [address] [place] [address] Care Team Providers Care Operations Officer Trust Department Name Role Phone Brie (RETIRED) Loki MICHAEL Primary Care Provide r Quinton Gonzalez Jr, Jonny Unavailable REASON FOR VISIT hereditary diffused gastric cancer syndrome Problems Problem Type SNOMED Code ICD Code Onset Dates Problem Status W/U Status Risk Notes Problem Gastric polyp (97409327) Gastric polyp (K31.7) Active confirmed Encounters Encounter Location Date Provider Diagnosis [facility] Outpatient [address] [place] [phone] 12/31/2023 Jonny Gonzalez Jr 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 Assessments Encounter Date Diagnosis (ICD Code) Assessment Notes Treatment Notes Treatment Clinical Notes Section Notes 12/31/2023 Jones syndrome (ICD-10 - Z15.09) Plan Of Treatment Next Appt Details Provider Name:Jonny rico Jr, 12/08/2024 07:30:00 AM, [address] [place] [address], [phone], Progress Notes * DONAVON MENESESDOB: [birth year] (64 yo M)Acc No.[id number]:12/31/2023 EGD/MAC Patient: DONAVON DAVENPORT Provider: Zackary Gonzalez MD :1960 A ge:63 Y S ex:Male Date:12/31/2023 Address:[address] [place], [place] [phone] Pcp:Loki Baird (RETIRED )MD Subjective: * Chief [...] Gonzalez MD Date: 03/01/2023 Generated for Chi torres/Danuta/Elyssasmitting on: 10:36 AM EDT
--- OUTSIDE RECORDS SUMMARY | 2024-06-02 03:30 | XMS_ITS ---
Author Organization [facility] Address [address] [place] [phone] Care Team Providers Care Digital Manager Name Role Phone Brie (RETIRED) Loki MICHAEL Primary Care Provide r Quinton Gonzalez Jr, Jonny Alcantara REASON FOR VISIT hereditary diffuse gastric ca syndrome Encounters Encounter Location Date Provider Diagnosis [facility] [place] [address] [place] [phone] 06/02/2024 Jonny Gonzalez Jr 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 Assessments Encounter Date Diagnosis (ICD Code) Assessment Notes Treatment Notes Treatment Clinical Notes Section Notes 06/02/2024 Jones syndrome (ICD-10 - Z15.09) Plan Of Treatment Next Appt Details Provider Name:Jonny rico Jr, 12/08/2024 07:30:00 AM, [address] [place] [address], [phone], Progress Notes * DONAVON MENESESDOB: [birth year] (64 yo M)Acc No.[id number]:06/02/2024 EGD/MAC Patient: DONAVON DAVENPORT Provider: Zackary Gonzalez MD :1960 A ge:63 Y S ex:Male Date:06/02/2024 Address:[address] [place], [place] [phone] Pcp:Loki Baird (RETIRED )MD Subjective: * Chief [...] 0 06/02/2024 Generated for Chi torres/Danuta/Yeitting on: 10:36 AM EDT
--- NOTE | 2024-11-10 09:56 | A.OFFPC_ITS ---
Vital Signs 11/10/24 10:02 11/10/24 10:54 Height 5 ft 6 in Weight 190 lb 4 oz BMI 30.7 BP 140/81 H 136/84 Blood Pressure Location Rt brachial Rt brachial Position Sitting Sitting Respiration 16 Pulse 70 Pulse Source Pulse Oximeter Temp 97.8 F Temp Source Oral Pulse Oximetry (%) 98 Oxygen Delivery Method Room Air Intake Visit Reasons: 6 wks anemia, high fbs, hypothyroidism Intake Note: patient here for 6 wks follow up on anemia, high fbs, hypothyroidsm and refill for Ibuprofen. Web Content & Social Media Manager Required: No Allergies No Known Allergies (No Known Allergies*) Allergy (Verified 11/10/24 10:54) Medication List - Last Reconciled 11/10/24 by Campos Jalloh CNP aspirin 81 mg PO DAILY atorvastatin 10 mg PO BEDTIME ciprofloxacin HCl 500 mg PO BID finasteride (Proscar) 5 mg PO DAILY hydrocodone-acetaminophen 5-325 mg 1 tab PO Q24H PRN ibuprofen 800 mg PO BID PRN levothyroxine (Levoxyl) 25 mcg PO DAILY 30 days losartan 1 tab PO DAILY omeprazole 40 mg PO DAILY Tobacco use date assessed: 11/10/24 Fall risk assessment: No Falls in past year Last assessed Fall Risk: 11/10/24 Dental Screening Dental Screen Date: 11/10/24 Did you have a dental visit in the last 12 months?: Yes Did you have a dental problem in the last 6 months where you did not have access to dental care?: No Was dental information given to patient?: Patient has dentist HPI HPI Comments History of Present Illness Details 64-year-old male presents for anemia, el evated fasting glucose, and hypothyroidism follow-up. He admits to taking his medications as prescribed without adverse reactions. No acute symptoms at this time. [facility] Medical History (Updated 11/10/24 @ 11:27 by Campos Jalloh CNP) Coronary artery calcification Hypertension Hyperlipidemia Obstructive sleep apnea on CPAP Personal history of nicotine dependence Emphysema lung Dyspnea Heartburn Tubular adenoma of colon Monoallelic mutation of CDH1 gene Family history of cancer of GI tract Surgical History History of esophagogastroduodenoscopy (EGD) History of colonoscopy History of tonsillectomy and adenoidectomy History of vasectomy History of elbow surgery History of repair of right rotator cuff History of repair of left rotator cuff History of medial meniscus repair of right knee History of right knee surgery Family History Father Metastatic cancer Hx of myocardial infarction CHF (congestive heart failure) DM2 (diabetes mellitus, type 2) Mother Hx of myocardial infarction COPD (chronic obstructive pulmonary disease) Osteoporosis CHF (congestive heart failure) Sister Monoallelic mutation of CDH1 gene History of stomach cancer BOOP (bronchiolitis obliterans with organizing pneumonia) Sister Monoallelic mutation of CDH1 gene History of stomach cancer Afib Sister Hx of myocardial infarction Monoallelic mutation of CDH1 gene Daughter History of stomach cancer Monoallelic mutation of CDH1 gene Son No problems noted. Social History Housing: House Alcohol intake: current Alcohol intake frequency: holidays/special occasions only Alcohol type: beer and wine Patient Tobacco Use Status: Current everyday Tobacco user Tobacco use type: Cigar Years Smoked: 35 e-Cigarette/Vaping Use: Never Used Second Hand Smoke Exposure: No Advance Directives Date on File: 05/17/20 service: Yes (Served in the [employer]) Current occupational status: employed and retired Current occupation: Worked for [email or web address] - Retired 02/2024 Current occupational exposures/hazards: No Cognitive needs: No Hearing needs: No Vision needs: Yes Questionnaire Thrive Questionnaire Date Thrive assessed: 08/21/24 I am a: Patient What is your living situation today?: I have a steady place to live Within the past 12 months, did the food you bought not last and you didn't have the money to get more?: Never true Within the past 12 months, did you worry whether your food would run out before you got money to buy more?: Never true Do you have trouble paying for medicines?: No Do you have trouble getting transportation to medical appointments?: No Do you have trouble paying your heating and electricity bill?: No Do you have trouble taking care of your child, family member or friend?: No Do you have trouble with day-to-day activities such as bathing, preparing meals, shopping, managing finances, etc.?: No Are you currently unemployed and looking for a job?: No Are you interested in more education?: No Please select the resources that you would like help with: None Currently or been in a relationship where the following occur: No concerns reported THRIVE Score: 0 TIMMY-7 AMB Questionnaire TIMMY-7 Date TIMMY - 7 assessed: 08/28/24 Source: Developed by Drs. Daniel Meyers, Frida Albert, Abran Pastrana and colleagues, with an educational rolan from [employer]. Review of Systems Const Details: Const Denies chills, Denies fatigue, Denies fever(s), Denies headache(s) and Denies weakness ENT Denies dizziness and Denies headache(s) Card Denies chest pain, Denies lightheadedness, Denies dyspnea and Denies other (Palpitations) Resp Denies cough, Denies dyspnea, Denies wheezing and Denies other ( shortness of breath) GI Denies abdominal pain, Denies melena, Denies hematochezia, Denies change in bowel habits, Denies dyspepsia and Denies nausea Denies hematuria and Denies dysuria Musc Denies abnormal gait, Denies myalgias, Denies arthralgias, Denies numbness and Denies tingling Skin/Breast Denies rash, Denies unusual bruising and Denies wounds Neuro Denies abnormal gait, Denies dizziness, Denies headache(s), Denies memory loss, Denies numbness, Denies Sensory deficit (Neuro), Denies tingling and Denies weakness Psych Denies anxiety, Denies depression, Denies memory loss Endo Denies cold intolerance, Denies fatigue, Denies heat intolerance, Denies polydipsia and Denies polyuria Aller/Immun Denies wheezing Physical exam (Primary Care) Vital Signs: Last Vital Signs Temp 97.8 F 11/10/24 10:02 Pulse 70 11/10/24 10:02 Resp 16 11/10/24 10:02 BP 136/84 11/10/24 10:54 Pulse Ox 98 11/10/24 10:02 Oxygen Delivery Method Room Air 11/10/24 10:02 BMI result Body Mass Index 30.7 Tobacco/Smoking Status: Tobacco use Status Tobacco use date assessed 11/10/24 11/10/24 10:04 Patient Tobacco Use Status Current everyday Tobacco 11/10/24 10:01 Tobacco use type Cigar 11/10/24 10:01 e-Cigarette/Vaping Use Never Used 11/10/24 10:01 Thrive Assessment: Date of Thrive Assessment Date Thrive assessed 08/21/24 11/10/24 10:01 Currently or been in a relationship where the following occur: No concerns reported Const Other: General: no acute distress and well developed Nutritional Appearance: well nourished Orientation/consciousness: patient oriented x3 HENMT Head: Yes normocephalic and Yes atraumatic Eyes General: appearance normal, both eyes and all related structures Pupils: Equal, round and reactive pupils present EOM: EOMs intact bilaterally Resp Effort & Inspection: normal respiratory effort Auscultation: clear to auscultation bilaterally Cardio Rate: regular rate Rhythm: regular rhythm Heart sounds: S1 normal heart sound present, S2 normal heart sound present, no gallops, no murmurs and no rubs GI Palpation (GI): No Abdominal aortic bruit present, Soft to palpation, nontender, No hepatosplenomegaly present and No Rebound tenderness present Auscultation: normal bowel sounds General: Yes no CVA tenderness Back/Spine/Pelvis Back: no CVA tenderness Cervical Spine: cervical ROM normal and No Cervical spine tenderness Thoracic/Lumbar Spine: thoraco-lumbar ROM normal, No pain with thoraco-lumbar ROM, No thoracic spinal tenderness and No lumbar spinal tenderness Extrem General: Yes normal to inspection, No edema and No calf tenderness Skin General: warm and dry. Normal skin color. Normal skin turgor Neuro General: patient oriented x3, gait normal and no focal neuro deficit Cranial nerves: Yes Equal, round and reactive pupils present Cognition (Neuro): normal cognition Gait exam (Neuro): Normal gait present Sensory Exam: No Sensory deficit (Neuro) Psych Appearance: grossly normal Affect: normal affect Attitude: cooperative Thought process: Normal thought process present Results AMB Hemoglobin A1c AMB Hemoglobin A1c 6.0 % Last Edit by Thuy Rosario MA on 11/10/24 11:09 Results Reviewed Results Reviewed: Laboratory Last Values Hgb A1c (Clinic) 6.0 % (4.0-6.0) 11/10/24 10:45 Coding Level of Care Code Est Pt Level 4 (59179) Diagnoses Hypertension I10 Hypothyroidism E03.9 Normocytic anemia D64.9 Elevated PSA R97.20 Prediabetes R73.03 Assessment & Plan Assessment & Plan (1) Hypertension: Code(s): I10 - Essential (primary) hypertension Category: Medical Plan: Resting blood pressure is 136/84, within goal of less than 140/90. Continue current treatment regimen. Low sodium diet encouraged. Follow up in 2 months or sooner with symptoms or concerns. Verbalized understanding and agreed with the plan. (2) Hypothyroidism: Code(s): E03.9 - Hypothyroidism, unspecified Category: Medical Plan: Recent TSH level is elevated, 20.96, free T4/T3 are normal. Previous TSH level was 20.84. Will increase levothyroxine to 50 mcg daily; advised to take as prescribed, with a full glass of water, on an empty stomach, 30 minutes an hour before other meds ro meals. Will recheck TSH/T4 levels in 6 weeks. Verbalized understanding and agreed with the plan. (3) Normocytic anemia: Code(s): D64.9 - Anemia, unspecified Category: Medical Plan: Stable. Recent CBC, iron profile, ferritin, vitamin B12, and folate levels are normal. (4) Elevated PSA: Code(s): R97.20 - Elevated prostate specific antigen [PSA] Category: Medical Plan: Recent PSA level is slightly elevated, 4.12. Continue current tx. Followed by [facility] urology. (5) Prediabetes: Code(s): R73.03 - Prediabetes Category: Medical Plan: Recent fasting glucose is elevated, 123, previous level was 111. A1c today is 6.0%. He notes that his father had diabetes. Healthy diet, including low carbs and routine exercise encouraged. Will monitor A1c in 6 months. Verbalized understanding and agreed with the plan. Orders: Orders AMB Hemoglobin A1c Today Z13.9 - Encounter for screening, unspecified Medications: New levothyroxine (Levoxyl) 50 mcg PO DAILY 60 tabs 3RF 60 days Discontinued levothyroxine (Levoxyl) Discontinued Reason: Doctor's Order 25 mcg PO DAILY 30 days 30 tabs 3RF
[2024-11-10 10:02] VITALS: BP 140/81; PULSE 70; RESP 16; TEMP 36.6; O2SAT 98; BMI 30.7
--- OUTSIDE RECORDS SUMMARY | 2024-11-10 10:36 | XMS_ITS | Clinical Summary ---
Author Organization [facility] Address [address] [address] [facility] [address] [place] [phone] Phone Care Team Providers Care Metal Products Fabricator Assembler Name Role Phone Loki Baird MD Primary [...] topic Medical Devices Not on file Insurance [facility] Care Teams Metal Products Fabricator Assembler Relationship Specialty Start Date End Date Loki Baird MD [address] [place] [address] [place] [address] PCP - General Internal Medicine 05/26/17 Additional Source Comments The information contained in this document represents components of the legal health record. It is not the complete legal health record.[facility]
--- OUTSIDE RECORDS SUMMARY | 2024-11-10 10:37 | XMS_ITS | Patient Health Record ---
Author Organization [facility] Address [address] [place] [address] Care Team Providers Care Policy Analyst Name Role Phone Loki Baird MD Primary Care Provider Unavaila ble Black, Iva Unavailable [phone] Reason For Referral No Information Medications Medication [...] Treatment Pending Test Test Name Order Date [id number] NAIL, 1-5 12/31/2014 [id number] 12/31/2014 [id number] 01/23/2015 [id number] SKIN/TISSUE 02/13/2015 [id number] SKIN/TISSUE 01/23/2015 Insurance Providers Payer Name Payer Address Payer Phone Subscriber Number Group Number Insured Name Patient Relationship to Insured Coverage Start Date Coverage End Date [facility] [address] [place] [address] [phone] [id number] Rebecca Patel Self - patient is the insured Medical (General) History Medical History History ICD Code Chicken pox Surgical History Surgery Date(Month/Year) shoulder surgery 2013
--- OUTSIDE RECORDS SUMMARY | 2024-11-10 10:37 | XMS_ITS | Patient Health Record ---
Author Organization [facility] Address [address] [place] [phone] Care Team Providers Care Medicine Tech Name Role Phone Brie (RETIRED) Loki MICHAEL Primary Care Provide r Jonny Diaz Jr Unavailable [phone] Allergies No Known Allergies Results Component Value Reference Range Notes Pathology Reviewed date:01/05/2024 08:31:33 AM Interpretation: Performing Lab:[facility], [address] [place] [phone] Notes/Report: Pathology Reviewed date:06/07/2024 03:19:15 PM Interpretation: Performing Lab:[facility], [address] [place] [phone] Notes/Report: Reason For Referral No Information Medications Medication SIG (Take, Route, Frequency, Duration) Notes Start Date End Date Status Aspir-81 81 MG 1 tablet Orally Once a day Active Atorvastatin Calcium 10 MG 1 tablet Oral ly Once a day Active Omeprazole 40 MG TAKE [address] [facility] EVERY DAY 30 MINUTES BEFORE MORNING [...] Problem Status W/U Status Risk Notes Problem 100192065 Colon cancer screening (Z12.11) Active confirmed Problem Diverticular disease of colon (463525732) Diverticulosis of large intestine without perforation or abscess without bleeding (K57.30) Active confirmed Problem 123910084 Gastroesophageal reflux disease without esophagitis (K21.9) Active confirmed Problem Gastric polyp (15899660) Gastric polyp (K31.7) Active confirmed Problem Gastritis (7828390) Gastritis (K29.70) Active confirmed Problem 525115134 Family history o f gastric cancer (Z80.0) Active confirmed Problem 839749047 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 Vital Signs Temperature 98.7 degrees Fahrenheit 03/13/2024 Blood pressure diastolic 00 mm Hg 03/13/2024 Height 66 in 03/13/2024 Blood pressure systolic 000 mm Hg 03/13/2024 Weight 200 lbs 03/13/2024 BMI 32.28 kg/m2 03/13/2024 Encounters Encounter Location Date Provider Diagnosis [facility] [place] [address] [place] [id number] 12/31/2023 Jonny Gonzalez Jr 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 [facility] Out[place] [address] [place] [id number] 06/02/2024 Jonny Gonzalez Jr 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 [facility] [address] [place] [phone] 03/13/2024 Jonny Gonzalez Jr Hereditary diffuse gastric cancer syndrome Z15.09 ; Gastroesophageal reflux disease without esophagitis K21.9 and Screening for colon cancer Z12.11 [facility] [address] [place] [phone] 01/05/2024 Jonny Gonzalez Jr [facility] [address] [place] [address] 06/07/2024 Jonny Gonzalez Jr [facility] [address] [place] [address] 06/22/2024 Jonny Gonzalez Jr Hereditary diffuse gastric [...] Leo rico Jr, 12/08/2024 07:30:00 AM, [address] [facility] , [place], [place], [id number], Insurance Providers Payer Name Payer Address Payer Phone Subscriber Number Group Number Insured Name Patient Relationship to Insured Coverage Start Date Coverage End Date [place] [address] [place] [address] [id number] DONAVON MENESES Self - patient is the insured [place] [address] [place], [place] [id number] [phone] [id number] DONAVON MENESES Self - patient is the [...]
[2024-11-10 10:54] VITALS: BP 136/84
== END 2024-11-10 11:23 | disposition home or self-care (01) ==
LOC: HO.HMCFM 09:55
PROVIDERS: PCP Nurse Practitioner Family; Visit Provider Nurse Practitioner Family
DX: I10 Essential (primary) hypertension (principal); E03.9 Hypothyroidism, unspecified; D64.9 Anemia, unspecified; R97.20 Elevated prostate specific antigen [PSA]; R73.03 Prediabetes; Z13.9 Encounter for screening, unspecified

== ENCOUNTER → 2024-11-10 09:54 | Outpatient (BNVA) | payer MEDICARE, BC, SELFPAY | PROVIDERS: PCP Nurse Practitioner Family; Visit Provider Nurse Practitioner Family | DX: I10 Essential (primary) hypertension (principal); E03.9 Hypothyroidism, unspecified; D64.9 Anemia, unspecified; R97.20 Elevated prostate specific antigen [PSA]; R73.03 Prediabetes | CPT/HCPCS: 83036; 99212 ==

== ENCOUNTER 2024-12-08 06:27 | Day surgery (SDC) | payer MEDICARE, BC, SELFPAY ==
--- OUTSIDE RECORDS SUMMARY | 2023-12-31 03:30 | XMS_ITS ---
Author Organization [facility] Address [address] [place] [address] Care Team Providers Care Lingo Cleaner Name Role Phone Brie (RETIRED) Loki MICHAEL Primary Care Provide r Quinton Gonzalez Jr, Jonny Unavailable REASON FOR VISIT hereditary diffused gastric cancer syndrome Problems Problem Type SNOMED Code ICD Code Onset Dates Problem Status W/U Status Risk Notes Problem Gastric polyp (14212806) Gastric polyp (K31.7) Active confirmed Encounters Encounter Location Date Provider Diagnosis [facility] [place] [address] [place] [address] [phone] 12/31/2023 Jonny Gonzalez Jr 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 Assessments Encounter Date Diagnosis (ICD Code) Assessment Notes Treatment Notes Treatment Clinical Notes Section Notes 12/31/2023 Jones syndrome (ICD-10 - Z15.09) Plan Of Treatment Next Appt Details Provider Name:Jonny rico Jr, 12/08/2024 07:30:00 AM, [address] [place] [address], [phone], Progress Notes * DONAVON MENESESDOB: [birth year] (64 yo M)Acc No.[id number]:12/31/2023 EGD/MAC Patient: DONAVON DAVENPORT Provider: Zackary Gonzalez MD :1960 A ge:63 Y S ex:Male Date:12/31/2023 Address:[address] [place], [place] [phone] Pcp:Loki Baird (RETIRED )MD Subjective: * Chief [...] Date: 03/01/2023 Generated for Chi torres/Danuta/Yeitting on: 05:45 PM EDT
--- OUTSIDE RECORDS SUMMARY | 2024-06-02 03:30 | XMS_ITS ---
Author Organization [facility] Address [address] [place] [phone] Care Team Providers Care Electrical Installation Inspector Name Role Phone Brie (RETIRED) Loki MICHAEL Primary Care Provide r Quinton Gonzalez Jr, Jonny Alcantara [phone] REASON FOR VISIT hereditary diffuse gastric ca syndrome Encounters Encounter Location Date Provider Diagnosis [facility] [place] Outpatient [address] [place] [phone] 06/02/2024 Jonny Gonzalez Jr 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 Assessments Encounter Date Diagnosis (ICD Code) Assessment Notes Treatment Notes Treatment Clinical Notes Section Notes 06/02/2024 Jones syndrome (ICD-10 - Z15.09) Plan Of Treatment Next Appt Details Provider Name:Jonny rico Jr, 12/08/2024 07:30:00 AM, [address] [place] [address], [phone], Progress Notes * DONAVON MENESESDOB: [birth year] (64 yo M)Acc No.[id number]:06/02/2024 EGD/MAC Patient: DONAVON DAVENPORT Provider: Zackary Gonzalez MD :1960 A ge:63 Y S ex:Male Date:06/02/2024 Address:[address] [place], [place] [phone] Pcp:Loki Baird (RETIRED )MD Subjective: * Chief [...] 0 06/02/2024 Generated for Chi torres/Danuta/Yeitting on: 05:45 PM EDT
--- OUTSIDE RECORDS SUMMARY | 2024-11-13 17:45 | XMS_ITS | Clinical Summary ---
Author Organization [facility] Address [id number] [facility] [address] [place] [address] Phone Care Team Providers Care Rifle Case Repairer Name Role Phone Loki Baird MD [...] topic Medical Devices Not on file Insurance [facility] Care Teams Rifle Case Repairer Relationship Specialty Start Date End Date Loki Baird MD [address] [place] [address] [place] [address] PCP - General Internal Medicine 05/26/17 Additional Source Comments The information contained in this document represents components of the legal health record. It is not the complete legal health record.[facility]
--- OUTSIDE RECORDS SUMMARY | 2024-11-13 17:46 | XMS_ITS | Patient Health Record ---
Author Organization [facility] Address [address] [place] [phone] Care Team Providers Care Digital Account Manager Name Role Phone Brie (RETIRED) Loki MICHAEL Primary Care Provide r Jonny Diaz Jr Unavailable [phone] Allergies No Known Allergies Results Component Value Reference Range Notes Pathology Reviewed date:01/05/2024 08:31:33 AM Interpretation: Performing Lab:[facility], [address] [place] [phone] Notes/Report: Pathology Reviewed date:06/07/2024 03:19:15 PM Interpretation: Performing Lab:[facility], [address] [place] [phone] Notes/Report: Reason For Referral No Information Medications Medication SIG (Take, Route, Frequency, Duration) Notes Start Date End Date Status Aspir-81 81 MG 1 tablet Orally Once a day Active Atorvastatin Calcium 10 MG 1 tablet Oral ly Once a day Active Omeprazole 40 MG TAKE 1 CAPSULE BY [facility] EVERY DAY 30 MINUTES BEFORE MORNING [...] Problem Status W/U Status Risk Notes Problem 496503535 Colon cancer screening (Z12.11) Active confirmed Problem Diverticular disease of colon (601143884) Diverticulosis of large intestine without perforation or abscess without bleeding (K57.30) Active confirmed Problem 086746964 Gastroesophageal reflux disease without esophagitis (K21.9) Active confirmed Problem Gastric polyp (89966017) Gastric polyp (K31.7) Active confirmed Problem Gastritis (7345240) Gastritis (K29.70) Active confirmed Problem 478640677 Family history o f gastric cancer (Z80.0) Active confirmed Problem 068534995 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 Vital Signs Temperature 98.7 degrees Fahrenheit 03/13/2024 Blood pressure diastolic 00 mm Hg 03/13/2024 Height 66 in 03/13/2024 Blood pressure systolic 000 mm Hg 03/13/2024 Weight 200 lbs 03/13/2024 BMI 32.28 kg/m2 03/13/2024 Encounters Encounter Location Date Provider Diagnosis [facility] Out[place] [address] [place] [id number] 12/31/2023 Jonny Gonzalez Jr 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 [facility] Out[place] [address] [place] [id number] 06/02/2024 Jonny Gonzalez Jr 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 [facility] [address] [place] [phone] 03/13/2024 Jonny Gonzalez Jr Hereditary diffuse gastric cancer syndrome Z15.09 ; Gastroesophageal reflux disease without esophagitis K21.9 and Screening for colon cancer Z12.11 [facility] [address] [place] [phone] 01/05/2024 Jonny Gonzalez Jr [facility] [address] [place] [address] 06/07/2024 Jonny Gonzalez Jr [facility] [address] [place] [address] 06/22/2024 Jonny Gonzalez Jr Hereditary diffuse gastric [...] Leo rico Jr, 12/08/2024 07:30:00 AM, [address] [facility] , [place], [place], [id number], Insurance Providers Payer Name Payer Address Payer Phone Subscriber Number Group Number Insured Name Patient Relationship to Insured Coverage Start Date Coverage End Date [place] OF [place] [address] [place] [address] [id number] DONAVON MENESES Self - patient is the insured [facility] [address] [place], [place] [id number] [phone] [id number] DONAVON MENESES Self - patient is the [...]
--- NOTE | 2024-12-06 09:36 | P.CONAN_ITS ---
Documented by User: Fanny Waddell NP 12/06/24 09:37 HPI - Anesthesia Eval Consult details Narrative: 64yo M for Upper Endoscopy s/p same 05/2024 with TIVA PMFSH Active Problems Active Problems: All Active Problems Prediabetes (Acute) Hypothyroidism (Acute) Low HDL (under 40) (Acute) Elevated fasting glucose (Acute) Normocytic anemia (Acute) Elevated TSH (Acute) BPH with elevated PSA (Acute) Vaccine counseling (Acute) Nicotine dependence (Acute) Laboratory tests ordered as part of a complete physical exam (CPE) (Acute) Eye exam, routine (Acute) Normal physical examination, routine (Acute) History of nicotine use (Acute) BPH loc w urin obs/LUTS (Acute) Elevated PSA (Acute) MCL sprain of right knee (Acute) Coronary artery calcification (Acute) Hyperlipidemia (Acute) Hypertension (Acute) Obstructive sleep apnea on CPAP (Acute) Monoallelic mutation of CDH1 gene (Acute) Tubular adenoma of colon (Acute) Personal history of nicotine dependence (Acute) Emphysema lung (Acute) Dyspnea (Acute) Tear of medial meniscus of right knee (Acute) Right knee pain (Acute) Past Medical History Medical History BPH (benign prostatic hyperplasia) Pre-diabetes Hypothyroid Coronary artery calcification Hypertension Hyperlipidemia Obstructive sleep apnea on CPAP Personal history of nicotine dependence Emphysema lung Dyspnea Heartburn Tubular adenoma of colon Monoallelic mutation of CDH1 gene Family history of cancer of GI tract Family History Family History Father Metastatic cancer Hx of myocardial infarction CHF (congestive heart failure) DM2 (diabetes mellitus, type 2) Mother Hx of myocardial infarction COPD (chronic obstructive pulmonary disease) Osteoporosis CHF (congestive heart failure) Sister Monoallelic mutation of CDH1 gene History of stomach cancer BOOP (bronchiolitis obliterans with organizing pneumonia) Sister Monoallelic mutation of CDH1 gene History of stomach cancer Afib Sister Hx of myocardial infarction Monoallelic mutation of CDH1 gene Daughter History of stomach cancer Monoallelic mutation of CDH1 gene Son No problems noted. Family history of problems with anesthesia: No Surgical History Surgical History History of esophagogastroduodenoscopy (EGD) History of colonoscopy History of tonsillectomy and adenoidectomy History of vasectomy History of elbow surgery History of repair of right rotator cuff History of repair of left rotator cuff History of medial meniscus repair of right knee History of right knee surgery History of Problems with Anesthesia: No Social History Social History Housing: House Alcohol intake: current Alcohol intake frequency: holidays/special occasions only Alcohol type: beer and wine Patient Tobacco Use Status: Current everyday Tobacco user Tobacco use type: Cigar Years Smoked: 35 e-Cigarette/Vaping Use: Never Used Second Hand Smoke Exposure: No Use of substances other than those prescribed or required for medical reasons: No Have you been hit, kicked, punched, or otherwise hurt by someone within the past year? If so, by whom?: No Are you DNR?: No Advance Directives: No Advance Directives Information Provided: Yes Advance Directives Date on File: 05/17/20 service: Yes (Served in [employer]) Current occupational status: employed and retired Current occupation: Worked for [employer] - Retired 02/2024 Current occupational exposures/hazards: No Cognitive needs: No Hearing needs: No Vision needs: Yes Meds Allergies Allergy/AdvReac Type Severity Reaction Status Date / Time No Known Allergies (No Known Allergy Verified 12/08/24 06:37 Allergies*) Home Medications ?Medication ?Instructions ?Recorded ?Confirmed ?Last Taken ?Type aspirin 81 mg tablet 81 mg PO DAILY 11/10/1911/1012/02/24 History atorvastatin 10 mg tablet 10 mg PO BEDTIME 11/10/1906/02/24 02:00 History losartan 25 mg tablet 1 tab PO DAILY 11/14/1911/1006/02/24 02:00 History omeprazole 40 mg capsule,delayed 40 mg PO DAILY 12/08/24 06/02/24 02:00 History release Assessment and Plan Assessment Anesthesia Assessment: Chart Reviewed Final Anesthetic Review Family History of Problems with Anesthesia: No History of Problems with Anesthesia: No Documented by User: Los Jean MD 12/08/24 07:28 [facility] Past Medical History Medical History BPH (benign prostatic hyperplasia) Pre-diabetes Hypothyroid Coronary artery calcification Hypertension Hyperlipidemia Obstructive sleep apnea on CPAP Personal history of nicotine dependence Emphysema lung Dyspnea Heartburn Tubular adenoma of colon Monoallelic mutation of CDH1 gene Family history of cancer of GI tract Family History Family History Father Metastatic cancer Hx of myocardial infarction CHF (congestive heart failure) DM2 (diabetes mellitus, type 2) Mother Hx of myocardial infarction COPD (chronic obstructive pulmonary disease) Osteoporosis CHF (congestive heart failure) Sister Monoallelic mutation of CDH1 gene History of stomach cancer BOOP (bronchiolitis obliterans with organizing pneumonia) Sister Monoallelic mutation of CDH1 gene History of stomach cancer Afib Sister Hx of myocardial infarction Monoallelic mutation of CDH1 gene Daughter History of stomach cancer Monoallelic mutation of CDH1 gene Son No problems noted. Surgical History Surgical History History of esophagogastroduodenoscopy (EGD) History of colonoscopy History of tonsillectomy and adenoidectomy History of vasectomy History of elbow surgery History of repair of right rotator cuff History of repair of left rotator cuff History of medial meniscus repair of right knee History of right knee surgery Social History Social History Housing: House Alcohol intake: current Alcohol intake frequency: holidays/special occasions only Alcohol type: beer and wine Patient Tobacco Use Status: Current everyday Tobacco user Tobacco use type: Cigar Years Smoked: 35 e-Cigarette/Vaping Use: Never Used Second Hand Smoke Exposure: No Use of substances other than those prescribed or required for medical reasons: No Have you been hit, kicked, punched, or otherwise hurt by someone within the past year? If so, by whom?: No Are you DNR?: No Advance Directives: No Advance Directives Information Provided: Yes Advance Directives Date on File: 05/17/20 service: Yes (Served in the [employer]) Current occupational status: employed and retired Current occupation: Worked for [employer] - Retired 02/2024 Current occupational exposures/hazards: No Cognitive needs: No Hearing needs: No Vision needs: Yes Meds Allergies Allergy/AdvReac Type Severity Reaction Status Date / Time No Known Allergies (No Known Allergy Verified 12/08/24 06:37 Allergies*) Home Medications ?Medication ?Instructions ?Recorded ?Confirmed ?Last Taken ?Type aspirin 81 mg tablet 81 mg PO DAILY 11/10/1911/1012/02/24 History atorvastatin 10 mg tablet 10 mg PO BEDTIME 11/10/1906/02/24 02:00 History losartan 25 mg tablet 1 tab PO DAILY 11/14/1911/1006/02/24 02:00 History omeprazole 40 mg capsule,delayed 40 mg PO DAILY 12/08/24 06/02/24 02:00 History release Exam Airway Mallampati Class: II TM Dist: <=3cm Neck ROM: Full Loose/Missing/Broken Teeth: No Heart: ok Lungs: ok Assessment and Plan Assessment Anesthesia Assessment: Anesthesia Plan Discussed Final Anesthetic Review NPO: Yes ASA Class: III Final Preanesthetic Review: No Changes in Pt Med Stat, Meds/Allgs Chart Reviewed, Consent Obtained/Reviewed and Anes Risks/Benef Reviewed Patient Risk: Intermediate Procedure Risk: Intermediate Anesthetic Plan Anesthetic Plan: Agree w/ Assess. and Plan and TIVA Disposition: Standard PACU
[2024-12-06 12:09] VITALS: BMI 32.3
[2024-12-08 06:44] VITALS: BP 139/94; PULSE 84; RESP 17; TEMP 36.4; O2SAT 98; BMI 32.0
[2024-12-08] MEDS: Lactated Ringers 1,000 ML 100 ML IVCONT (06:52)
--- NOTE | 2024-12-08 07:30 | MHC.SHP ---
Pre-Procedural Eval Section A - 24 Hr Update-Section A only Date of Service: 12/08/24 Section B - Complete if H&P > 30 days Chief Complaint: Genetic susceptibility to other malignant neoplasm Details of Present Illness: see H&P no changes Relevant Family History (Specify if Yes): No Relevant Social History: None Present Medications: see Short Stay Collaborative assessment Medical History: No relevant PMH History of Previous Operations: No relevant previous surgery Allergies: Allergies Allergy/AdvReac Type Severity Reaction Status Date / Time No Known Allergies (No Known Allergy Verified 12/08/24 06:37 Allergies*) Review of Systems Sugical H&P ROS: Negative: Constitution, Cardiovascular, Respiratory, Neurological, Psychiatric, Hem-Onc, Allergic/Immunologic, Gastrointestinal, Genitourinary, Musculoskeletal, Integumentary, Endocrine and Eyes/Ears/Nose/Throat Exam Surgical H&P Exam: Normal: HEENT, Normal: Heart, Normal: Lungs, Normal: Extremities, Normal: Abdomen, Normal: Skin and Normal: Neurological Plan Diagnosis/Plan: Unchanged I have reviewed the history and physical and performed a pertinent physical examination on my patient. No changes have occurred unless specified. Time Spent With Patient Time: Total time managing care of this patient today ____ minutes.
[2024-12-08 08:12] VITALS: BP 111/55; PULSE 73; RESP 18; TEMP 36.5; O2SAT 93
[2024-12-08 08:15] VITALS: BP 96/61; PULSE 72; RESP 18; O2SAT 92
--- NOTE | 2024-12-08 08:17 | P.BOP_ITS ---
Brief Operative Note Date of Service: 12/08/24 Pre-op diagnosis: HDGC syndrome Post-op diagnosis: same Procedure: EGD Surgeon: Jonny Gonzalez MD Anesthesia: MAC Was an Director Pharmacovigilance used for this Procedure?: No Estimated blood loss (mL): 10 Pathology: other Condition: stable Disposition: PACU
[2024-12-08 08:30] VITALS: BP 104/66; PULSE 69; RESP 18; O2SAT 92
[2024-12-08 08:45] VITALS: BP 130/80; PULSE 76; RESP 18; TEMP 36.5; O2SAT 97
--- NOTE | 2024-12-08 10:02 | OP_ITS ---
DATE OF SERVICE: 12/08/2024 SURGEON: Jonny Gonzalez MD INDICATIONS: Hereditary diffuse gastric cancer syndrome. PREOPERATIVE DIAGNOSIS: POSTOPERATIVE DIAGNOSIS: PROCEDURE PERFORMED: Upper endoscopy with biopsy. ESTIMATED BLOOD LOSS: COMPLICATIONS: ANESTHESIA: Monitored anesthesia care. ASSISTANTS: SPECIMENS: PROCEDURE DESCRIPTION: A history and physical performed. Risks and benefits of the procedure were explained to the patient. Informed consent was obtained. The patient was placed in the left lateral decubitus position. The Olympus video gastroscope was introduced into the esophagus, stomach and duodenum. Examination was performed. The scope was removed. He tolerated the procedure well. He returned to the recovery area in stable condition. FINDINGS: 1. Esophagus: The esophagus was normal. 2. Stomach: The stomach showed some scarring from previous biopsies. Gastric distensibility was examined carefully along the mucosa under high definition white light after instillation of Mucomyst and simethicone. No abnormalities for gastric distention were noted. Biopsies were obtained from throughout the stomach in accordance with the protocol for hereditary diffuse gastric cancer syndrome protocol. 3. Duodenum: The bulb and second portion were normal. IMPRESSION: Normal upper endoscopy. RECOMMENDATION: Followup the biopsy results. MD GAYLE Mendoza/CHRISTOPHER / [id number]
== END 2024-12-08 09:14 | disposition home or self-care (01) ==
PROVIDERS: PCP Nurse Practitioner Family; Visit Provider Internal Medicine Gastroenterology
PROC: 0DJ08ZZ Inspection of Upper Intestinal Tract, Via Natural or Artificial Opening Endoscopic (ICD-10-PCS; CPT 43235; principal; 2024-12-08 07:30)
DX: Z15.09 Genetic susceptibility to other malignant neoplasm (principal); Z86.0101 Personal history of adenomatous and serrated colon polyps; Z80.0 Family history of malignant neoplasm of digestive organs; K21.9 Gastro-esophageal reflux disease without esophagitis
CPT/HCPCS: 43239; 88305; 88313; 88342; J2003; J2704

== ENCOUNTER 2025-01-12 09:48 | Outpatient (REF) | payer MEDICARE, BC, SELFPAY ==
[2025-01-12 20:49] LABS: Free T4 (Free Thyroxine) 0.90 ng/dL (0.71-1.85)
== END 2025-01-12 09:49 | disposition home or self-care (01) ==
LOC: HO.WFDLDS 09:48
PROVIDERS: PCP Nurse Practitioner Family; Visit Provider Nurse Practitioner Family
DX: I10 Essential (primary) hypertension (principal); E03.9 Hypothyroidism, unspecified
CPT/HCPCS: 36415; 84439; 84443; 99212

== ENCOUNTER 2025-01-12 09:48 | Outpatient (AMB) | payer MEDICARE, BC, SELFPAY ==
--- NOTE | 2025-01-12 09:54 | A.OFFPC_ITS ---
Vital Signs 01/12/25 09:57 Height 5 ft 6 in Weight 197 lb 4 oz BMI 31.8 BP 120/63 Blood Pressure Location Lt brachial Position Sitting Respiration 16 Pulse 70 Pulse Source Pulse Oximeter Temp 97.8 F Temp Source Oral Pulse Oximetry (%) 97 Oxygen Delivery Method Room Air Intake Visit Reasons: 2 mos hypothyroidism, hypertension Intake Note: patient here for 2 month hypothyroidism and HTN Web Marketing Intern Required: No Allergies No Known Allergies (No Known Allergies*) Allergy (Verified 01/12/25 10:07) Medication List - Last Reconciled 01/12/25 by Campos Jalloh CNP aspirin 81 mg PO DAILY atorvastatin 10 mg PO BEDTIME finasteride (Proscar) 5 mg PO DAILY ibuprofen 800 mg PO BID PRN levothyroxine (Levoxyl) 50 mcg PO DAILY 60 days losartan 1 tab PO DAILY omeprazole 40 mg PO DAILY Tobacco use date assessed: 11/10/24 Fall risk assessment: No Falls in past year Last assessed Fall Risk: 01/12/25 Dental Screening Dental Screen Date: 01/12/25 Did you have a dental visit in the last 12 months?: Yes Did you have a dental problem in the last 6 months where you did not have access to dental care?: No Was dental information given to patient?: Patient has dentist HPI HPI Comments History of Present Illness Details 64-year-old male presents for hypertensi on and hypothyroidism follow-up . He admits to taking his medications as prescribed without adverse reactions. He notes that he has been making healthy lifestyle changes. He offers no complaints and denies acute symptoms at this time. TSH/T4 blood work was inadvertently not ordered to be done for this visit as planned. [facility] Medical History BPH (benign prostatic hyperplasia) Pre-diabetes Hypothyroid Coronary artery calcification Hypertension Hyperlipidemia Obstructive sleep apnea on CPAP Personal history of nicotine dependence Emphysema lung Dyspnea Heartburn Tubular adenoma of colon Monoallelic mutation of CDH1 gene Family history of cancer of GI tract Surgical History History of esophagogastroduodenoscopy (EGD) History of colonoscopy History of tonsillectomy and adenoidectomy History of vasectomy History of elbow surgery History of repair of right rotator cuff History of repair of left rotator cuff History of medial meniscus repair of right knee History of right knee surgery Family History Father Metastatic cancer Hx of myocardial infarction CHF (congestive heart failure) DM2 (diabetes mellitus, type 2) Mother Hx of myocardial infarction COPD (chronic obstructive pulmonary disease) Osteoporosis CHF (congestive heart failure) Sister Monoallelic mutation of CDH1 gene History of stomach cancer BOOP (bronchiolitis obliterans with organizing pneumonia) Sister Monoallelic mutation of CDH1 gene History of stomach cancer Afib Sister Hx of myocardial infarction Monoallelic mutation of CDH1 gene Daughter History of stomach cancer Monoallelic mutation of CDH1 gene Son No problems noted. Social History Housing: House Alcohol intake: current Alcohol intake frequency: holidays/special occasions only Alcohol type: beer and wine Patient Tobacco Use Status: Current everyday Tobacco user Tobacco use type: Cigar Years Smoked: 35 e-Cigarette/Vaping Use: Never Used Second Hand Smoke Exposure: No Advance Directives Date on File: 05/17/20 service: Yes (Served in the [employer]) Current occupational status: employed and retired Current occupation: Worked for [employer] - Retired 02/2024 Current occupational exposures/hazards: No Cognitive needs: No Hearing needs: No Vision needs: Yes Questionnaire Thrive Questionnaire Date Thrive assessed: 08/21/24 I am a: Patient What is your living situation today?: I have a steady place to live Within the past 12 months, did the food you bought not last and you didn't have the money to get more?: Never true Within the past 12 months, did you worry whether your food would run out before you got money to buy more?: Never true Do you have trouble paying for medicines?: No Do you have trouble getting transportation to medical appointments?: No Do you have trouble paying your heating and electricity bill?: No Do you have trouble taking care of your child, family member or friend?: No Do you have trouble with day-to-day activities such as bathing, preparing meals, shopping, managing finances, etc.?: No Are you currently unemployed and looking for a job?: No Are you interested in more education?: No Please select the resources that you would like help with: None Currently or been in a relationship where the following occur: No concerns reported THRIVE Score: 0 TIMMY-7 AMB Questionnaire TIMMY-7 Date TIMMY - 7 assessed: 08/28/24 Source: Developed by Drs. Daniel Meyers, Frida Albert, Abran Pastrana and colleagues, with an educational rolan from [employer]. Review of Systems Const Details: Const Denies chills, Denies fatigue, Denies fever(s), Denies headache(s) and Denies weakness ENT Denies dizziness and Denies headache(s) Card Denies chest pain, Denies lightheadedness, Denies dyspnea and Denies other (Palpitations) Resp Denies cough, Denies dyspnea, Denies wheezing and Denies other ( shortness of breath) GI Denies abdominal pain, Denies melena, Denies hematochezia, Denies change in bowel habits, Denies dyspepsia and Denies nausea Denies hematuria and Denies dysuria Musc Denies abnormal gait, Denies myalgias, Denies arthralgias, Denies numbness and Denies tingling Skin/Breast Denies rash, Denies unusual bruising and Denies wounds Neuro Denies abnormal gait, Denies dizziness, Denies headache(s), Denies memory loss, Denies numbness, Denies Sensory deficit (Neuro), Denies tingling and Denies weakness Psych Denies anxiety, Denies depression, Denies memory loss Endo Denies cold intolerance, Denies fatigue, Denies heat intolerance, Denies polydipsia and Denies polyuria Aller/Immun Denies wheezing Physical exam (Primary Care) Vital Signs: Last Vital Signs Temp 97.8 F 01/12/25 09:57 Pulse 70 01/12/25 09:57 Resp 16 01/12/25 09:57 BP 120/63 01/12/25 09:57 Pulse Ox 97 01/12/25 09:57 Oxygen Delivery Method Room Air 01/12/25 09:57 BMI result Body Mass Index 31.8 Tobacco/Smoking Status: Tobacco use Status Tobacco use date assessed 11/10/24 01/12/25 09:57 Patient Tobacco Use Status Current everyday Tobacco 01/12/25 09:57 Tobacco use type Cigar 01/12/25 09:57 e-Cigarette/Vaping Use Never Used 01/12/25 09:57 Thrive Assessment: Date of Thrive Assessment Date Thrive assessed 08/21/24 01/12/25 09:57 Currently or been in a relationship where the following occur: No concerns reported Const Other: General: no acute distress and well developed Nutritional Appearance: well nourished Orientation/consciousness: patient oriented x3 [facility] Head: Yes normocephalic and Yes atraumatic Eyes General: appearance normal, both eyes and all related structures Pupils: Equal, round and reactive pupils present EOM: EOMs intact bilaterally Resp Effort & Inspection: normal respiratory effort Auscultation: clear to auscultation bilaterally Cardio Rate: regular rate Rhythm: regular rhythm Heart sounds: S1 normal heart sound present, S2 normal heart sound present, no gallops, no murmurs and no rubs Extrem General: Yes normal to inspection, No edema and No calf tenderness Skin General: warm and dry. Normal skin color. Normal skin turgor Neuro General: patient oriented x3, gait normal and no focal neuro deficit Cranial nerves: Yes Equal, round and reactive pupils present Cognition (Neuro): normal cognition Gait exam (Neuro): Normal gait present Sensory Exam: No Sensory deficit (Neuro) Psych Appearance: grossly normal Affect: normal affect Attitude: cooperative Thought process: Normal thought process present Coding Level of Care Code Est Pt Level 3 (49374) Diagnoses Hypertension I10 Hypothyroidism E03.9 Assessment & Plan Assessment & Plan (1) Hypertension: Code(s): I10 - Essential (primary) hypertension Category: Medical Plan: Blood pressure is 120/63, within goal of less than 140/90. Continue current treatment regimen. Low-sodium diet encouraged. Follow-up in 2 months with a PCP within the practice for transfer of care. Return sooner with symptoms or concerns. Verbalized understanding and agreed with the plan. (2) Hypothyroidism: Code(s): E03.9 - Hypothyroidism, unspecified Category: Medical Plan: TSH/T4 blood work was inadvertently not ordered to be done for this visit as planned. He will perform blood work after the visit. Will review results and make changes as needed. Continue current treatment. Verbalized understanding and agreed with the plan. Orders: Orders TSH reflex Free T4 Today E03.9 - Hypothyroidism, unspecified
[2025-01-12 09:57] VITALS: BP 120/63; PULSE 70; RESP 16; TEMP 36.6; O2SAT 97; BMI 31.8
== END 2025-01-12 10:12 | disposition home or self-care (01) ==
LOC: HO.HMCFM 09:49
PROVIDERS: PCP Nurse Practitioner Family; Visit Provider Nurse Practitioner Family
DX: I10 Essential (primary) hypertension (principal); E03.9 Hypothyroidism, unspecified